=== PATIENT | female | born 1945 | race Caucasian/White ===

== ENCOUNTER 2018-01-06 07:06 | Day surgery (SDC) | payer MEDICARE, OTHER ==
[~2018-01-06] VITALS: Ht 157.5 cm; Wt 90.3 kg
[2018-01-06] VITALS (8 sets, daily range): BP systolic 113–140; BP diastolic 68–94
[2018-01-06] MEDS ORDERED: NS IV 1000 ML 1,000 ML IV SCH (07:15)
[2018-01-06 07:45] LABS: HEMOGLOBIN 13.5 G/DL (11.5-16.0); MEAN PLATELET VOLUME 9.6 FL (7.4-10.4); RED BLOOD COUNT 4.68 10^6/uL (4.35-5.85); RED CELL DISTRIBUTION WIDTH 13.1 % (10.0-14.5); WHITE BLOOD COUNT 6.5 10^3/uL (4.3-11.0)
[2018-01-06 08:02] LABS: INR 1.1 (0.8-1.4); PROTHROMBIN TIME PATIENT 14.6 SEC (12.2-14.7)
[2018-01-06 08:07] LABS: ALANINE AMINOTRANSFERASE 9 U/L (0-55); ALBUMIN 3.8 GM/DL (3.2-4.5); ALKALINE PHOSPHATASE 39 U/L (40-136); BILIRUBIN,TOTAL 0.9 MG/DL (0.1-1.0); BUN/CREATININE RATIO 14; CALCIUM 9.1 MG/DL (8.5-10.1); CARBON DIOXIDE 22 MMOL/L (21-32); CHLORIDE 110 MMOL/L (98-107); CREATININE SERUM 0.84 MG/DL (0.60-1.30); GFR ESTIMATED > 60; GLUCOSE 115 MG/DL (70-105); POTASSIUM 4.1 MMOL/L (3.6-5.0); SODIUM 138 MMOL/L (135-145); TOTAL PROTEIN 6.1 GM/DL (6.4-8.2)
[2018-01-06] MEDS ORDERED: LEVE500T6 PO (08:52)
[2018-01-06] MEDS ORDERED: PANT40TA2 PO (08:52)
[2018-01-06] MEDS ORDERED: SIMV40TA4 PO (08:52)
[2018-01-06] MEDS ORDERED: APIX5TAB PO (08:52)
[2018-01-06] MEDS ORDERED: OMEG-82 PO (08:52)
[2018-01-06] MEDS ORDERED: METO-370 PO (08:52)
[2018-01-06] MEDS ORDERED: CYAN1TAB64 SL (08:52)
[2018-01-06] MEDS ORDERED: LISI-556 PO (08:52)
[2018-01-06] MEDS ORDERED: proPOfol 200 MG/20 ML (DIPRIVAN) VIAL IV ONE (09:27)
[2018-01-06] MEDS ORDERED: MIDAZOLAM 2 MG/2 ML (VERSED) VIAL ONE (09:28)
--- NOTE | 2018-01-06 09:57 | Anesthesia-Procedure Note ---
Procedures/Interventions Procedure Start/Stop/Diagnosis Date of Procedure: Jan 06, 2018 Start Time: 09:44 Referring Physician: Brett Preprocedural Diagnosis: Atrial Fibrillation Brief History Called to photo lab specialist for scheduled cardioversion of atrial fibrillation. Pt awake with all monitors applied. O2 per NC flowing at 3lpm. ASA 3. IV infusing Rt. arm. Propofol boluses given for a total of 70 mg. Pt tolerated procedure well. Remained SV. Sats 100%. Converted to SB. Report to RN. VSS Stop Time: 09:50 Postprocedural Diagnosis: Atrial Fibrillation SAWYER MCCRAY CRNA Jan 06, 2018 09:57
--- NOTE | 2018-01-06 10:17 | Cardioversion ---
Cardioversion PROCEDURE PHYSICIAN: Sharif West MD DATE OF PROCEDURE: 01/06/18 DIRECT EXTERNAL ELECTRICAL CARDIOVERSION: Indications: Atrial Fibrillation Preoperative diagnoses: Atrial Fibrillation Postoperative diagnosis: Sinus rhythm, Successful Electrical Cardioversion History: Anesthesia: By Anesthesia services Complications: None Specimen: None Contrast: 0 Flouroscopy: none Procedure Details: The patient was brought the labor employment associate after informed consent was taken, all the risks and complications were explained including the risk of stroke. Uninterrupted eliquis therapy for atleast one month. Electrical cardioversion was carried out with anesthesia support with propofol. 120 joules of synchronized shock was delivered through external patches which promptly restored sinus rhythm with PACs. The patient tolerated the procedure well. Conclusions: 1.Successful Cardioversion. 2.Continue oral anticoagulation and rate controlling agent. 3.Follow up in office in 10 days. Sharif West MD, RS, CCDS Cardiac Electrophysiology Shirley WEST MD Jan 06, 2018 10:16 am
== END 2018-01-06 10:57 | disposition home or self-care (01) ==
LOC: CATH 07:06
PROVIDERS: ATTEND Internal Medicine Interventional Cardiology
DX: I48.1 Persistent atrial fibrillation (principal); I49.3 Ventricular premature depolarization; I10 Essential (primary) hypertension; E78.5 Hyperlipidemia, unspecified; E66.9 Obesity, unspecified; Z68.36 Body mass index [BMI] 36.0-36.9, adult; Z87.891 Personal history of nicotine dependence; Z79.01 Long term (current) use of anticoagulants; Z79.899 Other long term (current) drug therapy
CPT/HCPCS: 36415; 80053; 85027; 85610; 85730; 87081; 92960; 93005

== ENCOUNTER 2018-04-27 19:18 | Emergency (ER) | payer MEDICARE, OTHER ==
[~2018-04-27] VITALS: Ht 157.5 cm; Wt 90.7 kg
[~2018-04-27 19:18] MED LIST: APIX5TAB PO; CYAN1TAB64 SL; LEVE500T6 PO; LISI-556 PO; METO-370 PO; OMEG-82 PO; PANT40TA2 PO; SIMV40TA4 PO
[2018-04-27 19:52] LABS: BASOPHILS % (AUTO) 0 % (0-10); EOSINOPHILS # (AUTO) 0.2 10^3/uL (0.0-0.3); EOSINOPHILS % (AUTO) 2 % (0-10); HEMATOCRIT 40 % (35-52); LYMPHOCYTES # (AUTO) 2.8 X 10^3 (1.0-4.0); LYMPHOCYTES % (AUTO) 36 % (12-44); MEAN CORPUSCULAR HEMOGLOBIN 29 PG (25-34); MEAN CORPUSCULAR HGB CONC 35 G/DL (32-36); MEAN CORPUSCULAR VOLUME 84 FL (80-99); MEAN PLATELET VOLUME 10.1 FL (7.4-10.4); MONOCYTES # (AUTO) 0.8 X 10^3 (0.0-1.0); MONOCYTES % (AUTO) 10 % (0-12); NEUTROPHILS # (AUTO) 4.1 X 10^3 (1.8-7.8); NEUTROPHILS % (AUTO) 52 % (42-75); PLATELET COUNT 277 10^3/uL (130-400); RED BLOOD COUNT 4.77 10^6/uL (4.35-5.85); WHITE BLOOD COUNT 7.9 10^3/uL (4.3-11.0)
[2018-04-27 19:56] LABS: BILIRUBIN,URINE NEGATIVE (NEGATIVE); CLARITY,URINE SLIGHTLY CLOUDY; COLOR,URINE YELLOW; GLUCOSE, URINE (UA) NEGATIVE (NEGATIVE); KETONES,URINE NEGATIVE (NEGATIVE); LEUKOCYTE ESTERASE ,URINE 3+ (NEGATIVE); NITRITE,URINE NEGATIVE (NEGATIVE); PH,URINE 5 (5-9); PROTEIN,URINE NEGATIVE (NEGATIVE); UROBILINOGEN,URINE NORMAL (NORMAL)
[2018-04-27 20:03] LABS: BACTERIA,URINE TRACE /HPF; RBC,URINE 0-2 /HPF; WBC,URINE >100 /HPF
[2018-04-27 20:10] LABS: FIBRIN DEGRADATION PRODUCTS 0.33 UG/ML (0.00-0.49); INR 1.3 (0.8-1.4); PROTHROMBIN TIME PATIENT 16.4 SEC (12.2-14.7)
[2018-04-27 20:12] LABS: ALANINE AMINOTRANSFERASE 12 U/L (0-55); ALBUMIN 4.2 GM/DL (3.2-4.5); ALKALINE PHOSPHATASE 60 U/L (40-136); BILIRUBIN,TOTAL 0.7 MG/DL (0.1-1.0); BUN/CREATININE RATIO 15; CALCIUM 9.2 MG/DL (8.5-10.1); CARBON DIOXIDE 18 MMOL/L (21-32); CHLORIDE 109 MMOL/L (98-107); CREATININE SERUM 0.89 MG/DL (0.60-1.30); GFR ESTIMATED > 60; GLUCOSE 117 MG/DL (70-105); SODIUM 139 MMOL/L (135-145); TOTAL PROTEIN 7.2 GM/DL (6.4-8.2)
[2018-04-27 20:35] VITALS: BP 126/65
--- NOTE | 2018-04-27 20:36 | Diagnostic Imaging Report ---
PROCEDURE: CT head without contrast, r/o stroke. TECHNIQUE: Multiple contiguous axial images were obtained through the brain without the use of intravenous contrast. INDICATION: Elevated blood pressure, prior brain tumor removed, blurred vision. COMPARISON: None available. FINDINGS: Mild atrophy. No intracranial hemorrhage, intracranial mass, mass effect, midline shift, herniation, hydrocephalus or extra-axial fluid collection. No definite CT evidence of an acute ischemic infarction. Postsurgical changes are identified associated with the right frontal bone with underlying dural calcifications. Postsurgical changes associated with the left maxillary sinus. The paranasal sinuses are clear. The calvarium and extracalvarial soft tissues are otherwise unremarkable. The orbits are unremarkable IMPRESSION: 1. No acute intracranial abnormality. 2. Postsurgical changes within the right frontal region. 3. Mild atrophy. 4. If there remains clinical concern about recent infarction, further evaluation with MRI of the brain could be obtained. Dictated by: Dictated on workstation # [id number]
--- NOTE | 2018-04-27 20:38 | Diagnostic Imaging Report ---
INDICATION: Stroke. COMPARISON: None available. TECHNIQUE: Single frontal radiograph of the chest dated April 27, 2018. FINDINGS: Cardiac silhouette is mildly enlarged. No significant pulmonary vascular congestion. Rounded retrocardiac density and lucency is present, most consistent with a large hiatal hernia. The lungs otherwise appear clear. No pleural effusion. No pneumothorax. No acute osseous abnormality. IMPRESSION: 1. No acute cardiopulmonary abnormality. 2. Retrocardiac density and lucency, favored to relate to a large hiatal hernia. Comparison to prior imaging versus lateral imaging of the chest are recommended to confirm this hiatal hernia. Dictated by: Dictated on workstation # [id number]
[2018-04-27] MEDS ORDERED: cefTRIAXone FOR IV USE 1,000 MG in NS (IVPB) 50 ML IV ONE (20:45)
[2018-04-27] MEDS ORDERED: NS 100 ML (IVPB) BAG IV ONE (21:00)
[2018-04-27] MEDS ORDERED: IOHEXOL 350 MG/ML 100 ML (OMNIPAQUE 350) VIAL IV ONE (21:00)
[2018-04-27] MEDS ORDERED: RECEIVED CONTRAST (Hold Metformin) IV SCH (21:00)
--- NOTE | 2018-04-27 21:47 | ED General ---
General Chief Complaint: General Problems/Pain Stated Complaint: BLOOD PRESSURE PROBLEMS,LOSS OF VISION, HAS A FIB Nursing Triage Note: PT AMB TO ROOM #5 W/O DIFFICULTY. A&OX4. C/O FLUCTUATING BP, VISUAL CHANGES, AND HEAD DISCOMFORT. PT REPORTS SHE WAS WATCHING TV THIS EVENING @ APPROX 1900 WHEN SHE LOST BILAT VISION. PT STATES, "MY HEAD FEELS WEIRD, IT JUST DOES'NT FEEL RIGHT." UPON ARRIVAL NO VISUAL DISTURBANCES NOTED. 4MM PERRLA. DENIES NUMBNESS/TINGLING IN EXTREMITIES. DENIES HEADAHCE. INITIAL BP 147/81. REPORTS HX A-FIB. @ SIDE. Nursing Sepsis Screen: No Definite Risk Source of Information: Patient Exam Limitations: No Limitations History of Present Illness Date Seen by Provider: Apr 27, 2018 Allergies and Home Medications Allergies Coded Allergies: acetaminophen (Verified Allergy, Unknown, 01/06/18) amoxicillin (Verified Allergy, Unknown, 01/06/18) clavulanic acid (Verified Allergy, Unknown, 01/06/18) codeine (Verified Allergy, Unknown, 01/06/18) hydrocodone (Verified Allergy, Unknown, 01/06/18) oxycodone (Verified Allergy, Unknown, 01/06/18) Home Medications Apixaban 5 Mg Tablet, 5 MG PO BID, (Reported) Cyanocobalamin/Cobamamide 1 Each Tab.subl, 5,000 MCG SL DAILY, (Reported) Levetiracetam 500 Mg Tablet, 250 MG PO BID, (Reported) TAKES 1/2 (500MG) TABLET Lisinopril 5 Mg Tablet, 5 MG PO DAILY, (Reported) Metoprolol Succinate 50 Mg Tab.er.24h, 50 MG PO DAILY, (Reported) Nitrofurantoin Monohyd/M-Cryst 100 Mg Capsule, 100 MG PO BID Prescribed by: MARYURI LACY on 04/27/18 2240 [place]-3S/Dha/Epa/Fish Oil/D3 1 Each Capsule, 1 CAP PO DAILY, (Reported) Pantoprazole Sodium 40 Mg Tablet.dr, 40 MG PO DAILY, (Reported) Simvastatin 40 Mg Tablet, 40 MG PO DAILY, (Reported) Past Xwsfniz-Iyeppy-Tkzcpl Hx Patient Social History Alcohol Use: Denies Use Recreational Drug Use: No Smoking Status: Never a Smoker 2nd Hand Smoke Exposure: No Recent Foreign Travel: No Contact w/Someone Who Travel: No Recent Infectious Disease Expo: No Physical Abuse: No Sexual Abuse: No Immunizations Up To Date Date of Pneumonia Vaccine: Jan 07, 2016 Past Medical History Surgeries: Yes (BRAIN TUMOR, REMOVAL OF LUMP IN BREAST, MASS REMOVED FROM FACE) Respiratory: No Cardiac: Yes Atrial Fibrillation Neurological: Yes Brain Tumor Genitourinary: No Gastrointestinal: Yes (DIVERTICULITIS) Hiatal Hernia Musculoskeletal: No Endocrine: No HEENT: No Brain Integumentary: No Physical Exam Vital Signs Vital Signs - First Documented 04/27/18 19:28 Temp 97.9 Pulse 89 Resp 22 B/P (MAP) 147/81 (103) Pulse Ox 98 O2 Delivery Room Air Capillary Refill : Less Than 3 Seconds Height, Weight, BMI Height: 5'2.00" Weight: 200lbs. 0.0oz. [id number]; 36.4 BMI Method:Stated Focused Exam Lactate Level 04/27/18 21:50: Lactic Acid Level 0.81 Lactic Acid Level Laboratory Tests Test 04/27/18 21:50 Lactic Acid Level 0.81 MMOL/L (0.50-2.00) Progress/Results/Core Measures Suspected Sepsis Recent Fever Within 48 Hours: No Infection Criteria Present: None New/Unexplained Altered Menta: No Sepsis Screen: No Definite Risk SIRS Temperature:97.9 Pulse: 53 Respiratory Rate: 20 Laboratory Tests 04/27/18 19:32: White Blood Count 7.9 Blood Pressure 126 /65 Mean: 103 04/27/18 21:50: Lactic Acid Level 0.81 Laboratory Tests 04/27/18 19:32: Creatinine 0.89, INR Comment 1.3, Platelet Count 277, Total Bilirubin 0.7 Results/Orders Lab Results Laboratory Tests Test 04/27/18 19:32 04/27/18 19:47 04/27/18 21:50 Range/Units White Blood Count 7.9 4.3-11.0 10^3/uL Red Blood Count 4.77 4.35-5.85 10^6/uL Hemoglobin 14.0 11.5-16.0 G/DL Hematocrit 40 35-52 % Mean Corpuscular Volume 84 80-99 FL Mean Corpuscular Hemoglobin 29 25-34 PG Mean Corpuscular Hemoglobin Concent 35 32-36 G/DL Red Cell Distribution Width 13.0 10.0-14.5 % Platelet Count 277 130-400 10^3/uL Mean Platelet Volume 10.1 7.4-10.4 FL Neutrophils (%) (Auto) 52 42-75 % Lymphocytes (%) (Auto) 36 12-44 % Monocytes (%) (Auto) 10 0-12 % Eosinophils (%) (Auto) 2 0-10 % Basophils (%) (Auto) 0 0-10 % Neutrophils # (Auto) 4.1 1.8-7.8 X 10^3 Lymphocytes # (Auto) 2.8 1.0-4.0 X 10^3 Monocytes # (Auto) 0.8 0.0-1.0 X 10^3 Eosinophils # (Auto) 0.2 0.0-0.3 10^3/uL Basophils # (Auto) 0.0 0.0-0.1 10^3/uL Prothrombin Time 16.4 H 12.2-14.7 SEC INR Comment 1.3 0.8-1.4 Activated Partial Thromboplast Time 45 H 24-35 SEC D-Dimer 0.33 0.00-0.49 UG/ML Sodium Level 139 135-145 MMOL/L Potassium Level 4.0 3.6-5.0 MMOL/L Chloride Level 109 H 98-107 MMOL/L Carbon Dioxide Level 18 L 21-32 MMOL/L Anion Gap 12 5-14 MMOL/L Blood Urea Nitrogen 13 7-18 MG/DL Creatinine 0.89 0.60-1.30 MG/DL Estimat Glomerular Filtration Rate > 60 BUN/Creatinine Ratio 15 Glucose Level 117 H 70-105 MG/DL Calcium Level 9.2 8.5-10.1 MG/DL Corrected Calcium 9.0 8.5-10.1 MG/DL Total Bilirubin 0.7 0.1-1.0 MG/DL Aspartate Amino Transf (AST/SGOT) 18 5-34 U/L Alanine Aminotransferase (ALT/SGPT) 12 0-55 U/L Alkaline Phosphatase 60 40-136 U/L Troponin I < 0.30 <0.30 NG/ML Total Protein 7.2 6.4-8.2 GM/DL Albumin 4.2 3.2-4.5 GM/DL Urine Color YELLOW Urine Clarity SLIGHTLY CLOUDY Urine pH 5 5-9 Urine Specific [place] 1.025 H 1.016-1.022 Urine Protein NEGATIVE NEGATIVE Urine Glucose (UA) NEGATIVE NEGATIVE Urine Ketones NEGATIVE NEGATIVE Urine Nitrite NEGATIVE NEGATIVE Urine Bilirubin NEGATIVE NEGATIVE Urine Urobilinogen NORMAL NORMAL MG/DL Urine Leukocyte Esterase 3+ H NEGATIVE Urine RBC (Auto) 1+ H NEGATIVE Urine RBC 0-2 /HPF Urine WBC >100 H /HPF Urine Squamous Epithelial Cells 2-5 /HPF Urine Crystals NONE /LPF Urine Bacteria TRACE /HPF Urine Casts NONE /LPF Urine Mucus NEGATIVE /LPF Urine Culture Indicated YES Lactic Acid Level 0.81 0.50-2.00 MMOL/L My Orders Orders - MARYURI LACY DO Cbc With Automated Diff (04/27/18 19:40) Protime With Inr (04/27/18 19:40) Partial Thromboplastin Time (04/27/18 19:40) Comprehensive Metabolic Panel (04/27/18 19:40) Fibrin Degradation Products (04/27/18 19:40) Troponin I (04/27/18 19:40) Ua Culture If Indicated (04/27/18 19:40) Chest 1 View, Ap/Pa Only (04/27/18 19:40) Ekg Tracing (04/27/18 19:40) Nothing By Mouth (04/28/18 Breakfast) Saline Lock/Iv-Start (04/27/18 19:40) Vital Signs Stroke Patient Q15M (04/27/18 19:40) Ct Head Wo-R/O Stroke (04/27/18 19:40) O2 (04/27/18 19:40) Intake & Output 06,14,22 (04/27/18 19:40) Monitor-Rhythm Ecg Trace Only (04/27/18 19:40) Dysphagia Screening Tool (04/27/18 19:40) Post Thrombolytic Adminstratio (04/27/18 19:40) Lipid Panel (04/28/18 06:00) Urine Culture (04/27/18 19:47) Ct Angio Head/Neck (04/27/18 20:40) Lactic Acid Analyzer (04/27/18 20:42) Blood Culture (04/27/18 20:42) Ceftriaxone For Iv Use (Rocephin For I (04/27/18 20:45) Iohexol Injection (Omnipaque 350 Mg/Ml 1 (04/27/18 21:00) Contrast Received (Contrast Received) (04/27/18 21:00) Ns (Ivpb) (Sodium Chloride 0.9% Ivpb Bag (04/27/18 21:00) Saline Lock/Iv-Start (04/27/18 22:08) Lactated Ringers (Lr 1000 Ml Iv Solution (04/27/18 22:08) Lactated Ringers (Lr 1000 Ml Iv Solution (04/27/18 22:08) Medications Given in ED Current Medications Medications Dose Ordered Sig/Rita Route Start Time Stop Time Status Last Admin Dose Admin Ceftriaxone Sodium 1000 mg/ Sodium Chloride 60 ml @ 100 mls/hr ONCE ONCE IV 04/27/18 20:45 04/27/18 21:20 DC 04/27/18 22:09 100 MLS/HR Iohexol 75 ml ONCE ONCE IV 04/27/18 21:00 04/27/18 21:11 DC 04/27/18 20:57 75 ML Lactated Ringer's 1,000 ml @ 0 mls/hr Q0M ONCE IV 04/27/18 22:08 04/27/18 22:10 DC 04/27/18 22:12 1,000 MLS/HR Sodium Chloride 100 ml ONCE ONCE IV 04/27/18 21:00 04/27/18 21:11 DC 04/27/18 20:57 80 ML Vital Signs/I&O 04/27/18 04/27/18 19:28 20:35 Temp 97.9 Pulse 89 53 Resp 22 20 B/P (MAP) 147/81 (103) 126/65 Pulse Ox 98 95 O2 Delivery Room Air Capillary Refill : Less Than 3 Seconds Blood Pressure Mean: 103 Departure Impression Primary Impression: UTI (urinary tract infection) Additional Impression: TRANSIENT BLURRY VISION Disposition: 01 HOME, SELF-CARE Condition: Improved Departure-Patient Inst. Referrals: NO,LOCAL PHYSICIAN (PCP) Primary Care Physician BALDOMERO PARISH MD Patient Instructions: Urinary Tract Infection, Adult (DC) Add. Discharge Instructions: HOME, REST LOTS OF CLEAR LIQUIDS SLOW POSITION CHANGES TAKE YOUR REGULAR MEDICATIONS PRESCRIBED FOLLOW UP WITH YOUR DR THIS WEEK FOR FURTHER CARE All discharge instructions reviewed with patient and/or family. Voiced understanding. Scripts Nitrofurantoin Monohyd/M-Cryst (Macrobid 100 mg Capsule) 100 Mg Capsule 100 MG PO BID, #20 CAP Prov: MARYURI LACY DO 04/27/18 MARYURI LACY DO Apr 27, 2018 21:47
--- NOTE | 2018-04-27 21:50 | Diagnostic Imaging Report ---
PROCEDURE: CT angiography of the head and CT angiography of the neck with and without contrast. TECHNIQUE: Contiguous noncontrast images were obtained from the skull base through the vertex. After intravenous contrast administration, helical CT angiography of the neck was performed. Source data was reformatted into multiple MIP projections. Delayed post contrast acquisition was also obtained. INDICATION: Elevated blood pressure COMPARISON: CT head from the same day. FINDINGS: Mild atrophy. No enhancing intracranial mass. Surgical changes are again identified associated with the right frontal region with underlying dural calcifications. No definite intracranial hemorrhage, though evaluation is limited secondary to presence of intravenous contrast. No midline shift, herniation, hydrocephalus, or extra-axial fluid collection. Mucosal thickening versus mucous retention cyst within the left maxillary sinus. Postsurgical changes within the left maxillary sinus. Otherwise, the paranasal sinuses are clear. Besides postsurgical changes, the calvarium and extracalvarial soft tissues are unremarkable. Parapharyngeal fat is symmetric and well maintained. Muscles of mastication are unremarkable. The orbits are unremarkable. The left salivary gland is diminutive. Otherwise, the salivary glands are unremarkable. No significant adenopathy within the neck. The epiglottis and aryepiglottic folds are unremarkable. The airway is patent. No focal fluid collection. The thyroid gland appears heterogeneous without discrete nodule. The visualized upper lungs are clear. No apical pneumothorax. The aortic arch itself is not included within the [id number], therefore, the origins of the large vessels off of the aortic arch is not able be evaluated on this examination. The large arterial structures within the head and neck are unremarkable without evidence of occlusion, dissection, hemodynamic stenosis, aneurysm, or pseudoaneurysm. Large intracranial venous sinuses are patent. IMPRESSION: Large arterial structures of the head and neck are unremarkable. Mild atrophy with stable postsurgical changes within the right frontal region. Additional findings as above. Dictated by: Dictated on workstation # [id number]
[2018-04-27] MEDS ORDERED: LACTATED RINGERS 1,000 ML IV ONE ×2 (22:08)
[2018-04-27] MEDS ORDERED: NITR-65 PO (22:40)
[2018-04-27 23:31] VITALS: BP 130/67
== END 2018-04-27 23:32 | disposition home or self-care (01) ==
LOC: EDUNIT# 19:18 → ER 19:20
DX: N39.0 Urinary tract infection, site not specified (principal); H53.8 Other visual disturbances; I48.91 Unspecified atrial fibrillation; Z88.5 Allergy status to narcotic agent; Z88.1 Allergy status to other antibiotic agents; Z88.8 Allergy status to other drugs, medicaments and biological substances; Z86.012 Personal history of benign carcinoid tumor; Z87.19 Personal history of other diseases of the digestive system
CPT/HCPCS: 36415; 70450; 70496; 70498; 71045; 80053; 81000; 83605; 84484; 85025; 85379; 85610; 85730; 87040; 87088; 93005; 93041; 96361; 96365

== ENCOUNTER 2018-05-19 12:43 | Emergency (ER) | payer MEDICARE, OTHER ==
[~2018-05-19] VITALS: Ht 157.5 cm; Wt 88.5 kg
[~2018-05-19 12:43] MED LIST changes: +NITR-65 PO
[2018-05-19] MEDS ORDERED: NS IV 1000 ML 1,000 ML IV SCH ×2 (13:00→15:15)
[2018-05-19] MEDS ORDERED: ONDANSETRON 4 MG/2 ML (SDV) Z0FRAN IVP ONE (13:00)
[2018-05-19 13:10] LABS: BASOPHILS % (AUTO) 0 % (0-10); EOSINOPHILS % (AUTO) 0 % (0-10); HEMATOCRIT 45 % (35-52); HEMOGLOBIN 15.2 G/DL (11.5-16.0); LYMPHOCYTES # (AUTO) 2.4 X 10^3 (1.0-4.0); LYMPHOCYTES % (AUTO) 16 % (12-44); MEAN CORPUSCULAR HEMOGLOBIN 28 PG (25-34); MEAN CORPUSCULAR HGB CONC 34 G/DL (32-36); MEAN CORPUSCULAR VOLUME 84 FL (80-99); MEAN PLATELET VOLUME 10.3 FL (7.4-10.4); MONOCYTES # (AUTO) 0.5 X 10^3 (0.0-1.0); MONOCYTES % (AUTO) 4 % (0-12); NEUTROPHILS # (AUTO) 11.7 X 10^3 (1.8-7.8); NEUTROPHILS % (AUTO) 79 % (42-75); PLATELET COUNT 333 10^3/uL (130-400); RED BLOOD COUNT 5.38 10^6/uL (4.35-5.85); RED CELL DISTRIBUTION WIDTH 13.2 % (10.0-14.5); WHITE BLOOD COUNT 14.7 10^3/uL (4.3-11.0)
[2018-05-19 13:32] LABS: BAND NEUTROPHILS 0 %; BASOPHILS % (MANUAL) 0 %; EOSINOPHILS % (MANUAL) 0 %; LYMPHOCYTES % (MANUAL) 22 %; MONOCYTES % (MANUAL) 4 %; NEUTROPHILS % (MANUAL) 74 %; RBC MORPH NORMAL
[2018-05-19 13:36] LABS: ALANINE AMINOTRANSFERASE 10 U/L (0-55); ALBUMIN 4.2 GM/DL (3.2-4.5); ALKALINE PHOSPHATASE 54 U/L (40-136); AMYLASE 34 U/L (25-125); BILIRUBIN,TOTAL 1.3 MG/DL (0.1-1.0); BUN/CREATININE RATIO 15; CALCIUM 9.7 MG/DL (8.5-10.1); CARBON DIOXIDE 19 MMOL/L (21-32); CHLORIDE 106 MMOL/L (98-107); CREATININE SERUM 0.89 MG/DL (0.60-1.30); GFR ESTIMATED > 60; GLUCOSE 159 MG/DL (70-105); LIPASE 34 U/L (8-78); POTASSIUM 4.3 MMOL/L (3.6-5.0); SODIUM 138 MMOL/L (135-145); TOTAL PROTEIN 7.2 GM/DL (6.4-8.2)
[2018-05-19] MEDS ORDERED: MECLIZINE 25 MG (ANTIVERT) TAB PO ONE (13:45)
--- NOTE | 2018-05-19 14:52 | Diagnostic Imaging Report ---
PROCEDURE: CT head wo r/o stroke. TECHNIQUE: Multiple contiguous axial images were obtained through the brain without the use of intravenous contrast. INDICATION: Dizziness and weakness. COMPARISON: Comparison is made with prior head CT from 04/27/2018. FINDINGS: Postsurgical changes of right frontal craniotomy are noted. Ventricles and sulci are within normal limits. No sulcal effacement, midline shift, or hemorrhage is detected. Cisterns are patent. Visualized paranasal sinuses are clear apart from small mucus retention cyst or polyp in the left maxillary sinus. IMPRESSION: No acute intracranial process is detected. Results were called to [facility] of the emergency department prior to this dictation. Dictated by: Dictated on workstation # [id number]
[2018-05-19] MEDS ORDERED: PROMETHAZINE INJ 25 MG/ML (PHENERGAN) AMP IVP ONE (15:00)
[2018-05-19 15:13] LABS: BILIRUBIN,URINE NEGATIVE (NEGATIVE); CLARITY,URINE CLEAR; COLOR,URINE YELLOW; GLUCOSE, URINE (UA) NEGATIVE (NEGATIVE); KETONES,URINE 4+ (NEGATIVE); LEUKOCYTE ESTERASE ,URINE 1+ (NEGATIVE); NITRITE,URINE NEGATIVE (NEGATIVE); PH,URINE 5 (5-9); PROTEIN,URINE 2+ (NEGATIVE); UROBILINOGEN,URINE NORMAL (NORMAL)
[2018-05-19 15:26] LABS: BACTERIA,URINE NEGATIVE /HPF; RBC,URINE RARE /HPF; SQUAMOUS EPITHELIAL CELL,UR RARE /HPF; WBC,URINE RARE /HPF
--- NOTE | 2018-05-19 15:50 | Consultation-Cardiology ---
HPI-Cardiology Cardiology Consultation: Date of Consultation 05/19/18 Date of Admission Attending Physician Admitting Physician Cleo,Local Physician Consulting Physician Shirley WEST MD HPI: Time Seen by a Provider: 15:44 Chief Complaint: Nausea, vomiting, dizziness. This is a 72-year-old lady who presents with the complaint of nausea, vomiting and dizziness. She denies any chest pain or shortness of breath. Previously she was referred by Dr. Whiting for persistent atrial fibrillation. Patient has recently moved to the [facility]. She has history of hypertension, hyperlipidemia. She denies diabetes, congestive heart failure, CAD. She has history of possible heart murmur, hiatal hernia, colitis. She also has a history of a brain tumor which required surgery. She has a raised to a left upper arm numbness. She also had precancerous lesion in the breast and also sinus surgery. According to the patient she had echocardiogram and stress test done in May 2017. She does not smoke. She has family history of diabetes and congestive heart failure. According to the patient her atrial fibrillation was diagnosed in April 2017. She complains of fatigue and shortness of breath. She denies any chest pain. Successful electrical cardioversion to sinus rhythm on 01/06/2018. Improved symptoms during sinus rhythm. Review of Systems-Cardiology Review of Systems Constitutional: As described under HPI; No As described under HPI, No no symptoms reported; chills; No fever; lightheadedness, tiredness Eyes: No As described under HPI, No no symptoms reported, No blindness, No blurred vision, No contact lenses, No drainage, No decreased acuity, No foreign body sensation, No pain, No vision change Ears/Nose/Throat: No As described under HPI, No no symptoms reported, No chronic hearing loss, No ear discharge, No ear pain, No nasal drainage, No ulcerations Respiratory: No no symptoms reported; As described under HPI; No As described under HPI, No cough, No orthopnea, No shortness of breath, No SOB with excertion Cardiovascular: No no symptoms reported; As described under HPI; No As described under HPI, No chest pain, No edema, No irregular heart rate, No lightheadedness, No palpitations Gastrointestinal: No no symptoms reported, No As described under HPI, No abdomen distended, No abdominal pain, No blood streaked bowels, No constipation , No diarrhea, No nausea, No vomiting; nausea/vomiting/diarrhea; No stool coloration changes Genitourinary: No As described under HPI, No burning, No dysuria, No discharge , No frequency, No flank pain, No hematuria, No urgency : Yes : No Skin: No rash, No skin related problems, No ulcerations Psychiatric/Neurological: No anxiety, No depression, No seizure, No focal weakness, No syncope Hematologic: No bleeding abnormalities DYV-Mgwldn-Rckpsq Hx Patient Social History Alcohol Use: Denies Use Recreational Drug Use: No Smoking Status: Never a Smoker 2nd Hand Smoke Exposure: No Recent Foreign Travel: No Recent Infectious Disease Expo: No Immunizations Up To Date Date of Pneumonia Vaccine: Jan 07, 2016 Past Medical History PMH As described under Assessment. Allergies and Home Medications Allergies Coded Allergies: acetaminophen (Verified Allergy, Unknown, 01/06/18) amoxicillin (Verified Allergy, Unknown, 01/06/18) clavulanic acid (Verified Allergy, Unknown, 01/06/18) codeine (Verified Allergy, Unknown, 01/06/18) hydrocodone (Verified Allergy, Unknown, 01/06/18) oxycodone (Verified Allergy, Unknown, 01/06/18) Home Medications Apixaban 5 Mg Tablet, 5 MG PO BID, (Reported) Cyanocobalamin/Cobamamide 1 Each Tab.subl, 5,000 MCG SL DAILY, (Reported) Levetiracetam 500 Mg Tablet, 250 MG PO BID, (Reported) TAKES 1/2 (500MG) TABLET Lisinopril 5 Mg Tablet, 5 MG PO DAILY, (Reported) Metoprolol Succinate 50 Mg Tab.er.24h, 50 MG PO DAILY, (Reported) Nitrofurantoin Monohyd/M-Cryst 100 Mg Capsule, 100 MG PO BID Prescribed by: MARYURI LACY on 04/27/18 2240 Chase-3S/Dha/Epa/Fish Oil/D3 1 Each Capsule, 1 CAP PO DAILY, (Reported) Pantoprazole Sodium 40 Mg Tablet.dr, 40 MG PO DAILY, (Reported) Simvastatin 40 Mg Tablet, 40 MG PO DAILY, (Reported) Patient Home Medication List Home Medication List Reviewed: Yes Physical Exam-Cardiology Physical Exam Vital Signs/I&O 05/19/18 13:19 Temp 98.7 Pulse 103 Resp 20 B/P (MAP) 118/85 (96) Capillary Refill : Less Than 3 Seconds Constitutional: AAO x 3 HEENT: No PERRL, No normal ENT inspection, No TMs normal, No pharynx normal, No scleral icterus (R), No scleral icterus (L), No pale conjunctivae (R), No pale conjunctivae (L), No photophobia, No TM abnormal (R), No TM abnormal (L), No pharyngeal erythema, No tonsillar exudate, No other, No discharge, No EOMI, No hearing is well preserved, No hard of hearing, No oral hygience is good, No ulceration, No xanthelasmas are seen Neck: No non-tender, No full range of motion, No supple, No normal inspection, No carotid bruit, No limited range of motion, No lymphadenopathy (R), No lymphadenopathy (L), No tender lateral, No tender midline, No thyromegaly, No other, No carotid pulses are 2 + bilaterally, No with good upstrokes Respiratory: No accessory muscle use, No respiratory distress, No chest tender , No chest expansion is symmetric; chest is bilaterally symmetric; No lungs clear to percussion; lungs clear to auscultation; No crackles, No rhonchi, No rales, No stridor, No wheezing, No pleural rub, No other Cardiovascular: No regular rate-rhythm; irregularly irregular; No extra beats, No parasternal heave is noted, No JVD, No edema, No bradycardia; tachycardia; No point of maximal impulse, No cardiac thrills are palpable; S1 and S2; No gallop/S3, No gallop/S4, No diastolic murmur, No systolic murmur, No friction rub, No click, No other Gastrointestinal: No tender, No soft, No round, No distended, No pulsatile mass , No organomegaly, No guarding, No rebound, No tenderness, No hernia, No mass, No audible bowel sounds, No abnormal bowel sounds, No abdominal bruits, No spleenomegaly, No other Rectal: deferred Extremities: No normal range of motion, No non-tender, No normal inspection, No pedal edema, No calf tenderness, No normal capillary refill, No pelvis stable , No calf tenderness, No inflammation, No pedal edema, No slow capillary refill , No swelling, No other, No abrasion, No clubbing, No cyanosis, No ecchymosis, No laceration, No no lower extremity edema bilateral, No significant edema, No tenderness, No wound Neurologic/Psychiatric: no motor/sensory deficits, alert, normal mood/affect, oriented x 3 Data Review Labs Laboratory Tests 05/19/18 13:02: White Blood Count 14.7H, Red Blood Count 5.38, Hemoglobin 15.2, Hematocrit 45, Mean Corpuscular Volume 84, Mean Corpuscular Hemoglobin 28, Mean Corpuscular Hemoglobin Concent 34, Red Cell Distribution Width 13.2, Platelet Count 333, Mean Platelet Volume 10.3, Neutrophils (%) (Auto) 79H, Lymphocytes (%) (Auto) 16 , Monocytes (%) (Auto) 4, Eosinophils (%) (Auto) 0, Basophils (%) (Auto) 0, Neutrophils # (Auto) 11.7H, Lymphocytes # (Auto) 2.4, Monocytes # (Auto) 0.5, Eosinophils # (Auto) 0.0, Basophils # (Auto) 0.0, Neutrophils % (Manual) 74, Lymphocytes % (Manual) 22, Monocytes % (Manual) 4, Eosinophils % (Manual) 0, Basophils % (Manual) 0, Band Neutrophils 0, Blood Morphology Comment NORMAL, Sodium Level 138, Potassium Level 4.3, Chloride Level 106, Carbon Dioxide Level 19L, Anion Gap 13, Blood Urea Nitrogen 13, Creatinine 0.89, Estimat Glomerular Filtration Rate > 60, BUN/Creatinine Ratio 15, Glucose Level 159H, Calcium Level 9.7, Corrected Calcium 9.5, Total Bilirubin 1.3H, Aspartate Amino Transf ( AST/SGOT) 17, Alanine Aminotransferase (ALT/SGPT) 10, Alkaline Phosphatase 54, Troponin I < 0.028, B-Type Natriuretic Peptide 50.0, Total Protein 7.2, Albumin 4.2, Amylase Level 34, Lipase 34 05/19/18 15:06: Urine Color YELLOW, Urine Clarity CLEAR, Urine pH 5, Urine Specific [place] 1.030H, Urine Protein 2+H, Urine Glucose (UA) NEGATIVE, Urine Ketones 4+H, Urine Nitrite NEGATIVE, Urine Bilirubin NEGATIVE, Urine Urobilinogen NORMAL, Urine Leukocyte Esterase 1+H, Urine RBC (Auto) 1+H, Urine RBC RARE, Urine WBC RARE, Urine Squamous Epithelial Cells RARE, Urine Crystals NONE, Urine Bacteria NEGATIVE, Urine Casts NONE, Urine Mucus NEGATIVE, Urine Culture Indicated NO ECG Impression ECG Initial ECG Impression: Atrial Fibrillation w/RVR A/P-Cardiology Assessment/Admission Diagnosis Nausea, vomiting, dizziness, Persistent atrial fibrillation Plan This is a 72-year-old lady who presents to the ER with complains of nausea, vomiting, dizziness. She is found to be in atrial fibrillation with heart rate of 102 bpm. She was complaining of dizziness while I was taking history but her heart rate was atrial fibrillation in the 90s with a systolic blood pressure of 110 mmHg. The dizziness is therefore unlikely due to cardiac in origin. She was previously referred by Dr. Whiting for persistent atrial fibrillation. She has history of hypertension, hyperlipidemia. She denies diabetes, congestive heart failure, CAD. She has history of possible heart murmur, hiatal hernia, colitis. She also has a history of a brain tumor which required surgery. She has a raised to a left upper arm numbness. She also had precancerous lesion in the breast and also sinus surgery. According to the patient she had echocardiogram and stress test done in May 2017. She does not smoke. She has family history of diabetes and congestive heart failure. According to the patient her atrial fibrillation was diagnosed in April 2017. She complains of fatigue and shortness of breath. She denies any chest pain. no palpitations. 1. Persistent atrial fibrillation: Her CHADSVASC score is 4 for gender, age, hypertension. Therefore oral anticoagulation is superior to aspirin alone. She will continue Eliquis therapy. Continue metoprolol and Eliquis. Successful cardioversion on 01/06/2018. Once she gets better with her current illness, we will consider cardioversion with antiarrhythmics in the future. 2. Hypertension: Better controlled. Toprol-XL 25 mg daily. Dose of Toprol was reduced due to sinus bradycardia. 3. PVCs: Continue low-dose beta sven. Thank you for your consultation. Please call me if you have any questions. Sharif West MD, FACP, FACC, FSCAI, FHRS, CCDS Interventional Cardiology Cardiac Electrophysiology Vascular Medicine and Endovascular Interventions Shirley WEST MD May 19, 2018 15:50
--- NOTE | 2018-05-19 15:51 | ED Syncope ---
General Chief Complaint: Abdominal/GI Problems Stated Complaint: N/V Nursing Triage Note: pt presents to ed with complaints of dizziness, nausea, and vomiting starting this am. Source of Information: Patient Exam Limitations: No Limitations History of Present Illness Date Seen by Provider: May 19, 2018 Time Seen by Provider: 12:50 Initial Comments 72-year-old female who is brought to the emergency room by [facility] for complaints of dizziness for the past 4 days and nausea and vomiting that started this morning around 11:00. She reports that today every time she moves she becomes very dizzy and has episodes of nausea and vomiting shortly after. She is alert and oriented on arrival to the emergency room. Denies any shortness of breath or chest pain. She is a patient of Dr. Llanes. Timing/Prior Episodes: No Prior History Symptoms Prior to Episode: Lightheadedness, Nausea Loss of Consciousness: No Loss of Consciousness Current Symptoms: Dizziness, Nausea Allergies and Home Medications Allergies Coded Allergies: acetaminophen (Verified Allergy, Unknown, 01/06/18) amoxicillin (Verified Allergy, Unknown, 01/06/18) clavulanic acid (Verified Allergy, Unknown, 01/06/18) codeine (Verified Allergy, Unknown, 01/06/18) hydrocodone (Verified Allergy, Unknown, 01/06/18) oxycodone (Verified Allergy, Unknown, 01/06/18) Home Medications Apixaban 5 Mg Tablet, 5 MG PO BID, (Reported) Cyanocobalamin/Cobamamide 1 Each Tab.subl, 5,000 MCG SL DAILY, (Reported) Levetiracetam 500 Mg Tablet, 250 MG PO BID, (Reported) TAKES 1/2 (500MG) TABLET Lisinopril 5 Mg Tablet, 5 MG PO DAILY, (Reported) Meclizine HCl 25 Mg Tab.chew, 25 MG PO BID Prescribed by: ROC WASSERMAN on 05/19/18 1735 Metoprolol Succinate 50 Mg Tab.er.24h, 50 MG PO DAILY, (Reported) Nitrofurantoin Monohyd/M-Cryst 100 Mg Capsule, 100 MG PO BID Prescribed by: MARYURI LACY on 04/27/18 2240 [place]-3S/Dha/Epa/Fish Oil/D3 1 Each Capsule, 1 CAP PO DAILY, (Reported) Ondansetron HCl 4 Mg Tab, 4 MG PO Q4H Prescribed by: ROC WASSERMAN on 05/19/18 4085 Pantoprazole Sodium 40 Mg Tablet.dr, 40 MG PO DAILY, (Reported) Simvastatin 40 Mg Tablet, 40 MG PO DAILY, (Reported) Patient Home Medication List Home Medication List Reviewed: Yes Review of Systems Constitutional: no symptoms reported, see HPI, dizziness Gastrointestinal: see HPI, nausea, vomiting All Other Systems Reviewed Negative Unless Noted: Yes Past Uxosrej-Nfrhll-Tbllnr Hx Past Med/Social Hx: Reviewed Nursing Past Med/Soc Hx Patient Social History Alcohol Use: Denies Use Recreational Drug Use: No Smoking Status: Never a Smoker 2nd Hand Smoke Exposure: No Recent Foreign Travel: No Contact w/Someone Who Travel: No Recent Infectious Disease Expo: No Physical Abuse: No Sexual Abuse: No Mistreated: No Fear: No Immunizations Up To Date Date of Pneumonia Vaccine: Jan 07, 2016 Past Medical History Surgeries: Yes Breast, Gallbladder, Hysterectomy, Neurological, Orthopedic Respiratory: No Cardiac: Yes Atrial Fibrillation, Hypertension Neurological: Yes (BENIGN BRAIN TUMOR) Brain Tumor DIRECTOR TITLE History: Hysterectomy, Menopausal Genitourinary: No Gastrointestinal: Yes (DIVERTICULITIS) Gastroesophageal Reflux, Diverticulosis, Hiatal Hernia Musculoskeletal: Yes Arthritis Endocrine: No HEENT: No Cancer: No Brain Psychosocial: No Integumentary: No Blood Disorders: No Family Medical History Reviewed Nursing Family Hx Physical Exam Vital Signs Vital Signs - First Documented 05/19/18 05/19/18 13:19 17:43 Temp 98.7 Pulse 103 Resp 20 B/P (MAP) 118/85 (96) Pulse Ox 98 Capillary Refill : Less Than 3 Seconds Height, Weight, BMI Height: 5'2.00" Weight: 195lbs. 0.0oz. 88.432129vt; 36.4 BMI Method:Stated General Appearance: No Apparent Distress, WD/WN HEENT: PERRL/EOMI, TMs Normal, Normal ENT Inspection, Pharynx Normal Neck: Full Range of Motion, Normal Inspection, Non Tender, Supple Cardiovascular: No Edema, No Gallop, No JVD, No Murmur, Normal Peripheral Pulses, Other (atrial fibrillation) Respiratory: Chest Non Tender, Lungs Clear, Normal Breath Sounds, No Accessory Muscle Use, No Respiratory Distress Gastrointestinal: Normal Bowel Sounds, No Organomegaly, No Pulsatile Mass, Non Tender, Soft Extremities: Normal Capillary Refill, No Pedal Edema Neurologic/Psychiatric: Alert, Oriented x3, No Motor/Sensory Deficits Cranial Nerves: Normal Hearing, Normal Speech Coordination/Gait: Normal Finger to Nose, Normal Gait, Negative Romberg's Sign Motor/Sensory: No Motor Deficit, No Sensory Deficit Skin: Normal Color, Warm/Dry Progress/Results/Core Measures Results/Orders Lab Results Laboratory Tests Test 05/19/18 13:02 05/19/18 15:06 Range/Units White Blood Count 14.7 H 4.3-11.0 10^3/uL Red Blood Count 5.38 4.35-5.85 10^6/uL Hemoglobin 15.2 11.5-16.0 G/DL Hematocrit 45 35-52 % Mean Corpuscular Volume 84 80-99 FL Mean Corpuscular Hemoglobin 28 25-34 PG Mean Corpuscular Hemoglobin Concent 34 32-36 G/DL Red Cell Distribution Width 13.2 10.0-14.5 % Platelet Count 333 130-400 10^3/uL Mean Platelet Volume 10.3 7.4-10.4 FL Neutrophils (%) (Auto) 79 H 42-75 % Lymphocytes (%) (Auto) 16 12-44 % Monocytes (%) (Auto) 4 0-12 % Eosinophils (%) (Auto) 0 0-10 % Basophils (%) (Auto) 0 0-10 % Neutrophils # (Auto) 11.7 H 1.8-7.8 X 10^3 Lymphocytes # (Auto) 2.4 1.0-4.0 X 10^3 Monocytes # (Auto) 0.5 0.0-1.0 X 10^3 Eosinophils # (Auto) 0.0 0.0-0.3 10^3/uL Basophils # (Auto) 0.0 0.0-0.1 10^3/uL Neutrophils % (Manual) 74 % Lymphocytes % (Manual) 22 % Monocytes % (Manual) 4 % Eosinophils % (Manual) 0 % Basophils % (Manual) 0 % Band Neutrophils 0 % Blood Morphology Comment NORMAL Sodium Level 138 135-145 MMOL/L Potassium Level 4.3 3.6-5.0 MMOL/L Chloride Level 106 98-107 MMOL/L Carbon Dioxide Level 19 L 21-32 MMOL/L Anion Gap 13 5-14 MMOL/L Blood Urea Nitrogen 13 7-18 MG/DL Creatinine 0.89 0.60-1.30 MG/DL Estimat Glomerular Filtration Rate > 60 BUN/Creatinine Ratio 15 Glucose Level 159 H 70-105 MG/DL Calcium Level 9.7 8.5-10.1 MG/DL Corrected Calcium 9.5 8.5-10.1 MG/DL Total Bilirubin 1.3 H 0.1-1.0 MG/DL Aspartate Amino Transf (AST/SGOT) 17 5-34 U/L Alanine Aminotransferase (ALT/SGPT) 10 0-55 U/L Alkaline Phosphatase 54 40-136 U/L Troponin I < 0.028 <0.028 NG/ML B-Type Natriuretic Peptide 50.0 <100.0 PG/ML Total Protein 7.2 6.4-8.2 GM/DL Albumin 4.2 3.2-4.5 GM/DL Amylase Level 34 25-125 U/L Lipase 34 8-78 U/L Urine Color YELLOW Urine Clarity CLEAR Urine pH 5 5-9 Urine Specific [place] 1.030 H 1.016-1.022 Urine Protein 2+ H NEGATIVE Urine Glucose (UA) NEGATIVE NEGATIVE Urine Ketones 4+ H NEGATIVE Urine Nitrite NEGATIVE NEGATIVE Urine Bilirubin NEGATIVE NEGATIVE Urine Urobilinogen NORMAL NORMAL MG/DL Urine Leukocyte Esterase 1+ H NEGATIVE Urine RBC (Auto) 1+ H NEGATIVE Urine RBC RARE /HPF Urine WBC RARE /HPF Urine Squamous Epithelial Cells RARE /HPF Urine Crystals NONE /LPF Urine Bacteria NEGATIVE /HPF Urine Casts NONE /LPF Urine Mucus NEGATIVE /LPF Urine Culture Indicated NO My Orders Orders - ROC WASSERMAN Comprehensive Metabolic Panel (05/19/18 12:53) Lipase (05/19/18 12:53) Amylase (05/19/18 12:53) Ua Culture If Indicated (05/19/18 12:53) Saline Lock/Iv-Start (05/19/18 12:53) Cbc With Automated Diff (05/19/18 12:53) Ekg Tracing (05/19/18 12:53) BNP (05/19/18 12:53) Ns Iv 1000 Ml (Sodium Chloride 0.9%) (05/19/18 13:00) Ondansetron Injection (Zofran Injectio (05/19/18 13:00) Manual Differential (05/19/18 13:02) Troponin I (05/19/18 13:02) Meclizine Tablet (Antivert Tablet) (05/19/18 13:45) Ct Head Wo-R/O Stroke (05/19/18 14:27) Promethazine Injection (Phenergan Injec (05/19/18 15:00) Ns Iv 1000 Ml (Sodium Chloride 0.9%) (05/19/18 15:15) Acute Abd Series (05/19/18 15:45) Scopolamine Patch (Transderm-Scop Patch) (05/19/18 16:00) Medications Given in ED Vital Signs/I&O 05/19/18 05/19/18 13:19 17:43 Temp 98.7 Pulse 103 94 Resp 20 16 B/P (MAP) 118/85 (96) 114/73 (87) Pulse Ox 98 Blood Pressure Mean: 96 Progress Progress Note : Time: 17:30 Progress Note I have seen and evaluated the patient. She is feeling a little bit better at this time. We have discussed options of admitting her and she agrees to be admitted to the hospital. When I called Dr. Seals for admission she informed me that the hospital on diversion. I discussed options of transferring to local hospital for care of the patient reports that she would just like to go home. She agrees with plan of care, plans for discharge, return precautions were discussed with the patient. She was ambulated to the restroom without becoming sick to her stomach or severe dizziness. Initial ECG Impression Date: May 19, 2018 Initial ECG Impression Time: 13:07 Initial ECG Rate: 102 Initial ECG Rhythm: A Fib/Flutter Initial ECG Intervals: Normal Initial ECG Impression: Normal Initial ECG Comparisson: Unchanged Comment Reviewed by Dr. West and he will follow the patient in outpatient setting. Diagnostic Imaging Diagonstic Imaging: Xray, CT Plain Films/CT/US/NM/MRI: abdomen, head Comments NAME: DAVID PATTERSON [facility] REC#: [id number] PT STATUS: REG ER : 1945 PHYSICIAN: ROC WASSERMAN ADMIT DATE: 05/19/18/ER Signed Date of Exam: 05/19/18 ACUTE ABD SERIES EXAMINATION: Acute abdomen series of 04:26 p.m. INDICATION: Nausea and vomiting. FINDINGS: The accompanying erect PA chest shows the heart to be mildly enlarged but stable when compared to 04/27/2018. The previous exam did suggest that there is a large hiatal hernia and that finding is again evident and no different. The lungs remain clear. There is no sign of failure, pneumonia, or pleural effusion. There is no pneumoperitoneum identified. Supine and erect views of the abdomen were obtained. There is a small amount of gas in both the large and small bowel. This appearance is nonspecific. There is no evidence for bowel obstruction. There is no mass, organomegaly, or pathological calcification evident. Surgical clips are seen overlying the right upper quadrant. The osseous structures are intact. IMPRESSION: 1. The bowel gas pattern is nonspecific. There is no acute abnormality identified. 2. If clinical concern regarding an underlying abnormality persists, then CT of the abdomen and pelvis will be recommended. 3. There is a large hiatal hernia. Dictated by: Dictated on workstation # [id number] Dict: 05/19/18 1652 Trans: 05/20/18 1042 Interpreted by: CHELLE BUSTAMANTE MD Electronically signed by: CHELLE BUSTAMANTE MD 05/20/18 1042 NAME: DAVID PATTERSON [facility] REC#: [id number] PT STATUS: REG ER : 1945 PHYSICIAN: ROC WASSERMAN ADMIT DATE: 05/19/18/ER Signed Date of Exam: 05/19/18 CT HEAD WO-R/O STROKE PROCEDURE: CT head wo r/o stroke. TECHNIQUE: Multiple contiguous axial images were obtained through the brain without the use of intravenous contrast. INDICATION: Dizziness and weakness. COMPARISON: Comparison is made with prior head CT from 04/27/2018. FINDINGS: Postsurgical changes of right frontal craniotomy are noted. Ventricles and sulci are within normal limits. No sulcal effacement, midline shift, or hemorrhage is detected. Cisterns are patent. Visualized paranasal sinuses are clear apart from small mucus retention cyst or polyp in the left maxillary sinus. IMPRESSION: No acute intracranial process is detected. Results were called to Roc of the emergency department prior to this dictation. Dictated by: Dictated on workstation # [id number] Dict: 05/19/18 1445 Trans: 05/19/18 1556 Interpreted by: ERIKA MENARD MD Electronically signed by: ERIKA MENARD MD 05/19/18 1556 Reviewed: Reviewed by Me Departure Impression Primary Impression: Nausea and vomiting Disposition: HOME, SELF-CARE Condition: Stable/Unchanged Departure-Patient Inst. Decision time for Depature: 17:31 Referrals: Shirley WEST MD NO,LOCAL PHYSICIAN (PCP) Primary Care Physician BALDOMERO WHITING MD Patient Instructions: Nausea and Vomiting, Adult, VERTIGO Add. Discharge Instructions: Take medications as directed. Follow-up with Dr. Whiting's office within 1 week for recheck. Follow-up with Dr. West further evaluation of atrial fibrillation. Return back to the emergency room for worsening symptoms or concerns as needed. Remove scopolamine patch in 72 hours or 3 days. All discharge instructions reviewed with patient and/or family. Voiced understanding. Scripts Ondansetron HCl (Zofran) 4 Mg Tab 4 MG PO Q4H, #14 TAB Prov: ROC WASSERMAN 05/19/18 Meclizine HCl (Meclizine HCl) 25 Mg Tab.chew 25 MG PO BID, #14 TAB Prov: ROC WASSERMAN 05/19/18 ROC WASSERMAN May 19, 2018 15:50
[2018-05-19] MEDS ORDERED: SCOPOLAMINE 1.5 MG (TRANSDERM-SCOP) PATCH TD ONE (16:00)
--- NOTE | 2018-05-19 17:24 | Diagnostic Imaging Report ---
EXAMINATION: Acute abdomen series of 04:26 p.m. INDICATION: Nausea and vomiting. FINDINGS: The accompanying erect PA chest shows the heart to be mildly enlarged but stable when compared to 04/27/2018. The previous exam did suggest that there is a large hiatal hernia and that finding is again evident and no different. The lungs remain clear. There is no sign of failure, pneumonia, or pleural effusion. There is no pneumoperitoneum identified. Supine and erect views of the abdomen were obtained. There is a small amount of gas in both the large and small bowel. This appearance is nonspecific. There is no evidence for bowel obstruction. There is no mass, organomegaly, or pathological calcification evident. Surgical clips are seen overlying the right upper quadrant. The osseous structures are intact. IMPRESSION: 1. The bowel gas pattern is nonspecific. There is no acute abnormality identified. 2. If clinical concern regarding an underlying abnormality persists, then CT of the abdomen and pelvis will be recommended. 3. There is a large hiatal hernia. Dictated by: Dictated on workstation # [id number]
[2018-05-19] MEDS ORDERED: ONDN4T PO (17:35)
[2018-05-19] MEDS ORDERED: MECL-124 PO (17:35)
[2018-05-19 17:43] VITALS: BP 114/73
== END 2018-05-19 17:43 | disposition home or self-care (01) ==
LOC: EDUNIT# 12:43 → ER 12:44
DX: R11.2 Nausea with vomiting, unspecified (principal); R42 Dizziness and giddiness; I48.91 Unspecified atrial fibrillation; I10 Essential (primary) hypertension; K21.9 Gastro-esophageal reflux disease without esophagitis; Z88.0 Allergy status to penicillin; Z88.5 Allergy status to narcotic agent; Z86.011 Personal history of benign neoplasm of the brain; Z87.19 Personal history of other diseases of the digestive system; Z88.8 Allergy status to other drugs, medicaments and biological substances; Z79.01 Long term (current) use of anticoagulants; Z90.710 Acquired absence of both cervix and uterus; Z98.890 Other specified postprocedural states
CPT/HCPCS: 36415; 70450; 74022; 80053; 81000; 82150; 83690; 83880; 84484; 85007; 85027; 93005

== ENCOUNTER 2018-06-21 14:45 | Outpatient (RCR) | payer MEDICARE, OTHER ==
[~2018-06-21 14:45] MED LIST changes: +MECL-124 PO; +ONDN4T PO
== END 2018-09-19 | disposition home or self-care (01) ==
LOC: CARD 14:45
PROVIDERS: ATTEND Internal Medicine Interventional Cardiology
DX: I48.1 Persistent atrial fibrillation (principal)

== ENCOUNTER → 2018-06-23 | Day surgery (SDC) | payer MEDICARE, OTHER ==
[2018-06-23] VITALS (9 sets, daily range): BP systolic 90–119; BP diastolic 63–92
[~2018-06-23] VITALS: Ht 157.5 cm; Wt 88.5 kg
[~2018-06-23] MED LIST changes: +NS IV 1000 ML 1,000 ML IV ONE; +NS IV 1000 ML 1,000 ML ONE; +proPOfol 200 MG/20 ML (DIPRIVAN) VIAL IV ONE
--- NOTE | 2018-06-23 14:42 | Anesthesia-General Post-Op ---
MAC Patient Condition Mental Status/LOC: Same as Preop Cardiovascular: Satisfactory Nausea/Vomiting: Absent Respiratory: Satisfactory Pain: Controlled Complications: Absent Post Op Complications Complications None Follow Up Care/Instructions Patient Instructions None needed. Anesthesiology Discharge Order Discharge Order Patient is doing well, no complaints, stable vital signs, no apparent adverse anesthesia problems. No complications reported per nursing. AMAURY GUALLPA CRNA Jun 23, 2018 14:42
--- NOTE | 2018-06-23 14:44 | Anesthesia-Procedure Note ---
Procedures/Interventions Procedure Start/Stop/Diagnosis Date of Procedure: Jun 23, 2018 Start Time: 14:20 Stop Time: 14:40 SARAH/Cardioversion Anesthesia Type: mac ASA Class: 2 Medications propofol 60 mg iv, Propofol 40 mg iv Monitors and Equipment: BP Cuff - Right, Continuous EKG, End Tidal CO2, IV, Pulse Oximeter AMAURY GUALLPA CRNA Jun 23, 2018 14:44
--- NOTE | 2018-06-23 14:45 | NUR ---
see anesthesia for medication totals.
--- NOTE | 2018-06-23 21:57 | Cardioversion ---
Cardioversion PROCEDURE PHYSICIAN: Sharif West MD DATE OF PROCEDURE: 06/23/18 DIRECT EXTERNAL ELECTRICAL CARDIOVERSION: Indications: Atrial Fibrillation Preoperative diagnoses: Atrial Fibrillation Postoperative diagnosis: Sinus rhythm, Successful Electrical Cardioversion History: Persistent symptomatic atrial fibrillation. Anesthesia: By Anesthesia services Complications: None Specimen: None Contrast: 0 Flouroscopy: none Procedure Details: The patient was brought the optical lab technician after informed consent was taken, all the risks and complications were explained including the risk of stroke. Electrical cardioversion was carried out with anesthesia support with propofol. 200 joules of synchronized shock was delivered through external patches which promptly restored sinus rhythm, however patient went back into atrial flutter. Another 200J of synchronized shock, converted her to sinus rhythm. The patient tolerated the procedure well. Conclusions: 1.Successful Cardioversion. 2.Continue oral anticoagulation and rate controlling agent. 3.Follow up in office in 2-3 weeks. Sharif West MD, RS, CCDS Cardiac Electrophysiology Shirley WEST MD Jun 23, 2018 21:57
== END | disposition home or self-care (01) ==
LOC: CATH 13:54
PROVIDERS: ATTEND Internal Medicine Interventional Cardiology
DX: I48.1 Persistent atrial fibrillation (principal); I10 Essential (primary) hypertension; E78.5 Hyperlipidemia, unspecified; I49.3 Ventricular premature depolarization; E66.9 Obesity, unspecified; Z68.35 Body mass index [BMI] 35.0-35.9, adult; Z87.891 Personal history of nicotine dependence; Z79.01 Long term (current) use of anticoagulants; Z79.899 Other long term (current) drug therapy
CPT/HCPCS: 92960; 93005

== ENCOUNTER 2018-07-28 08:14 | Day surgery (SDC) | payer MEDICARE, OTHER ==
[~2018-07-28] VITALS: Ht 157.5 cm; Wt 87.5 kg
[~2018-07-28 08:14] MED LIST changes: -NS IV 1000 ML 1,000 ML IV ONE; -NS IV 1000 ML 1,000 ML ONE; -proPOfol 200 MG/20 ML (DIPRIVAN) VIAL IV ONE
[2018-07-28] MEDS ORDERED: LIDOCAINE 1% INJ 20 ML 20 ML VIAL ONE (08:21)
[2018-07-28 08:28] VITALS: BP 122/98
[2018-07-28] MEDS ORDERED: LIDOCAINE 1% INJ 20 ML 20 ML VIAL INJ ONE (08:30)
--- NOTE | 2018-07-28 14:07 | Implantation of Loop Monitor ---
Implant of Loop Monitior IMPLANTATION OF LOOP MONITOR REPORT DATE OF PROCEDURE: 07/28/18 PERFORMING PHYSICIAN: Dr. Rubio West. INDICATION: Long-term surveillance of atrial fibrillation PREOP DIAGNOSIS: Long-term surveillance of atrial fibrillation POSTOP DIAGNOSIS: Atrial fibrillation, s/p implantation of loop recorder. PROCEDURE DETAILS: The patient is a 72 female with history of atrial fibrillation requiring long- term surveillance. Therefore implantable loop recorder was discussed and agreed with the patient. Informed consent was taken. All risks and complications were discussed at length. The patient was draped and prepped in the usual sterile fashion. Local anesthesia was lidocaine, which was given in the substernal area close to the 4th intercostal space. Loop monitor was implanted according to the protocol. Steri-Strips were placed at the end of the procedure. There were no complications and the patient tolerated the procedure well. The device was interrogated with a voltage of 0.50 mV. ANESTHESIA: Local anesthesia with lidocaine. COMPLICATIONS: None CONTRAST/FLUOROSCOPY: None CONCLUSION: 1. Successful implantation of loop monitor for atrial fibrillation surveillance. 2. No complication and the patient tolerated the procedure well. Sharif West MD, [facility], CCDS Cardiac Electrophysiology Shirley WEST MD Jul 28, 2018 2:07 pm
== END 2018-07-28 10:05 | disposition home or self-care (01) ==
LOC: CATH 08:14
PROVIDERS: ATTEND Internal Medicine Interventional Cardiology
DX: I48.1 Persistent atrial fibrillation (principal); I10 Essential (primary) hypertension; E78.5 Hyperlipidemia, unspecified; I49.3 Ventricular premature depolarization; Z79.01 Long term (current) use of anticoagulants; Z79.899 Other long term (current) drug therapy
CPT/HCPCS: 33285

== ENCOUNTER → 2018-08-08 | Outpatient (CLI) | payer MEDICARE, OTHER | LOC: CARD 12:42 | PROVIDERS: ATTEND Internal Medicine Interventional Cardiology | DX: R42 Dizziness and giddiness (principal); I48.1 Persistent atrial fibrillation; I49.3 Ventricular premature depolarization; R53.83 Other fatigue; E78.5 Hyperlipidemia, unspecified; I10 Essential (primary) hypertension | CPT/HCPCS: 93306 ==

== ENCOUNTER → 2018-08-11 | Outpatient (CLI) | payer MEDICARE, OTHER ==
[~2018-08-11] VITALS: Ht 157.5 cm; Wt 87.5 kg
[~2018-08-11] MED LIST changes: +CATHETER FLUSH 10 ML SYR IV PRN; +REGADENOSON 0.4 MG/5 ML SYR (LEXISCAN) IV ONE
[2018-08-11 08:58] VITALS: BP 117/91
[2018-08-11 09:02] VITALS: BP 118/79
--- NOTE | 2018-08-12 10:41 | Cardiology Stress Test Report ---
Stress Test Report Type of NM Stress Test: Test Type: LEXISCAN 0.4MG/5ML Date of Procedure/Referring: Date of Procedure: Aug 11, 2018 PCP Shirley West MD Admitting Physician Harley Whiting MD Indications: Persistent AF Baseline Heart Rate: 79 Baseline Blood Pressure: Blood Pressure Systolic: 118 Blood Pressure Diastolic: 79 Baseline EKG: Baseline EKG: AF Summary & Conclusion: Summary: The patient was brought to the stress lab after informed consent was taken. Stress test was performed according to the Lexiscan protocol. 0.4 mg of IV Lexiscan was given. Low-grade exercise was performed. Baseline EKG showed AF at 79 BPM. Initial blood pressure was 117/91 mmHg. Maximum heart rate was 132 bpm and blood pressure 127/105 mmHg. Patient did not have any chest pain or ST segment changes during the stress test. PVCs were noted. 10.83 mCi of Myoview were given for rest imaging and 31.0 mCi of Myoview given for stress imaging. Transient ischemic dilatation score 0.9, EF 68 percent. Normal wall motion. Normal myocardial perfusion imaging during rest and stress. Conclusion: Pharmacological stress test was negative for ischemia. Normal LV function with no wall motion abnormalities. Normal myocardial perfusion imaging during rest and stress. Shirley WEST MD Aug 12, 2018 10:41 am
== END ==
LOC: CARD 07:13
PROVIDERS: ATTEND Internal Medicine Interventional Cardiology
DX: I48.1 Persistent atrial fibrillation (principal); R42 Dizziness and giddiness; I49.3 Ventricular premature depolarization; R53.83 Other fatigue; E78.5 Hyperlipidemia, unspecified; I10 Essential (primary) hypertension
CPT/HCPCS: 78452; 93017

== ENCOUNTER 2018-09-01 13:45 | Day surgery (SDC) | payer MEDICARE, OTHER ==
[~2018-09-01] VITALS: Ht 157.5 cm; Wt 87.5 kg
[2018-09-01] VITALS (8 sets, daily range): BP systolic 97–138; BP diastolic 62–87
[~2018-09-01 13:45] MED LIST changes: -CATHETER FLUSH 10 ML SYR IV PRN; -REGADENOSON 0.4 MG/5 ML SYR (LEXISCAN) IV ONE
[2018-09-01] MEDS ORDERED: NS IV 1000 ML 1,000 ML ONE (13:47)
[2018-09-01] MEDS ORDERED: NS IV 1000 ML 1,000 ML IV ONE (13:47)
[2018-09-01] MEDS ORDERED: proPOfol 200 MG/20 ML (DIPRIVAN) VIAL IV ONE (14:26)
--- NOTE | 2018-09-01 14:57 | Anesthesia-Procedure Note ---
Procedures/Interventions Procedure Start/Stop/Diagnosis Date of Procedure: September 01, 2018 Start Time: 14:45 Stop Time: 15:00 SARAH/Cardioversion Anesthesia Type: mac ASA Class: 3 Medications propofol 50 mg Monitors and Equipment: BP Cuff - Right, Continuous EKG, End Tidal CO2, IV, Pulse Oximeter AMAURY GUALLPA CRNA September 01, 2018 14:57
--- NOTE | 2018-09-01 15:07 | Cardioversion ---
Cardioversion PROCEDURE PHYSICIAN: Sharif West MD DATE OF PROCEDURE: 09/01/18 DIRECT EXTERNAL ELECTRICAL CARDIOVERSION: Indications: Atrial Fibrillation with rapid ventricular rate Preoperative diagnoses: Atrial Fibrillation with rapid ventricular rate Postoperative diagnosis: Sinus rhythm, Successful Electrical Cardioversion History: 72 year old lady with symptomatic AF. Anesthesia: By Anesthesia services Complications: None Specimen: None Contrast: 0 Flouroscopy: none Procedure Details: The patient was brought the optical laboratory mechanic after informed consent was taken, all the risks and complications were explained including the risk of stroke. Electrical cardioversion was carried out with anesthesia support with propofol. 200 joules of synchronized shock was delivered through external patches which promptly restored sinus rhythm. The patient tolerated the procedure well. Conclusions: 1.Successful Cardioversion. 2.Continue oral anticoagulation and rate controlling agent. 3.Follow up in office on previously scheduled date and time. Sharif West MD, RS, CCDS Cardiac Electrophysiology Shirley WEST MD September 01, 2018 15:07
== END 2018-09-01 15:45 | disposition home or self-care (01) ==
LOC: CATH 13:45
PROVIDERS: ATTEND Internal Medicine Interventional Cardiology
DX: I48.0 Paroxysmal atrial fibrillation (principal); I49.3 Ventricular premature depolarization; I10 Essential (primary) hypertension; E78.5 Hyperlipidemia, unspecified; K21.0 Gastro-esophageal reflux disease with esophagitis; R73.03 Prediabetes; E66.9 Obesity, unspecified; Z68.35 Body mass index [BMI] 35.0-35.9, adult; Z79.01 Long term (current) use of anticoagulants; Z79.899 Other long term (current) drug therapy
CPT/HCPCS: 92960; 93005

== ENCOUNTER 2018-09-15 07:02 | Day surgery (SDC) | payer MEDICARE, OTHER ==
[~2018-09-15] VITALS: Ht 157.5 cm; Wt 87.5 kg
[2018-09-15] VITALS (9 sets, daily range): BP systolic 103–141; BP diastolic 72–96
[2018-09-15] MEDS ORDERED: NS IV 1000 ML 1,000 ML ONE (07:08)
[2018-09-15] MEDS ORDERED: LIDOCAINE 2% VISCOUS 15 ML UDC ONE (07:08)
[2018-09-15] MEDS ORDERED: NS IV 1000 ML 1,000 ML IV SCH (07:30)
[2018-09-15] MEDS ORDERED: MIDAZOLAM 5 MG/5 ML (VERSED) VIAL ONE (07:56)
[2018-09-15] MEDS ORDERED: fentaNYL INJECTION 100 MCG/2 ML AMP ONE (07:56)
--- NOTE | 2018-09-15 09:49 | NUR ---
patient gag reflex intact. pt tolerated water. iv dc'd, catheter intact, drsg applied. pt dc per wheel chair with her .
== END 2018-09-15 09:59 | disposition home or self-care (01) ==
LOC: CATH 07:02
PROVIDERS: ATTEND Internal Medicine Interventional Cardiology
DX: I48.1 Persistent atrial fibrillation (principal); I34.0 Nonrheumatic mitral (valve) insufficiency; I10 Essential (primary) hypertension; E78.5 Hyperlipidemia, unspecified; I49.3 Ventricular premature depolarization; K21.9 Gastro-esophageal reflux disease without esophagitis; R73.03 Prediabetes; E66.9 Obesity, unspecified; Z68.35 Body mass index [BMI] 35.0-35.9, adult; Z79.01 Long term (current) use of anticoagulants; Z79.899 Other long term (current) drug therapy
CPT/HCPCS: 93312; 93320; 93325

== ENCOUNTER → 2018-10-19 | Outpatient (CLI) | payer MEDICARE, OTHER ==
[~2018-10-19] MED LIST changes: +RT-ALBUTEROL SULF 2.5 MG/3 ML PRE-MIX VIAL INH ONE; +RT-ALBUTEROL SULF 2.5 MG/3 ML PRE-MIX VIAL ONE
== END ==
LOC: RT 14:35
PROVIDERS: ATTEND Thoracic Surgery (Cardiothoracic Vascular Surgery)
DX: I48.1 Persistent atrial fibrillation (principal); I34.0 Nonrheumatic mitral (valve) insufficiency
CPT/HCPCS: 94060; 94726; 94729

== ENCOUNTER → 2018-11-04 | Outpatient (CLI) | payer MEDICARE, OTHER ==
[~2018-11-04] MED LIST changes: -RT-ALBUTEROL SULF 2.5 MG/3 ML PRE-MIX VIAL INH ONE; -RT-ALBUTEROL SULF 2.5 MG/3 ML PRE-MIX VIAL ONE
[2018-11-04 13:21] LABS: INR 1.6 (0.8-1.4); PROTHROMBIN TIME PATIENT 20.2 SEC (12.2-14.7)
== END ==
LOC: HH 11:15
PROVIDERS: ATTEND Family Medicine
DX: I08.1 Rheumatic disorders of both mitral and tricuspid valves (principal); I10 Essential (primary) hypertension; I48.91 Unspecified atrial fibrillation; J44.9 Chronic obstructive pulmonary disease, unspecified
CPT/HCPCS: 85610

== ENCOUNTER 2018-11-11 21:52 | Observation (INO) | payer MEDICARE, OTHER ==
[~2018-11-11] VITALS: Ht 158.8 cm; Wt 89.0 kg
[2018-11-11] MEDS: NITROGLYCERIN 0.4 MG SL TABS BTL 25'S SL PRN ×2 (22:08→22:15)
--- NOTE | 2018-11-11 22:11 | ED Chest Pain ---
General Chief Complaint: Upper Extremity Stated Complaint: L SHOULDER PAIN Source: patient, spouse Exam Limitations: no limitations History of Present Illness Date Seen by Provider: Nov 11, 2018 Time Seen by Provider: 21:53 Initial Comments The patient presents to ER by private conveyance with her significant other and chief complaint for the past 2 or 3 days she's been feeling lousy like she is dehydrated. About 3 hours ago around 7:00 she started having some left shoulder pain so she took some Tylenol and put some BenGay on it. She does not have any history of fall trauma or specific inciting incident. It is not worse with movement. Was not improved with massage. It's her left anterior shoulder. On 26 October, 2 weeks ago she had CABG done by Dr. Hennessy at [facility]. She is known to Dr. West and Dr. Whiting. She's not expressing any nausea or sweats. The pain does not radiate into her jaw. She is not having palpitations or increased swelling in her hands and feet. She did take her medication today including the warfarin tonight. She used to be on Xarelto but was switched. She was never a smoker but she does have high blood pressure and cholesterol. She denies diabetes. She's not noticing any redness swelling or hitch/crepitus in her left shoulder. She said the Tylenol helped for a few seconds but nothing else has worked. She did not take nitroglycerin. Allergies and Home Medications Allergies Coded Allergies: acetaminophen (Verified Allergy, Unknown, 01/06/18) amoxicillin (Verified Allergy, Unknown, 01/06/18) clavulanic acid (Verified Allergy, Unknown, 01/06/18) codeine (Verified Allergy, Unknown, 01/06/18) hydrocodone (Verified Allergy, Unknown, 01/06/18) oxycodone (Verified Allergy, Unknown, 01/06/18) Home Medications Apixaban 5 Mg Tablet, 2 MG PO HS, (Reported) Cyanocobalamin/Cobamamide 1 Each Tab.subl, 5,000 MCG SL DAILY, (Reported) Levetiracetam 500 Mg Tablet, 250 MG PO BID, (Reported) TAKES 1/2 (500MG) TABLET Metoprolol Succinate 50 Mg Tab.er.24h, 50 MG PO DAILY, (Reported) [place]-3S/Dha/Epa/Fish Oil/D3 1 Each Capsule, 1 CAP PO DAILY, (Reported) Ondansetron HCl 4 Mg Tab, 4 MG PO Q4H Prescribed by: ROC WASSERMAN on 05/19/18 1735 Pantoprazole Sodium 40 Mg Tablet.dr, 40 MG PO DAILY, (Reported) Simvastatin 40 Mg Tablet, 40 MG PO DAILY, (Reported) Patient Home Medication List Home Medication List Reviewed: Yes Review of Systems Review of Systems Constitutional: No chills, No fever EENTM: No Blurred Vision, No Double Vision Respiratory: Denies Cough, Denies Shortness of Air Cardiovascular: See HPI; Denies Chest Pain; Edema, Irregular Heart Rate; Denies Lightheadedness Gastrointestinal: Denies Abdomen Distended, Denies Abdominal Pain Genitourinary: Denies Burning, Denies Discharge Musculoskeletal: see HPI; No back pain; joint pain Past Vwhhmye-Xlrncx-Fyicex Hx Patient Social History Alcohol Use: Denies Use Smoking Status: Former Smoker Type Used: Cigarettes 2nd Hand Smoke Exposure: No Recent Foreign Travel: No Contact w/Someone Who Travel: No Immunizations Up To Date Date of Pneumonia Vaccine: Jan 07, 2016 Date of Influenza Vaccine: Jan 31, 2018 Past Medical History Surgeries: Yes Breast, Gallbladder, Hysterectomy, Neurological, Orthopedic Respiratory: No Cardiac: Yes Atrial Fibrillation, Hypertension Neurological: Yes (BENIGN BRAIN TUMOR) Brain Tumor FINANCE MGR History: Hysterectomy, Menopausal Genitourinary: No Gastrointestinal: Yes (DIVERTICULITIS) Gastroesophageal Reflux, Diverticulosis, Hiatal Hernia Musculoskeletal: Yes Arthritis Endocrine: No HEENT: No Cancer: No Brain Psychosocial: No Integumentary: No Blood Disorders: No Physical Exam Vital Signs Vital Signs - First Documented 11/11/18 21:53 Temp 100.1 Pulse 81 Resp 18 B/P (MAP) 134/84 (101) Pulse Ox 98 O2 Delivery Room Air Capillary Refill : Height, Weight, BMI Height: 5'2.00" Weight: 193lbs. 0.0oz. [id number]; 35.3 BMI Method:Stated General Appearance: Anxious, Mild Distress, Other (disheveled) HEENT: PERRL/EOMI, Normal ENT Inspection, Pharynx Normal, Moist Mucous Membranes Neck: Full Range of Motion, Normal Inspection Respiratory: Chest Non Tender, Lungs Clear, Normal Breath Sounds, No Accessory Muscle Use, No Respiratory Distress Cardiovascular: Regular Rate, Rhythm, No Edema, Normal Peripheral Pulses Gastrointestinal: Normal Bowel Sounds, Non Tender, Soft Extremity: Normal Capillary Refill, Normal Inspection, Normal Range of Motion, Other (mild tenderness to the anterior glenohumeral joint capsule but clavicle, acromioclavicular joint and bursa are normal inspection and nontender palpation.) Neurologic/Psychiatric: Alert, Oriented x3, No Motor/Sensory Deficits Skin: Normal Color, Warm/Dry, Other (wintergreen odor) Focused Exam Lactate Level 11/11/18 22:45: Lactic Acid Level 1.19 Lactic Acid Level Laboratory Tests Test 11/11/18 22:45 Lactic Acid Level 1.19 MMOL/L (0.50-2.00) Progress/Results/Core Measures Results/Orders Lab Results Laboratory Tests Test 11/11/18 22:03 11/11/18 22:38 11/11/18 22:45 Range/Units White Blood Count 12.1 H 4.3-11.0 10^3/uL Red Blood Count 4.68 4.35-5.85 10^6/uL Hemoglobin 13.3 11.5-16.0 G/DL Hematocrit 38 35-52 % Mean Corpuscular Volume 82 80-99 FL Mean Corpuscular Hemoglobin 28 25-34 PG Mean Corpuscular Hemoglobin Concent 35 32-36 G/DL Red Cell Distribution Width 12.4 10.0-14.5 % Platelet Count 471 H 130-400 10^3/uL Mean Platelet Volume 9.3 7.4-10.4 FL Neutrophils (%) (Auto) 69 42-75 % Lymphocytes (%) (Auto) 18 12-44 % Monocytes (%) (Auto) 10 0-12 % Eosinophils (%) (Auto) 2 0-10 % Basophils (%) (Auto) 0 0-10 % Neutrophils # (Auto) 8.3 H 1.8-7.8 X 10^3 Lymphocytes # (Auto) 2.2 1.0-4.0 X 10^3 Monocytes # (Auto) 1.3 H 0.0-1.0 X 10^3 Eosinophils # (Auto) 0.3 0.0-0.3 10^3/uL Basophils # (Auto) 0.1 0.0-0.1 10^3/uL Prothrombin Time 13.7 12.2-14.7 SEC INR Comment 1.0 0.8-1.4 Activated Partial Thromboplast Time 39 H 24-35 SEC D-Dimer 2.45 H 0.00-0.49 UG/ML Sodium Level 134 L 135-145 MMOL/L Potassium Level 4.0 3.6-5.0 MMOL/L Chloride Level 98 98-107 MMOL/L Carbon Dioxide Level 23 21-32 MMOL/L Anion Gap 13 5-14 MMOL/L Blood Urea Nitrogen 15 7-18 MG/DL Creatinine 0.93 0.60-1.30 MG/DL Estimat Glomerular Filtration Rate 59 BUN/Creatinine Ratio 16 Glucose Level 115 H 70-105 MG/DL Calcium Level 9.6 8.5-10.1 MG/DL Corrected Calcium 9.7 8.5-10.1 MG/DL Magnesium Level 1.7 L 1.8-2.4 MG/DL Total Bilirubin 0.8 0.1-1.0 MG/DL Aspartate Amino Transf (AST/SGOT) 32 5-34 U/L Alanine Aminotransferase (ALT/SGPT) 40 0-55 U/L Alkaline Phosphatase 98 40-136 U/L Myoglobin 26.6 10.0-92.0 NG/ML Troponin I 0.155 H <0.028 NG/ML C-Reactive Protein High Sensitivity 8.97 H 0.00-0.50 MG/DL B-Type Natriuretic Peptide 105.9 H <100.0 PG/ML Total Protein 7.3 6.4-8.2 GM/DL Albumin 3.9 3.2-4.5 GM/DL Urine Color YELLOW Urine Clarity SLIGHTLY CLOUDY Urine pH 5 5-9 Urine Specific [place] 1.020 1.016-1.022 Urine Protein NEGATIVE NEGATIVE Urine Glucose (UA) NEGATIVE NEGATIVE Urine Ketones NEGATIVE NEGATIVE Urine Nitrite NEGATIVE NEGATIVE Urine Bilirubin NEGATIVE NEGATIVE Urine Urobilinogen NORMAL NORMAL MG/DL Urine Leukocyte Esterase 3+ H NEGATIVE Urine RBC (Auto) 1+ H NEGATIVE Urine RBC 2-5 H /HPF Urine WBC 25-50 H /HPF Urine Squamous Epithelial Cells 10-25 H /HPF Urine Crystals NONE /LPF Urine Bacteria FEW H /HPF Urine Casts NONE /LPF Urine Mucus NEGATIVE /LPF Urine Culture Indicated YES Lactic Acid Level 1.19 0.50-2.00 MMOL/L My Orders Orders - ARLETTE HILL Ekg Tracing (11/11/18 21:54) Continuous Ekg Monitoring (11/11/18 21:54) Cbc With Automated Diff (11/11/18 22:01) Magnesium (11/11/18 22:) Chest 1 View, Ap/Pa Only (11/11/18 22:01) Cardiac Profile 1 (11/11/18 22:) Comprehensive Metabolic Panel (11/11/18 22:) Myoglobin Serum (11/11/18 22:) Protime With Inr (11/11/18:) Partial Thromboplastin Time (11/11/18 22:) O2 (11/11/18 22:) Lipid Panel (11/12/18 06:00) Ed Iv/Invasive Line Start (11/11/18:) BNP (11/11/18 22:) Nitroglycerin 0.4 Mg Btl 25's (Nitrostat (11/11/18 22:15) Aspirin Chewable Tablet (Baby Aspirin Ch (11/11/18 22:15) Fibrin Degradation Products (11/11/18 22:) Hs C Reactive Protein (11/11/18 22:30) Lactic Acid Analyzer (11/11/18 22:30) Blood Culture (11/11/18 22:30) Ed Iv/Invasive Line Start (11/11/18 22:30) Ns Iv 1000 Ml (Sodium Chloride 0.9%) (11/11/18 22:30) Ua Culture If Indicated (11/11/18 22:34) Ct Angio Chest W (11/11/18 23:00) Urine Culture (11/11/18 22:38) Iohexol Injection (Omnipaque 350 Mg/Ml 1 (11/11/18 23:45) Received Contrast (Hold Metformin- Contr (11/11/18 23:45) Ns (Ivpb) (Sodium Chloride 0.9% Ivpb Bag (11/11/18 23:45) Morphine Injection (Morphine Injection (11/12/18 00:26) Morphine Injection (Morphine Injection (11/12/18 00:21) Ondansetron Injection (Zofran Injectio (11/12/18 00:30) Ceftriaxone For Iv Use (Rocephin For I (11/12/18 00:45) Medications Given in ED Current Medications Medications Dose Ordered Sig/Rita Route Start Time Stop Time Status Last Admin Dose Admin Aspirin 324 mg ONCE ONCE PO 11/11/18 22:15 11/11/18 22:16 DC 11/11/18 22:07 324 MG Iohexol 125 ml ONCE ONCE IV 11/11/18 23:45 11/11/18 23:46 UNV 11/11/18 23:33 125 ML Nitroglycerin 0.4 mg UD PRN SL 11/11/18 22:15 11/11/18 22:15 0.4 MG Sodium Chloride 80 ml ONCE ONCE IV 11/11/18 23:45 11/11/18 23:46 UNV 11/11/18 23:33 80 ML Vital Signs/I&O 11/11/18 21:53 Temp 100.1 Pulse 81 Resp 18 B/P (MAP) 134/84 (101) Pulse Ox 98 O2 Delivery Room Air Progress Progress Note : Time: 22:09 Progress Note The joint does not seem to have any limitation of range of motion. There is no swelling or erythema or specific point of tenderness. DJD versus atypical cardiac/coronary versus referred pain? It's not going to her back or neck. We'll start with 324 aspirin and some nitroglycerin see if that relieves her shoulder pain. If Nitroglycerin does not help then we may trial morphine. Her PTT/INR is sufficient then thrombosis is much less likely. Despite Tylenol her temperature is elevated at 100.1F. Plan to give her a liter of saline and obtain blood cultures and lactate. Initial dose of nitroglycerin did drop her pain from 7-5 with a second dose she said her pain went back up to 6 and her systolic dropped to around 100. Initial ECG Impression Date: Nov 11, 2018 Initial ECG Impression Time: 21:59 Initial ECG Rate: 75 Initial ECG Rhythm: A Fib/Flutter Initial ECG Intervals: Normal Initial ECG Impression: Atrial Fibrillation Initial ECG Comparisson: Unchanged Comment No acute ST elevation or depression. Diagnostic Imaging Diagonstic Imaging: Xray Plain Films/CT/US/NM/MRI: chest (1v) Comments No acute cardiopulmonary processes. No acute osseous abnormality's. Reviewed: Reviewed by Me Diagonstic Imaging: CT (angiogram) Plain Films/CT/US/NM/MRI: chest Comments No acute findings. Reviewed: Reviewed by Me Departure Communication (Admissions) Time/Spoke to Admitting Phy: 00:30 Discussed the case with Dr. Zapata and she agrees with heparin drip, treating the probable contaminated UTI and observation. Time/Spoke to Consulting Phy: 00:[address] West Impression Primary Impression: Atypical angina Additional Impression: UTI (urinary tract infection) Disposition: ADMITTED INPATIENT Condition: Stable Admissions Decision to Admit Reason: Admit from ER (General) Decision to Admit/Date: Nov 12, 2018 Time/Decision to Admit Time: 00:19 Departure-Patient Inst. Referrals: BALDOMERO WHITING MD (PCP/Family) Primary Care Physician ARLETTE HILL Nov 11, 2018 22:11
[2018-11-11 22:15] LABS: BASOPHILS # (AUTO) 0.1 10^3/uL (0.0-0.1); BASOPHILS % (AUTO) 0 % (0-10); EOSINOPHILS # (AUTO) 0.3 10^3/uL (0.0-0.3); EOSINOPHILS % (AUTO) 2 % (0-10); HEMATOCRIT 38 % (35-52); HEMOGLOBIN 13.3 G/DL (11.5-16.0); LYMPHOCYTES # (AUTO) 2.2 X 10^3 (1.0-4.0); LYMPHOCYTES % (AUTO) 18 % (12-44); MEAN CORPUSCULAR HEMOGLOBIN 28 PG (25-34); MEAN CORPUSCULAR HGB CONC 35 G/DL (32-36); MEAN CORPUSCULAR VOLUME 82 FL (80-99); MEAN PLATELET VOLUME 9.3 FL (7.4-10.4); MONOCYTES # (AUTO) 1.3 X 10^3 (0.0-1.0); MONOCYTES % (AUTO) 10 % (0-12); NEUTROPHILS # (AUTO) 8.3 X 10^3 (1.8-7.8); NEUTROPHILS % (AUTO) 69 % (42-75); PLATELET COUNT 471 10^3/uL (130-400); RED CELL DISTRIBUTION WIDTH 12.4 % (10.0-14.5); WHITE BLOOD COUNT 12.1 10^3/uL (4.3-11.0)
[2018-11-11] MEDS ORDERED: ASPIRIN 81 MG CHEW (CHILDREN'S ASA) PO ONE (22:15)
--- NOTE | 2018-11-11 22:20 | NUR ---
2208 Nitro #1 adm. BP 123/101 Pain 12/10 2213 BP 128/74 Pain 09/095 Nitro #2 adm. 2220: BP 92/78 Pain 11/09 Provider notified.
[2018-11-11 22:28] LABS: FIBRIN DEGRADATION PRODUCTS 2.45 UG/ML (0.00-0.49); PROTHROMBIN TIME PATIENT 13.7 SEC (12.2-14.7)
[2018-11-11] MEDS ORDERED: NS IV 1000 ML 1,000 ML IV SCH (22:30)
[2018-11-11 22:32] LABS: ALBUMIN 3.9 GM/DL (3.2-4.5); BILIRUBIN,TOTAL 0.8 MG/DL (0.1-1.0); CALCIUM 9.6 MG/DL (8.5-10.1); CREATININE SERUM 0.93 MG/DL (0.60-1.30); MAGNESIUM 1.7 MG/DL (1.8-2.4); TOTAL PROTEIN 7.3 GM/DL (6.4-8.2)
--- OUTSIDE RECORDS SUMMARY | 2018-11-11 22:34 | XMS REPORT | Continuity of Care Document ---
Author Organization Unknown Address Unknown Allergies Active Description Code Type Severity Reaction Onset Reported/Identified Relationship to Patient Clinical Status Yes acetaminophen [id number] Drug Allergy Unknown N/A 01/06/2018 Yes amoxicillin [id number] Drug Allergy Unknown N/A 01/06/2018 Yes clavulanic acid [id number] Drug Allergy Unknown N/A 01/06/2018 Yes codeine [id number] Drug Allergy Unknown N/A 01/06/2018 Yes hydrocodone [id number] Drug Allergy Unknown N/A 01/06/2018 Yes oxycodone [id number] Drug Allergy Unknown N/A 01/06/2018 Medications There is no data. Problems Date Dx Coded Attending Type Code Diagnosis Diagnosed By 01/06/2018 Shirley HUBBARD MD, Ot E66.9 OBESITY, UNSPECIFIED 01/06/2018 Shirley HUBBARD MD Ot E78.5 HYPERLIPIDEMIA, UNSPECIFIED 01/06/2018 Shirley HUBBARD MD Ot I10 ESSENTIAL (PRIMARY) HYPERTENSION 01/06/2018 Shirley HUBBARD MD Ot I48.1 PERSISTENT ATRIAL FIBRILLATION 01/06/2018 Shirley HUBBARD MD Ot I49.3 VENTRICULAR PREMATURE DEPOLARIZATION 01/06/2018 Shirley HUBBARD MD Ot Z68.36 BODY MASS INDEX (BMI) 36.0-36.9, ADULT 01/06/2018 Shirley HUBBARD MD Ot Z79.01 CUSTOMER ACCOUNT COORDINATOR (CURRENT) USE OF ANTICOAGULANT 01/06/2018 Shirley HUBBARD MD Ot Z79.899 OTHER CUSTOMER ACCOUNT COORDINATOR (CURRENT) DRUG THERAPY 01/06/2018 Shirley HUBBARD MD, Ot Z87.891 PERSONAL HISTORY OF NICOTINE DEPENDENCE 01/07/2018 Shirley HUBBARD MD Ot E66.9 OBESITY, UNSPECIFIED 01/07/2018 Shirley HUBBARD MD Ot E78.5 HYPERLIPIDEMIA, UNSPECIFIED 01/07/2018 Shirley HUBBARD MD Ot I10 ESSENTIAL (PRIMARY) HYPERTENSION 01/07/2018 Shirley HUBBARD MD Ot I48.1 PERSISTENT ATRIAL FIBRILLATION 01/07/2018 Shirley HUBBARD MD Ot I49.3 VENTRICULAR PREMATURE DEPOLARIZATION 01/07/2018 Shirley HUBBARD MD Ot Z68.36 BODY MASS INDEX (BMI) 36.0-36.9, ADULT 01/07/2018 Shirley HUBBARD MD Ot Z79.01 CUSTOMER ACCOUNT COORDINATOR (CURRENT) USE OF ANTICOAGULANT 01/07/2018 Shirley HUBBARD MD Ot Z79.899 OTHER CUSTOMER ACCOUNT COORDINATOR (CURRENT) DRUG THERAPY 01/07/2018 Shirley HUBBARD MD Ot Z87.891 PERSONAL HISTORY OF NICOTINE DEPENDENCE 01/11/2018 Shirley HUBBARD MD Ot E66.9 OBESITY, UNSPECIFIED 01/11/2018 Shirley HUBBARD MD Ot E78.5 HYPERLIPIDEMIA, UNSPECIFIED 01/11/2018 Shirley HUBBARD MD Ot I10 ESSENTIAL (PRIMARY) HYPERTENSION 01/11/2018 Shirley HUBBARD MD Ot I48.1 PERSISTENT ATRIAL FIBRILLATION 01/11/2018 Shirley HUBBARD MD Ot I49.3 VENTRICULAR PREMATURE DEPOLARIZATION 01/11/2018 Shirley HUBBARD MD Ot Z68.36 BODY MASS INDEX (BMI) 36.0-36.9, ADULT 01/11/2018 Shirley HUBBARD MD Ot Z79.01 LONG-TERM (CURRENT) USE OF ANTICOAGULANT 01/11/2018 Shirley HUBBARD MD Ot Z79.899 OTHER LONG-TERM (CURRENT) DRUG THERAPY 01/11/2018 Shirley HUBBARD MD Ot Z87.891 PERSONAL HISTORY OF NICOTINE DEPENDENCE 04/27/2018 MARYURI LACY DO Ot H53.8 OTHER VISUAL DISTURBANCES 04/27/2018 MARLIN LACY DOA Esau Ot I48.91 UNSPECIFIED ATRIAL FIBRILLATION 04/27/2018 MARYRUI LACY DO Ot N39.0 URINARY TRACT INFECTION, SITE NOT SPECIF 04/27/2018 BAMBI , MARYURI K Ot R03.0 ELEVATED BLOOD-PRESSURE READING, W/O DONAVON 04/27/2018 MARLIN LACY DOA K Ot 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 04/27/2018 BAMBI DO MARYURI K Ot Z87.19 PERSONAL HISTORY OF OTHER DISEASES OF 04/27/2018 MARYURI LACY DO K Ot Z88.1 ALLERGY STATUS TO OTHER ANTIBIOTIC AGENT 04/27/2018 BAMBI DO MARYURI K Ot Z88.5 ALLERGY STATUS TO NARCOTIC AGENT STATUS 04/27/2018 BAMBI , MARYURI K Ot Z88.8 ALLERGY STATUS TO OTH DRUG/MEDS/BIOL SUB 04/29/2018 BAMBI , MARYURI K Ot H53.8 OTHER VISUAL DISTURBANCES 04/29/2018 BAMBI , MARYURI K Ot I48.91 UNSPECIFIED ATRIAL FIBRILLATION 04/29/2018 BAMBI , MARYURI K Ot N39.0 URINARY TRACT INFECTION, SITE NOT SPECIF 04/29/2018 BAMBI , MARYURI K Ot R03.0 ELEVATED BLOOD-PRESSURE READING, W/O DONAVON 04/29/2018 BAMBI MARLIN MCFADDENA K Ot 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 04/29/2018 BAMBI , MARYURI K Ot Z87.19 PERSONAL HISTORY OF OTHER DISEASES OF 04/29/2018 BAMBI MARLIN MCFADDENA K Ot Z88.1 ALLERGY STATUS TO OTHER ANTIBIOTIC AGENT 04/29/2018 BAMBI DO MARYURI K Ot Z88.5 ALLERGY STATUS TO NARCOTIC AGENT STATUS 04/29/2018 BAMBI , MARYURI K Ot Z88.8 ALLERGY STATUS TO OTH DRUG/MEDS/BIOL SUB 05/03/2018 BAMBI , MARYURI K Ot H53.8 OTHER VISUAL DISTURBANCES 05/03/2018 BAMBI DO, MARYURI K Ot I48.91 UNSPECIFIED ATRIAL FIBRILLATION 05/03/2018 BAMBI DO, MARYURI K Ot N39.0 URINARY TRACT INFECTION, SITE NOT SPECIF 05/03/2018 BAMBI DO MARYURI K Ot R03.0 ELEVATED BLOOD-PRESSURE READING, W/O DONAVON 05/03/2018 BAMBI DO MARYURI K Ot 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 05/03/2018 BAMBI MARYURI K Ot Z87.19 PERSONAL HISTORY OF OTHER DISEASES OF TH 05/03/2018 MARYURI LACY DO Esau Ot Z88.1 ALLERGY STATUS TO OTHER ANTIBIOTIC AGENT 05/03/2018 BAMBI MCFADDEN MARYURI Cifuentes Ot Z88.5 ALLERGY STATUS TO NARCOTIC AGENT STATUS 05/03/2018 BAMBI MCFADDEN MARYURI Esau Ot Z88.8 ALLERGY STATUS TO OTH DRUG/MEDS/BIOL SUB 05/19/2018 BERNNALLELY ROC Ot I10 ESSENTIAL (PRIMARY) HYPERTENSION 05/19/2018 BERNNALLELY ROC Ot I48.91 UNSPECIFIED ATRIAL FIBRILLATION 05/19/2018 BERNOT ROC Ot K21.9 GASTRO- ESOPHAGEAL REFLUX DISEASE WITHOUT 05/19/2018 BERNOT, ROC Ot R11.2 NAUSEA WITH VOMITING, UNSPECIFIED 05/19/2018 BERNOT ROC Ot R42 DIZZINESS AND GIDDINESS 05/19/2018 BERNOT ROC Ot Z79.01 CUSTOMER ACCOUNT COORDINATOR (CURRENT) USE OF ANTICOAGULANT 05/19/2018 LISY ROC Ot Z86.011 PERSONAL HISTORY OF BENIGN NEOPLASM OF T 05/19/2018 VIRI WASSERMANIS Ot Z87.19 PERSONAL HISTORY OF OTHER DISEASES OF 05/19/2018 VIRI WASSERMANIS Ot Z88.0 ALLERGY STATUS TO PENICILLIN 05/19/2018 VIRI WASSERMANIS Ot Z88.5 ALLERGY STATUS TO NARCOTIC AGENT STATUS 05/19/2018 VIRI WASSERMANIS Ot Z88.8 ALLERGY STATUS TO OTH DRUG/MEDS/BIOL SUB 05/19/2018 LISY ROC Ot Z90.710 ACQUIRED ABSENCE OF BOTH CERVIX AND UTER 05/19/2018 LISY ROC Ot Z98.890 OTHER SPECIFIED POSTPROCEDURAL STATES 05/23/2018 BERNOT ROC Ot I10 ESSENTIAL (PRIMARY) HYPERTENSION 05/23/2018 BERNOT ROC Ot I48.91 UNSPECIFIED ATRIAL FIBRILLATION 05/23/2018 BERNOT ROC Ot K21.9 GASTRO- ESOPHAGEAL REFLUX DISEASE WITHOUT 05/23/2018 BERNOT ROC Ot R11.2 NAUSEA WITH VOMITING, UNSPECIFIED 05/23/2018 BERNOT ROC Ot R42 DIZZINESS AND GIDDINESS 05/23/2018 BERNOT ROC Ot Z79.01 CUSTOMER ACCOUNT COORDINATOR (CURRENT) USE OF ANTICOAGULANT 05/23/2018 BERNNALLELY ROC Ot Z86.011 PERSONAL HISTORY OF BENIGN NEOPLASM OF T 05/23/2018 JUDVIRI BROWNINGIS Ot Z87.19 PERSONAL HISTORY OF OTHER DISEASES OF TH 05/23/2018 ROC WASSERMAN Ot Z88.0 ALLERGY STATUS TO PENICILLIN 05/23/2018 VIRI WASSERMANIS Ot Z88.5 ALLERGY STATUS TO NARCOTIC AGENT STATUS 05/23/2018 VIRI WASSERMANIS Ot Z88.8 ALLERGY STATUS TO OTH DRUG/MEDS/BIOL SUB 05/23/2018 LISY ROC Ot Z90.710 ACQUIRED ABSENCE OF BOTH CERVIX AND UTER 05/23/2018 JUDVIRI BROWNINGIS Ot Z98.890 OTHER SPECIFIED POSTPROCEDURAL STATES 06/15/2018 Shirley HUBBARD MD Ot I48.1 PERSISTENT ATRIAL FIBRILLATION 06/16/2018 Shirley HUBBARD MD Ot I48.1 PERSISTENT ATRIAL FIBRILLATION 06/16/2018 Shirley HUBBARD MD Ot I48.1 PERSISTENT ATRIAL FIBRILLATION 06/20/2018 Shirley HUBBARD MD Ot I48.1 PERSISTENT ATRIAL FIBRILLATION 06/21/2018 Shirley HUBBARD MD Ot I48.1 PERSISTENT ATRIAL FIBRILLATION 06/22/2018 Shirley HUBBARD MD Ot I48.1 PERSISTENT ATRIAL FIBRILLATION 06/27/2018 Shirley HUBBARD MD Ot E66.9 OBESITY, UNSPECIFIED 06/27/2018 Shirley HUBBARD MD Ot E78.5 HYPERLIPIDEMIA, UNSPECIFIED 06/27/2018 Shirley HUBBARD MD Ot I10 ESSENTIAL (PRIMARY) HYPERTENSION 06/27/2018 Shirley HUBBARD MD Ot I48.1 PERSISTENT ATRIAL FIBRILLATION 06/27/2018 Shirley HUBBARD MD Ot I49.3 VENTRICULAR PREMATURE DEPOLARIZATION 06/27/2018 Shirley HUBBARD MD Ot Z68.35 BODY MASS INDEX (BMI) 35.0-35.9, ADULT 06/27/2018 Shirley HUBBARD MD Ot Z79.01 LONG-TERM (CURRENT) USE OF ANTICOAGULANT 06/27/2018 Shirley HUBBARD MD Ot Z79.899 OTHER CUSTOMER ACCOUNT COORDINATOR (CURRENT) DRUG THERAPY 06/27/2018 Shirley HUBBARD MD Ot Z87.891 PERSONAL HISTORY OF NICOTINE DEPENDENCE 06/28/2018 Shirley HUBBARD MD Ot E66.9 OBESITY, UNSPECIFIED 06/28/2018 Shirley HUBBARD MD Ot E78.5 HYPERLIPIDEMIA, UNSPECIFIED 06/28/2018 Shirley HUBBARD MD Ot I10 ESSENTIAL (PRIMARY) HYPERTENSION 06/28/2018 Shirley HUBBARD MD Ot I48.1 PERSISTENT ATRIAL FIBRILLATION 06/28/2018 Shirley HUBBARD MD Ot I49.3 VENTRICULAR PREMATURE DEPOLARIZATION 06/28/2018 Shirley HUBBARD MD Ot Z68.35 BODY MASS INDEX (BMI) 35.0-35.9, ADULT 06/28/2018 Shirley HUBBARD MD Ot Z79.01 CUSTOMER ACCOUNT COORDINATOR (CURRENT) USE OF ANTICOAGULANT 06/28/2018 Shirley HUBBARD MD Ot Z79.899 OTHER LONG-TERM (CURRENT) DRUG THERAPY 06/28/2018 Shirley HUBBARD MD Ot Z87.891 PERSONAL HISTORY OF NICOTINE DEPENDENCE 07/28/2018 Shirley HUBBARD MD Ot I48.1 PERSISTENT ATRIAL FIBRILLATION 07/28/2018 Shirley HUBBARD MD Ot E66.9 OBESITY, UNSPECIFIED 07/28/2018 Shirley HUBBARD MD Ot E78.5 HYPERLIPIDEMIA, UNSPECIFIED 07/28/2018 Shirley HUBBARD MD Ot I10 ESSENTIAL (PRIMARY) HYPERTENSION 07/28/2018 Shirley HUBBARD MD Ot I48.1 PERSISTENT ATRIAL FIBRILLATION 07/28/2018 Shirley HUBBARD MD Ot I49.3 VENTRICULAR PREMATURE DEPOLARIZATION 07/28/2018 Shirley HUBBARD MD Ot Z68.35 BODY MASS INDEX (BMI) 35.0-35.9, ADULT 07/28/2018 Shirley HUBBARD MD Ot Z79.01 LONG-TERM (CURRENT) USE OF ANTICOAGULANT 07/28/2018 Shirley HUBBARD MD Ot Z79.899 OTHER CUSTOMER ACCOUNT COORDINATOR (CURRENT) DRUG THERAPY 07/28/2018 Shirley HUBBARD MD Ot Z87.891 PERSONAL HISTORY OF NICOTINE DEPENDENCE 07/28/2018 Shirley HUBBARD MD Ot E78.5 HYPERLIPIDEMIA, UNSPECIFIED 07/28/2018 Shirley HUBBARD MD Ot I10 ESSENTIAL (PRIMARY) HYPERTENSION 07/28/2018 Shirley HUBBARD MD Ot I48.1 PERSISTENT ATRIAL FIBRILLATION 07/28/2018 Shirley HUBBARD MD Ot I49.3 VENTRICULAR PREMATURE DEPOLARIZATION 07/28/2018 Shirley HUBBARD MD Ot Z79.01 LONG-TERM (CURRENT) USE OF ANTICOAGULANT 07/28/2018 Shirley HUBBARD MD Ot Z79.899 OTHER CUSTOMER ACCOUNT COORDINATOR (CURRENT) DRUG THERAPY 08/10/2018 Shirley HUBBARD MD, Ot E78.5 HYPERLIPIDEMIA, UNSPECIFIED 08/10/2018 Shirley HUBBARD MD Ot I10 ESSENTIAL (PRIMARY) HYPERTENSION 08/10/2018 Shirley HUBBARD MD Ot I48.1 PERSISTENT ATRIAL FIBRILLATION 08/10/2018 Shirley HUBBARD MD Ot I49.3 VENTRICULAR PREMATURE DEPOLARIZATION 08/10/2018 Shirley HUBBARD MD Ot R42 DIZZINESS AND GIDDINESS 08/10/2018 Shirley HUBBARD MD Ot R53.83 OTHER FATIGUE 08/12/2018 Shirley HUBBARD MD Ot E78.5 HYPERLIPIDEMIA, UNSPECIFIED 08/12/2018 Shirley HUBBARD MD Ot I10 ESSENTIAL (PRIMARY) HYPERTENSION 08/12/2018 Shirley HUBBARD MD Ot I48.1 PERSISTENT ATRIAL FIBRILLATION 08/12/2018 Shirley HUBBARD MD Ot I49.3 VENTRICULAR PREMATURE DEPOLARIZATION 08/12/2018 Shirley HUBBARD MD Ot R42 DIZZINESS AND GIDDINESS 08/12/2018 Shirley HUBBARD MD Ot R53.83 OTHER FATIGUE 09/01/2018 Shirley HUBBARD MD Ot I48.1 PERSISTENT ATRIAL FIBRILLATION 09/01/2018 Shirley HUBBARD MD Ot E66.9 OBESITY, UNSPECIFIED 09/01/2018 Shirley HUBBARD MD Ot E78.5 HYPERLIPIDEMIA, UNSPECIFIED 09/01/2018 Shirley HUBBARD MD Ot I10 ESSENTIAL (PRIMARY) HYPERTENSION 09/01/2018 Shirley HUBBARD MD Ot I48.1 PERSISTENT ATRIAL FIBRILLATION 09/01/2018 Shirley HUBBARD MD Ot I49.3 VENTRICULAR PREMATURE DEPOLARIZATION 09/01/2018 Shirley HUBBARD MD Ot Z68.35 BODY MASS INDEX (BMI) 35.0-35.9, ADULT 09/01/2018 Shirley HUBBARD MD Ot Z79.01 LONG-TERM (CURRENT) USE OF ANTICOAGULANT 09/01/2018 Shirley HUBBARD MD Ot Z79.899 OTHER CUSTOMER ACCOUNT COORDINATOR (CURRENT) DRUG THERAPY 09/01/2018 Shirley HUBBARD MD, Ot Z87.891 PERSONAL HISTORY OF NICOTINE DEPENDENCE 09/01/2018 Shirley HUBBARD MD Ot E78.5 HYPERLIPIDEMIA, UNSPECIFIED 09/01/2018 Shirley HUBBARD MD Ot I10 ESSENTIAL (PRIMARY) HYPERTENSION 09/01/2018 Shirley HUBBARD MD Ot I48.1 PERSISTENT ATRIAL FIBRILLATION 09/01/2018 Shirley HUBBARD MD Ot I49.3 VENTRICULAR PREMATURE DEPOLARIZATION 09/01/2018 Shirley HUBBARD MD Ot R42 DIZZINESS AND GIDDINESS 09/01/2018 Shirley HUBBARD MD Ot R53.83 OTHER FATIGUE 09/01/2018 Shirley HUBBARD MD Ot E78.5 HYPERLIPIDEMIA, UNSPECIFIED 09/01/2018 Shirley HUBBARD MD Ot I10 ESSENTIAL (PRIMARY) HYPERTENSION 09/01/2018 Shirley HUBBARD MD Ot I48.1 PERSISTENT ATRIAL FIBRILLATION 09/01/2018 Shirley HUBBARD MD Ot I49.3 VENTRICULAR PREMATURE DEPOLARIZATION 09/01/2018 Shirley HUBBARD MD Ot R42 DIZZINESS AND GIDDINESS 09/01/2018 Shirley HUBBARD MD Ot R53.83 OTHER FATIGUE 09/01/2018 Shirley HUBBARD MD Ot E66.9 OBESITY, UNSPECIFIED 09/01/2018 KHALID MD, M MANDIE Ot E78.5 HYPERLIPIDEMIA, UNSPECIFIED 09/01/2018 Shirley HUBBARD MD Ot I10 ESSENTIAL (PRIMARY) HYPERTENSION 09/01/2018 Shirley HUBBARD MD Ot I48.0 PAROXYSMAL ATRIAL FIBRILLATION 09/01/2018 Shirley HUBBARD MD, Ot I49.3 VENTRICULAR PREMATURE DEPOLARIZATION 09/01/2018 Shirley HUBBARD MD, Ot K21.0 GASTRO-ESOPHAGEAL REFLUX DISEASE WITH ES 09/01/2018 Shirley HUBBARD MD, Ot R73.03 PREDIABETES 09/01/2018 Shirley HUBBARD MD, Ot Z68.35 BODY MASS INDEX (BMI) 35.0-35.9, ADULT 09/01/2018 Shirley HUBBARD MD, Ot Z79.01 CUSTOMER ACCOUNT COORDINATOR (CURRENT) USE OF ANTICOAGULANT 09/01/2018 Shirley HUBBARD MD Ot Z79.899 OTHER LONG-TERM (CURRENT) DRUG THERAPY 09/19/2018 Shirley HUBBARD MD Ot I48.1 PERSISTENT ATRIAL FIBRILLATION 09/20/2018 Shirley HUBBARD MD Ot E66.9 OBESITY, UNSPECIFIED 09/20/2018 Shirley HUBBARD MD, Ot E78.5 HYPERLIPIDEMIA, UNSPECIFIED 09/20/2018 Shirley HUBBARD MD Ot I10 ESSENTIAL (PRIMARY) HYPERTENSION 09/20/2018 Shirley HUBBARD MD Ot I34.0 NONRHEUMATIC MITRAL (VALVE) INSUFFICIENC 09/20/2018 Shirley HUBBARD MD Ot I48.1 PERSISTENT ATRIAL FIBRILLATION 09/20/2018 Shirley HUBBARD MD, Ot I49.3 VENTRICULAR PREMATURE DEPOLARIZATION 09/20/2018 Shirley HUBBARD MD Ot K21.9 GASTRO-ESOPHAGEAL REFLUX DISEASE WITHOUT 09/20/2018 Shirley HUBBARD MD, Ot R73.03 PREDIABETES 09/20/2018 Shirley HUBBARD MD, Ot Z68.35 BODY MASS INDEX (BMI) 35.0-35.9, ADULT 09/20/2018 Shirley HUBBARD MD, Ot Z79.01 CUSTOMER ACCOUNT COORDINATOR (CURRENT) USE OF ANTICOAGULANT 09/20/2018 Shirley HUBBARD MD, Ot Z79.899 OTHER CUSTOMER ACCOUNT COORDINATOR (CURRENT) DRUG THERAPY 09/20/2018 Shirley HUBBARD MD, Ot I48.1 PERSISTENT ATRIAL FIBRILLATION 09/28/2018 Shirley HUBBARD MD, Ot E78.5 HYPERLIPIDEMIA, UNSPECIFIED 09/28/2018 Shirley HUBBARD MD Ot I10 ESSENTIAL (PRIMARY) HYPERTENSION 09/28/2018 hSirley HUBBARD MD Ot I48.1 PERSISTENT ATRIAL FIBRILLATION 09/28/2018 Shirley HUBBARD MD, Ot I49.3 VENTRICULAR PREMATURE DEPOLARIZATION 09/28/2018 Shirley HUBBARD MD Ot R42 DIZZINESS AND GIDDINESS 09/28/2018 Shirley HUBBARD MD Ot R53.83 OTHER FATIGUE 10/23/2018 GEOVANI AGUILAR MD Ot I34.0 NONRHEUMATIC MITRAL (VALVE) INSUFFICIENC 10/23/2018 GEOVANI AGUILAR MD Ot I48.1 PERSISTENT ATRIAL FIBRILLATION 10/24/2018 Shirley HUBBARD MD Ot E66.9 OBESITY, UNSPECIFIED 10/24/2018 Shirley HUBBARD MD, Ot E78.5 HYPERLIPIDEMIA, UNSPECIFIED 10/24/2018 Shirley HUBBARD MD Ot I10 ESSENTIAL (PRIMARY) HYPERTENSION 10/24/2018 Shirley HUBBARD MD Ot I48.0 PAROXYSMAL ATRIAL FIBRILLATION 10/24/2018 Shirley HUBBARD MD, Ot I49.3 VENTRICULAR PREMATURE DEPOLARIZATION 10/24/2018 Shirley HUBBARD MD Ot K21.0 GASTRO-ESOPHAGEAL REFLUX DISEASE WITH ES 10/24/2018 Shirley HUBBARD MD Ot R73.03 PREDIABETES 10/24/2018 Shirley HUBBARD MD Ot Z68.35 BODY MASS INDEX (BMI) 35.0-35.9, ADULT 10/24/2018 Shirley HUBBARD MD, Ot Z79.01 LONG-TERM (CURRENT) USE OF ANTICOAGULANT 10/24/2018 Shirley HUBBARD MD, Ot Z79.899 OTHER CUSTOMER ACCOUNT COORDINATOR (CURRENT) DRUG THERAPY 10/24/2018 Shirley HUBBARD MD Ot E78.5 HYPERLIPIDEMIA, UNSPECIFIED 10/24/2018 Shirley HUBBARD MD, Ot I10 ESSENTIAL (PRIMARY) HYPERTENSION 10/24/2018 Shirley HUBBARD MD Ot I48.1 PERSISTENT ATRIAL FIBRILLATION 10/24/2018 Shirley HUBBARD MD Ot I49.3 VENTRICULAR PREMATURE DEPOLARIZATION 10/24/2018 Shirley HUBBARD MD Ot R42 DIZZINESS AND GIDDINESS 10/24/2018 Shirley HUBBARD MD Ot R53.83 OTHER FATIGUE 11/09/2018 [place] MD R Ot I08.1 RHEUMATIC DISORDERS OF BOTH MITRAL AND T 11/09/2018 [place] MD R Ot I10 ESSENTIAL (PRIMARY) HYPERTENSION 11/09/2018 [place] MD R Ot I48.91 UNSPECIFIED ATRIAL FIBRILLATION 11/09/2018 [place] MD R Ot J44.9 CHRONIC OBSTRUCTIVE PULMONARY DISEASE, U 11/11/2018 [place] MD R Ot I08.1 RHEUMATIC DISORDERS OF BOTH MITRAL AND T 11/11/2018 [place] MD R Ot I10 ESSENTIAL (PRIMARY) HYPERTENSION 11/11/2018 [place] MD R Ot I48.91 UNSPECIFIED ATRIAL FIBRILLATION 11/11/2018 [place] MD R Ot J44.9 CHRONIC OBSTRUCTIVE PULMONARY DISEASE, U Procedures There is no data. Results Test Result Range Automated blood complete blood count (hemogram) panel - 01/06/18 07:38 Blood leukocytes automated count (number/volume) 6.5 10*3/uL 4.3-11.0 Blood erythrocytes automated count (number/volume) 4.68 10*6/uL 4.35-5.85 Venous blood hemoglobin measurement (mass/volume) 13.5 g/dL 11.5-16.0 Blood hematocrit (volume fraction) 40 % 35-52 Automated erythrocyte mean corpuscular volume 84 [foz_us] 80-99 Automated erythrocyte mean corpuscular hemoglobin (mass per erythrocyte) 29 pg 25-34 Automated erythrocyte mean corpuscular hemoglobin concentration measurement (mass/volume) 34 g/dL 32-36 Automated erythrocyte distribution width ratio 13.1 % 10.0- 14.5 Automated blood platelet count (count/volume) 282 10*3/uL 130-400 Automated blood platelet mean volume measurement 9.6 [foz_us] 7.4-10.4 PT panel in platelet poor plasma by coagulation assay - 01/06/18 07:38 Prothrombin time (PT) in platelet poor plasma by coagulation assay 14.6 s 12.2-14.7 INR in platelet poor plasma or blood by coagulation assay 1.1 0.8-1.4 Activated partial thromboplastin time (aPTT) in platelet poor plasma bycoagulation assay - 01/06/18 07:38 Activated partial thromboplastin time (aPTT) in platelet poor plasma bycoagulation assay 44 s 24-35 Comprehensive metabolic panel - 01/06/18 07:38 Serum or plasma sodium measurement (moles/volume) 138 mmol/L 135-145 Serum or plasma potassium measurement (moles/volume) 4.1 mmol/L 3.6-5.0 Serum or plasma chloride measurement (moles/volume) 110 mmol/L 98-107 Carbon dioxide 22 mmol/L 21-32 Serum or plasma anion gap determination (moles/volume) 6 mmol/L 5-14 Serum or plasma urea nitrogen measurement (mass/volume) 12 mg/dL 7-18 Serum or plasma creatinine measurement (mass/volume) 0.84 mg/dL 0.60-1.30 Serum or plasma urea nitrogen/creatinine mass ratio 14 NRG Serum or plasma creatinine measurement with calculation of estimated glomerular filtration rate > NRG Serum or plasma glucose measurement (mass/volume) 115 mg/dL 70-105 Serum or plasma calcium measurement (mass/volume) 9.1 mg/dL 8.5-10.1 Serum or plasma total bilirubin measurement (mass/volume) 0.9 mg/dL 0.1-1.0 Serum or plasma alkaline phosphatase measurement (enzymatic activity/volume) 39 U/L 40-136 Serum or plasma aspartate aminotransferase measurement (enzymatic activity/volume) 12 U/L 5-34 Serum or plasma alanine aminotransferase measurement (enzymatic activity/volume) 9 U/L 0-55 Serum or plasma protein measurement (mass/volume) 6.1 g/dL 6.4-8.2 Serum or plasma albumin measurement (mass/volume) 3.8 g/dL 3.2-4.5 CALCIUM CORRECTED 9.3 mg/dL 8.5-10.1 Methicillin resistant Staphylococcus aureus (MRSA) screening culture - 01/06/18 07:38 Methicillin resistant Staphylococcus aureus (MRSA) screening culture NEG [facility] Complete blood count (CBC) with automated white blood cell (WBC) differential - 04/27/18 19:32 Blood leukocytes automated count (number/volume) 7.9 10*3/uL 4.3-11.0 Blood erythrocytes automated count (number/volume) 4.77 10*6/uL 4.35-5.85 Venous blood hemoglobin measurement (mass/volume) 14.0 g/dL 11.5-16.0 Blood hematocrit (volume fraction) 40 % 35-52 Automated erythrocyte mean corpuscular volume 84 [foz_us] 80-99 Automated erythrocyte mean corpuscular hemoglobin (mass per erythrocyte) 29 pg 25-34 Automated erythrocyte mean corpuscular hemoglobin concentration measurement (mass/volume) 35 g/dL 32-36 Automated erythrocyte distribution width ratio 13.0 % 10.0- 14.5 Automated blood platelet count (count/volume) 277 10*3/uL 130-400 Automated blood platelet mean volume measurement 10.1 [foz_us] 7.4-10.4 Automated blood neutrophils/100 leukocytes 52 % 42-75 Automated blood lymphocytes/100 leukocytes 36 % 12-44 Blood monocytes/100 leukocytes 10 % 0-12 Automated blood eosinophils/100 leukocytes 2 % 0-10 Automated blood basophils/100 leukocytes 0 % 0-10 Blood neutrophils automated count (number/volume) 4.1 10*3 1.8-7.8 Blood lymphocytes automated count (number/volume) 2.8 10*3 1.0-4.0 Blood monocytes automated count (number/volume) 0.8 10*3 0.0- 1.0 Automated eosinophil count 0.2 10*3/uL 0.0-0.3 Automated blood basophil count (count/volume) 0.0 10*3/uL 0.0-0.1 Comprehensive metabolic panel - 04/27/18 19:32 Serum or plasma sodium measurement (moles/volume) 139 mmol/L 135-145 Serum or plasma potassium measurement (moles/volume) 4.0 mmol/L 3.6-5.0 Serum or plasma chloride measurement (moles/volume) 109 mmol/L 98-107 Carbon dioxide 18 mmol/L 21-32 Serum or plasma anion gap determination (moles/volume) 12 mmol/L 5-14 Serum or plasma urea nitrogen measurement (mass/volume) 13 mg/dL 7-18 Serum or plasma creatinine measurement (mass/volume) 0.89 mg/dL 0.60-1.30 Serum or plasma urea nitrogen/creatinine mass ratio 15 NRG Serum or plasma creatinine measurement with calculation of estimated glomerular filtration rate > NRG Serum or plasma glucose measurement (mass/volume) 117 mg/dL 70-105 Serum or plasma calcium measurement (mass/volume) 9.2 mg/dL 8.5-10.1 Serum or plasma total bilirubin measurement (mass/volume) 0.7 mg/dL 0.1-1.0 Serum or plasma alkaline phosphatase measurement (enzymatic activity/volume) 60 U/L 40-136 Serum or plasma aspartate aminotransferase measurement (enzymatic activity/volume) 18 U/L 5-34 Serum or plasma alanine aminotransferase measurement (enzymatic activity/volume) 12 U/L 0-55 Serum or plasma protein measurement (mass/volume) 7.2 g/dL 6.4-8.2 Serum or plasma albumin measurement (mass/volume) 4.2 g/dL 3.2-4.5 CALCIUM CORRECTED 9.0 mg/dL 8.5-10.1 PT panel in platelet poor plasma by coagulation assay - 04/27/18 19:32 Prothrombin time (PT) in platelet poor plasma by coagulation assay 16.4 s 12.2-14.7 INR in platelet poor plasma or blood by coagulation assay 1.3 0.8-1.4 Activated partial thromboplastin time (aPTT) in platelet poor plasma bycoagulation assay - 04/27/18 19:32 Activated partial thromboplastin time (aPTT) in platelet poor plasma bycoagulation assay 45 s 24-35 Fibrin D-dimer FEU measurement in platelet poor plasma (mass/volume) - 04/27/18 19:32 Fibrin D-dimer FEU measurement in platelet poor plasma (mass/volume) 0.33 ug/mL 0.00-0.49 Serum or plasma troponin i.cardiac measurement (mass/volume) - 04/27/18 19:32 Serum or plasma troponin i.cardiac measurement (mass/volume) < ng/mL <0.30 Complete urinalysis with reflex to culture - 04/27/18 19:47 Urine color determination YELLOW NRG Urine clarity determination SLIGHTLY CLOUDY NRG Urine pH measurement by test strip 5 5-9 Specific gravity of urine by test strip 1.025 1.016-1.022 Urine protein assay by test strip, semi-quantitative NEGATIVE NEGATIVE Urine glucose detection by automated test strip NEGATIVE NEGATIVE Erythrocytes detection in urine sediment by light microscopy 1+ NEGATIVE Urine ketones detection by automated test strip NEGATIVE NEGATIVE Urine nitrite detection by test strip NEGATIVE NEGATIVE Urine total bilirubin detection by test strip NEGATIVE NEGATIVE Urine urobilinogen measurement by automated test strip (mass/volume) NORMAL NORMAL Urine leukocyte esterase detection by dipstick 3+ NEGATIVE Automated urine sediment erythrocyte count by microscopy (number/high power field) [HPF] NRG Automated urine sediment leukocyte count by microscopy (number/high power field) > [HPF] NRG Bacteria detection in urine sediment by light microscopy TRACE NRG Squamous epithelial cells detection in urine sediment by light microscopy 2-5 NRG Crystals detection in urine sediment by light microscopy NONE NRG Casts detection in urine sediment by light microscopy NONE NRG Mucus detection in urine sediment by light microscopy NEGATIVE NRG Complete urinalysis with reflex to culture YES NRG Bacterial urine culture - 04/27/18 19:47 Bacterial urine culture SEE REPORT NR COLONY COUNT . NRG Blood lactic acid measurement (moles/volume) - 04/27/18 21:50 Blood lactic acid measurement (moles/volume) 0.81 mmol/L 0.50- 2.00 Bacterial blood culture - 04/27/18 21:50 QUANTITY OF GROWTH . NRG Bacterial blood culture SEE REPORT NRG Bacterial blood culture - 04/27/18 21:58 Bacterial blood culture NG NR Complete blood count (CBC) with automated white blood cell (WBC) differential - 05/19/18 13:02 Blood leukocytes automated count (number/volume) 14.7 10*3/uL 4.3-11.0 Blood erythrocytes automated count (number/volume) 5.38 10*6/uL 4.35-5.85 Venous blood hemoglobin measurement (mass/volume) 15.2 g/dL 11.5-16.0 Blood hematocrit (volume fraction) 45 % 35-52 Automated erythrocyte mean corpuscular volume 84 [foz_us] 80-99 Automated erythrocyte mean corpuscular hemoglobin (mass per erythrocyte) 28 pg 25-34 Automated erythrocyte mean corpuscular hemoglobin concentration measurement (mass/volume) 34 g/dL 32-36 Automated erythrocyte distribution width ratio 13.2 % 10.0- 14.5 Automated blood platelet count (count/volume) 333 10*3/uL 130-400 Automated blood platelet mean volume measurement 10.3 [foz_us] 7.4-10.4 Automated blood neutrophils/100 leukocytes 79 % 42-75 Automated blood lymphocytes/100 leukocytes 16 % 12-44 Blood monocytes/100 leukocytes 4 % 0-12 Automated blood eosinophils/100 leukocytes 0 % 0-10 Automated blood basophils/100 leukocytes 0 % 0-10 Blood neutrophils automated count (number/volume) 11.7 10*3 1.8-7.8 Blood lymphocytes automated count (number/volume) 2.4 10*3 1.0-4.0 Blood monocytes automated count (number/volume) 0.5 10*3 0.0- 1.0 Automated eosinophil count 0.0 10*3/uL 0.0-0.3 Automated blood basophil count (count/volume) 0.0 10*3/uL 0.0-0.1 Blood manual differential performed detection - 05/19/18 13:02 Blood monocytes/100 leukocytes 4 % NRG Manual blood segmented neutrophils/100 leukocytes 74 % NRG Blood band neutrophils/100 leukocytes 0 % NRG Manual blood lymphocytes/100 leukocytes 22 % NRG Manual eosinophils/100 leukocytes in nose 0 % NRG Manual blood basophils/100 leukocytes 0 % NRG Blood erythrocyte morphology finding identification NORMAL [facility] Comprehensive metabolic panel - 05/19/18 13:02 Serum or plasma sodium measurement (moles/volume) 138 mmol/L 135-145 Serum or plasma potassium measurement (moles/volume) 4.3 mmol/L 3.6-5.0 Serum or plasma chloride measurement (moles/volume) 106 mmol/L 98-107 Carbon dioxide 19 mmol/L 21-32 Serum or plasma anion gap determination (moles/volume) 13 mmol/L 5-14 Serum or plasma urea nitrogen measurement (mass/volume) 13 mg/dL 7-18 Serum or plasma creatinine measurement (mass/volume) 0.89 mg/dL 0.60-1.30 Serum or plasma urea nitrogen/creatinine mass ratio 15 NRG Serum or plasma creatinine measurement with calculation of estimated glomerular filtration rate > NRG Serum or plasma glucose measurement (mass/volume) 159 mg/dL 70-105 Serum or plasma calcium measurement (mass/volume) 9.7 mg/dL 8.5-10.1 Serum or plasma total bilirubin measurement (mass/volume) 1.3 mg/dL 0.1-1.0 Serum or plasma alkaline phosphatase measurement (enzymatic activity/volume) 54 U/L 40-136 Serum or plasma aspartate aminotransferase measurement (enzymatic activity/volume) 17 U/L 5-34 Serum or plasma alanine aminotransferase measurement (enzymatic activity/volume) 10 U/L 0-55 Serum or plasma protein measurement (mass/volume) 7.2 g/dL 6.4-8.2 Serum or plasma albumin measurement (mass/volume) 4.2 g/dL 3.2-4.5 CALCIUM CORRECTED 9.5 mg/dL 8.5-10.1 Serum or plasma troponin i.cardiac measurement (mass/volume) - 05/19/18 13:02 Serum or plasma troponin i.cardiac measurement (mass/volume) < ng/mL <0.028 Serum or plasma amylase measurement (enzymatic activity/volume) - 05/19/18 13:02 Serum or plasma amylase measurement (enzymatic activity/volume) 34 U/L 25-125 Lipase - 05/19/18 13:02 Lipase 34 U/L 8-78 Serum or plasma lithium measurement (moles/volume) - 05/19/18 13:02 BNP level 50.0 pg/mL <100.0 Complete urinalysis with reflex to culture - 05/19/18 15:06 Urine color determination YELLOW NRG Urine clarity determination CLEAR NRG Urine pH measurement by test strip 5 5-9 Specific gravity of urine by test strip 1.030 1.016-1.022 Urine protein assay by test strip, semi-quantitative 2+ NEGATIVE Urine glucose detection by automated test strip NEGATIVE NEGATIVE Erythrocytes detection in urine sediment by light microscopy 1+ NEGATIVE Urine ketones detection by automated test strip 4+ NEGATIVE Urine nitrite detection by test strip NEGATIVE NEGATIVE Urine total bilirubin detection by test strip NEGATIVE NEGATIVE Urine urobilinogen measurement by automated test strip (mass/volume) NORMAL NORMAL Urine leukocyte esterase detection by dipstick 1+ NEGATIVE Automated urine sediment erythrocyte count by microscopy (number/high power field) RARE NRG Automated urine sediment leukocyte count by microscopy (number/high power field) RARE NRG Bacteria detection in urine sediment by light microscopy NEGATIVE NRG Squamous epithelial cells detection in urine sediment by light microscopy RARE NRG Crystals detection in urine sediment by light microscopy NONE NRG Casts detection in urine sediment by light microscopy NONE NRG Mucus detection in urine sediment by light microscopy NEGATIVE NRG Complete urinalysis with reflex to culture NO NRG PT panel in platelet poor plasma by coagulation assay - 11/04/18 12:45 Prothrombin time (PT) in platelet poor plasma by coagulation assay 20.2 s 12.2-14.7 INR in platelet poor plasma or blood by coagulation assay 1.6 0.8-1.4 Encounters ACCT No. Visit Date/Time Discharge Status Pt. Type Provider Facility Loc./Unit Complaint [id number] 11/04/2018 11:15:00 11/04/2018 23:59:59 CLS Outpatient BALDOMERO PARISH MD Via [facility] [id number] 10/19/2018 14:35:00 10/19/2018 23:59:59 CLS Outpatient GEOVANI AGUILAR MD Via [facility] RT PAF [id number] 09/20/2018 00:12:00 09/20/2018 23:59:59 CLS Preadmit Shirley HUBBARD MD Via [facility] CARD PERSISTENT AFIB [id number] 06/21/2018 14:45:00 09/19/2018 00:01:00 DIS Outpatient Shirley HUBBARD MD Via [facility] CARD PERSISTENT AFIB [id number] 09/15/2018 07:02:00 09/15/2018 09:59:00 DIS Outpatient Shirley HUBBARD MD Via [facility] MODERATE/SEVERE MITRAL REGURGITATION [id number] 09/01/2018 13:45:00 09/01/2018 15:45:00 DIS Outpatient Shirley HUBBARD MD Via [facility] CATH PERSISTENT AFIB [id number] 08/11/2018 07:13:00 08/11/2018 23:59:59 CLS Outpatient Shirley HUBBARD MD Via [facility] CARD DIZZINESS,HTN [id number] 08/08/2018 12:42:00 08/08/2018 23:59:59 CLS Outpatient Shirley HUBBARD MD Via [facility] CARD DIZZINESS,FATIGUE [id number] 07/28/2018 08:14:00 07/28/2018 10:05:00 DIS Outpatient Shirley HUBBARD MD Via [facility] CATH AF [id number] 07/27/2018 09:52:00 07/27/2018 23:59:59 CLS Preadmit Shirley HUBBARD MD Via [facility] RAD DIZZINESS [id number] 06/23/2018 13:54:00 06/23/2018 23:59:59 CLS Outpatient Shirley HUBBARD MD Via [facility] CATH ATRIAL FIB [id number] 06/16/2018 15:22:00 06/16/2018 23:59:59 CLS Preadmit Shirley HUBBARD MD Via [facility] SLEEP PAF I48.1 [id number] 06/14/2018 15:49:00 06/14/2018 23:59:59 CLS Preadmit Shirley HUBBARD MD Via [facility] CARD PERSISTENT AFIB [id number] 05/19/2018 12:44:00 05/19/2018 17:43:00 DIS Emergency LISY, ROC Via [facility] ER N/V [id number] 04/27/2018 19:20:00 04/27/2018 23:32:00 DIS Emergency BAMBI MCFADDEN MARYURI K Via [facility] ER BLOOD PRESSURE PROBLEMS,LOSS OF VISION, HAS A FIB [id number] 01/06/2018 07:06:00 01/06/2018 10:57:00 DIS Outpatient Shirley HUBBARD MD Via [facility] CATH PERSISTANT AF
[2018-11-11 22:51] LABS: BILIRUBIN,URINE NEGATIVE (NEGATIVE); CLARITY,URINE SLIGHTLY CLOUDY; COLOR,URINE YELLOW; GLUCOSE, URINE (UA) NEGATIVE (NEGATIVE); KETONES,URINE NEGATIVE (NEGATIVE); LEUKOCYTE ESTERASE ,URINE 3+ (NEGATIVE); NITRITE,URINE NEGATIVE (NEGATIVE); PH,URINE 5 (5-9); PROTEIN,URINE NEGATIVE (NEGATIVE); UROBILINOGEN,URINE NORMAL (NORMAL)
--- NOTE | 2018-11-11 23:02 | NUR ---
Report given to POPEYE Bronson to assume care of pt @ this time.
--- NOTE | 2018-11-11 23:03 | NUR ---
ASSUMED CARE OF THIS PATIENT AT THIS TIME. PATIENT IS A&OX4. WARM BLANKET PROVIDED, RESTING QUIETLY WITH AT BEDSIDE. WILL CONTINUE TO MONITOR.
[2018-11-11 23:17] LABS: BACTERIA,URINE FEW /HPF; WBC,URINE 25-50 /HPF
[2018-11-11] MEDS ORDERED: HOLD METFORMIN - RECEIVED CONTRAST 20 ML VIAL IV SCH (23:45)
[2018-11-11] MEDS ORDERED: NS 100 ML (IVPB) BAG IV ONE (23:45)
[2018-11-11] MEDS ORDERED: IOHEXOL 350 MG/ML 150 ML (OMNIPAQUE 350) VIAL IV ONE (23:45)
[2018-11-12] MEDS ORDERED: morphine INJ 10 MG/ML 1ML (SYR OR VIAL) ONE (00:21)
[2018-11-12] MEDS ORDERED: morphine INJ 10 MG/ML 1ML (SYR OR VIAL) IVP STA (00:26)
[2018-11-12] MEDS ORDERED: ONDANSETRON 4 MG/2 ML (SDV) Z0FRAN IVP ONE (00:30)
[2018-11-12] MEDS ORDERED: HEParin DRIP 25000 UNIT/500ML 500 ML IV ONE (00:40)
[2018-11-12] MEDS ORDERED: HEParin 1000 UNIT/ML (10ML VIAL) FOR BOLUS IV ONE (00:40)
--- NOTE | 2018-11-12 00:42 | NUR ---
IN ROOM TO CHECK PATIENT, RESTING QUIETLY CALL LIGHT IN REACH, AT BEDSIDE. DENIES NEEDS AT THIS TIME.
[2018-11-12] MEDS ORDERED: cefTRIAXone FOR IV USE 1,000 MG in WATER (STERILE) FOR INJECTION 10 ML IV ONE (00:45)
--- OUTSIDE RECORDS SUMMARY | 2018-11-12 00:57 | XMS REPORT | Continuity of Care Document ---
Author Organization Unknown Address Unknown Allergies Active Description Code Type Severity Reaction Onset Reported/Identified Relationship to Patient Clinical Status Yes acetaminophen [id number] Drug Allergy Unknown N/A 01/06/2018 Yes amoxicillin [id number] Drug Allergy Unknown N/A 01/06/2018 Yes clavulanic acid [id number] Drug Allergy Unknown N/A 01/06/2018 Yes codeine [id number] Drug Allergy Unknown N/A 01/06/2018 Yes hydrocodone [id number] Drug Allergy Unknown N/A 01/06/2018 Yes oxycodone [id number] Drug Allergy Unknown N/A 01/06/2018 Medications There [...] ADULT 01/06/2018 Shirley HUBBARD MD Ot Z79.01 MAGNETIC RESONANCE TECHNOLOGIST (CURRENT) USE OF ANTICOAGULANT 01/06/2018 Shirley HUBBARD MD Ot Z79.899 OTHER MAGNETIC RESONANCE TECHNOLOGIST (CURRENT) DRUG THERAPY 01/06/2018 Shirley HUBBARD MD, [...] ADULT 01/07/2018 Shirley HUBBARD MD Ot Z79.01 MAGNETIC RESONANCE TECHNOLOGIST (CURRENT) USE OF ANTICOAGULANT 01/07/2018 Shirley HUBBARD MD Ot Z79.899 OTHER MAGNETIC RESONANCE TECHNOLOGIST (CURRENT) DRUG THERAPY 01/07/2018 Shirley HUBBARD MD [...] ADULT 01/11/2018 Shirley HUBBARD MD Ot Z79.01 SNF (CURRENT) USE OF ANTICOAGULANT 01/11/2018 Shirley HUBBARD MD Ot Z79.899 OTHER SNF (CURRENT) DRUG THERAPY 01/11/2018 Shirley HUBBARD MD Ot Z87.891 PERSONAL HISTORY OF NICOTINE DEPENDENCE 04/27/2018 MARYURI LACY DO Ot H53.8 OTHER VISUAL DISTURBANCES 04/27/2018 MARLIN LACY DOA Esau Ot I48.91 UNSPECIFIED ATRIAL FIBRILLATION 04/27/2018 MARYURI LACY DO Ot N39.0 URINARY TRACT INFECTION, [...] OF OTHER DISEASES OF 04/29/2018 BAMBI MARLIN MCFADDNEA K Ot Z88.1 ALLERGY STATUS TO OTHER ANTIBIOTIC AGENT 04/29/2018 BAMBI DO MARYURI K Ot Z88.5 ALLERGY STATUS TO NARCOTIC AGENT STATUS 04/29/2018 BAMBI , MARYURI K Ot Z88.8 ALLERGY STATUS TO OTH DRUG/MEDS/BIOL SUB 05/03/2018 BAMBI , MARYURI K Ot H53.8 OTHER VISUAL DISTURBANCES 05/03/2018 BAMIB DO, MARYURI K Ot I48.91 UNSPECIFIED ATRIAL [...] AND GIDDINESS 05/19/2018 BERNOT ROC Ot Z79.01 MAGNETIC RESONANCE TECHNOLOGIST (CURRENT) USE OF ANTICOAGULANT 05/19/2018 LISY ROC [...] AND GIDDINESS 05/23/2018 BERNOT ROC Ot Z79.01 MAGNETIC RESONANCE TECHNOLOGIST (CURRENT) USE OF ANTICOAGULANT 05/23/2018 BERNNALLELY ROC [...] ADULT 06/27/2018 Shirley HUBBARD MD Ot Z79.01 SNF (CURRENT) USE OF ANTICOAGULANT 06/27/2018 Shirley HUBBARD MD Ot Z79.899 OTHER MAGNETIC RESONANCE TECHNOLOGIST (CURRENT) DRUG THERAPY 06/27/2018 Shirley HUBBARD MD [...] ADULT 06/28/2018 Shirley HUBBARD MD Ot Z79.01 MAGNETIC RESONANCE TECHNOLOGIST (CURRENT) USE OF ANTICOAGULANT 06/28/2018 Shirley HUBBARD MD Ot Z79.899 OTHER SNF (CURRENT) DRUG THERAPY 06/28/2018 Shirley HUBBARD MD [...] ADULT 07/28/2018 Shirley HUBBARD MD Ot Z79.01 SNF (CURRENT) USE OF ANTICOAGULANT 07/28/2018 Shirley HUBBARD MD Ot Z79.899 OTHER MAGNETIC RESONANCE TECHNOLOGIST (CURRENT) DRUG THERAPY 07/28/2018 Shirley HUBBARD MD Ot Z87.891 PERSONAL HISTORY OF NICOTINE DEPENDENCE 07/28/2018 Shirley HUBBARD MD Ot E78.5 HYPERLIPIDEMIA, UNSPECIFIED 07/28/2018 Shirley HUBBARD MD Ot I10 ESSENTIAL (PRIMARY) HYPERTENSION 07/28/2018 Shirley HUBBARD MD Ot I48.1 PERSISTENT ATRIAL FIBRILLATION 07/28/2018 Shirley HUBBARD MD Ot I49.3 VENTRICULAR PREMATURE DEPOLARIZATION 07/28/2018 Shirley HUBBARD MD Ot Z79.01 SNF (CURRENT) USE OF ANTICOAGULANT 07/28/2018 Shirley HUBBARD MD Ot Z79.899 OTHER MAGNETIC RESONANCE TECHNOLOGIST (CURRENT) DRUG THERAPY 08/10/2018 Shirley HUBBARD MD, [...] ADULT 09/01/2018 Shirley HUBBARD MD Ot Z79.01 SNF (CURRENT) USE OF ANTICOAGULANT 09/01/2018 Shirley HUBBARD MD Ot Z79.899 OTHER MAGNETIC RESONANCE TECHNOLOGIST (CURRENT) DRUG THERAPY 09/01/2018 Shirley HUBBARD MD, [...] ADULT 09/01/2018 Shirley HUBBARD MD, Ot Z79.01 MAGNETIC RESONANCE TECHNOLOGIST (CURRENT) USE OF ANTICOAGULANT 09/01/2018 Shirley HUBBARD MD Ot Z79.899 OTHER SNF (CURRENT) DRUG THERAPY 09/19/2018 Shirley HUBBARD MD [...] ADULT 09/20/2018 Shirley HUBBARD MD, Ot Z79.01 MAGNETIC RESONANCE TECHNOLOGIST (CURRENT) USE OF ANTICOAGULANT 09/20/2018 Shirley HUBBARD MD, Ot Z79.899 OTHER MAGNETIC RESONANCE TECHNOLOGIST (CURRENT) DRUG THERAPY 09/20/2018 Shirley HUBBARD MD, Ot I48.1 PERSISTENT ATRIAL FIBRILLATION 09/28/2018 Shirley HUBBARD MD, Ot E78.5 HYPERLIPIDEMIA, UNSPECIFIED 09/28/2018 Shirley HUBBARD MD Ot I10 ESSENTIAL (PRIMARY) HYPERTENSION 09/28/2018 Shirley HUBBARD MD Ot I48.1 PERSISTENT ATRIAL FIBRILLATION 09/28/2018 Shirley HUBBARD MD, Ot I49.3 VENTRICULAR PREMATURE DEPOLARIZATION 09/28/2018 Shirley HUBBARD MD Ot R42 DIZZINESS AND GIDDINESS 09/28/2018 Shirley HUBBARD MD Ot R53.83 OTHER FATIGUE 10/23/2018 GEOVANI AGUILAR MD Ot I34.0 NONRHEUMATIC MITRAL (VALVE) INSUFFICIENC 10/23/2018 GEOVANI AGUILAR MD Ot I48.1 PERSISTENT ATRIAL FIBRILLATION 10/24/2018 Shirley HUBBARD MD Ot E66.9 OBESITY, UNSPECIFIED 10/24/2018 Shirley HUBBADR MD, Ot E78.5 HYPERLIPIDEMIA, UNSPECIFIED 10/24/2018 Shirley [...] ADULT 10/24/2018 Shirley HUBBARD MD, Ot Z79.01 SNF (CURRENT) USE OF ANTICOAGULANT 10/24/2018 Shirley HUBBARD MD, Ot Z79.899 OTHER MAGNETIC RESONANCE TECHNOLOGIST (CURRENT) DRUG THERAPY 10/24/2018 Shirley HUBBARD MD [...] resistant Staphylococcus aureus (MRSA) screening culture NEG [facility] Complete blood count (CBC) with automated white [...] NRG Blood erythrocyte morphology finding identification NORMAL [facility] Comprehensive metabolic panel - 05/19/18 13:02 Serum [...] or blood by coagulation assay 1.6 0.8-1.4 Complete blood count (CBC) with automated white blood cell (WBC) differential - 11/11/18 22:03 Blood leukocytes automated count (number/volume) 12.1 10*3/uL 4.3-11.0 Blood erythrocytes automated count (number/volume) 4.68 10*6/uL 4.35-5.85 Venous blood hemoglobin measurement (mass/volume) 13.3 g/dL 11.5-16.0 Blood hematocrit (volume fraction) 38 % 35-52 Automated erythrocyte mean corpuscular volume 82 [foz_us] 80-99 Automated erythrocyte mean corpuscular hemoglobin (mass per erythrocyte) 28 pg 25-34 Automated erythrocyte mean corpuscular hemoglobin concentration measurement (mass/volume) 35 g/dL 32-36 Automated erythrocyte distribution width ratio 12.4 % 10.0- 14.5 Automated blood platelet count (count/volume) 471 10*3/uL 130-400 Automated blood platelet mean volume measurement 9.3 [foz_us] 7.4-10.4 Automated blood neutrophils/100 leukocytes 69 % 42-75 Automated blood lymphocytes/100 leukocytes 18 % 12-44 Blood monocytes/100 leukocytes 10 % 0-12 Automated blood eosinophils/100 leukocytes 2 % 0-10 Automated blood basophils/100 leukocytes 0 % 0-10 Blood neutrophils automated count (number/volume) 8.3 10*3 1.8-7.8 Blood lymphocytes automated count (number/volume) 2.2 10*3 1.0-4.0 Blood monocytes automated count (number/volume) 1.3 10*3 0.0- 1.0 Automated eosinophil count 0.3 10*3/uL 0.0-0.3 Automated blood basophil count (count/volume) 0.1 10*3/uL 0.0-0.1 PT panel in platelet poor plasma by coagulation assay - 11/11/18 22:03 Prothrombin time (PT) in platelet poor plasma by coagulation assay 13.7 s 12.2-14.7 INR in platelet poor plasma or blood by coagulation assay 1.0 0.8-1.4 Activated partial thromboplastin time (aPTT) in platelet poor plasma bycoagulation assay - 11/11/18 22:03 Activated partial thromboplastin time (aPTT) in platelet poor plasma bycoagulation assay 39 s 24-35 Fibrin D-dimer FEU measurement in platelet poor plasma (mass/volume) - 11/11/18 22:03 Fibrin D-dimer FEU measurement in platelet poor plasma (mass/volume) 2.45 ug/mL 0.00-0.49 Comprehensive metabolic panel - 11/11/18 22:03 Serum or plasma sodium measurement (moles/volume) 134 mmol/L 135-145 Serum or plasma potassium measurement (moles/volume) 4.0 mmol/L 3.6-5.0 Serum or plasma chloride measurement (moles/volume) 98 mmol/L 98-107 Carbon dioxide 23 mmol/L 21-32 Serum or plasma anion gap determination (moles/volume) 13 mmol/L 5-14 Serum or plasma urea nitrogen measurement (mass/volume) 15 mg/dL 7-18 Serum or plasma creatinine measurement (mass/volume) 0.93 mg/dL 0.60-1.30 Serum or plasma urea nitrogen/creatinine mass ratio 16 NRG Serum or plasma creatinine measurement with calculation of estimated glomerular filtration rate 59 NRG Serum or plasma glucose measurement (mass/volume) 115 mg/dL 70-105 Serum or plasma calcium measurement (mass/volume) 9.6 mg/dL 8.5-10.1 Serum or plasma total bilirubin measurement (mass/volume) 0.8 mg/dL 0.1-1.0 Serum or plasma alkaline phosphatase measurement (enzymatic activity/volume) 98 U/L 40-136 Serum or plasma aspartate aminotransferase measurement (enzymatic activity/volume) 32 U/L 5-34 Serum or plasma alanine aminotransferase measurement (enzymatic activity/volume) 40 U/L 0-55 Serum or plasma protein measurement (mass/volume) 7.3 g/dL 6.4-8.2 Serum or plasma albumin measurement (mass/volume) 3.9 g/dL 3.2-4.5 CALCIUM CORRECTED 9.7 mg/dL 8.5-10.1 Magnesium - 11/11/18 22:03 Magnesium 1.7 mg/dL 1.8-2.4 Serum or plasma troponin i.cardiac measurement (mass/volume) - 11/11/18 22:03 Serum or plasma troponin i.cardiac measurement (mass/volume) 0.155 ng/mL <0.028 Myoglobin, serum - 11/11/18 22:03 Myoglobin, serum 26.6 ng/mL 10.0-92.0 Serum or plasma lithium measurement (moles/volume) - 11/11/18 22:03 BNP PT 105.9 pg/mL <100.0 Serum or plasma C reactive protein measurement (mass/volume) - 11/11/18 22:03 Serum or plasma C reactive protein measurement (mass/volume) 8.97 mg/dL 0.00-0.50 Complete urinalysis with reflex to culture - 11/11/18 22:38 Urine color determination YELLOW NRG Urine clarity determination SLIGHTLY CLOUDY NRG Urine pH measurement by test strip 5 5-9 Specific gravity of urine by test strip 1.020 1.016-1.022 Urine protein assay by test strip, [...] leukocyte count by microscopy (number/high power field) [HPF] NRG Bacteria detection in urine sediment by light microscopy FEW NRG Squamous epithelial cells detection in urine sediment by light microscopy 10-25 NRG Crystals detection in urine sediment by light microscopy NONE NRG Casts detection in urine sediment by light microscopy NONE NRG Mucus detection in urine sediment by light microscopy NEGATIVE NRG Complete urinalysis with reflex to culture YES NRG Blood lactic acid measurement (moles/volume) - 11/11/18 22:45 Blood lactic acid measurement (moles/volume) 1.19 mmol/L 0.50- 2.00 Encounters ACCT No. Visit Date/Time Discharge Status Pt. Type Provider Facility Loc./Unit Complaint [id number] 11/04/2018 11:15:00 11/04/2018 23:59:59 CLS Outpatient BALDOMERO PARISH MD Via [facility] HH [id number] 10/19/2018 14:35:00 10/19/2018 23:59:59 CLS Outpatient GEOVANI AGUILAR MD Via [facility] RT PAF [id number] 09/20/2018 00:12:00 09/20/2018 23:59:59 CLS Preadmit Shirley HUBBARD MD Via [facility] CARD PERSISTENT AFIB [id number] 06/21/2018 14:45:00 09/19/2018 00:01:00 DIS Outpatient Shirley HUBBARD MD Via [facility] CARD PERSISTENT AFIB [id number] 09/15/2018 07:02:00 09/15/2018 09:59:00 DIS Outpatient Shilrey HUBBARD MD Via [facility] CATH MODERATE/SEVERE MITRAL REGURGITATION [id number] 09/01/2018 13:45:00 09/01/2018 15:45:00 DIS Outpatient Shirley HUBBARD MD Via [facility] CATH PERSISTENT AFIB [id number] 08/11/2018 07:13:00 08/11/2018 23:59:59 CLS Outpatient Shirley HUBBARD MD Via [facility] CARD DIZZINESS,HTN [id number] 08/08/2018 12:42:00 08/08/2018 23:59:59 CLS Outpatient Shirley HUBBARD MD Via [facility] CARD DIZZINESS,FATIGUE [id number] 07/28/2018 08:14:00 07/28/2018 10:05:00 DIS Outpatient Shirley HUBBARD MD Via [facility] CATH AF [id number] 07/27/2018 09:52:00 07/27/2018 23:59:59 CLS Preadmit Shirley HUBBARD MD Via [facility] RAD DIZZINESS [id number] 06/23/2018 13:54:00 06/23/2018 23:59:59 CLS Outpatient Shirley HUBBARD MD Via [facility] CATH ATRIAL FIB [id number] 06/16/2018 15:22:00 06/16/2018 23:59:59 CLS Preadmit Shirley HUBBARD MD Via [facility] SLEEP PAF I48.1 [id number] 06/14/2018 15:49:00 06/14/2018 23:59:59 CLS Preadmit Shirley HUBBARD MD Via [facility] CARD PERSISTENT AFIB [id number] 05/19/2018 12:44:00 05/19/2018 17:43:00 DIS Emergency ROC WASSERMAN Via [facility] ER N/V [id number] 04/27/2018 19:20:00 04/27/2018 23:32:00 DIS Emergency MARYURI LACY DO Via [facility] ER BLOOD PRESSURE PROBLEMS,LOSS OF VISION, HAS A FIB [id number] 01/06/2018 07:06:00 01/06/2018 10:57:00 DIS Outpatient Shirley HUBBARD MD Via [facility] CATH PERSISTANT AF [id number] 11/11/2018 22:16:00 Document Registration
--- NOTE | 2018-11-12 01:10 | NUR ---
ATTEMPTED TO CALL REPORT TO ICU. MESSAGE GIVEN TO LENNOX NYE FOR CALL BACK.
--- NOTE | 2018-11-12 01:24 | NUR ---
REPORT GIVEN TO RHEA NYE AT THIS TIME.
--- NOTE | 2018-11-12 01:40 | NUR ---
PATIENT TAKEN TO ICU ROOM 9 BY THIS RN. SPOUSE ACCOMPANIES PATIENT. PATIENT IS NAUSEATED AT THIS TIME. A&OX4.
[2018-11-12] MEDS ORDERED: HEParin 1000 UNIT/ML (10ML VIAL) FOR BOLUS IV PRN (01:45)
[2018-11-12] MEDS ORDERED: HEParin DRIP 25000 UNIT/500ML 500 ML IV SCH (01:45)
[2018-11-12] MEDS ORDERED: morphine INJ 10 MG/ML 1ML (SYR OR VIAL) IVP PRN (01:45)
[2018-11-12] MEDS ORDERED: ONDANSETRON 4 MG/2 ML (SDV) Z0FRAN IVP PRN (01:45)
[2018-11-12 01:49] VITALS: BP 139/85
[2018-11-12] MEDS ORDERED: NS IV 1000 ML 1,000 ML ONE (01:50)
[2018-11-12] MEDS: NS IV 1000 ML 1,000 ML IV SCH ×3 (02:06→22:22)
[2018-11-12 03:32] LABS: BASOPHILS % (AUTO) 0 % (0-10); EOSINOPHILS # (AUTO) 0.1 10^3/uL (0.0-0.3); EOSINOPHILS % (AUTO) 1 % (0-10); HEMATOCRIT 36 % (35-52); HEMOGLOBIN 12.1 G/DL (11.5-16.0); LYMPHOCYTES # (AUTO) 1.1 X 10^3 (1.0-4.0); LYMPHOCYTES % (AUTO) 7 % (12-44); MEAN CORPUSCULAR HEMOGLOBIN 28 PG (25-34); MEAN CORPUSCULAR HGB CONC 34 G/DL (32-36); MEAN CORPUSCULAR VOLUME 83 FL (80-99); MEAN PLATELET VOLUME 9.2 FL (7.4-10.4); MONOCYTES # (AUTO) 1.1 X 10^3 (0.0-1.0); MONOCYTES % (AUTO) 7 % (0-12); NEUTROPHILS # (AUTO) 13.3 X 10^3 (1.8-7.8); NEUTROPHILS % (AUTO) 85 % (42-75); PLATELET COUNT 382 10^3/uL (130-400); RED CELL DISTRIBUTION WIDTH 12.4 % (10.0-14.5); WHITE BLOOD COUNT 15.7 10^3/uL (4.3-11.0)
[2018-11-12 04:00] VITALS: BP 106/63
--- NOTE | 2018-11-12 07:58 | Diagnostic Imaging Report ---
PROCEDURE: CT angiography of the chest with contrast. TECHNIQUE: Multiple contiguous axial images were obtained through the chest after uneventful bolus administration of intravenous contrast. 2D reconstructed CTA MIP acquisitions were also performed. Auto Exposure Controls were utilized during the CT exam to meet ALARA standards for radiation dose reduction. INDICATION: Chest pain FINDINGS: There are no intraluminal pulmonary arterial filling defects. There is no evidence for PE. The thoracic aorta is patent and nonacute. There is a small amount of pericardial fluid versus thickening of the pericardium. There are postsurgical changes of sternotomy with the sternal fragments well apposed. There is mild pre-and retrosternal edema but no fluid collection or abscess. No focal hematoma. There is no dehiscence. No acute pathological chest wall abnormality. There are tiny amounts of bilateral pleural fluid and dependent basilar atelectasis. There is a large hiatal hernia. IMPRESSION: Recent postoperative changes. Mild atelectasis. Tiny amounts of pleural fluid, likely tiny pericardial fluid versus pericardial thickening. Negative for PE or acute aortic disease. No fluid collection. Dictated by: Dictated on workstation # [id number]
[2018-11-12 08:00] VITALS: BP 117/66
--- NOTE | 2018-11-12 08:40 | Diagnostic Imaging Report ---
INDICATION: Shoulder pain FINDINGS: Small bilateral pleural effusions. There is increased mild cardiomegaly as well as some vascular congestion and perihilar edema. There is likely partial atelectasis of the medial left lower lobe; correlate clinically, however, for continued potential features of pneumonia. The sternal wires placed midline. A loop recorder overlies the lower left chest and cardiac clip projects at the level of the left mainstem. IMPRESSION: Likely mild failure pattern or hypervolemia with small effusions, vascular congestion, mild edema and probable left basilar atelectasis. In the appropriate clinical scenario, superimposition of pneumonia could not be excluded. Dictated by: Dictated on workstation # [id number]
[2018-11-12] MEDS: ASPIRIN 81 MG CHEW (CHILDREN'S ASA) PO SCH (10:05)
--- NOTE | 2018-11-12 10:53 | History & Physical-Hospitalist ---
History of Present Illness HPI/Chief Complaint this is a 73-year-old white female who is status post open heart surgery with mitral replacement and maze procedure at [facility] October 23. The patient had initially been doing fairly well and then has becoming weaker over the last 2-3 days. It was felt that she might have some dehydration and her water pill was discontinued but then her legs started to swell. The patient then began having severe left shoulder pain yesterday that was not pleuritic in nature nor did it change with movement of her left arm. She felt like there was some radiation down the left arm. She does not know what made it go away but she is feeling better this morning. In addition because of her chronic atrial fibrillation she had been taken off Eliquis and placed on warfarin and this was subtherapeutic. Overnight she has been on a heparin drip. EKG shows T-wave inversion in the lateral precordium uncertain whether this is new or old. She is in atrial fibrillation still and has a paired ventricular complex on the EKG.CTA showed small amount of pericardial fluid and small effusions. chest x-ray was consistent with possible fluid overload. The patient at the time of my exam this morning appears to be pale and somewhat weak but stable. 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 Patients Allergies have been reviewed. Allergies Allergies Coded Allergies acetaminophen (Verified Allergy, Unknown, 01/06/18) amoxicillin (Verified Allergy, Unknown, 01/06/18) clavulanic acid (Verified Allergy, Unknown, 01/06/18) codeine (Verified Allergy, Unknown, 01/06/18) hydrocodone (Verified Allergy, Unknown, 01/06/18) oxycodone (Verified Allergy, Unknown, 01/06/18) Past Fezgefr-Njsqud-Ddvdxd Hx Past Med/Social Hx: Reviewed Nursing Past Med/Soc Hx Patient Social History Marrital Status: Employed/Student: retired Alcohol Use: Denies Use Recreational Drug Use: No Smoking Status: Former Smoker Type Used: Cigarettes 2nd Hand Smoke Exposure: No Recent Foreign Travel: No Contact w/other who traveled: No Recent Infectious Disease Expo: No Immunizations Up To Date Date of Pneumonia Vaccine: Jan 07, 2016 Date of Influenza Vaccine: Jan 31, 2018 Past Medical History Surgeries: Breast, CABG, Gallbladder, Hysterectomy, Neurological, Orthopedic Cardiac: Atrial Fibrillation, Hypertension Neurological: Brain Tumor Hysterectomy, Menopausal Gastrointestinal: Gastroesophageal Reflux, Diverticulosis, Hiatal Hernia Musculoskeletal: Arthritis Cancer: Brain History of Blood Disorders: No Family History No Pertinent Family Hx Review of Systems Constitutional: see HPI EENTM: no symptoms reported Respiratory: dyspnea on exertion Cardiovascular: chest pain Gastrointestinal: constipation, loss of appetite, nausea Genitourinary: no symptoms reported Musculoskeletal: joint pain (left shoulder), muscle weakness Skin: no symptoms reported Psychiatric/Neurological: No Symptoms Reported, Weakness Physical Exam Physical Exam Vital Signs Vital Signs - First Documented 11/11/18 21:53 Temp 100.1 Pulse 81 Resp 18 B/P (MAP) 134/84 (101) Pulse Ox 98 O2 Delivery Room Air Capillary Refill : Less Than 3 Seconds Height, Weight, BMI Height: 5'2.50" Weight: 188lbs. 3.0oz. [id number]; 33.7 BMI Method:Stated General Appearance: No Apparent Distress, WD/WN, Chronically ill HEENT: Normal ENT Inspection, Other (upper dentures) Neck: Normal Inspection, Non Tender, Supple Respiratory: Chest Non Tender, Lungs Clear, Normal Breath Sounds, No Accessory Muscle Use, No Respiratory Distress, Other (healing sternal incision without evidence of erythema or infection) Cardiovascular: No Edema, Normal Peripheral Pulses, Systolic Murmur, Irregularly Irregular Gastrointestinal: Normal Bowel Sounds, Non Tender, Soft Back: Normal Inspection Extremity: Normal Inspection, Normal Range of Motion, Non Tender, No Calf Tenderness, No Pedal Edema, Other (left shoulder without pain or irritation with movement) Neurologic/Psychiatric: Alert, Oriented x3, No Motor/Sensory Deficits, Normal Mood/Affect Skin: Warm/Dry, Pallor Results Results/Procedures Labs Laboratory Tests 11/11/18 22:03 11/12/18 03:06 Patient resulted labs reviewed. Imaging: Reviewed Imaging Report Assessment/Plan Admission Diagnosis left shoulder pain possible cardiac equivalent. Troponin is low positive. Plan to admit for observation and rule out myocardial infarction and further evaluation based on cardiology consult Urinary tract infection on Rocephin Chronic atrial fibrillation on heparin Status post open heart surgery, maze procedure and mitral valve replacement Weakness Constipation Admission Status: Observation Diagnosis/Problems Diagnosis/Problems (1) Afib Status: Chronic Qualifiers: Atrial fibrillation type: persistent Qualified Codes: I48.1 - Persistent atrial fibrillation (2) UTI (urinary tract infection) Status: Acute (3) History of open heart surgery MARISOL ZAPATA MD Nov 12, 2018 10:53
--- NOTE | 2018-11-12 11:41 | Consultation-Cardiology ---
HPI-Cardiology Cardiology Consultation: Date of Consultation 11/12/18 Date of Admission Attending Physician Marisol Zapata MD Admitting Physician Harley Whiting MD Consulting Physician Shirley WEST MD HPI: Time Seen by a Provider: 13:00 Chief Complaint: left shoulder dysfunction, not feeling well this is a 73-year-old lady who I follow-up in my office. She has history of atrial fibrillation and severe mitral regurgitation requiring surgery recently. CABG was not done. Mitral valve replacement, maze procedure was done. She presented with not feeling well and left shoulder pain. She has history of hypertension, hyperlipidemia. She denies diabetes, congestive heart failure, CAD. She has history of possible heart murmur, hiatal hernia, colitis. She also has a history of a brain tumor which required surgery. She has a raised to a left upper arm numbness. She also had precancerous lesion in the breast and also sinus surgery. According to the gregory ent she had echocardiogram and stress test done in May 2017. She does not smoke. She has family history of diabetes and congestive heart failure. According to the patient her atrial fibrillation was diagnosed in April 2017. She complains of fatigue and shortness of breath. She denies any chest pain. Successful electrical cardioversion to sinus rhythm on 01/06/2018. Currently in atrial fibrillation. Review of Systems-Cardiology Review of Systems Constitutional: As described under HPI; No As described under HPI, No no symptoms reported, No chills, No fever, No lightheadedness Eyes: No As described under HPI, No no symptoms reported, No blindness, No blurred vision, No contact lenses, No drainage, No decreased acuity, No foreign body sensation, No pain, No vision change Ears/Nose/Throat: No As described under HPI, No no symptoms reported, No chronic hearing loss, No ear discharge, No ear pain, No nasal drainage, No ulcerations Respiratory: No no symptoms reported; As described under HPI; No As described under HPI, No cough, No orthopnea, No shortness of breath, No SOB with excertion Cardiovascular: No no symptoms reported; As described under HPI; No As described under HPI, No chest pain, No edema, No irregular heart rate, No lightheadedness, No palpitations Gastrointestinal: No no symptoms reported, No As described under HPI, No abdomen distended, No abdominal pain, No blood streaked bowels, No constipation, No diarrhea, No nausea, No vomiting; nausea/vomiting/diarrhea; No stool coloration changes Genitourinary: No As described under HPI, No burning, No dysuria, No discharge, No frequency, No flank pain, No hematuria, No urgency : Yes : No Skin: No rash, No skin related problems, No ulcerations Psychiatric/Neurological: No anxiety, No depression, No seizure, No focal weakness, No syncope Hematologic: No bleeding abnormalities [id number]-[id number] Hx Patient Social History Marrital Status: Employed/Student: retired Alcohol Use: Denies Use Recreational Drug Use: No Smoking Status: Former Smoker Type Used: Cigarettes 2nd Hand Smoke Exposure: No Recent Foreign Travel: No Recent Infectious Disease Expo: No Hospitalization with Isolation: Denies Immunizations Up To Date Date of Pneumonia Vaccine: Jan 07, 2016 Date of Influenza Vaccine: Jan 31, 2018 Past Medical History PMH As described under Assessment. Allergies and Home Medications Allergies Coded Allergies: acetaminophen (Verified Allergy, Unknown, 01/06/18) amoxicillin (Verified Allergy, Unknown, 01/06/18) clavulanic acid (Verified Allergy, Unknown, 01/06/18) codeine (Verified Allergy, Unknown, 01/06/18) hydrocodone (Verified Allergy, Unknown, 01/06/18) oxycodone (Verified Allergy, Unknown, 01/06/18) Home Medications Apixaban 5 Mg Tablet, 2 MG PO HS, (Reported) Cyanocobalamin/Cobamamide 1 Each Tab.subl, 5,000 MCG SL DAILY, (Reported) Levetiracetam 500 Mg Tablet, 250 MG PO BID, (Reported) TAKES 1/2 (500MG) TABLET Metoprolol Succinate 50 Mg Tab.er.24h, 50 MG PO DAILY, (Reported) Elizabeth-3S/Dha/Epa/Fish Oil/D3 1 Each Capsule, 1 CAP PO DAILY, (Reported) Ondansetron HCl 4 Mg Tab, 4 MG PO Q4H Prescribed by: ROC WASSERMAN on 05/19/18 3718 Pantoprazole Sodium 40 Mg Tablet.dr, 40 MG PO DAILY, (Reported) Simvastatin 40 Mg Tablet, 40 MG PO DAILY, (Reported) Patient Home Medication List Home Medication List Reviewed: Yes Physical Exam-Cardiology Physical Exam Vital Signs/I&O 11/12/18 11/12/18 11/12/18 7/13/19 02:15 04:00 04:00 07:00 Temp 97.0 Pulse 78 89 77 Resp 15 B/P (MAP) 106/63 (77) Pulse Ox 100 O2 Delivery Nasal Cannula Nasal Cannula O2 Flow Rate 2.00 2.00 11/12/18 11/12/18 11/12/18 11/12/18 08:00 08:00 08:32 09:00 Pulse 76 Resp 17 B/P (MAP) 117/66 (83) Pulse Ox 98 100 99 O2 Delivery Nasal Cannula Nasal Cannula Nasal Cannula Nasal Cannula O2 Flow Rate 1.00 2.00 2.00 1.00 11/12/18 11/12/18 11/12/18 11/12/18 10:15 12:00 12:00 12:36 Temp 98.4 Pulse 73 74 Resp 29 B/P (MAP) 113/74 (87) Pulse Ox 99 98 O2 Delivery Nasal Cannula Nasal Cannula O2 Flow Rate 2.00 1.00 Capillary Refill : Less Than 3 Seconds Constitutional: appears stated age, AAO x 3; No apparent distress; well- developed, well-nourished HEENT: PERRL; No normal ENT inspection, No TMs normal, No pharynx normal, No scleral icterus (R), No scleral icterus (L), No pale conjunctivae (R), No pale conjunctivae (L), No photophobia, No TM abnormal (R), No TM abnormal (L), No pharyngeal erythema, No tonsillar exudate, No other, No discharge, No EOMI; hearing is well preserved; No hard of hearing; oral hygience is good; No ulceration, No xanthelasmas are seen Neck: No carotid bruit; carotid pulses are 2 + bilaterally Respiratory: No accessory muscle use, No respiratory distress, No chest tender, No chest expansion is symmetric; chest is bilaterally symmetric; No lungs clear to percussion; lungs clear to auscultation; No crackles, No rhonchi, No rales, No stridor, No wheezing, No pleural rub, No other Cardiovascular: No regular rate-rhythm; irregularly irregular; No extra beats, No parasternal heave is noted, No JVD, No edema, No bradycardia, No tachycardia, No point of maximal impulse, No cardiac thrills are palpable; S1 and S2; No gallop/S3, No gallop/S4, No diastolic murmur, No systolic murmur, No friction rub, No click, No other Gastrointestinal: No tender, No soft, No round, No distended, No pulsatile mass, No organomegaly, No guarding, No rebound, No tenderness, No hernia, No mass, No audible bowel sounds, No abnormal bowel sounds, No abdominal bruits, No spleenomegaly, No other Rectal: deferred Extremities: No normal range of motion, No non-tender, No normal inspection, No pedal edema, No calf tenderness, No normal capillary refill, No pelvis stable, No calf tenderness, No inflammation, No pedal edema, No slow capillary refill, No swelling, No other, No abrasion, No clubbing, No cyanosis, No ecchymosis, No laceration, No no lower extremity edema bilateral, No significant edema, No tenderness, No wound Neurologic/Psychiatric: no motor/sensory deficits, alert, normal mood/affect, oriented x 3, power is 5/5 both on sides Skin: No normal color, No warm/dry, No cyanosis, No cool, No diaphoresis, No damp, No ecchymosis, No jaundice, No mottled, No pallor, No rash, No tattoos/piercings, No ulcerations, No rash on exposed areas, No ulcerations on exposed areas, No other Data Review Labs Laboratory Tests 11/11/18 22:03: White Blood Count 12.1H, Red Blood Count 4.68, Hemoglobin 13.3, Hematocrit 38, Mean Corpuscular Volume 82, Mean Corpuscular Hemoglobin 28, Mean Corpuscular Hemoglobin Concent 35, Red Cell Distribution Width 12.4, Platelet Count 471H, Mean Platelet Volume 9.3, Neutrophils (%) (Auto) 69, Lymphocytes (%) (Auto) 18, Monocytes (%) (Auto) 10, Eosinophils (%) (Auto) 2, Basophils (%) (Auto) 0, Neutrophils # (Auto) 8.3H, Lymphocytes # (Auto) 2.2, Monocytes # (Auto) 1.3H, Eosinophils # (Auto) 0.3, Basophils # (Auto) 0.1, Prothrombin Time 13.7, INR Comment 1.0, Activated Partial Thromboplast Time 39H, D-Dimer 2.45H, Sodium Level 134L, Potassium Level 4.0, Chloride Level 98, Carbon Dioxide Level 23, Anion Gap 13, Blood Urea Nitrogen 15, Creatinine 0.93, Estimat Glomerular Filtration Rate 59, BUN/Creatinine Ratio 16, Glucose Level 115H, Calcium Level 9.6, Corrected Calcium 9.7, Magnesium Level 1.7L, Total Bilirubin 0.8, Aspartate Amino Transf (AST/SGOT) 32, Alanine Aminotransferase (ALT/SGPT) 40, Alkaline Phosphatase 98, Myoglobin 26.6, Troponin I 0.155H, C-Reactive Protein High Sensitivity 8.97H, B-Type Natriuretic Peptide 105.9H, Total Protein 7.3, Albumin 3.9 11/11/18 22:38: Urine Color YELLOW, Urine Clarity SLIGHTLY CLOUDY, Urine pH 5, Urine Specific Ashley 1.020, Urine Protein NEGATIVE, Urine Glucose (UA) NEGATIVE, Urine Ketones NEGATIVE, Urine Nitrite NEGATIVE, Urine Bilirubin NEGATIVE, Urine Urobilinogen NORMAL, Urine Leukocyte Esterase 3+H, Urine RBC (Auto) 1+H, Urine RBC 2-5H, Urine WBC 25-50H, Urine Squamous Epithelial Cells 10-25H, Urine Crystals NONE, Urine Bacteria FEWH, Urine Casts NONE, Urine Mucus NEGATIVE, Urine Culture Indicated YES 11/11/18 22:45: Lactic Acid Level 1.19 11/12/18 03:06: White Blood Count 15.7H, Red Blood Count 4.33L, Hemoglobin 12.1, Hematocrit 36, Mean Corpuscular Volume 83, Mean Corpuscular Hemoglobin 28, Mean Corpuscular Hemoglobin Concent 34, Red Cell Distribution Width 12.4, Platelet Count 382, Mean Platelet Volume 9.2, Neutrophils (%) (Auto) 85H, Lymphocytes (%) (Auto) 7L, Monocytes (%) (Auto) 7, Eosinophils (%) (Auto) 1, Basophils (%) (Auto) 0, Neutrophils # (Auto) 13.3H, Lymphocytes # (Auto) 1.1, Monocytes # (Auto) 1.1H, Eosinophils # (Auto) 0.1, Basophils # (Auto) 0.0, Troponin I 0.145H, Triglycerides Level 58, Cholesterol Level 105, LDL Cholesterol Direct 66, VLDL Cholesterol 12, HDL Cholesterol 29L 11/12/18 05:05: Activated Partial Thromboplast Time 62H 11/12/18 11:00: Activated Partial Thromboplast Time 56H, Troponin I 0.132H Microbiology 11/11/18 Blood Culture - Preliminary, Resulted No growth ECG Impression ECG Initial ECG Rhythm: A Fib/Flutter Comment T-wave inversions noted. A/P-Cardiology Assessment/Admission Diagnosis recent cardiac surgery for mitral valve replacement, maze procedure and left atrial appendage clipping., positive troponins. Persistent atrial fibrillation, Hypertension, PVCs, possible UTI Plan recent cardiac surgery for mitral valve replacement, maze procedure and left atrial appendage clipping. still recovering. positive troponins, trending down. T-wave inversions noted on EKG. I am not to keen on performing coronary angiography. She had a negative stress test in August 2018, no history of CABG. We may consider either nuclear stress test or coronary angiography. Persistent atrial fibrillation,continue oral anticoagulation. Controlled ventricular rate. Hypertension, PVCs, possible UTI, defer to the primary team. IV fluids and IV antibiotics. Thank you for your consultation. Please call me if you have any questions. Sharif West MD, FACP, FACC, FSCAI, FHRS, CCDS Interventional Cardiology Cardiac Electrophysiology Vascular Medicine and Endovascular Interventions Shirley WEST MD Nov 12, 2018 11:41
[2018-11-12 12:00] VITALS: BP 113/74
[2018-11-12 16:00] VITALS: BP 111/63
--- NOTE | 2018-11-12 16:14 | NUR ---
OFFERED TO ASSIST PT TO COMMODE, NO OUTPUT THIS SHIFT. PT STATED "I COULD GO, BUT I DON'T WANT TO RIGHT NOW."
[2018-11-12 20:00] VITALS: BP 108/69
[2018-11-12] MEDS ORDERED: ATORVASTATIN 40 MG (LIPITOR) TABLET PO SCH (21:00)
[2018-11-12] MEDS: LEVETIRACETAM 500 MG (KEPPRA) TAB PO SCH (21:28)
[2018-11-13] VITALS: BP 112/56
--- NOTE | 2018-11-13 02:16 | NUR ---
CALLED DR. MANZO, ORDERS RECEIVED TO TRANSFER PT TO 4TH FLOOR-MEDICAL STATUS.
[2018-11-13 04:00] VITALS: BP 123/74
[2018-11-13 08:00] VITALS: BP 114/74
[2018-11-13] MEDS: PANTOPRAZOLE 40 MG (PROTONIX) TAB PO SCH (08:03)
[2018-11-13] MEDS: LEVETIRACETAM 500 MG (KEPPRA) TAB PO SCH ×2 (08:03→20:13)
[2018-11-13] MEDS: SIMvastatin 40 MG (ZOCOR) TAB PO SCH (08:03)
[2018-11-13] MEDS: OMEGA 3 (FISH OIL) 1000 MG CAP PO SCH (08:03)
[2018-11-13] MEDS: meTOproloL SUCCINATE 50 MG (TOPROL XL) TAB PO SCH (08:04)
[2018-11-13] MEDS: ASPIRIN 81 MG CHEW (CHILDREN'S ASA) PO SCH (08:04)
[2018-11-13] MEDS: cefTRIAXone FOR IV USE 1,000 MG in WATER (STERILE) FOR INJECTION 10 ML IV SCH (08:14)
[2018-11-13] MEDS: NS IV 1000 ML 1,000 ML IV SCH (08:15)
[2018-11-13] MEDS ORDERED: cefTRIAXone FOR IV USE 1,000 MG in WATER (STERILE) FOR INJECTION 10 ML IV SCH (09:00)
[2018-11-13 12:00] VITALS: BP 104/68
--- NOTE | 2018-11-13 12:45 | Progress Note - Hospitalist ---
Subjective HPI/CC On Admission Date Seen by Provider: Nov 13, 2018 Time Seen by Provider: 12:15 this is a 73-year-old white female who is status post open heart surgery with mitral replacement and maze procedure at [facility] October 23. The patient had initially been doing fairly well and then has becoming weaker over the last 2-3 days. It was felt that she might have some dehydration and her water pill was discontinued but then her legs started to swell. The patient then began having severe left shoulder pain yesterday that was not pleuritic in nature nor did it change with movement of her left arm. She felt like there was some radiation down the left arm. She does not know what made it go away but she is feeling better this morning. In addition because of her chronic atrial fibrillation she had been taken off Eliquis and placed on warfarin and this was subtherapeutic. Overnight she has been on a heparin drip. EKG shows T-wave inversion in the lateral precordium uncertain whether this is new or old. She is in atrial fibrillation still and has a paired ventricular complex on the EKG.CTA showed small amount of pericardial fluid and small effusions. chest x-ray was consistent with possible fluid overload. The patient at the time of my exam this morning appears to be pale and somewhat weak but stable. Subjective/Events-last exam patient looks and is feeling much better This morning. She denies having any chest pain or shortness of breath. It's discussed with Dr. West who agrees to stop her heparin and change her to Eliquis. She is ambulating independently. Review of Systems Neurological: Weakness Focused Exam Lactate Level 11/11/18 22:45: Lactic Acid Level 1.19 Objective Exam Vital Signs Vital Signs Date Time Temp Pulse Resp B/P (MAP) Pulse Ox O2 Delivery O2 Flow Rate FiO2 11/13/18 09:37 Room Air 11/13/18 08:00 99.1 87 18 114/74 (87) 95 11/13/18 08:00 1.00 Capillary Refill : Less Than 3 Seconds General Appearance: No Apparent Distress, WD/WN, Chronically ill HEENT: Normal ENT Inspection, Other (upper dentures) Neck: Normal Inspection, Non Tender, Supple Respiratory: Chest Non Tender, Lungs Clear, Normal Breath Sounds, No Accessory Muscle Use, No Respiratory Distress, Other (healing sternal incision without evidence of erythema or infection) Cardiovascular: No Edema, Normal Peripheral Pulses, Systolic Murmur, Irregularly Irregular Gastrointestinal: Normal Bowel Sounds, Non Tender, Soft Back: Normal Inspection Extremity: Normal Inspection, Normal Range of Motion, Non Tender, No Calf Tenderness, No Pedal Edema, Other (left shoulder without pain or irritation with movement) Neurologic/Psychiatric: Alert, Oriented x3, No Motor/Sensory Deficits, Normal Mood/Affect Skin: Warm/Dry, Pallor Results/Procedures Lab Laboratory Tests 11/13/18 02:30 Patient resulted labs reviewed. Imaging: Reviewed Imaging Report Assessment/Plan Assessment and Plan Assess & Plan/Chief Complaint left shoulder not cardiac equivalent. Troponin is low positive and decreasing. recent stress test in April was negative Urinary tract infection on Rocephin-culture pending Chronic atrial fibrillation on heparin-change to Eliquis Status post open heart surgery, maze procedure and mitral valve replacement Weakness-evaluate for inpatient rehabilitation Constipation Diagnosis/Problems Diagnosis/Problems (1) Afib Status: Chronic Qualifiers: Atrial fibrillation type: persistent Qualified Codes: I48.1 - Persistent atrial fibrillation (2) UTI (urinary tract infection) Status: Acute (3) History of open heart surgery CLARY MANZO MD Nov 13, 2018 12:45
--- NOTE | 2018-11-13 14:21 | Cardiology Progress Note ---
Cardiology SOAP Progress Note Subjective: Feeling much better. Objective: I&O/Vital Signs 11/13/18 11/13/18 11/13/18 11/13/18 04:00 04:00 07:00 08:00 Temp 97.2 Pulse 81 85 Resp 18 B/P (MAP) 123/74 (90) Pulse Ox 95 95 O2 Delivery Room Air Room Air Room Air O2 Flow Rate 1.00 11/13/18 11/13/18 11/13/18 11/13/18 08:00 09:37 12:00 13:00 Temp 99.1 99.2 Pulse 87 81 84 Resp 18 20 B/P (MAP) 114/74 (87) 104/68 (80) Pulse Ox 95 96 O2 Delivery Room Air Room Air 11/13/18 00:00 Intake Total 1830 ml Output Total 400 ml Balance 1430 ml Weight (Pounds): 196 Weight (Ounces): 3.0 Weight (Calculated Kilograms): 88.800840 Constitutional: appears stated age, AAO x 3; No apparent distress; well- developed, well-nourished Respiratory: No accessory muscle use, No respiratory distress, No chest tender, No chest expansion is symmetric; chest is bilaterally symmetric; No lungs clear to percussion; lungs clear to auscultation; No crackles, No rhonchi, No rales, No stridor, No wheezing, No pleural rub, No other Cardiovascular: No regular rate-rhythm; irregularly irregular; No extra beats, No parasternal heave is noted, No JVD, No edema, No bradycardia, No tachycardia, No point of maximal impulse, No cardiac thrills are palpable; S1 and S2; No gallop/S3, No gallop/S4, No diastolic murmur, No systolic murmur, No friction rub, No click, No other Gastrointestional: No tender, No soft, No round, No distended, No pulsatile mass, No organomegaly, No guarding, No rebound, No tenderness, No hernia, No mass, No audible bowel sounds, No abnormal bowel sounds, No abdominal bruits, No spleenomegaly, No other Extremities: No normal range of motion, No non-tender, No normal inspection, No pedal edema, No calf tenderness, No normal capillary refill, No pelvis stable, No calf tenderness, No inflammation, No pedal edema, No slow capillary refill, No swelling, No other, No abrasion, No clubbing, No cyanosis, No ecchymosis, No laceration, No no lower extremity edema bilateral, No significant edema, No tenderness, No wound Neurologic/Psychiatric: no motor/sensory deficits, alert, normal mood/affect, oriented x 3, power is 5/5 both on sides Skin: No normal color, No warm/dry, No cyanosis, No cool, No diaphoresis, No damp, No ecchymosis, No jaundice, No mottled, No pallor, No rash, No tattoos/piercings, No ulcerations, No rash on exposed areas, No ulcerations on exposed areas, No other Results/Procedures: Labs Laboratory Tests 11/12/18 19:40: Activated Partial Thromboplast Time 74H 11/13/18 02:30: Activated Partial Thromboplast Time 76H, Platelet Count 305 Microbiology 11/11/18 Blood Culture - Preliminary, Resulted No growth A/P: Assessment/Dx: recent cardiac surgery for mitral valve replacement, maze procedure and left atrial appendage clipping., positive troponins. Persistent atrial fibrillation, Hypertension, PVCs, possible UTI Plan: recent cardiac surgery for mitral valve replacement, maze procedure and left atrial appendage clipping. still recovering. positive troponins, trending down. T-wave inversions noted on EKG. I am not to keen on performing coronary angiography. She had a negative stress test in August 2018, no history of CABG. nuclear stress test in the morning. Persistent atrial fibrillation,continue oral anticoagulation. Controlled ventricular rate. Agree with DC heparin and starting eliquis. Consider inpatient rehabilitation. Hypertension, PVCs, possible UTI, defer to the primary team. IV fluids and IV antibiotics. Thank you for your consultation. Please call me if you have any questions. Sharif West MD, FACP, FACC, FSCAI, FHRS, CCDS Interventional Cardiology Cardiac Electrophysiology Vascular Medicine and Endovascular Interventions Focused Exam Lactate Level 11/11/18 22:45: Lactic Acid Level 1.19 Shirley WEST MD Nov 13, 2018 2:21 pm
[2018-11-13] MEDS ORDERED: REGADENOSON 0.4 MG/5 ML SYR (LEXISCAN) IV ONE (15:30)
[2018-11-13 16:00] VITALS: BP 107/72
[2018-11-13 19:55] VITALS: BP 105/67
[2018-11-13] MEDS: APIXABAN 5 MG (ELIQUIS) TABLET PO SCH (20:13)
[2018-11-14] VITALS (7 sets, daily range): BP systolic 101–122; BP diastolic 55–64
[2018-11-14] MEDS: CATHETER FLUSH 10 ML SYR IV PRN ×2 (07:30→09:10)
[2018-11-14] MEDS ORDERED: WARF-47 PO (07:30)
--- NOTE | 2018-11-14 07:40 | NUR ---
Patient off floor at this time with nuclear med for stress test.
[2018-11-14] MEDS ORDERED: REGADENOSON 0.4 MG/5 ML SYR (LEXISCAN) IV ONE (08:41)
--- NOTE | 2018-11-14 10:21 | NUR ---
Patient back in room from stress test at this time, will continue to monitor.
[2018-11-14] MEDS: APIXABAN 5 MG (ELIQUIS) TABLET PO SCH (10:27)
[2018-11-14] MEDS: PANTOPRAZOLE 40 MG (PROTONIX) TAB PO SCH (10:27)
[2018-11-14] MEDS: OMEGA 3 (FISH OIL) 1000 MG CAP PO SCH (10:27)
[2018-11-14] MEDS: SIMvastatin 40 MG (ZOCOR) TAB PO SCH (10:28)
[2018-11-14] MEDS: LEVETIRACETAM 500 MG (KEPPRA) TAB PO SCH (10:28)
[2018-11-14] MEDS: meTOproloL SUCCINATE 50 MG (TOPROL XL) TAB PO SCH (10:28)
[2018-11-14] MEDS: ASPIRIN 81 MG CHEW (CHILDREN'S ASA) PO SCH (10:28)
[2018-11-14] MEDS: cefTRIAXone FOR IV USE 1,000 MG in WATER (STERILE) FOR INJECTION 10 ML IV SCH (10:29)
--- NOTE | 2018-11-14 10:42 | NUR ---
ARU order for eval received. Awaiting PT/OT evaluations to determine if patient is appropriate for ARU placement. Patient will require prior authorization from [employer], if therapy evaluations indicate the need for ARU admission. Will continue to follow. Thank you for this referral. Addendum: 11/14/18 at 1643 by MARKUS MARIE SS Per discussion with PT and OT, patient was Mod I with PT evaluation and OT did not complete eval due to this. Discharge orders are placed for patient to return home.
[2018-11-14] MEDS ORDERED: FISH12002 PO (12:15)
[2018-11-14] MEDS ORDERED: ACET325T38 PO (12:15)
[2018-11-14] MEDS ORDERED: CHOL400C9 PO (12:15)
[2018-11-14] MEDS ORDERED: ASPI-983 PO (12:16)
--- NOTE | 2018-11-14 12:21 | NUR ---
PATIENT WAS RECENTLY DISCHARGED FROM AND HAS DISCHARGE PAPERWORK. THEY REPORT THEY HAVE BEEN TAKING THE MEDICATIONS JUST PRESCRIBED WITH THE EXCEPTION THE TRIAMTERENE THAT WAS STARTED AT DISCHARGE WAS DISCONTINUED ON WEDNESDAY SO SHE IS NO LONGER TAKING THAT. AT THAT DISCHARGE THEY STOPPED ELIQUIS AND STARTED WARFARIN. THEY ALSO DISCONTINUED METOPROLOL AND LISINOPRIL. SHE WAS ALSO STARTED ON TYLENOL PRN, ASPIRIN 81MG DAILY, AND THE TRIAMTERENE THAT HAS NOW BEEN STOPPED. PRIOR TO THE METOPROLOL BEING STOPPED AT DISCHARGE IT IS UNCLEAR WHICH DOSE THE PATIENT WAS TAKING. SHE FILLED TWO DIFFERENT SCRIPTS FROM TWO DIFFERENT PRESCRIBERS BUT THEY DO NOT RECALL WHICH ONE SHE WAS TAKING UP UNTIL THE TIME WHEN IS WAS DISCONTINUED. SHE FILLED: 09-20-18 METOPROLOL TARTRATE 25MG #180 / [address] PARISH 08-22-18 METOPROLOL XL 50MG #90/ [address] HUBBARD SHE TAKES THE FOLLOWING OTC: TYLENOL PRN VITAMIN D3 ASPIRIN 81MG B 12 FISH OIL
[2018-11-14] MEDS ORDERED: APIX5TAB PO (13:01)
[2018-11-14] MEDS ORDERED: METO-370 PO (13:01)
[2018-11-14] MEDS ORDERED: OMG1KC PO (13:01)
--- NOTE | 2018-11-14 13:37 | Discharge Summary ---
Diagnosis/Chief Complaint Date of Admission Nov 12, 2018 at 12:40 am Date of Discharge Discharge Date: Nov 14, 2018 Admission Diagnosis left shoulder pain possible cardiac equivalent. Troponin is low positive. Plan to admit for observation and rule out myocardial infarction and further evaluation based on cardiology consult Urinary tract infection on Rocephin Chronic atrial fibrillation on heparin Status post open heart surgery, maze procedure and mitral valve replacement Weakness Constipation Discharge Diagnosis (1) Afib Status: Chronic (2) UTI (urinary tract infection) Status: Acute (3) History of open heart surgery Discharge Summary Procedures/Consulations Dr West- Cardiology Discharge Physical Exam Allergies: Coded Allergies: acetaminophen (Verified Allergy, Unknown, 01/06/18) amoxicillin (Verified Allergy, Unknown, 01/06/18) clavulanic acid (Verified Allergy, Unknown, 01/06/18) codeine (Verified Allergy, Unknown, 01/06/18) hydrocodone (Verified Allergy, Unknown, 01/06/18) oxycodone (Verified Allergy, Unknown, 01/06/18) Vitals & I&Os Vital Signs Date Time Temp Pulse Resp B/P (MAP) Pulse Ox O2 Delivery O2 Flow Rate FiO2 11/14/18 18:09 74 18 102/64 97 Room Air 1.00 11/14/18 16:58 97.5 General Appearance: No Apparent Distress, WD/WN Respiratory: Lungs Clear, No Respiratory Distress Neurologic/Psychiatric: Alert, Oriented x3 Hospital Course Pt was admitted for left shoulder pain concerning for atypicial presentation of cardiac pain. She had recent surgery at [facility] with a mitral valve replacement and was discharged home and return with significant weakness. She underwent stress testing and that was negative. She worked with PT/OT and I personally witnessed her ambulate independently and she walked up a flight of stairs with them. She was requesting DC home on day of DC. Home health was resumed. Labs (last 24 hrs) Microbiology 11/11/18 Blood Culture - Preliminary, Resulted No growth 11/11/18 Urine Culture - Final, Complete 3 or more isolates Patient resulted labs reviewed. Imaging: Reviewed Imaging Report Discussion & Recommendations Discharge Planning: >30 minutes discharge planning Discharge Home Medications: Active Scripts Active Metoprolol Succinate 50 Mg Tab.er.24h 50 Mg PO DAILY Fish Oil 1,000 mg Capsule ([place] 3 Polyunsat Fatty Acids) 1,000 Mg Cap 1,000 Mg PO DAILY Eliquis (Apixaban) 5 Mg Tablet 5 Mg PO BID Reported Aspirin EC (Aspirin) 81 Mg Tablet.dr 81 Mg PO DAILY Vitamin D3 (Cholecalciferol (Vitamin D3)) 400 Unit Capsule 400 Unit PO HS Tylenol (Acetaminophen) 325 Mg Tablet 650 Mg PO Q4H PRN [place] 3-6-9 1,200 mg Softgel (Fish Oil/Borage/Flax/Om3,6,9#1) 1,200 Mg Capsule 1,200 Mg PO HS Vitamin B-12 5,000 Mcg Tab Sl (Cyanocobalamin/Cobamamide) 1 Each Tab.subl 5,000 Mcg SL HS Levetiracetam 500 Mg Tablet 250 Mg PO BID TAKES 1/2 (500MG) TABLET Protonix (Pantoprazole Sodium) 40 Mg Tablet.dr 40 Mg PO DAILY Simvastatin 40 Mg Tablet 40 Mg PO DAILY Instructions to patient/family Please see electronic discharge instructions given to patient. Problem Qualifiers (1) Afib: Atrial fibrillation type: persistent Qualified Codes: I48.1 - Persistent atrial fibrillation GILBERT TEAGUE MD Nov 14, 2018 13:37
--- NOTE | 2018-11-14 14:20 | Physical Therapy Evaluation ---
PT Evaluation-General Medical Diagnosis Admission Date Nov 12, 2018 at 00:40 Medical Diagnosis: left shoulder pain/atypical ACS Onset Date: Nov 12, 2018 Therapy Diagnosis Therapy Diagnosis: debility Height/Weight Height (Feet): 5 Height (Inches): 2.50 Weight (Pounds): 196 Weight (Ounces): 2.0 Precautions Precautions/Isolations: Standard Precautions Weight Bear Status Right Lower Extremity: Right Weight Bearing/Tolerated Left Lower Extremity: Left Weight Bearing/Tolerated Referral Physician: Bozena Reason for Referral: Evaluation/Treatment Medical History Pertinent Medical History: Atrial Fib, CABG (October 26, 2018), HTN Additional Medical History brain tumor Current History ER secondary 2-3 days of "feeling lousy" Social History Home: Multilevel Current Living Status: Spouse Entry Into Home: Stairs With Railing PT Steps Into Home: 4 PT Steps Inside Home: 12 Prior/Core FIM Prior Level of Function Therapy Code Descriptions/Definitions Functional [place] Measure: 0=Not Assessed/NA 4=Minimal Assistance 1=Total Assistance 5=Supervision or Setup 2=Maximal Assistance 6=Modified [place] 3=Moderate Assistance 7=Complete [place] Therapy Quality Codes: 6 Independent with activity with or without an assistive device 5 Patient requires set up or clean up by helper. Patient completes activity by themselves 4 Supervision or touching assist (CGA). [place] provide cues , steadying assist 3 The helper provides less than half the effort to complete the activity 2 The helper provides more than half the effort to complete the activity 1 Dependent. The helper does all the effort to complete an activity 7 Patient refused to complete or attempt activity 9 The patient did not perform the activity before the current illness or injury 88 Not attempted due to Medical conditions or safety concerns Functional Abilities and Goals: Independent: Patient completed the activities by him/herself, with or without an assistive device, with no assistance from a helper. Needed Some Help: Patient needed partial assistance from another person to complete activities. Dependent: A helper completed the activities for the patient. Unknown: Not Applicable: Bed Mobility: 7 Transfers (B,C,W/C) (FIM): 7 Gait: 7 Stairs: 7 Indoor Mobility (Ambulation): Independent Stairs: Independent Prior Devices Use: None PT Evaluation-Current Subjective Patient agrees to PT. She reports she hope to go home today. Objective Patient Orientation: Normal For Age Problem Solving: Good ROM/Strength ROM Lower Extremities bilateral LE WFL Strength Lower Extremities 4/5 grossly bilaterally Integumentary/Posture Integumentary refer to nursing notes Bowel Incontinence: No Bladder Incontinence: No Posture WFL Neuromuscular (Tone, Coordination, Reflexes) grossly intact Sensory Vision: Wears Glasses Hearing: Functional Sensation Right Lower Extremit: Intact Sensation Left Lower Extremity: Intact Transfers Therapy Code Descriptions/Definitions Functional [place] Measure: 0=Not Assessed/NA 4=Minimal Assistance 1=Total Assistance 5=Supervision or Setup 2=Maximal Assistance 6=Modified [place] 3=Moderate Assistance 7=Complete [place] Transfers (B, C, W/C) (FIM): 7 Scootin Supine to/from Sit: 7 Sit to/from Stand: 7 Gait Mode of Locomotion: Walk Anticipated Mode of Locomotion: Walk Gait (FIM): 7 Distance (FIM): 3=150 ft Distance: 500' Gait Level of Assist: 7 Gait Assistive Device: None Stairs Stairs (FIM): 7 #of Steps: 14 Level of Assist: 7 Balance Sitting Static: Normal Sitting Dynamic: Normal Standing Static: Normal Standing Dynamic: Normal Assessment/Needs 73 y.o. female, is currently at [facility] with all gross motor skills and does not require skilled therapy intervention. Thank you for this referral. Rehab Potential: Fair PT Plan Treatment/Plan Treatment Plan: Discontinue PT, goals met Treatment Plan: Other Treatment Duration: Nov 14, 2018 Frequency: 1 time per week Estimated Hrs Per Day: .25 hour per day Patient and/or Family Agrees t: Yes Discharge Recommendations Therapy D/C Recommendations: Home w/ Family Support Time/GCodes Time In: 1400 Time Out: 1409 Total Billed Treatment Time: 9 Total Billed Treatment 1 visit EVLow 9 min AKASH MADERA PT Nov 14, 2018 14:20
--- NOTE | 2018-11-14 14:48 | Occ Therapy Progress Note ---
Therapy Progress Note per PT pt is independent with in room. OT spoke with pt and pt , pt stated she dressed self standing in bathroom with no concerns. pt stated she feels safe to return home as symptoms had resolved. SCREEN only performed. OT services not indicate secondary to pt being at baseline. pt agreed she does not need OT services. d/c OT at this time. TYRON DONAHUE OT Nov 14, 2018 14:48
--- NOTE | 2018-11-14 15:07 | NUR ---
CM/SS spoke with the patient in regards to discharge planning. Patient has been receiving [facility] RNing and PT. She would like these services resumed. She did not feel she had any other discharge needs.
--- NOTE | 2018-11-14 15:13 | D/C HH Face to Face Order ---
D/C Face to Face Orders Instructions for Patient Via [facility], Patient Instructions/FollowUp: Please continue to take your medications as written. Please follow up with Dr West and Dr Whiting. Physician to follow Patient: Dr Whiting Discharge Diet for Home: Cardiac Diet Patient Data-Allergies,Ht & Wt Patient Allergies: Coded Allergies: acetaminophen (Verified Allergy, Unknown, 01/06/18) amoxicillin (Verified Allergy, Unknown, 01/06/18) clavulanic acid (Verified Allergy, Unknown, 01/06/18) codeine (Verified Allergy, Unknown, 01/06/18) hydrocodone (Verified Allergy, Unknown, 01/06/18) oxycodone (Verified Allergy, Unknown, 01/06/18) Height (Feet): 5 Height (Inches): 2.50 Weight (Pounds): 196 Weight (Ounces): 2.0 Home Health Need/Face to Face Date of Face to Face: Nov 14, 2018 Clinical Findings: Generalized weakness and fatigue I have seen Pt [id number]: Yes Discharged To: Home Diagnosis/Conditions: Recent open heart surgery with mitral valve repair Patient is Homebound due to: Muscle weakness Homebound Status Due to the above stated illness, injury or surgical procedure (medical condition or diagnosis) and associated clinical findings, the patient is homebound because of his/her inability to leave home except with aid of a supportive device and/or person AND leaving the home requires a considerable and taxing effort or is medically contraindicated. Pt req the following assistanc: Aid of another person Home Health Nursing Orders Home Health Services Order: Nursing Services, Rn Building-Evaluate & Treat, Physical Therapy-Evaluate & Treat Home Health Infusion Therapy Line Start Date: Nov 11, 2018 Therapy Orders Therapy Orders: OT (must have SN or PT order), Physical Therapy Therapy Specific Orders: Eval assistive deivces, Teach enviro modifications/safety, Gait training, Increase strength/endurance Certify Stmt I certify that this patient is under my care and that I, a nurse practitioner or a physician; a electrical assistant working with me, had a face to face encounter that - meets the physician face to face encounter requirements with this patient as dated. GILBERT TEAGUE MD Nov 14, 2018 3:13 pm
--- NOTE | 2018-11-14 18:01 | Cardiology Progress Note ---
Cardiology SOAP Progress Note Subjective: Much improved. Objective: I&O/Vital Signs 11/14/18 11/14/18 11/14/18 11/14/18 07:00 08:00 08:00 09:08 Temp 97.2 Pulse 81 74 81 Resp 20 16 B/P (MAP) 103/55 (71) 113/62 (79) Pulse Ox 95 95 O2 Delivery Room Air Room Air Room Air 11/14/18 11/14/18 11/14/18 12:00 13:00 16:58 Temp 98.0 97.5 Pulse 85 89 74 Resp 20 18 B/P (MAP) 101/57 (72) 102/64 (77) Pulse Ox 97 97 O2 Delivery Room Air Room Air 11/14/18 00:00 Intake Total 1920 ml Output Total 1450 ml Balance 470 ml Weight (Pounds): 196 Weight (Ounces): 2.0 Weight (Calculated Kilograms): 88.066950 Constitutional: appears stated age, AAO x 3; No apparent distress; well-developed, well-nourished Respiratory: No accessory muscle use, No respiratory distress, No chest tender, No chest expansion is symmetric; chest is bilaterally symmetric; No lungs clear to percussion; lungs clear to auscultation; No crackles, No rhonchi, No rales, No stridor, No wheezing, No pleural rub, No other Cardiovascular: No regular rate-rhythm; irregularly irregular; No extra beats, No parasternal heave is noted, No JVD, No edema, No bradycardia, No tachycardia, No point of maximal impulse, No cardiac thrills are palpable; S1 and S2; No gallop/S3, No gallop/S4, No diastolic murmur, No systolic murmur, No friction rub, No click, No other Gastrointestional: No tender, No soft, No round, No distended, No pulsatile mass, No organomegaly, No guarding, No rebound, No tenderness, No hernia, No mass, No audible bowel sounds, No abnormal bowel sounds, No abdominal bruits, No spleenomegaly, No other Extremities: No normal range of motion, No non-tender, No normal inspection, No pedal edema, No calf tenderness, No normal capillary refill, No pelvis stable, No calf tenderness, No inflammation, No pedal edema, No slow capillary refill, No swelling, No other, No abrasion, No clubbing, No cyanosis, No ecchymosis, No laceration, No no lower extremity edema bilateral, No significant edema, No tenderness, No wound Neurologic/Psychiatric: no motor/sensory deficits, alert, normal mood/affect, oriented x 3, power is 5/5 both on sides Skin: No normal color, No warm/dry, No cyanosis, No cool, No diaphoresis, No damp, No ecchymosis, No jaundice, No mottled, No pallor, No rash, No tattoos/piercings, No ulcerations, No rash on exposed areas, No ulcerations on exposed areas, No other Results/Procedures: Labs Laboratory Tests 11/14/18 05:23: Activated Partial Thromboplast Time 39H Microbiology 11/11/18 Blood Culture - Preliminary, Resulted No growth 11/11/18 Urine Culture - Final, Complete 3 or more isolates A/P: Assessment/Dx: recent cardiac surgery for mitral valve replacement, maze procedure and left atrial appendage clipping., positive troponins. Persistent atrial fibrillation, Hypertension, PVCs, possible UTI Plan: recent cardiac surgery for mitral valve replacement, maze procedure and left atrial appendage clipping. still recovering. positive troponins, trending down. T-wave inversions noted on EKG. I am not to keen on performing coronary angiography. She had a negative stress test in August 2018, no history of CABG. nuclear stress test done 11/14/2018 shows normal myocardial perfusion imaging. Persistent atrial fibrillation,continue oral anticoagulation. Controlled ventricular rate. Agree with DC heparin and starting eliquis. Hypertension, PVCs, possible UTI, defer to the primary team. IV fluids and IV antibiotics. Thank you for your consultation. Please call me if you have any questions. Sharif West MD, FACP, FACC, FSCAI, FHRS, CCDS Interventional Cardiology Cardiac Electrophysiology Vascular Medicine and Endovascular Interventions Focused Exam Lactate Level 11/11/18 22:45: Lactic Acid Level 1.19 Shirley WEST MD Nov 14, 2018 6:01 pm
== END 2018-11-14 18:10 | disposition home or self-care (01) ==
LOC: EDUNIT# 21:52 → ER 21:53 → ICU 11-12 00:40 → 4TH 11-13 03:27
PROVIDERS: ADMIT Internal Medicine; ATTEND Internal Medicine
DX: I48.1 Persistent atrial fibrillation (principal); I10 Essential (primary) hypertension; I49.3 Ventricular premature depolarization; E78.5 Hyperlipidemia, unspecified; N39.0 Urinary tract infection, site not specified; R53.1 Weakness; M25.512 Pain in left shoulder; K59.00 Constipation, unspecified; K21.9 Gastro-esophageal reflux disease without esophagitis; K57.90 Diverticulosis of intestine, part unspecified, without perforation or abscess without bleeding; K44.9 Diaphragmatic hernia without obstruction or gangrene; Z95.2 Presence of prosthetic heart valve; Z98.890 Other specified postprocedural states; Z88.5 Allergy status to narcotic agent; Z88.1 Allergy status to other antibiotic agents; Z79.899 Other long term (current) drug therapy; Z79.82 Long term (current) use of aspirin; Z87.891 Personal history of nicotine dependence; Z79.01 Long term (current) use of anticoagulants
CPT/HCPCS: 36415; 71045; 71275; 78452; 80053; 80061; 81000; 83605; 83735; 83874; 83880; 84484; 85025; 85049; 85379; 85610; 85730; 86141; 87040; 87088; 93005; 93017; 93306; 96361; 96374; 96375

== ENCOUNTER 2019-02-23 07:48 | Day surgery (SDC) | payer MEDICARE, OTHER ==
[2019-02-23] VITALS (8 sets, daily range): BP systolic 96–134; BP diastolic 63–80
[~2019-02-23] VITALS: Ht 157 cm; Wt 88.6 kg
[~2019-02-23 07:48] MED LIST changes: +ACET325T38 PO; +ASPI-983 PO; +CHOL400C9 PO; +FISH12002 PO; +OMG1KC PO; +WARF-47 PO
[2019-02-23] MEDS ORDERED: NS IV 1000 ML 1,000 ML IV ONE (07:51)
[2019-02-23] MEDS ORDERED: NS IV 1000 ML 1,000 ML ONE (08:08)
[2019-02-23] MEDS ORDERED: proPOfol 200 MG/20 ML (DIPRIVAN) VIAL IV ONE (08:18)
[2019-02-23] MEDS ORDERED: MIDAZOLAM 5 MG/5 ML (VERSED) VIAL ONE (08:19)
--- NOTE | 2019-02-23 10:09 | NUR ---
neuros checked and normal.
--- NOTE | 2019-02-23 10:16 | NUR ---
propofol given per anesthesia. see anesthesia record for details.
--- NOTE | 2019-02-23 10:34 | Anesthesia-Procedure Note ---
Procedures/Interventions Procedure Start/Stop/Diagnosis Date of Procedure: Feb 23, 2019 Start Time: 09:29 Preprocedural Diagnosis: a-fib Stop Time: 09:39 SARAH/Cardioversion Anesthesia Type: mac ASA Class: 3 Medications propofol 60 mg IV Monitors and Equipment: BP Cuff - Left, Continuous EKG, End Tidal CO2, IV, Pulse Oximeter, V Lead EKG AMAURY GUALLPA CRNA Feb 23, 2019 10:34
--- NOTE | 2019-02-23 11:19 | Cardioversion ---
Cardioversion PROCEDURE PHYSICIAN: Sharif West MD DATE OF PROCEDURE: 02/23/19 DIRECT EXTERNAL ELECTRICAL CARDIOVERSION: Indications: Atrial Fibrillation with controlled ventricular rate. Preoperative diagnoses: Atrial Fibrillation with controlled ventricular rate Postoperative diagnosis: Sinus rhythm, Successful Electrical Cardioversion History: This is a 73-year-old lady with severe mitral regurgitation, status post mitral valve surgery. During surgery left atrial appendage was closed, surgical atrial fibrillation ablation was done. Patient presented with persistent atrial fi brillation. Anesthesia: By Anesthesia services Complications: None Specimen: None Contrast: 0 Flouroscopy: none Procedure Details: The patient was brought the phlebotomist lab assistant after informed consent was taken, all the risks and complications were explained including the risk of stroke. Electrical cardioversion was carried out with anesthesia support with propofol. 200 joules of synchronized shock was delivered through external patches x2 which promptly restored sinus rhythm. The patient tolerated the procedure well. Conclusions: 1.Successful Cardioversion. 2.Continue oral anticoagulation and rate controlling agent. 3.Follow up in office in 3-4 weeks. Sharif West MD, RS, CCDS Cardiac Electrophysiology Shirley WEST MD Feb 23, 2019 11:19 am
== END 2019-02-23 13:47 ==
LOC: SDC 07:48
PROVIDERS: ATTEND Internal Medicine Interventional Cardiology
DX: I48.19 Other persistent atrial fibrillation (principal); I10 Essential (primary) hypertension; I49.3 Ventricular premature depolarization; I34.0 Nonrheumatic mitral (valve) insufficiency; E78.5 Hyperlipidemia, unspecified; K21.0 Gastro-esophageal reflux disease with esophagitis; R73.03 Prediabetes; Z87.891 Personal history of nicotine dependence; Z88.1 Allergy status to other antibiotic agents; Z88.5 Allergy status to narcotic agent; Z88.8 Allergy status to other drugs, medicaments and biological substances; Z79.01 Long term (current) use of anticoagulants; Z79.899 Other long term (current) drug therapy; Z80.9 Family history of malignant neoplasm, unspecified; Z83.3 Family history of diabetes mellitus; Z82.49 Family history of ischemic heart disease and other diseases of the circulatory system
CPT/HCPCS: 92960; 93005

== ENCOUNTER → 2019-04-28 | Outpatient (CLI) | payer MEDICARE, OTHER ==
--- NOTE | 2019-05-01 13:13 | Diagnostic Imaging Report ---
INDICATION: Routine screening. COMPARISON: 09/17/2017 and 08/07/2016. TECHNIQUE: 2D and 3D bilateral screening mammography was performed with CAD. FINDINGS: Scattered fibroglandular densities are identified bilaterally. A circumscribed nodule in the medial far posterior left breast is again noted and stable. There are benign calcifications bilaterally. A cardiac monitoring device overlies the medial left breast. A stereotactic marker clip in the right breast remains in place. No spiculated mass or malignant appearing microcalcifications are seen. The axillae are unremarkable. IMPRESSION: No mammographic features suspicious for malignancy are identified. ACR BI-RADS Category 2: Benign findings. Result letter will be mailed to the patient. Note: At least 10% of breast cancer is not imaged by mammography. Dictated by: Dictated on workstation # [id number]
== END ==
LOC: RAD 14:50
PROVIDERS: ATTEND Family Medicine
DX: Z12.31 Encounter for screening mammogram for malignant neoplasm of breast (principal)
CPT/HCPCS: 77067

== ENCOUNTER 2019-12-18 13:30 | Outpatient (CLI) | payer MEDICARE, OTHER ==
[~2019-12-18] VITALS: Ht 160 cm; Wt 90.9 kg
[~2019-12-18 13:30] MED LIST changes: -METO-370 PO; +METO50TA7 PO; +SIMV40TA25 PO; -SIMV40TA4 PO
[2019-12-18] MEDS ORDERED: CHOL200059 PO (13:47)
[2019-12-18] MEDS ORDERED: APIX5TAB PO (13:47)
[2019-12-18] MEDS ORDERED: DOCU-163 PO (13:47)
[2019-12-18] MEDS ORDERED: LISI2.5T PO (13:47)
[2019-12-18] MEDS ORDERED: ATOR20TA66 PO (13:47)
[2019-12-18] MEDS ORDERED: DRON400T2 PO (13:47)
[2019-12-18] MEDS ORDERED: MTP25TSR PO (13:47)
[2019-12-18] MEDS ORDERED: CRAN500T2 PO (13:47)
== END 2019-12-18 13:51 | disposition home or self-care (01) ==
LOC: PREOP 13:30
PROVIDERS: ATTEND Specialist
DX: Z01.818 Encounter for other preprocedural examination (principal)

== ENCOUNTER 2019-12-22 08:37 | Day surgery (SDC) | payer MEDICARE, OTHER ==
[~2019-12-22] VITALS: Ht 160 cm
[~2019-12-22 08:37] MED LIST changes: +ATOR20TA66 PO; +CHOL200059 PO; +CRAN500T2 PO; +DOCU-163 PO; +DRON400T2 PO; +LISI2.5T PO; +MTP25TSR PO
[2019-12-22] MEDS ORDERED: TIMOLOL MALEATE 0.5% 5 ML (TIMOPTIC) BTL OU PRN (09:00)
[2019-12-22] MEDS ORDERED: POVIDONE (BETADINE) OPHTH SOLN 5% 30 ML OP ONE (09:00)
[2019-12-22] MEDS ORDERED: LIDOCAINE PF 1% 2 ML VIAL IR PRN (09:00)
[2019-12-22] MEDS ORDERED: MOXIFLOXACIN OPHTH SOLN 5 MG/ML 0.3 ML SYRINGE OP ONE (09:00)
[2019-12-22 09:10] VITALS: BP 135/63
[2019-12-22] MEDS: TETRACAINE 0.5% OPHTH SOLN 4 ML BTL (SINGLE DOSE ONLY) OU PRN ×4 (09:18→09:51)
[2019-12-22] MEDS: PHENYLEPHRINE 10% OPHTH (NEO-SYN) 5 ML BTL OU SCH ×3 (09:34→09:51)
[2019-12-22] MEDS: CYCLOPENTOLATE 1% (CYCLOGYL) 2 ML DROPS OP SCH ×3 (09:34→09:51)
[2019-12-22] MEDS ORDERED: MIDAZOLAM 2 MG/2 ML (VERSED) VIAL ONE (09:57)
--- NOTE | 2019-12-22 10:07 | Ophthalmologist Pre-Op Note ---
Pre-Operative Progress Note H&P Reviewed The H&P was reviewed, patient examined and no changes noted. Date H&P Reviewed: Dec 22, 2019 Time H&P Reviewed: 10:07 Pre-Op Dx Cataract, Left Eye ZULEYMA RAMOS MD Dec 22, 2019 10:07
--- NOTE | 2019-12-22 10:29 | Ophthalmology Operative Report ---
Cataract removal/placement IOL PREOPERATIVE DIAGNOSIS: Cataract Left Eye POSTOPERATIVE DIAGNOSIS: Cataract Left Eye PROCEDURE: Cataract removal and placement of posterior chamber implant, left eye SURGEON: Chris Ramos ANESTHESIA: Topical with sedation COMPLICATIONS: None ESTIMATED BLOOD LOSS: Minimal DESCRIPTION OF PROCEDURE: After proper informed consent was obtained, the patient, a 74 female, was taken to the Operating Room and the left eye was anesthetized with tetracaine. The left eye was then prepped and draped in the usual manner. A wire lid speculum was placed. A paracentesis was made at the left hand position. Preservative free lidocaine was injected into the anterior chamber followed by viscoelastic. A clear corneal incision was made in the temporal position. A capsulorrhexis was preformed and the central nuclear and cortical material were removed. The posterior capsule was polished and an Parker 24.5 AU00T0 was placed into the capsular bag. The residual viscoelastic was aspirated and balanced saline solution was injected into the anterior chamber. Moxifloxacin was injected into the anterior chamber. The wound was checked and found to be water tight. The patient tolerated the procedure well without complications. CHRIS RAMOS MD Dec 22, 2019 10:29
[2019-12-22] MEDS ORDERED: acetaZOLAMIDE ER 500 MG CAP (DIAMOX SEQUELS) PO ONE (10:30)
[2019-12-22 10:45] VITALS: BP 113/59
--- NOTE | 2019-12-22 10:59 | Anesthesia-General Post-Op ---
MAC Patient Condition Mental Status/LOC: Same as Preop Cardiovascular: Satisfactory Nausea/Vomiting: Absent Respiratory: Satisfactory Pain: Controlled Complications: Absent Post Op Complications Complications None Follow Up Care/Instructions Patient Instructions None needed. Anesthesiology Discharge Order Discharge Order Patient is doing well, no complaints, stable vital signs, no apparent adverse anesthesia problems. No complications reported per nursing. SAWYER MCCRAY HYDROELECTRIC PRODUCTION TECHNICIAN Dec 22, 2019 10:59
== END 2019-12-22 10:45 | disposition home or self-care (01) ==
LOC: SDC 08:37
PROVIDERS: ATTEND Specialist
DX: H25.12 Age-related nuclear cataract, left eye (principal); I10 Essential (primary) hypertension; I25.10 Atherosclerotic heart disease of native coronary artery without angina pectoris; E78.5 Hyperlipidemia, unspecified; M06.9 Rheumatoid arthritis, unspecified; Z79.01 Long term (current) use of anticoagulants; Z79.899 Other long term (current) drug therapy; E78.00 Pure hypercholesterolemia, unspecified; K44.9 Diaphragmatic hernia without obstruction or gangrene
CPT/HCPCS: 66984; V2632

== ENCOUNTER 2019-12-29 08:55 | Day surgery (SDC) | payer MEDICARE, OTHER ==
[~2019-12-29] VITALS: Ht 160 cm; Wt 90.0 kg
[2019-12-29] MEDS ORDERED: MOXIFLOXACIN OPHTH SOLN 5 MG/ML 0.3 ML SYRINGE OP ONE (09:15)
[2019-12-29] MEDS ORDERED: POVIDONE (BETADINE) OPHTH SOLN 5% 30 ML OP ONE (09:15)
[2019-12-29] MEDS ORDERED: TIMOLOL MALEATE 0.5% 5 ML (TIMOPTIC) BTL OU PRN (09:15)
[2019-12-29] MEDS ORDERED: LIDOCAINE PF 1% 2 ML VIAL IR PRN (09:15)
[2019-12-29] MEDS: TETRACAINE 0.5% OPHTH SOLN 4 ML BTL (SINGLE DOSE ONLY) OU PRN ×4 (09:22→09:38)
[2019-12-29] MEDS: CYCLOPENTOLATE 1% (CYCLOGYL) 2 ML DROPS OP SCH ×3 (09:28→09:38)
[2019-12-29] MEDS: PHENYLEPHRINE 10% OPHTH (NEO-SYN) 5 ML BTL OU SCH ×3 (09:28→09:38)
[2019-12-29 09:36] VITALS: BP 127/92
--- NOTE | 2019-12-29 09:38 | Ophthalmologist Pre-Op Note ---
Pre-Operative Progress Note H&P Reviewed The H&P was reviewed, patient examined and no changes noted. Date H&P Reviewed: Dec 29, 2019 Time H&P Reviewed: 09:38 Pre-Op Dx Cataract, Right Eye ZULEYMA RAMOS MD Dec 29, 2019 09:38
[2019-12-29] MEDS ORDERED: MIDAZOLAM 2 MG/2 ML (VERSED) VIAL ONE (09:45)
--- NOTE | 2019-12-29 10:13 | Ophthalmology Operative Report ---
Cataract removal/placement IOL PREOPERATIVE DIAGNOSIS: Cataract Right Eye POSTOPERATIVE DIAGNOSIS: Cataract Right Eye PROCEDURE: Cataract removal and placement of posterior chamber implant, right eye SURGEON: Chris Ramos ANESTHESIA: Topical with sedation COMPLICATIONS: None ESTIMATED BLOOD LOSS: Minimal DESCRIPTION OF PROCEDURE: After proper informed consent was obtained, the patient, a 74 female, was taken to the Operating Room and the right eye was anesthetized with tetracaine. The right eye was then prepped and draped in the usual manner. A wire lid speculum was placed. A paracentesis was made at the left hand position. Preservative free lidocaine was injected into the anterior chamber followed by viscoelastic. A clear corneal incision was made in the temporal position. A capsulorrhexis was preformed and the central nuclear and cortical material were removed. The posterior capsule was polished and Parker 23.5 AU00T0 IOL was placed into the capsular bag. The residual viscoelastic was aspirated and balanced saline solution was injected into the anterior chamber. Moxifloxacin was injected into the anterior chamber. The wound was checked and found to be water tight. The patient tolerated the procedure well without complications. CHRIS RAMOS MD Dec 29, 2019 10:13
[2019-12-29 10:24] VITALS: BP 116/48
[2019-12-29] MEDS ORDERED: acetaZOLAMIDE ER 500 MG CAP (DIAMOX SEQUELS) PO ONE (10:30)
--- NOTE | 2019-12-29 14:27 | Anesthesia-General Post-Op ---
MAC Patient Condition Mental Status/LOC: Same as Preop Cardiovascular: Satisfactory Nausea/Vomiting: Absent Respiratory: Satisfactory Pain: Controlled Complications: Absent Post Op Complications Complications None Follow Up Care/Instructions Patient Instructions None needed. Anesthesiology Discharge Order Discharge Order Patient was seen this morning after the procedure and she was doing well, no complaints, stable vital signs, no apparent adverse anesthesia problems. ISRRAEL MORILLO DO Dec 29, 2019 14:27
== END 2019-12-29 10:23 ==
LOC: SDC 08:55
PROVIDERS: ATTEND Specialist
DX: H25.11 Age-related nuclear cataract, right eye (principal); I10 Essential (primary) hypertension; I25.10 Atherosclerotic heart disease of native coronary artery without angina pectoris; I48.91 Unspecified atrial fibrillation; K44.9 Diaphragmatic hernia without obstruction or gangrene; Z79.899 Other long term (current) drug therapy; Z88.5 Allergy status to narcotic agent; Z88.8 Allergy status to other drugs, medicaments and biological substances; Z90.710 Acquired absence of both cervix and uterus
CPT/HCPCS: 66984; V2632

== ENCOUNTER → 2020-07-23 | Outpatient (CLI) | payer MEDICARE, OTHER ==
[~2020-07-23] MED LIST changes: +ASPI-1238 PO; -ASPI-983 PO; -LISI-556 PO; +LISI-729 PO
== END ==
LOC: CARD 13:00
PROVIDERS: ATTEND Nurse Practitioner Family
DX: I51.7 Cardiomegaly (principal); I34.2 Nonrheumatic mitral (valve) stenosis; Z98.890 Other specified postprocedural states
CPT/HCPCS: 93306

== ENCOUNTER → 2020-08-01 | Outpatient (CLI) | payer MEDICARE, OTHER ==
--- NOTE | 2020-08-01 14:56 | Diagnostic Imaging Report ---
INDICATION: Routine screening. COMPARISON: 04/28/2019 and 09/17/2017. TECHNIQUE: 2D and 3D bilateral screening mammography was performed with CAD. FINDINGS: Scattered fibroglandular densities are identified bilaterally. A biopsy marker clip in the right breast is again noted. Benign nodules in both breasts appear stable. There are benign calcifications. No spiculated mass or malignant appearing microcalcifications are seen. A cardiac monitoring device on the left is again noted. The axillae are unremarkable. IMPRESSION: No mammographic features suspicious for malignancy are identified. ACR BI-RADS Category 2: Benign findings. Result letter will be mailed to the patient. Note: At least 10% of breast cancer is not imaged by mammography. Dictated by: Dictated on workstation # [id number]
== END ==
LOC: RAD 11:30
PROVIDERS: ATTEND Internal Medicine
DX: Z12.31 Encounter for screening mammogram for malignant neoplasm of breast (principal); Z98.890 Other specified postprocedural states
CPT/HCPCS: 77063; 77067

== ENCOUNTER → 2020-10-11 | Outpatient (CLI) | payer MEDICARE, OTHER ==
[~2020-10-11] VITALS: Ht 157 cm; Wt 95.0 kg
[~2020-10-11] MED LIST changes: +CATHETER FLUSH 10 ML SYR IV PRN; -CRAN500T2 PO; +CRAN500T3 PO; -DRON400T2 PO; +DRON400T6 PO; +REGADENOSON 0.4 MG/5 ML SYR (LEXISCAN) IV ONE
[2020-10-11 09:11] VITALS: BP 141/90
--- NOTE | 2020-10-11 21:59 | STRESS TEST ---
DATE OF SERVICE: 10/11/2020 RESTING AND POST REGADENOSON TECHNETIUM-99M TETROFOSMIN SPECT CT IMAGING. ORDERING PHYSICIAN: Beny Felipe MD. PRIMARY PHYSICIAN: Dr. Anival Ellington. CLINICAL DIAGNOSIS: Persistent atrial fibrillation. Baseline images were carried out after injection of 10.86 mCi of technetium-99m Tetrofosmin. This was followed by 0.4 mg Regadenoson and 30 mCi of technetium-99m Tetrofosmin for stress imaging. The electrocardiogram showed sinus rhythm versus ectopic atrial rhythm and isolated premature atrial and ventricular contractions and one 3-beat run of supraventricular tachycardia at approximately 110 beats per minute. The electrocardiogram did not change significantly with the Regadenoson infusion. The patient noted some shortness of breath following Regadenoson infusion, which resolved in a few minutes. Review of images at rest and following stress does not indicate any distinct perfusion defects consistent with significant myocardial ischemia or infarction. Gated images show normal global left ventricular systolic function with normal regional wall motion. Left ventricular ejection fraction is calculated to be 74%. Left ventricular end diastolic volume is 55 mL. TID is absent (1.05). CONCLUSIONS: 1. No evidence of significant myocardial ischemia or infarction on this study. 2. Normal regional wall motion. 3. Normal global left ventricular systolic function with a calculated ejection fraction of 74%. Job ID: [id number] DocumentID: [id number] Dictated Date: 10/11/2020 17:28:23 Potato Loader Date: 10/11/2020 21:59:36 Dictated By: NETTIE GLEASON MD, MA, FACP, FACC, MTDD
== END ==
LOC: CARD 07:49
PROVIDERS: ATTEND Internal Medicine Cardiovascular Disease
DX: I48.19 Other persistent atrial fibrillation (principal)
CPT/HCPCS: 78452; 93017; A9502

== ENCOUNTER 2020-11-06 05:32 | Outpatient (RCR) | payer MEDICARE, OTHER ==
[~2020-11-06] VITALS: Ht 157.5 cm; Wt 94.4 kg
[~2020-11-06 05:32] MED LIST changes: -CATHETER FLUSH 10 ML SYR IV PRN; -REGADENOSON 0.4 MG/5 ML SYR (LEXISCAN) IV ONE
== END 2020-11-06 09:33 | disposition home or self-care (01) ==
LOC: PREOP 05:32
PROVIDERS: ATTEND Internal Medicine
DX: Z01.812 Encounter for preprocedural laboratory examination (principal); K21.9 Gastro-esophageal reflux disease without esophagitis; Z20.822 Contact with and (suspected) exposure to COVID-19
CPT/HCPCS: 87635

== ENCOUNTER → 2020-11-08 | Day surgery (SDC) | payer MEDICARE, OTHER ==
--- NOTE | 2020-10-31 17:14 | HISTORY AND PHYSICAL ---
DATE OF SERVICE: DATE OF ADMISSION: ____. HISTORY OF PRESENT ILLNESS: The patient is a 75-year-old white female referred by Dr. Ellington for consideration for EGD evaluation. She reports over the past several months, she has been having increased reflux symptoms, especially if she eats any type of red sauce. This is despite taking pantoprazole, recently increased to twice a day. She denies dysphagia or odynophagia. She has noted no bright red blood per rectum or melena. She is not aware of any change in weight. She has not previously reported EGD evaluation. She has been told that she did have a hiatal hernia in the past. She does not recall how this was diagnosed. PAST MEDICAL HISTORY: Significant for recurrent atrial fibrillation. She has been on amiodarone without recurrence that has been documented for a little over a year per her report. She has recently switched from Coumadin to Xarelto and has not reported any bleeding problems. She has a history of mitral insufficiency that required mitral valve repair via open heart surgery a number of years ago. She has a history of hyperlipidemia. No known history for coronary artery disease. PAST SURGICAL HISTORY: Mitral valve repair. 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 She is on seizure prophylaxis levetiracetam 250 mg twice daily. FAMILY HISTORY: She is not aware of any family history for GI tract malignancy. SOCIAL HISTORY: She reports no past smoking or drinking history, is retired. REVIEW OF SYSTEMS: CONSTITUTIONAL: Denies night sweats, chills, fever or change in weights. GASTROINTESTINAL: As noted in the HPI. CARDIOVASCULAR: Denies any recent problems with palpitations, dyspnea on exertion, chest pain or shortness of breath. PULMONARY: Denies cough, wheezing or shortness of breath. PHYSICAL EXAMINATION: GENERAL: Reveals a pleasant overweight white female in no acute distress. VITAL SIGNS: Weight 208 pounds and blood pressure 120/82. CHEST: Clear. CARDIOVASCULAR: Reveals a regular rate and rhythm without murmur, S3 or S4. ABDOMEN: Soft, supple without mass, organomegaly or tenderness. EXTREMITIES: Reveal no cyanosis, clubbing or edema. ASSESSMENT AND PLAN: For reflux sounding symptoms refractory to proton pump inhibitor therapy, the patient is being set up for EGD evaluation for further investigation. She is to hold Xarelto for 48 hours prior to the procedure. Prep instructions were discussed and questions were answered. I thank you for the referral of this pleasant lady. Job ID: [id number] DocumentID: [id number] Dictated Date: 10/30/2020 18:20:32 Latin Teacher Date: 10/30/2020 18:38:37 Dictated By: JAMAR HUTCHINSON MD
[~2020-11-08] VITALS: Ht 157.5 cm; Wt 94.4 kg
[~2020-11-08] MED LIST changes: +HURRICAINE EXT TUBE (BENZOCAINE) XX PRN; +LACTATED RINGERS 1,000 ML IV ONE; +LACTATED RINGERS 1,000 ML IV STA; +MIDAZOLAM 2 MG/2 ML (VERSED) VIAL ONE; +proPOfol 200 MG/20 ML (DIPRIVAN) VIAL IV ONE
[2020-11-08 08:30] VITALS: BP 142/76
--- NOTE | 2020-11-08 09:01 | Pre-Op Note & Conscious Sedat ---
Pre-Operative Progress Note H&P Reviewed The H&P was reviewed, patient examined and no changes noted. Date H&P Reviewed: Nov 08, 2020 Time H&P Reviewed: 09:00 Conscious Sedation Pre-Proced ASA Score 2 For ASA 3 and 4: Consider anesthesia and medical clearance. Also, for patients with a history of failed moderate sedation consider anesthesia. Airway Lungs Heart ASA score ASA 1: a normal healthy patient ASA 2: a patient with a mild systemic disease (mid diabetes, controlled hypertension, obesity ASA 3: a patient with a severe systemic disease that limits activity (angina, COPD, prior Myocardial infarction) ASA 4: a patient with an incapacitating disease that is a constant threat to life (CHF, renal failure) ASA 5: a moribund patient not expected to survive 24 hrs. (ruptured aneurysm) ASA 6: a declared brain- patient whose organs are being harvested. For emergent operations, add the letter E after the classification Mallampati Classification Grade 2 Sedation Plan Analgesia, Amnesia, Plan communicated to team members, Discussed options with patient/fam, Discussed risks with patient/fam The patient is an appropriate candidate to undergo the planned procedure, sedation, and anesthesia. The patient immediately re-assessed prior to indication. JAMAR HUTCHINSON MD Nov 08, 2020 09:01
[2020-11-08 09:55] VITALS: BP 106/58
[2020-11-08 10:00] VITALS: BP 110/62
[2020-11-08 10:15] VITALS: BP 120/66
[2020-11-08 10:28] VITALS: BP 120/66
--- NOTE | 2020-11-08 11:05 | Anesthesia-General Post-Op ---
MAC Patient Condition Mental Status/LOC: Same as Preop Cardiovascular: Satisfactory Nausea/Vomiting: Absent Respiratory: Satisfactory Pain: Controlled Complications: Absent Post Op Complications Complications None Follow Up Care/Instructions Patient Instructions None needed. Anesthesiology Discharge Order Discharge Order Patient is doing well, no complaints, stable vital signs, no apparent adverse anesthesia problems. No complications reported per nursing. TERESA DALE CRNA Nov 08, 2020 11:05
--- NOTE | 2020-11-08 15:08 | OPERATIVE REPORT ---
DATE OF SERVICE: EGD SUMMARY EGD was performed for evaluation of reflux refractory to proton pump inhibitor therapy. DESCRIPTION OF PROCEDURE: The patient was placed in the left lateral decubitus position. The endoscope was inserted in the oral cavity and under direct visualization, esophagus was intubated. Endoscope was passed down the esophagus through stomach and second portion of the duodenum. A careful inspection was made as the endoscope was withdrawn. FINDINGS: The posterior pharynx, arytenoid aperture, epiglottis and true and false vocal folds were unremarkable to visual inspection. Proximal and mid esophagus were unremarkable as well. There was a small hiatal hernia present. There was some erythema noted at the Z-line without evidence for ulceration. There were 2 fingers of columnar mucosa extending approximately 1.5 cm from the Z line suspicious for short segment Correa's. No other distal esophageal abnormalities were noted. Biopsies were obtained and submitted for histopathology. Present most predominantly in the fundus of the stomach were multiple small to medium sized polyps compatible with fundal polyps. No evidence for blood was noted in the upper GI tract. There is some mild antral erythema. A senior account representative polyp was removed and submitted for histopathology and a biopsy was obtained from the antrum for Helicobacter and histopathology evaluation. The pylorus, the pyloric channel, the duodenal bulb and second portion of duodenum were unremarkable. ASSESSMENT: Small hiatal hernia is present with questionable short segment Correa's without evidence for erosive esophagitis. We will await histopathology report and if Correa's is not present would not advocate future surveillance EGD. If the patient avoids tomato-based products, reflux symptoms are minimal, did not recommend any change. Multiple small to medium size benign fundal appearing polyps were noted. Parking Line Painter one was removed and submitted for histopathology. I thank you for the referral of this pleasant lady. Job ID: [id number] DocumentID: [id number] Dictated Date: 11/08/2020 10:40:32 Night Shift Date: 11/08/2020 15:07:16 Dictated By: JAMAR HUTCHINSON MD
== END ==
LOC: ENDO 08:18
PROVIDERS: ATTEND Internal Medicine
DX: K31.7 Polyp of stomach and duodenum (principal); K31.89 Other diseases of stomach and duodenum; K44.9 Diaphragmatic hernia without obstruction or gangrene; I10 Essential (primary) hypertension; I25.10 Atherosclerotic heart disease of native coronary artery without angina pectoris; I48.91 Unspecified atrial fibrillation; K21.9 Gastro-esophageal reflux disease without esophagitis; E66.9 Obesity, unspecified; R56.9 Unspecified convulsions; Z79.899 Other long term (current) drug therapy; Z79.01 Long term (current) use of anticoagulants; Z68.38 Body mass index [BMI] 38.0-38.9, adult

== ENCOUNTER 2020-11-22 10:45 | Emergency (ER) | payer MEDICARE, OTHER ==
[~2020-11-22] VITALS: Ht 157 cm; Wt 94.0 kg
[~2020-11-22 10:45] MED LIST changes: -HURRICAINE EXT TUBE (BENZOCAINE) XX PRN; -LACTATED RINGERS 1,000 ML IV ONE; -LACTATED RINGERS 1,000 ML IV STA; -MIDAZOLAM 2 MG/2 ML (VERSED) VIAL ONE; -proPOfol 200 MG/20 ML (DIPRIVAN) VIAL IV ONE
--- NOTE | 2020-11-22 11:14 | ED Abdominal Pain ---
General Chief Complaint: Rect Problems Stated Complaint: BLOOD IN STOOL Source of Information: Patient Exam Limitations: No Limitations History of Present Illness Date Seen by Provider: Nov 22, 2020 Time Seen by Provider: 10:50 Initial Comments Patient to the ER by private conveyance with her significant other and chief complaint for the past 2 days she has had some intermittent abdominal cramping pain in her left lower quadrant abdomen as well as some bright red blood per rectum. She has a history of hemorrhoids and is on Eliquis as well as a history of diverticulitis. She is not having any fever nausea vomiting chills or upper abdominal pain. She takes Eliquis for atrial fibrillation. She also has a history of some heart valvular issues followed by Dr. Pack locally and goes to [facility] for the rest of her care. She had a colonoscopy a couple years ago noting a couple of benign polyps and diverticulosis. She had an EGD by Dr. Rolon in the last month and he biopsied a couple of polyps noting them to be benign. Allergies and Home Medications Allergies Coded Allergies: acetaminophen (Verified Allergy, Unknown, 01/06/18) clavulanic acid (Verified Allergy, Unknown, 01/06/18) codeine (Verified Allergy, Unknown, 01/06/18) hydrocodone (Verified Allergy, Unknown, 01/06/18) oxycodone (Verified Allergy, Unknown, 01/06/18) Home Medications Apixaban 5 Mg Tablet, 5 MG PO BID, (Reported) Atorvastatin Calcium 20 Mg Tablet, 20 MG PO HS, (Reported) Cholecalciferol (Vitamin D3) 50 Mcg Tablet, 50 MCG PO HS, (Reported) Cranberry Extract 500 Mg Tablet, 500 MG PO DAILY, (Reported) Cyanocobalamin/Cobamamide 1 Each Tab.subl, 5,000 MCG SL HS, (Reported) Docusate Sodium 100 Mg Capsule, 100 MG PO DAILY, (Reported) Dronedarone HCl 400 Mg Tablet, 400 MG PO BID WITH MEALS, (Reported) Fish Oil/Borage/Flax/Om3,6,9#1 1,200 Mg Capsule, 1,200 MG PO HS, (Reported) Levetiracetam 500 Mg Tablet, 250 MG PO BID, (Reported) TAKES 1/2 (500MG) TABLET Lisinopril 2.5 Mg Tablet, 2.5 MG PO DAILY, (Reported) Metoprolol Succinate 25 Mg Tab.er.24h, 25 MG PO DAILY, (Reported) Pantoprazole Sodium 40 Mg Tablet.dr, 40 MG PO DAILY, (Reported) Patient Home Medication List Home Medication List Reviewed: Yes Review of Systems Review of Systems Constitutional: No chills, No diaphoresis EENTM: No Blurred Vision, No Double Vision, No Mouth Swelling Respiratory: Denies Cough, Denies Shortness of Air Cardiovascular: Denies Chest Pain, Denies Lightheadedness Gastrointestinal: See HPI; Denies Abdomen Distended; Abdominal Pain; Denies Constipated; Diarrhea, Other (Bright red blood per rectum) Genitourinary: Denies Burning, Denies Discharge Musculoskeletal: No back pain, No joint pain Skin: No pruritus, No rash Psychiatric/Neurological: Denies Headache, Denies Numbness, Denies Paresthesia All Other Systems Reviewed Negative Unless Noted: Yes Past Vbfgsiq-Mcdapm-Njtlrt Hx Patient Social History Tobacco Use?: No Use of E-Cig and/or Vaping dev: No Substance use?: No Past Medical History Surgeries: Yes (BRAIN TUMOR, REMOVAL OF LUMP IN BREAST, MASS REMOVED FROM FACE) Breast, CABG, Gallbladder, Hysterectomy, Neurological, Orthopedic Respiratory: No Cardiac: Yes Atrial Fibrillation, Hypertension Neurological: Yes (BENIGN BRAIN TUMOR) Brain 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 2.0oz. [id number]; 38.05 BMI Method:Stated General Appearance: WD/WN, no apparent distress HEENT: PERRL/EOMI, pharynx normal Neck: full range of motion, normal inspection Respiratory: lungs clear, normal breath sounds, no respiratory distress, no accessory muscle use Cardiovascular: normal peripheral pulses, regular rate, rhythm Gastrointestinal: normal bowel sounds, non tender, soft Rectal: heme negative stool Genital/Rectal: other (No fissures or florina blood on rectal exam. The rectal vault was free of mass or stool. Fecal occult bedside test was negative) Extremities: normal range of motion, non-tender, normal capillary refill Neurologic/Psychiatric: alert, normal mood/affect, oriented x 3 Skin: normal color, warm/dry Progress/Results/Core Measures Results/Orders Lab Results Laboratory Tests Test 11/22/20 11:10 11/22/20 11:19 Range/Units White Blood Count 9.2 4.3-11.0 10^3/uL Red Blood Count 4.87 3.80-5.11 10^6/uL Hemoglobin 14.0 11.5-16.0 g/dL Hematocrit 42 35-52 % Mean Corpuscular Volume 86 80-99 fL Mean Corpuscular Hemoglobin 29 25-34 pg Mean Corpuscular Hemoglobin Concent 34 32-36 g/dL Red Cell Distribution Width 12.5 10.0-14.5 % Platelet Count 301 130-400 10^3/uL Mean Platelet Volume 9.4 9.0-12.2 fL Immature Granulocyte % (Auto) 0 % Neutrophils (%) (Auto) 66 42-75 % Lymphocytes (%) (Auto) 25 12-44 % Monocytes (%) (Auto) 7 0-12 % Eosinophils (%) (Auto) 1 0-10 % Basophils (%) (Auto) 0 0-10 % Neutrophils # (Auto) 6.0 1.8-7.8 10^3/uL Lymphocytes # (Auto) 2.3 1.0-4.0 10^3/uL Monocytes # (Auto) 0.7 0.0-1.0 10^3/uL Eosinophils # (Auto) 0.1 0.0-0.3 10^3/uL Basophils # (Auto) 0.0 0.0-0.1 10^3/uL Immature Granulocyte # (Auto) 0.0 0.0-0.1 10^3/uL Sodium Level 141 135-145 MMOL/L Potassium Level 3.8 3.6-5.0 MMOL/L Chloride Level 107 98-107 MMOL/L Carbon Dioxide Level 23 21-32 MMOL/L Anion Gap 11 5-14 MMOL/L Blood Urea Nitrogen 10 7-18 MG/DL Creatinine 0.84 0.60-1.30 MG/DL Estimat Glomerular Filtration Rate 66 BUN/Creatinine Ratio 12 Glucose Level 127 H 70-105 MG/DL Calcium Level 9.2 8.5-10.1 MG/DL Corrected Calcium 9.1 8.5-10.1 MG/DL Total Bilirubin 1.3 H 0.1-1.0 MG/DL Aspartate Amino Transf (AST/SGOT) 16 5-34 U/L Alanine Aminotransferase (ALT/SGPT) 18 0-55 U/L Alkaline Phosphatase 60 40-136 U/L Total Protein 7.0 6.4-8.2 GM/DL Albumin 4.1 3.2-4.5 GM/DL Urine Color YELLOW Urine Clarity CLEAR Urine pH 6.0 5-9 Urine Specific [place] >=1.030 1.016-1.022 Urine Protein TRACE H NEGATIVE Urine Glucose (UA) NEGATIVE NEGATIVE Urine Ketones TRACE H NEGATIVE Urine Nitrite NEGATIVE NEGATIVE Urine Bilirubin NEGATIVE NEGATIVE Urine Urobilinogen 1.0 < = 1.0 MG/DL Urine Leukocyte Esterase 1+ H NEGATIVE Urine RBC (Auto) NEGATIVE NEGATIVE Urine RBC RARE /HPF Urine WBC 2-5 /HPF Urine Squamous Epithelial Cells 2-5 /HPF Urine Crystals PRESENT H /LPF Urine Amorphous Sediment FEW [place] URATES H /LPF Urine Bacteria FEW H /HPF Urine Casts NONE /LPF Urine Mucus SMALL H /LPF Urine Culture Indicated YES My Orders Orders - ARLETTE HILL Orthostatic Vital Signs (Adult (11/22/20 10:53) Cbc With Automated Diff (11/22/20 10:53) Comprehensive Metabolic Panel (11/22/20 10:53) Ua Culture If Indicated (11/22/20 10:53) Occult Blood Stool (11/22/20 10:53) Ed Iv/Invasive Line Start (11/22/20 11:09) Ns Iv 1000 Ml (Sodium Chloride 0.9%) (11/22/20 11:15) Ct Abdomen/Pelvis W (11/22/20 11:09) Type And Screen (11/22/20 11:09) Urine Culture (11/22/20 11:19) Albuterol/Ipra Inhalation Soln (Duoneb I (11/22/20 12:03) Albuterol Pre-Mix Nebs (Rt) (Proventil (11/22/20 12:03) Iohexol Injection (Omnipaque 350 Mg/Ml 1 (11/22/20 12:15) Received Contrast (Hold Metformin- Contr (11/22/20 12:15) Sodium Chloride Flush (Catheter Flush Sy (11/22/20 12:15) Ns (Ivpb) (Sodium Chloride 0.9% Ivpb Bag (11/22/20 12:15) Iohexol Injection (Omnipaque 350 Mg/Ml 1 (11/22/20 12:15) Received Contrast (Hold Metformin- Contr (11/22/20 12:15) Sodium Chloride Flush (Catheter Flush Sy (11/22/20 12:15) Ns (Ivpb) (Sodium Chloride 0.9% Ivpb Bag (11/22/20 12:15) Medications Given in ED Current Medications Medications Dose Ordered Sig/Rita Route Start Time Stop Time Status Last Admin Dose Admin Iohexol 100 ml ONCE ONCE IV 11/22/20 12:15 11/22/20 12:16 DC 11/22/20 12:22 100 ML Sodium Chloride 100 ml ONCE ONCE IV 11/22/20 12:15 11/22/20 12:16 DC 11/22/20 12:22 80 ML Vital Signs/I&O 11/22/20 11/22/20 10:57 11:23 Temp 36.7 Pulse 52 89 100 103 Resp 16 B/P (MAP) 158/59 (92) 153/106 (122) 136/75 (95) 135/74 (94) O2 Delivery Room Air Progress Progress Note #1: Time: 11:09 Progress Note Plan to check some lab get a CT looking for diverticulitis and if tolerable we will do a fecal occult blood test. Aseptic vital signs. A liter of fluids. Progress Note #2: Time: 11:34 Progress Note Fecal occult was negative but the patient says she has not had any bleeding for the past 2 hours. With her history of Eliquis and recent EGD I would suspect a lower GI bleed. Orthostats were nearly positive with 18 mmHg drop from lying to standing and heart rate increased by about 10. She is getting a liter of fluids to start and we will reexamine her after that. Diagnostic Imaging Diagonstic Imaging: CT Plain Films/CT/US/NM/MRI: abdomen, pelvis Comments [facility] [place], [place] NAME: DAVID PATTERSON [facility] REC#: [id number] PT STATUS: REG ER : 1945 PHYSICIAN: ARLETTE HILL MD ADMIT DATE: 11/22/20/ER Signed Date of Exam:11/22/20 CT ABDOMEN/PELVIS W EXAMINATION: CT abdomen and pelvis with intravenous contrast. TECHNIQUE: Multiple contiguous axial images were obtained through the abdomen and pelvis after the uneventful administration of intravenous contrast. All CT scans use one or more of the following dose optimizing techniques: automated exposure control, MA and/or KvP adjustment based on patient size and exam type or iterative reconstruction. HISTORY: LLQ abd pain COMPARISON: None available. FINDINGS: Lung bases: Bibasilar dependent atelectasis. Solid organs: The liver is normal without focal lesion. The gallbladder is surgically absent. There is no biliary ductal dilation. Pancreas is normal. Spleen is normal. Adrenal glands are normal. The kidneys are normal without hydronephrosis. Bowel: There is a large hiatal hernia. There is no bowel obstruction. There is scattered colonic diverticulosis. There is mild inflammatory stranding within the left paracolic gutter near the couple of mildly inflamed diverticula (series 3 image 52). The appendix is normal. Peritoneum: No intra-abdominal free air or loculated fluid collection. No suspicious lymphadenopathy. Vasculature: Calcification of the aorta without aneurysm. Musculoskeletal: Degenerative changes of the spine without suspicious osseous lesion or compression fracture. Pelvis: The uterus is surgically absent. No adnexal mass. The urinary bladder is normal. IMPRESSION: 1. Findings suggestive of mild acute sigmoid diverticulitis without evidence of abscess or free air. 2. Large hiatal hernia. Dictated by: Dictated on workstation # [id number] Dict: 11/22/20 1241 Trans: 11/22/20 1421 [facility] [id number] Interpreted by: LAURA ZAMAN DO Electronically signed by: LAURA ZAMAN DO 11/22/20 142 Reviewed: Reviewed by Me Departure Impression Primary Impression: Diverticulitis large intestine Qualified Codes: K57.33 - Diverticulitis of large intestine without perforation or abscess with bleeding Disposition: 01 HOME, SELF-CARE Condition: Stable Departure-Patient Inst. Decision time for Depature: 15:41 Referrals: ALEXIS GORE MD (PCP/Family) Primary Care Physician Patient Instructions: Diverticulitis (DC) Add. Discharge Instructions: You have an infection of the last part of your colon. Ciprofloxacin 1 capsule 2 times a day. Flagyl 1 tablet 3 times a day Zofran 1 tablet every 6 hours as necessary for nausea and/or vomiting. Follow-up for recheck with your doctor next week. Tylenol 1000 mg every 8 hours as necessary for severe pain. Return to the ER if you are having chest pain, shortness of air or intractable pain. All discharge instructions reviewed with patient and/or family. Voiced understanding. Scripts Ondansetron (Ondansetron Odt) 4 Mg Tab.rapdis 4 MG PO Q6H PRN for NAUSEA/VOMITING, #8 TAB 0 Refills Prov: ARLETTE HILL 11/22/20 Metronidazole (Flagyl) 500 Mg Tablet 500 MG PO TID, #21 TAB 0 Refills Prov: ARLETTE HILL 11/22/20 Ciprofloxacin HCl (Ciprofloxacin HCl) 500 Mg Tablet 500 MG PO BID, #14 TAB 0 Refills Prov: ARLETTE HILL 11/22/20 Copy Copies To 1: ALEXIS GORE MD, TITUS J Nov 22, 2020 11:13
[2020-11-22] MEDS ORDERED: NS IV 1000 ML 1,000 ML IV SCH (11:15)
[2020-11-22 11:22] LABS: BILIRUBIN,URINE NEGATIVE (NEGATIVE); CLARITY,URINE CLEAR; COLOR,URINE YELLOW; GLUCOSE, URINE (UA) NEGATIVE (NEGATIVE); KETONES,URINE TRACE (NEGATIVE); LEUKOCYTE ESTERASE ,URINE 1+ (NEGATIVE); NITRITE,URINE NEGATIVE (NEGATIVE); PROTEIN,URINE TRACE (NEGATIVE)
[2020-11-22 11:23] VITALS: BP_SYST 135; BP_SYST 136; BP_SYST 153; BP_DIAS 106; BP_DIAS 74; BP_DIAS 75
[2020-11-22 11:25] LABS: BASOPHILS % (AUTO) 0 % (0-10); EOSINOPHILS # (AUTO) 0.1 10^3/uL (0.0-0.3); EOSINOPHILS % (AUTO) 1 % (0-10); HEMATOCRIT 42 % (35-52); LYMPHOCYTES # (AUTO) 2.3 10^3/uL (1.0-4.0); LYMPHOCYTES % (AUTO) 25 % (12-44); MEAN CORPUSCULAR HEMOGLOBIN 29 pg (25-34); MEAN CORPUSCULAR HGB CONC 34 g/dL (32-36); MEAN CORPUSCULAR VOLUME 86 fL (80-99); MEAN PLATELET VOLUME 9.4 fL (9.0-12.2); MONOCYTES # (AUTO) 0.7 10^3/uL (0.0-1.0); MONOCYTES % (AUTO) 7 % (0-12); NEUTROPHILS % (AUTO) 66 % (42-75); PLATELET COUNT 301 10^3/uL (130-400); WHITE BLOOD COUNT 9.2 10^3/uL (4.3-11.0)
[2020-11-22 11:31] LABS: ALBUMIN 4.1 GM/DL (3.2-4.5); POTASSIUM 3.8 MMOL/L (3.6-5.0)
[2020-11-22 11:32] LABS: CALCIUM 9.2 MG/DL (8.5-10.1)
[2020-11-22 11:35] LABS: BILIRUBIN,TOTAL 1.3 MG/DL (0.1-1.0)
[2020-11-22 11:36] LABS: AMORPHOUS SEDIMENT,UR FEW AMOR URATES /LPF; BACTERIA,URINE FEW /HPF; RBC,URINE RARE /HPF
[2020-11-22 11:37] LABS: CREATININE SERUM 0.84 MG/DL (0.60-1.30)
[2020-11-22] MEDS ORDERED: RT-ALBUTEROL SULF 2.5 MG/3 ML PRE-MIX VIAL ONE (12:03)
[2020-11-22] MEDS ORDERED: RT-ALBUTEROL/IPRATROPIUM 3 ML (DUONEB) VIAL ONE (12:03)
[2020-11-22] MEDS ORDERED: CATHETER FLUSH 10 ML SYR IV PRN ×2 (12:15)
[2020-11-22] MEDS ORDERED: HOLD METFORMIN - RECEIVED CONTRAST 20 ML VIAL IV SCH ×2 (12:15)
[2020-11-22] MEDS ORDERED: IOHEXOL 350 MG/ML 100 ML (OMNIPAQUE 350) VIAL IV ONE ×2 (12:15)
[2020-11-22] MEDS ORDERED: NS 100 ML (IVPB) BAG IV ONE ×2 (12:15)
--- NOTE | 2020-11-22 12:49 | Diagnostic Imaging Report ---
EXAMINATION: CT abdomen and pelvis with intravenous contrast. TECHNIQUE: Multiple contiguous axial images were obtained through the abdomen and pelvis after the uneventful administration of intravenous contrast. All CT scans use one or more of the following dose optimizing techniques: automated exposure control, MA and/or KvP adjustment based on patient size and exam type or iterative reconstruction. HISTORY: LLQ abd pain COMPARISON: None available. FINDINGS: Lung bases: Bibasilar dependent atelectasis. Solid organs: The liver is normal without focal lesion. The gallbladder is surgically absent. There is no biliary ductal dilation. Pancreas is normal. Spleen is normal. Adrenal glands are normal. The kidneys are normal without hydronephrosis. Bowel: There is a large hiatal hernia. There is no bowel obstruction. There is scattered colonic diverticulosis. There is mild inflammatory stranding within the left paracolic gutter near the couple of mildly inflamed diverticula (series 3 image 52). The appendix is normal. Peritoneum: No intra-abdominal free air or loculated fluid collection. No suspicious lymphadenopathy. Vasculature: Calcification of the aorta without aneurysm. Musculoskeletal: Degenerative changes of the spine without suspicious osseous lesion or compression fracture. Pelvis: The uterus is surgically absent. No adnexal mass. The urinary bladder is normal. IMPRESSION: 1. Findings suggestive of mild acute sigmoid diverticulitis without evidence of abscess or free air. 2. Large hiatal hernia. Dictated by: Dictated on workstation # [id number]
[2020-11-22] MEDS ORDERED: METR500T PO (15:49)
[2020-11-22] MEDS ORDERED: ONDA4TAB11 PO (15:49)
[2020-11-22] MEDS ORDERED: CIPR500T5 PO (15:49)
[2020-11-22 15:52] VITALS: BP 153/110
== END 2020-11-22 15:52 | disposition home or self-care (01) ==
LOC: EDUNIT# 10:45 → ER 10:47
DX: K57.32 Diverticulitis of large intestine without perforation or abscess without bleeding (principal); I10 Essential (primary) hypertension; I48.91 Unspecified atrial fibrillation; K21.9 Gastro-esophageal reflux disease without esophagitis; Z79.01 Long term (current) use of anticoagulants; Z79.899 Other long term (current) drug therapy
CPT/HCPCS: 36415; 74177; 80053; 81000; 85025; 86850; 86900; 86901; 87088

== ENCOUNTER 2020-12-11 07:12 | Emergency (ER) | payer MEDICARE, OTHER ==
[~2020-12-11] VITALS: Ht 157.4 cm; Wt 94.5 kg
[~2020-12-11 07:12] MED LIST changes: +CIPR500T5 PO; +METR500T PO; +ONDA4TAB11 PO
[2020-12-11] MEDS ORDERED: LACTATED RINGERS 1,000 ML IV ONE (08:00)
[2020-12-11] MEDS ORDERED: HYOSCYAMINE 0.125 MG (LEVSIN) TAB SL ONE (08:00)
[2020-12-11 08:13] LABS: CLARITY,URINE CLEAR; COLOR,URINE YELLOW; GLUCOSE, URINE (UA) NEGATIVE (NEGATIVE); KETONES,URINE 1+ (NEGATIVE); LEUKOCYTE ESTERASE ,URINE NEGATIVE (NEGATIVE); NITRITE,URINE NEGATIVE (NEGATIVE); PH,URINE 5.5 (5-9); PROTEIN,URINE 2+ (NEGATIVE)
[2020-12-11 08:18] LABS: BASOPHILS # (AUTO) 0.1 10^3/uL (0.0-0.1); BASOPHILS % (AUTO) 0 % (0-10); EOSINOPHILS # (AUTO) 0.1 10^3/uL (0.0-0.3); EOSINOPHILS % (AUTO) 0 % (0-10); HEMATOCRIT 46 % (35-52); HEMOGLOBIN 15.1 g/dL (11.5-16.0); LYMPHOCYTES # (AUTO) 1.8 10^3/uL (1.0-4.0); LYMPHOCYTES % (AUTO) 16 % (12-44); MEAN CORPUSCULAR HEMOGLOBIN 29 pg (25-34); MEAN CORPUSCULAR HGB CONC 33 g/dL (32-36); MEAN CORPUSCULAR VOLUME 87 fL (80-99); MEAN PLATELET VOLUME 9.3 fL (9.0-12.2); MONOCYTES % (AUTO) 9 % (0-12); NEUTROPHILS # (AUTO) 8.6 10^3/uL (1.8-7.8); NEUTROPHILS % (AUTO) 75 % (42-75); PLATELET COUNT 319 10^3/uL (130-400); WHITE BLOOD COUNT 11.5 10^3/uL (4.3-11.0)
[2020-12-11 08:27] LABS: ALBUMIN 3.9 GM/DL (3.2-4.5); POTASSIUM 3.9 MMOL/L (3.6-5.0)
[2020-12-11 08:28] LABS: CALCIUM 9.1 MG/DL (8.5-10.1)
[2020-12-11 08:30] LABS: TOTAL PROTEIN 6.9 GM/DL (6.4-8.2)
[2020-12-11 08:31] LABS: BILIRUBIN,TOTAL 1.5 MG/DL (0.1-1.0)
[2020-12-11 08:34] LABS: CREATININE SERUM 0.95 MG/DL (0.60-1.30)
--- NOTE | 2020-12-11 08:41 | ED Abdominal Pain ---
General Chief Complaint: Abdominal/GI Problems Stated Complaint: DIARRHEA Nursing Triage Note: AMB TO ROOM WITH C/O DIARRHEA FOR 2 WEEKS HAS BEEN ON CIPRO FOR DIVERTCULITIS Source of Information: Patient Exam Limitations: No Limitations (JAKI COLLINS,MED STUDENT) History of Present Illness Date Seen by Provider: Dec 11, 2020 Time Seen by Provider: 07:50 Initial Comments Casandra Reno is a 75yo F with PMH of afib and diverticulitis who presents with CC of diarrhea. She had an episode of diverticulitis 3 weeks ago, and was prescribed ciprofloxacin and flagyl. The diarrhea began shortly after, so she was prescribed a probiotic which seemed to improve her symptoms. She has since stopped taking the probiotic and has finished her antibiotics. The diarrhea was initially 3x/day, but has increased to up to 6x/day currently. She has had associated nausea and anorexia. There is also associated lower abdominal cramping immediately prior to each BM. She denies fever, SOA, and vomiting. Timing/Duration: Other (3 weeks) Severity/Quality: Mild, Cramping Location: RLQ, LLQ Radiation: No Radiation Activities at Onset: None Modifying Factors: Improves With Eating Associated Symptoms: Nausea/Vomiting (JAKI COLLINS,MED STUDENT) Allergies and Home Medications Allergies Coded Allergies: acetaminophen (Verified Allergy, Unknown, 01/06/18) clavulanic acid (Verified Allergy, Unknown, 01/06/18) codeine (Verified Allergy, Unknown, 01/06/18) hydrocodone (Verified Allergy, Unknown, 01/06/18) oxycodone (Verified Allergy, Unknown, 01/06/18) Home Medications Apixaban 5 Mg Tablet, 5 MG PO BID, (Reported) Atorvastatin Calcium 20 Mg Tablet, 20 MG PO HS, (Reported) Cholecalciferol (Vitamin D3) 50 Mcg Tablet, 50 MCG PO HS, (Reported) Ciprofloxacin HCl 500 Mg Tablet, 500 MG PO BID Prescribed by: ARLETTE HILL on 11/22/20 1549 Cranberry Extract 500 Mg Tablet, 500 MG PO DAILY, (Reported) Cyanocobalamin/Cobamamide 1 Each Tab.subl, 5,000 MCG SL HS, (Reported) Docusate Sodium 100 Mg Capsule, 100 MG PO DAILY, (Reported) Dronedarone HCl 400 Mg Tablet, 400 MG PO BID WITH MEALS, (Reported) Fish Oil/Borage/Flax/Om3,6,9#1 1,200 Mg Capsule, 1,200 MG PO HS, (Reported) Hyoscyamine Sulfate 0.125 Mg Tab.subl, 1-2 TAB SL Q4H PRN for CRAMPS Prescribed by: LIZ OLSON on 12/11/20 0947 Levetiracetam 500 Mg Tablet, 250 MG PO BID, (Reported) TAKES 1/2 (500MG) TABLET Lisinopril 2.5 Mg Tablet, 2.5 MG PO DAILY, (Reported) Metoprolol Succinate 25 Mg Tab.er.24h, 25 MG PO DAILY, (Reported) Metronidazole 500 Mg Tablet, 500 MG PO TID Prescribed by: ARLETTE HILL on 11/22/201548 Nitrofurantoin Monohyd/M-Cryst 100 Mg Capsule, 1 TAB PO BID Prescribed by: LIZ OLSON on 12/11/20 09 Ondansetron 4 Mg Tab.rapdis, 4 MG PO Q6H PRN for NAUSEA/VOMITING Prescribed by: ARLETTE HILL on 11/22/20 154 Ondansetron 4 Mg Tab.rapdis, 4 MG SL Q4H PRN for NAUSEA/VOMITING Prescribed by: LIZ OLSON on 12/11/20 09 Pantoprazole Sodium 40 Mg Tablet.dr, 40 MG PO DAILY, (Reported) Patient Home Medication List Home Medication List Reviewed: Yes (LIZ SUTTON MD) Review of Systems Review of Systems Constitutional: no symptoms reported EENTM: No Symptoms Reported Respiratory: No Symptoms Reported Cardiovascular: No Symptoms Reported Gastrointestinal: See HPI Genitourinary: No Symptoms Reported Musculoskeletal: no symptoms reported Skin: no symptoms reported Psychiatric/Neurological: No Symptoms Reported Endocrine: No Symptoms Reported Hematologic/Lymphatic: No Symptoms Reported (JAKI COLLINS,MED STUDENT) Past Hljtuec-Uvygsh-Qqaciq Hx Patient Social History Tobacco Use?: No Substance use?: No Pt feels they are or have been: No (JAKI COLLINS,MED STUDENT) Immunizations Up To Date Influenza Vaccine Up-to-Date: Yes; Up-to-Date First/Initial COVID19 Vaccinat: JULY Second COVID19 Vaccination Werner: JULY COVID19 Vaccine Commercial Administrator: CARMENZA (JAKI COLLINS,MED STUDENT) Past Medical History Surgeries: Yes (BRAIN TUMOR, REMOVAL OF LUMP IN BREAST, MASS REMOVED FROM FACE) Breast, CABG, Gallbladder, Hysterectomy, Neurological, Orthopedic Respiratory: No Cardiac: Yes Atrial Fibrillation, Hypertension Neurological: Yes (BENIGN BRAIN TUMOR) Brain 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, Menopausal Genitourinary: No Gastrointestinal: Yes (DIVERTICULITIS) Gastroesophageal Reflux, Diverticulosis, Hiatal Hernia Musculoskeletal: Yes Arthritis Endocrine: No HEENT: No Cancer: No Brain Psychosocial: No Integumentary: No Blood Disorders: No (JAKI COLLINS,MED STUDENT) Family Medical History No Pertinent Family Hx (JAKI COLLINS,PETE STUDENT) Physical Exam Vital Signs Vital Signs - First Documented 12/11/20 12/11/20 07:16 10:14 Temp 36.0 Pulse 81 Resp 18 B/P (MAP) 142/77 (98) Pulse Ox 97 O2 Delivery Room Air (LIZ SUTTON MD) Vital Signs Capillary Refill : (JAKI COLLINS,MED STUDENT) Height/Weight/BMI Height: 5'2.50" Weight: 196lbs. 2.0oz. 88.866726fd; 38.00 BMI Method:Stated General Appearance: WD/WN, no apparent distress HEENT: PERRL/EOMI Neck: full range of motion Respiratory: chest non-tender, lungs clear, no respiratory distress Cardiovascular: normal peripheral pulses, no JVD, no murmur Gastrointestinal: normal bowel sounds, soft, tenderness Rectal: deferred Extremities: normal range of motion, no calf tenderness Neurologic/Psychiatric: alert, normal mood/affect, oriented x 3 Skin: normal color, warm/dry (JAKI COLLINS,MED STUDENT) Progress/Results/Core Measures Results/Orders Lab Results Laboratory Tests Test 12/11/20 08:01 12/11/20 08:07 12/11/20 09:50 Range/Units Urine Color YELLOW Urine Clarity CLEAR Urine pH 5.5 5-9 Urine Specific Bond >=1.030 1.016-1.022 Urine Protein 2+ H NEGATIVE Urine Glucose (UA) NEGATIVE NEGATIVE Urine Ketones 1+ H NEGATIVE Urine Nitrite NEGATIVE NEGATIVE Urine Bilirubin 2+ H NEGATIVE Urine Urobilinogen 1.0 < = 1.0 MG/DL Urine Leukocyte Esterase NEGATIVE NEGATIVE Urine RBC (Auto) NEGATIVE NEGATIVE Urine RBC NONE /HPF Urine WBC 5-10 H /HPF Urine Squamous Epithelial Cells 2-5 /HPF Urine Crystals PRESENT H /LPF Urine Calcium Oxalate Crystals RARE H /LPF Urine Bacteria MODERATE H /HPF Urine Casts PRESENT /LPF Urine Hyaline Casts 2-5 H /LPF Urine Mucus LARGE H /LPF Urine Culture Indicated YES White Blood Count 11.5 H 4.3-11.0 10^3/uL Red Blood Count 5.25 H 3.80-5.11 10^6/uL Hemoglobin 15.1 11.5-16.0 g/dL Hematocrit 46 35-52 % Mean Corpuscular Volume 87 80-99 fL Mean Corpuscular Hemoglobin 29 25-34 pg Mean Corpuscular Hemoglobin Concent 33 32-36 g/dL Red Cell Distribution Width 12.7 10.0-14.5 % Platelet Count 319 130-400 10^3/uL Mean Platelet Volume 9.3 9.0-12.2 fL Immature Granulocyte % (Auto) 1 % Neutrophils (%) (Auto) 75 42-75 % Lymphocytes (%) (Auto) 16 12-44 % Monocytes (%) (Auto) 9 0-12 % Eosinophils (%) (Auto) 0 0-10 % Basophils (%) (Auto) 0 0-10 % Neutrophils # (Auto) 8.6 H 1.8-7.8 10^3/uL Lymphocytes # (Auto) 1.8 1.0-4.0 10^3/uL Monocytes # (Auto) 1.0 0.0-1.0 10^3/uL Eosinophils # (Auto) 0.1 0.0-0.3 10^3/uL Basophils # (Auto) 0.1 0.0-0.1 10^3/uL Immature Granulocyte # (Auto) 0.1 0.0-0.1 10^3/uL Sodium Level 141 135-145 MMOL/L Potassium Level 3.9 3.6-5.0 MMOL/L Chloride Level 107 98-107 MMOL/L Carbon Dioxide Level 21 21-32 MMOL/L Anion Gap 13 5-14 MMOL/L Blood Urea Nitrogen 9 7-18 MG/DL Creatinine 0.95 0.60-1.30 MG/DL Estimat Glomerular Filtration Rate 58 BUN/Creatinine Ratio 9 Glucose Level 126 H 70-105 MG/DL Calcium Level 9.1 8.5-10.1 MG/DL Corrected Calcium 9.2 8.5-10.1 MG/DL Total Bilirubin 1.5 H 0.1-1.0 MG/DL Aspartate Amino Transf (AST/SGOT) 16 5-34 U/L Alanine Aminotransferase (ALT/SGPT) 14 0-55 U/L Alkaline Phosphatase 54 40-136 U/L C-Reactive Protein High Sensitivity 3.07 H 0.00-0.50 MG/DL Total Protein 6.9 6.4-8.2 GM/DL Albumin 3.9 3.2-4.5 GM/DL Lipase 9 8-78 U/L Stool Occult Blood Immunoassay POSITIVE H NEGATIVE (LIZ SUTTON MD) Micro Results Microbiology 12/11/20 Fecal Leukocyte Stain - Final, Resulted 12/11/20 C. difficile GDH Antigen & Toxins - Final, Resulted 12/11/20 Stool Culture, Resulted Pending (LIZ SUTTON MD) My Orders Orders - LIZ SUTTON MD Ed Iv/Invasive Line Start (12/11/20 07:59) Lactated Ringers (Lr 1000 Ml Iv Solution (12/11/20 08:00) Cbc With Automated Diff (12/11/20 07:59) Comprehensive Metabolic Panel (12/11/20 07:59) Hs C Reactive Protein (12/11/20 07:59) Lipase (12/11/20 07:59) Ua Culture If Indicated (12/11/20 07:59) Stool Culture (12/11/20 08:00) Fecal Wbc (12/11/20 08:00) C Difficile Ag + Toxin A/B. (12/11/20 08:00) Occult Blood Stool (12/11/20 08:00) Hyoscyamine Sl Tablet (Levsin Sl Tablet) (12/11/20 08:00) Urine Culture (12/11/20 08:01) (LIZ SUTTON MD) Medications Given in ED (LIZ SUTTON MD) Vital Signs/I&O 12/11/20 12/11/20 07:16 10:14 Temp 36.0 Pulse 81 70 Resp 18 18 B/P (MAP) 142/77 (98) 120/60 Pulse Ox 97 O2 Delivery Room Air Room Air (LIZ SUTTON MD) Blood Pressure Mean: 98 Progress Progress Note : Progress Note Patient's mucous membranes appeared dry and she felt a little lightheaded. She was treated with a liter of IV fluid and Levsin. Levsin did improve the diarrhea and cramping. She had one episode of diarrhea just prior to discharge which was sent for stool studies. C. difficile toxin was negative. Stool was positive for GDH antigen and fecal occult blood. Culture results are pending. Patient was advised clear liquid diet as well as other dietary restrictions. She was advised to restart probiotics. Stool cultures should be reviewed when they are available. Probable UTI was discovered on urinalysis. Macrobid was prescribed for antibiotic therapy as Macrobid is not likely to worsen her diarrhea. (LIZ SUTTON MD) Departure Impression Primary Impression: Diarrhea Qualified Codes: R19.7 - Diarrhea, unspecified Additional Impression: UTI (urinary tract infection) Qualified Codes: N39.0 - Urinary tract infection, site not specified Disposition: 01 HOME, SELF-CARE Condition: Improved Departure-Patient Inst. Decision time for Depature: 09:41 (LIZ SUTTON MD) Referrals: ALEXIS GORE MD (PCP/Family) Primary Care Physician Patient Instructions: Diarrhea and Travelers' Diarrhea, Adult (DC), Urinary Tract Infection, Adult (DC) Add. Discharge Instructions: Drink plenty of clear liquids. Complete your antibiotic as prescribed for urinary tract infection. Please be aware this antibiotic may cause your urine to appear orange or red. This is expected. Resume using probiotics such as Culturelle. Take one or two doses three times a day until your diarrhea resolves. Avoid fatty, greasy, or oily foods. Also avoid dairy products until diarrhea resolves. You may use the Zofran (ondansetron) as prescribed for nausea and vomiting. Use Levsin (hyoscyamine) as prescribed for bowel cramping or diarrhea. Obtain a stool specimen (separate from the urine) and bring it back to the hospital with the order form. Follow-up with Dr. Gore next week. Call with questions or concerns. Return to the ER if you have worsening symptoms. All discharge instructions reviewed with patient and/or family. Voiced understanding. Scripts Nitrofurantoin Monohyd/M-Cryst (Macrobid 100 mg Capsule) 100 Mg Capsule 1 TAB PO BID, #14 CAP Prov: LIZ SUTTON MD 12/11/20 Ondansetron (Ondansetron Odt) 4 Mg Tab.rapdis 4 MG SL Q4H PRN for NAUSEA/VOMITING, #10 TAB Prov: LIZ SUTTON MD 12/11/20 Hyoscyamine Sulfate (Levsin-Sl) 0.125 Mg Tab.subl 1-2 TAB SL Q4H PRN for CRAMPS, #10 TAB 0 Refills Prov: LIZ SUTTON MD 12/11/20 JAKI COLLINS,MED STUDENT Dec 11, 2020 08:41 LIZ SUTTON MD Dec 11, 2020 09:46
[2020-12-11 08:50] LABS: BILIRUBIN,URINE 2+ (NEGATIVE)
[2020-12-11 08:51] LABS: BACTERIA,URINE MODERATE /HPF; CALCIUM OXALATE CRYSTALS,UR RARE /LPF
[2020-12-11] MEDS ORDERED: HYOS0.1283 SL (09:47)
[2020-12-11] MEDS ORDERED: ONDA4TAB11 SL (09:47)
[2020-12-11] MEDS ORDERED: NITR-65 PO (09:47)
[2020-12-11 10:14] VITALS: BP 120/60
== END 2020-12-11 10:23 | disposition home or self-care (01) ==
LOC: EDUNIT# 07:12 → ER 07:13
DX: R19.7 Diarrhea, unspecified (principal); N39.0 Urinary tract infection, site not specified; I10 Essential (primary) hypertension; I48.91 Unspecified atrial fibrillation; K21.9 Gastro-esophageal reflux disease without esophagitis; Z79.01 Long term (current) use of anticoagulants; Z79.899 Other long term (current) drug therapy
CPT/HCPCS: 36415; 80053; 81000; 82274; 83690; 85025; 86141; 87015; 87045; 87046; 87088; 87324; 87449; 87493; 87899; 89055

== ENCOUNTER 2020-12-29 12:45 | Emergency (ER) | payer MEDICARE, OTHER ==
[~2020-12-29] VITALS: Ht 157.5 cm; Wt 92.1 kg
[~2020-12-29 12:45] MED LIST changes: +HYOS0.1283 SL; +ONDA4TAB11 SL
--- OUTSIDE RECORDS SUMMARY | 2020-12-29 12:50 | XMS REPORT | Clinical Summary ---
Author Author [facility] Organization [facility] Address Unknown Phone Unavailable Care Team Providers Care Real Estate Sales Associate Name Role Phone Harley Whiting MD PCP Unavailable Ting West MD 21 Source Comments Some departments are not documenting in the electronic medical record. If you d o not see the information that you expected, contact Release of Information in [facility] Health Information Management department at [phone] for further assistan ce in locating additional records.[facility] Allergies Comments Active Allergy Reactions Severity Noted Date Amoxicillin UNKNOWN Low 09/27/2018 Amoxicillin-Pot UNKNOWN Low 09/27/2018 Clavulanate Codeine UNKNOWN Low 09/27/2018 Hydrocodone UNKNOWN Low 09/27/2018 Hydrocodone-Acetaminophen UNKNOWN Low 09/01 Oxycodone-Acetaminophen UNKNOWN Low 2018 Medications End Date Status Medication Sig Dispensed Refills Start Date Active cholecalciferol (VITAMIN Take 400 0 D-3) 400 unit tab tablet Units by mouth at bedtime daily. Active cyanocobalamin (vitamin Dissolve 1 0 B-12) 5,000 mcg TbDi tablet by mouth at bedtime daily. Active levETIRAcetam (KEPPRA) Take 250 mg 0 500 mg tablet by mouth twice daily. Active pantoprazole DR Take 40 mg by 0 (PROTONIX) 40 mg tablet mouth daily. Active fish,bora,flax Take 1 0 oils-om3,6,9no1 (OMEGA capsule by 3-6-9) 1,200 mg cap mouth at bedtime daily. Active acetaminophen (TYLENOL) Take two 0 07// 201 325 mg tablet tablets by 9 mouth every 4 hours as needed for Pain. Active apixaban (ELIQUIS) 5 mg Take 5 mg by 0 tablet mouth twice daily. Active MULTAQ 400 mg tablet Take 1 tablet 0 03/01/202 by mouth 1 daily. Active atorvastatin (LIPITOR) 20 Take 20 mg by 0 mg tablet mouth daily. Active lisinopriL (ZESTRIL) 5 mg Take 2.5 mg 0 tablet by mouth daily. Active metoprolol XL (TOPROL XL) Take 25 mg by 0 25 mg extended release mouth daily. tablet Active Problems Problem Noted Date S/P tricuspid valve repair 10/31/2018 Acute blood loss anemia 10/31/2018 Hyponatremia 10/31/2018 Chronic anticoagulation 10/31/2018 Complete heart block 10/31/2018 Postoperative nausea 10/31/2018 S/P Maze operation for atrial fibrillation 9 S/P mitral valve repair 10/27/2018 Hiatal hernia 10/26/2018 Mitral regurgitation Overview: Formatting of this note might be differ ent from the original. 09.15.18 [facility] EF 45-50 %, A-fib 11.12.18 EF 55-65% 21: Hx of MV repair, EF 70-75% Atrial fibrillation Dizziness Fatigue Esophagitis HTN (hypertension) Hyperlipemia Hx of brain tumor (benign) Breast tumor Obesity PVC (premature ventricular contraction) Encounters Care Team Description Date Type Specialty Sakina Jett RN Test/procedure 10/04/2020 Telephone Cardiology from Last 3 Months Surgical History Surgery Date Site/Laterality Comments BRAIN TUMOR EXCISION 05/03/2009 - Benign 05/02/2010 BREAST LUMPECTOMY 1983, 2009 HYSTERECTOMY 05/03/1998 - Partial 05/02/1999 CHOLECYSTECTOMY ~1987 ANKLE SURGERY ~[address] INSERTION CARDIAC RHYTHM 07/28/2018 Lat49 Glenna q MONITOR TONSILLECTOMY 05/03/1952 - 05/02/1953 HAND SURGERY 05/03/2003 - Right 05/02/2004 FINGER TRIGGER RELEASE NASAL SURGERY 05/03/2010 - Sinus tumor excisio n 05/02/2011 MITRAL VALVULOPLASTY 10/27/2018 N/A VALVULOPL ASTY MITRAL VALVE WITH CARDIOPULMONARY BYPASS AND PROSTHETIC RING performed by Godwin Joyner MD at [facility] devices from this surgery are i n the Implants section. HX MAZE 10/27/2018 N/A TISSUE ABLATION AND RECONSTRUCTION OF ATRIA WITH CARDIOPULMONARY BYPASS - EXTENSIVE perf ormed by Godwin Joyner MD at [facility] devices from this surgery are i n the Implants section. Medical History Medical History Date Comments Mitral regurgitation Atrial fibrillation (HCC) HTN (hypertension) Hyperlipemia Dizziness Fatigue Esophagitis Obesity PVC (premature ventricular contraction) Brain tumor (benign) (HCC) Breast tumor Benign, excised Nasal sinus tumor Excised, benign Hiatal hernia 10/26/2018 Arthritis Ankles and legs, neck and b ack Diverticulosis Family History Medical History Relation Name Comments Hypertension Brother Diabetes Father Heart Disease Father Cancer Mother Diabetes Mother Heart Disease Mother Relation Name Status Comments Brother Father Mother Social History Date Tobacco Use Types Packs/Day Years Used Former Smoker Smokeless Tobacco: Never Used Comments: Rare social smoking over 45 ye ars ago. Comments Alcohol Use Standard Drinks/Week Not Currently 0 (1 standard drink = 0.6 o z pure alcohol) Sex Assigned at Date Recorded Female 09/18/2020 1:03 PM CDT Last Filed Vital Signs Reading Time Taken Comments Vital Sign 102/78 09/23/2020 2:57 PM CDT Blood Pressure 60 09/23/2020 2:57 PM CDT Pulse 36.4 C (97.5 F) 11/02/2018 7:48 AM CDT Temperature - - Respiratory Rate 97% 09/23/2020 2:57 PM CDT Oxygen Saturation - - Inhaled Oxygen Concentration 93.1 kg (205 lb 3.2 oz) 09/23/2020 2:57 PM CDT Weight 158.8 cm (5' 2.5") 09/23/2020 2:57 PM CDT pt reported Height 36.93 09/23/2020 2:57 PM CDT Body Mass Index Plan of Treatment Health Maintenance Due Date Last Done Comments MEDICARE ANNUAL WELLNESS 1945 VISIT DTAP/TDAP VACCINES (1 - 1964 Tdap) HEPATITIS C SCREENING 1964 PHYSICAL (COMPREHENSIVE) 1964 EXAM BREAST CANCER SCREENING 1986 COLORECTAL CANCER 1996 SCREENING SHINGLES RECOMBINANT 1996 VACCINE (1 of 2) OSTEOPOROSIS 09/11/2011 SCREENING/MONITORING PNEUMONIA (PPSV23) 09/11/2011 VACCINE (1 of 1 - PPSV23) INFLUENZA VACCINE 01/31/2021 03/26/2009 Goals Goal Patient Associated Recent Progress Patient-Stat Aut hor Goal Type Problems ed? Increase physical activity Lifestyle No Jennie Whitfield RN Implants Device Identifier Shelf Expiration Date Model / Serial / L ot Implanted Type Area Manufactur er 07/01/2021 [id number] / NA / [id number] Device Tissue Closure Low Profile N/A: Heart ATR ICURE 45mm Atriclip - Sna Implanted: Qty: 1 on 10/27/2018 by Godwin Joyner MD at [facility] 05/28/2023 [id number] / [id number] / NA Band Annuloplasty 31mm Simulus N/A: Heart [employer] MICHELL Fully Flexible - [id number] Implanted: Qty: 1 on 10/27/2018 by Godwin Joyner MD at [facility] Results Not on filefrom Last 3 Months Insurance Type Payer Benefit Subscriber ID Effective Phone Address Plan / Dates Group Medicare AETNA MEDICARE AETNA [id number] 2019-P MEDICARE resent PPO HMO [id number] 2018-P FOR LIFE resent Advance Directives Patient Transplant Immunologist Explanation Type Date Recorded Advance 10/27/2018 5:42 AM Directive/DPOA Date Inactivated Comments Code Status Date Activated 11/02/2018 1:52 PM Full Code 10/27/2018 6:02 AM Provider has discussed Code Status Yes w/Patient or Family?
[2020-12-29 13:03] VITALS: BP 122/79
[2020-12-29] MEDS ORDERED: TRM50T PO (13:55)
[2020-12-29] MEDS ORDERED: MUPI22OI2 TP (13:55)
--- NOTE | 2020-12-29 13:56 | ED GU-Female ---
General Chief Complaint: Skin/Wound Problems Stated Complaint: BOIL ON GROIN Nursing Triage Note: PT AMBULATE TO TRIAGE WITH C/O A "BOIL" IN ON HER GROIN AREA. PT REPORTS BEING SEEN AT THE [facility] AT [place] ON WEDNESDAY AND GIVEN ABX. PT REPORTS THAT AREA IS LARGER AND HAS BECAME RED WITH A BLACK SPOT ON IT. History of Present Illness Date Seen by Provider: Dec 29, 2020 Time Seen by Provider: 13:05 Initial Comments 75-year-old female presents for a abscess on her labia majora. She was seen by her primary care provider on 12/27/2020 and referred to the women's clinic in [place]. She was evaluated but it could not be drained at that time. She has had increased pain, no drainage from the wound site, no fevers and is continuing to take her antibiotic. Allergies and Home Medications Allergies Coded Allergies: acetaminophen (Verified Allergy, Unknown, 01/06/18) clavulanic acid (Verified Allergy, Unknown, 01/06/18) codeine (Verified Allergy, Unknown, 01/06/18) hydrocodone (Verified Allergy, Unknown, 01/06/18) oxycodone (Verified Allergy, Unknown, 01/06/18) Home Medications Apixaban 5 Mg Tablet, 5 MG PO BID, (Reported) Atorvastatin Calcium 20 Mg Tablet, 20 MG PO HS, (Reported) Cholecalciferol (Vitamin D3) 50 Mcg Tablet, 50 MCG PO HS, (Reported) Ciprofloxacin HCl 500 Mg Tablet, 500 MG PO BID Prescribed by: ARLETTE HILL on 11/22/20 1549 Cranberry Extract 500 Mg Tablet, 500 MG PO DAILY, (Reported) Cyanocobalamin/Cobamamide 1 Each Tab.subl, 5,000 MCG SL HS, (Reported) Docusate Sodium 100 Mg Capsule, 100 MG PO DAILY, (Reported) Dronedarone HCl 400 Mg Tablet, 400 MG PO BID WITH MEALS, (Reported) Fish Oil/Borage/Flax/Om3,6,9#1 1,200 Mg Capsule, 1,200 MG PO HS, (Reported) Hyoscyamine Sulfate 0.125 Mg Tab.subl, 1-2 TAB SL Q4H PRN for CRAMPS Prescribed by: LIZ OLSON on 12/11/20 0996 Levetiracetam 500 Mg Tablet, 250 MG PO BID, (Reported) TAKES 1/2 (500MG) TABLET Lisinopril 2.5 Mg Tablet, 2.5 MG PO DAILY, (Reported) Metoprolol Succinate 25 Mg Tab.er.24h, 25 MG PO DAILY, (Reported) Metronidazole 500 Mg Tablet, 500 MG PO TID Prescribed by: ARLETTE HILL on 11/22/20 154 Mupirocin 22 Gm Oint...g., 1 EACH TP TID Prescribed by: JEWELS RODRIGUEZ on 12/29/20 1355 Nitrofurantoin Monohyd/M-Cryst 100 Mg Capsule, 1 TAB PO BID Prescribed by: LIZ OLSON on 12/11/20 0947 Ondansetron 4 Mg Tab.rapdis, 4 MG PO Q6H PRN for NAUSEA/VOMITING Prescribed by: ARLETTE HILL on 11/22/20 154 Ondansetron 4 Mg Tab.rapdis, 4 MG SL Q4H PRN for NAUSEA/VOMITING Prescribed by: LIZ OLSON on 12/11/20 0947 Pantoprazole Sodium 40 Mg Tablet.dr, 40 MG PO DAILY, (Reported) Tramadol HCl 50 Mg Tablet, 50 MG PO Q6H PRN for PAIN Prescribed by: JEWELS RODRIGUEZ on 12/29/20 1355 Patient Home Medication List Home Medication List Reviewed: Yes Review of Systems Review of Systems Constitutional: no symptoms reported, see HPI Skin: see HPI, other (abscess right labia majora) All Other Systemes Reviewed Negative Unless Noted: Yes Past Vmtufgy-Wudcxw-Vrgbvw Hx Patient Social History Tobacco Use?: No Smoking Status: Former Smoker Substance use?: No Alcohol Use?: No Pt feels they are or have been: No Immunizations Up To Date First/Initial COVID19 Vaccinat: JULY 2020 Second COVID19 Vaccination Werner: JULY 2020 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 Past Medical History Surgeries: Yes (BRAIN TUMOR, REMOVAL OF LUMP IN BREAST, MASS REMOVED FROM FACE) Breast, CABG, Gallbladder, Hysterectomy, Neurological, Orthopedic Respiratory: No Cardiac: Yes Atrial Fibrillation, Hypertension Neurological: Yes (BENIGN BRAIN TUMOR) Brain Tumor [employer]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 2.0oz. 88.621600om; 37.00 BMI Method:Stated General Appearance: WD/WN, no apparent distress Cardiovascular: normal peripheral pulses, regular rate, rhythm Respiratory: chest non-tender, lungs clear, normal breath sounds Gastrointestinal: normal bowel sounds, non tender, soft Extremities: normal range of motion, non-tender, normal inspection, no pedal edema Neurologic/Psychiatric: no motor/sensory deficits, alert, normal mood/affect, oriented x 3 Skin: normal color, warm/dry Lymphatic: inguinal node tender (R) Indurated abscess to the labia majora on the right, mild erythema, no warmth or fluctuance. Tender to palpation. Progress/Results/Core Measures Suspected Sepsis SIRS Temperature: Pulse: 61 Respiratory Rate: 17 Blood Pressure 122 /79 Mean: 93 Results/Orders My Orders Orders - JEWELS RODRIGUEZ Tramadol Tablet (Ultram Tablet) (12/29/20 13:52) Vital Signs/I&O 12/29/20 13:03 Temp 37.1 Pulse 61 Resp 17 B/P (MAP) 122/79 (93) O2 Delivery Room Air Capillary Refill : Less Than 3 Seconds Blood Pressure Mean: 93 Progress Note : Time: 13:05 Progress Note Patient seen and evaluated, explained to the patient and her that the abscess cannot be drained at this time. Encouraged that she continue to use warm moist compresses and take her antibiotics. We can use a topical antibiotic as well. She can try tramadol for the increased pain. She does have a codeine allergy but reports taking tramadol in the past with no side effects. Discharge instructions and return precautions reviewed with her. Departure Impression Primary Impression: Abscess of labia majora Disposition: 01 HOME, SELF-CARE Condition: Improved Departure-Patient Inst. Decision time for Depature: 13:50 Referrals: ALEXIS GORE MD (PCP/Family) Primary Care Physician Patient Instructions: Wound Care (DC) Add. Discharge Instructions: Continue antibiotics as prescribed. Follow-up with your primary care provider or the women's clinic in 1 to 2 days if symptoms are not improving or worsen. Continue to use warm moist compresses every 2 hours. Use the tramadol for more significant pain. Apply the prescription ointment to the area 3 times daily. Return to the emergency department for new, urgent healthcare needs. All discharge instructions reviewed with patient and/or family. Voiced understanding. Scripts Tramadol HCl (Tramadol HCl) 50 Mg Tablet 50 MG PO Q6H PRN for PAIN, #20 TAB 0 Refills Prov: JEWELS RODRIGUEZ 12/29/20 Mupirocin (Mupirocin) 22 Gm Oint...g. 1 EACH TP TID for 7 Days, #1 TUBE 0 Refills Prov: JEWELS RODRIGUEZ 12/29/20 Copy Copies To 1: ALEXIS GORE MD, AMY ARNP Dec 29, 2020 13:56
[2020-12-30] MEDS ORDERED: PANT40TA52 PO (14:18)
[2020-12-30] MEDS ORDERED: LACT1CAP39 PO (14:18)
[2020-12-30] MEDS ORDERED: HYDR30CR94 TOP (14:18)
[2020-12-30] MEDS ORDERED: DRON400T6 PO (14:18)
[2020-12-30] MEDS ORDERED: TRAM50TA3 PO (14:18)
[2020-12-30] MEDS ORDERED: DOCU-164 PO (14:18)
[2020-12-30] MEDS ORDERED: CYAN500T8 PO (14:18)
[2020-12-30] MEDS ORDERED: FISH12002 PO (14:18)
[2020-12-30] MEDS ORDERED: CALC-250 PO (14:18)
[2020-12-30] MEDS ORDERED: SULF-11 PO (14:18)
[2020-12-30] MEDS ORDERED: METO-333 PO (14:18)
[2020-12-30] MEDS ORDERED: ACET-2267 PO (14:25)
== END 2020-12-29 14:05 | disposition home or self-care (01) ==
LOC: EDUNIT# 12:45 → ER 12:47
DX: N76.4 Abscess of vulva (principal); I10 Essential (primary) hypertension; K21.9 Gastro-esophageal reflux disease without esophagitis; I48.91 Unspecified atrial fibrillation; Z87.891 Personal history of nicotine dependence; Z79.01 Long term (current) use of anticoagulants; Z79.899 Other long term (current) drug therapy
CPT/HCPCS: 99283

== ENCOUNTER 2020-12-29 19:07 | Inpatient (IN) | payer MEDICARE, OTHER ==
[~2020-12-29] VITALS: Ht 157 cm; Wt 90.6 kg
[~2020-12-29 19:07] MED LIST changes: +MUPI22OI2 TP; +TRM50T PO
[2020-12-29] MEDS ORDERED: ASPIRIN 81 MG CHEW (CHILDREN'S ASA) PO ONE (19:30)
[2020-12-29] MEDS ORDERED: ONDANSETRON 4 MG/2 ML (SDV) Z0FRAN IVP ONE ×2 (19:30→21:00)
[2020-12-29] MEDS ORDERED: FAMOTIDINE 20MG/2ML IV (PEPCID) IVP ONE (19:30)
[2020-12-29] MEDS ORDERED: NITROGLYCERIN 0.4 MG SL TABS BTL 25'S SL PRN (19:30)
[2020-12-29 19:35] LABS: BASOPHILS # (AUTO) 0.1 10^3/uL (0.0-0.1); BASOPHILS % (AUTO) 1 % (0-10); EOSINOPHILS # (AUTO) 0.1 10^3/uL (0.0-0.3); EOSINOPHILS % (AUTO) 1 % (0-10); HEMATOCRIT 43 % (35-52); LYMPHOCYTES % (AUTO) 17 % (12-44); MEAN CORPUSCULAR HEMOGLOBIN 29 pg (25-34); MEAN CORPUSCULAR HGB CONC 33 g/dL (32-36); MEAN CORPUSCULAR VOLUME 87 fL (80-99); MEAN PLATELET VOLUME 9.7 fL (9.0-12.2); MONOCYTES # (AUTO) 0.9 10^3/uL (0.0-1.0); MONOCYTES % (AUTO) 8 % (0-12); NEUTROPHILS # (AUTO) 8.5 10^3/uL (1.8-7.8); NEUTROPHILS % (AUTO) 73 % (42-75); PLATELET COUNT 324 10^3/uL (130-400); WHITE BLOOD COUNT 11.6 10^3/uL (4.3-11.0)
[2020-12-29] MEDS ORDERED: NS IV 1000 ML 1,000 ML IV SCH (19:45)
[2020-12-29 19:49] LABS: INR 1.3 (0.8-1.4); PROTHROMBIN TIME PATIENT 16.4 SEC (12.2-14.7)
[2020-12-29 19:52] LABS: POTASSIUM 4.1 MMOL/L (3.6-5.0)
[2020-12-29 19:53] LABS: CALCIUM 9.6 MG/DL (8.5-10.1)
[2020-12-29 19:54] LABS: TOTAL PROTEIN 6.9 GM/DL (6.4-8.2)
[2020-12-29 19:58] LABS: CREATININE SERUM 1.07 MG/DL (0.60-1.30)
[2020-12-29 20:00] LABS: MAGNESIUM 1.8 MG/DL (1.6-2.4)
--- NOTE | 2020-12-29 20:13 | Diagnostic Imaging Report ---
EXAMINATION: Chest radiograph, portable AP view. DATE: 12/29/2020 8:06 PM INDICATION: 75-year-old female, chest pain. COMPARISON: November 11, 2018. FINDINGS: There are median sternotomy wires. Heart size and mediastinal contours are unchanged. There is no identified pneumothorax. There is opacification in the left lung base similar to the comparison exam without identified interval focal airspace consolidation. This opacification most likely relates to a large hiatal hernia correlating with recent CT abdomen pelvis exam. IMPRESSION: 1. No identified acute cardiopulmonary abnormality. 2. Large hiatal hernia. Dictated by: Dictated on workstation # [id number]
[2020-12-29] MEDS ORDERED: morphine INJ 10 MG/ML 1ML (SYR OR VIAL) IVP STA (20:55)
[2020-12-29] MEDS ORDERED: NS 100 ML (IVPB) BAG IV ONE ×2 (21:00→21:15)
[2020-12-29] MEDS ORDERED: HOLD METFORMIN - RECEIVED CONTRAST 20 ML VIAL IV SCH ×2 (21:00→21:15)
[2020-12-29] MEDS ORDERED: IOHEXOL 350 MG/ML 100 ML (OMNIPAQUE 350) VIAL IV ONE ×2 (21:00→21:15)
[2020-12-29] MEDS ORDERED: CATHETER FLUSH 10 ML SYR IV PRN (21:15)
[2020-12-29] MEDS ORDERED: PROMETHAZINE INJ 25 MG/ML (PHENERGAN) AMP ONE (22:41)
[2020-12-29] MEDS ORDERED: PROMETHAZINE INJ 25 MG/ML (PHENERGAN) AMP IVP ONE (22:45)
[2020-12-29] MEDS: CATHETER FLUSH 10 ML SYR IV PRN (22:55)
--- NOTE | 2020-12-29 23:29 | Diagnostic Imaging Report ---
PROCEDURE: CT abdomen and pelvis with contrast. TECHNIQUE: Multiple contiguous axial images were obtained through the abdomen and pelvis after administration of intravenous contrast. Auto Exposure Controls were utilized during the CT exam to meet ALARA standards for radiation dose reduction. All CT scans use one or more of the following dose optimizing techniques: automated exposure control, MA and/or KvP adjustment based on patient size and exam type or iterative reconstruction. INDICATION: Abdominal pain, nausea and vomiting The previous CT abdomen/pelvis exam of 11/22/2020 suggested mild acute sigmoid diverticulitis without evidence for abscess or free air. On this exam, there are again numerous diverticula involving the sigmoid and distal descending colon. There is minimal distortion of the pericolonic fat about the midportion of the sigmoid colon. Whether this is a sequela of a previous episode of diverticulitis or whether this is secondary to very mild acute diverticulitis is not certain. Clinical follow up is recommended. There is no acute abnormality of the abdomen or pelvis noted otherwise. The large hiatal hernia seen previously is again visualized and no different. Also, as on the prior exam there is some fluid in the distal esophagus. The lung bases are clear. The bone windows show no evidence for a fracture or for destructive lesion. IMPRESSION: 1. There is diverticulosis of the sigmoid and descending colon. The slight distortion of the pericolonic fat adjacent to the sigmoid colon may be a sequela patient's prior episode of diverticulitis. The possibility that there is an element of very mild acute diverticulitis should still be considered. Clinical follow-up is recommended. 2. There is no acute abnormality of the abdomen or pelvis noted otherwise. 3. The large hiatal hernia seen previously is again evident. Dictated by: Dictated on workstation # [id number]
[2020-12-30] MEDS ORDERED: NS IV STA (00:19)
[2020-12-30] MEDS ORDERED: LEVETIRACETAM IV STA (00:19)
--- NOTE | 2020-12-30 00:29 | ED General ---
General Chief Complaint: General Problems/Pain Stated Complaint: NAUSEA,CHEST PAIN,CLAMMY Nursing Triage Note: Pt here with multiple complaints which she believes is related to medication she received in the ER (tramadol) earlier today. She reports cp, n/v, and cold sweats which she states is how she feels when she has allergic reactions to something. Source of Information: Patient, Old Records Exam Limitations: No Limitations History of Present Illness Date Seen by Provider: Dec 29, 2020 Time Seen by Provider: 19:15 Initial Comments This is 75-year-old woman presents to the emergency room with complaints of chest pain, nausea, and vomiting. She was seen earlier in the day due to pain related to a labial infection. She had been seen at a gynecology office on Wednesday for the same thing and was started on antibiotics. She presented to the ER for reevaluation as she was still having significant pain and swelling of the left labia majora. At that time she was prescribed tramadol. She took a tramadol when she returned home and then shortly thereafter developed the symptoms of nausea, chest pain, and vomiting. She has history of atrial fibrillation status post cardioversion. She takes Eliquis. Review of chart notes a negative stress test in October with other negative stress test prior to that. She has also recently been treated for diverticulitis. Allergies and Home Medications Allergies Coded Allergies: aspirin (Verified Allergy, Intermediate, Hives, 12/29/20) Some kinds of chewable aspirin acetaminophen (Verified Allergy, Unknown, 01/06/18) clavulanic acid (Verified Allergy, Unknown, 01/06/18) codeine (Verified Allergy, Unknown, 01/06/18) hydrocodone (Verified Allergy, Unknown, 01/06/18) oxycodone (Verified Allergy, Unknown, 01/06/18) Home Medications Apixaban 5 Mg Tablet, 5 MG PO BID, (Reported) Last Action: Reviewed Atorvastatin Calcium 20 Mg Tablet, 20 MG PO HS, (Reported) Last Action: Reviewed Cholecalciferol (Vitamin D3) 50 Mcg Tablet, 50 MCG PO HS, (Reported) Last Action: Edited Ciprofloxacin HCl 500 Mg Tablet, 500 MG PO BID Prescribed by: ARLETTE HILL on 11/22/20 1549 Cranberry Extract 500 Mg Tablet, 500 MG PO DAILY, (Reported) Cyanocobalamin/Cobamamide 1 Each Tab.subl, 5,000 MCG SL HS, (Reported) Docusate Sodium 100 Mg Capsule, 100 MG PO DAILY, (Reported) Dronedarone HCl 400 Mg Tablet, 400 MG PO BID WITH MEALS, (Reported) Last Action: Reviewed Fish Oil/Borage/Flax/Om3,6,9#1 1,200 Mg Capsule, 1,200 MG PO HS, (Reported) Hyoscyamine Sulfate 0.125 Mg Tab.subl, 1-2 TAB SL Q4H PRN for CRAMPS Prescribed by: LIZ OLSON on 12/11/20946 Levetiracetam 500 Mg Tablet, 250 MG PO BID, (Reported) TAKES 1/2 (500MG) TABLET Last Action: Reviewed Lisinopril 2.5 Mg Tablet, 2.5 MG PO DAILY, (Reported) Last Action: Reviewed Metoprolol Succinate 25 Mg Tab.er.24h, 25 MG PO DAILY, (Reported) Last Action: Reviewed Metronidazole 500 Mg Tablet, 500 MG PO TID Prescribed by: ARLETTE HILL on 11/22/20 154 Mupirocin 22 Gm Oint...g., 1 EACH TP TID Prescribed by: JEWELS RODRIGUEZ on 12/29/20 135 Nitrofurantoin Monohyd/M-Cryst 100 Mg Capsule, 1 TAB PO BID Prescribed by: LIZ OLSON on 12/11/20946 Ondansetron 4 Mg Tab.rapdis, 4 MG PO Q6H PRN for NAUSEA/VOMITING Prescribed by: ARLETTE HILL on 11/22/20 154 Ondansetron 4 Mg Tab.rapdis, 4 MG SL Q4H PRN for NAUSEA/VOMITING Prescribed by: LIZ OLSON on 12/11/20946 Pantoprazole Sodium 40 Mg Tablet.dr, 40 MG PO DAILY, (Reported) Last Action: Reviewed Tramadol HCl 50 Mg Tablet, 50 MG PO Q6H PRN for PAIN Prescribed by: JEWELS RODRIGUEZ on 12/29/20 1355 Patient Home Medication List Home Medication List Reviewed: Yes Review of Systems Review of Systems Constitutional: no symptoms reported EENTM: no symptoms reported Respiratory: no symptoms reported Cardiovascular: see HPI Gastrointestinal: see HPI Genitourinary: see HPI : No Musculoskeletal: no symptoms reported Skin: see HPI Psychiatric/Neurological: No Symptoms Reported Hematologic/Lymphatic: No Symptoms Reported Immunological/Allergic: no symptoms reported Past Ywyeygb-Eykazw-Xjaaal Hx Patient Social History Tobacco Use?: No Smoking Status: Never a Smoker Smokeless Tobacco Frequency: Former User Substance use?: No Pt feels they are or have been: No Immunizations Up To Date First/Initial COVID19 Vaccinat: JULY 2020 Second COVID19 Vaccination Werner: JULY 2020 Past Medical History Surgeries: Yes (BRAIN TUMOR, REMOVAL OF LUMP IN BREAST, MASS REMOVED FROM FACE) Breast, Cardiac (ablasion), Gallbladder, Hysterectomy, Neurological, Orthopedic, Valve Replacement (Mitral valve repair and Maze procedure) Respiratory: No Cardiac: Yes Atrial Fibrillation, Hypertension Neurological: Yes (BENIGN BRAIN TUMOR) Brain Tumor : No Reproductive Disorders: No 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 2.0oz. 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 operator II- XII Norm as Tested, Other (Anxious mood) Skin: Normal Color, Warm/Dry Progress/Results/Core Measures Suspected Sepsis SIRS Temperature: Pulse: 54 Respiratory Rate: 16 Laboratory Tests 12/29/20 19:25: White Blood Count 11.6H Blood Pressure 142 /70 Mean: 94 Laboratory Tests 12/29/20 19:25: Creatinine 1.07, INR Comment 1.3, Platelet Count 324, Total Bilirubin 1.0 Results/Orders Lab Results Laboratory Tests Test 12/29/20 19:25 12/29/20 19:33 Range/Units White Blood Count 11.6 H 4.3-11.0 10^3/uL Red Blood Count 4.86 3.80-5.11 10^6/uL Hemoglobin 14.0 11.5-16.0 g/dL Hematocrit 43 35-52 % Mean Corpuscular Volume 87 80-99 fL Mean Corpuscular Hemoglobin 29 25-34 pg Mean Corpuscular Hemoglobin Concent 33 32-36 g/dL Red Cell Distribution Width 12.4 10.0-14.5 % Platelet Count 324 130-400 10^3/uL Mean Platelet Volume 9.7 9.0-12.2 fL Immature Granulocyte % (Auto) 0 % Neutrophils (%) (Auto) 73 42-75 % Lymphocytes (%) (Auto) 17 12-44 % Monocytes (%) (Auto) 8 0-12 % Eosinophils (%) (Auto) 1 0-10 % Basophils (%) (Auto) 1 0-10 % Neutrophils # (Auto) 8.5 H 1.8-7.8 10^3/uL Lymphocytes # (Auto) 2.0 1.0-4.0 10^3/uL Monocytes # (Auto) 0.9 0.0-1.0 10^3/uL Eosinophils # (Auto) 0.1 0.0-0.3 10^3/uL Basophils # (Auto) 0.1 0.0-0.1 10^3/uL Immature Granulocyte # (Auto) 0.0 0.0-0.1 10^3/uL Prothrombin Time 16.4 H 12.2-14.7 SEC INR Comment 1.3 0.8-1.4 Activated Partial Thromboplast Time 43 H 24-35 SEC Sodium Level 136 135-145 MMOL/L Potassium Level 4.1 3.6-5.0 MMOL/L Chloride Level 104 98-107 MMOL/L Carbon Dioxide Level 21 21-32 MMOL/L Anion Gap 11 5-14 MMOL/L Blood Urea Nitrogen 10 7-18 MG/DL Creatinine 1.07 0.60-1.30 MG/DL Estimat Glomerular Filtration Rate 50 BUN/Creatinine Ratio 9 Glucose Level 137 H 70-105 MG/DL Calcium Level 9.6 8.5-10.1 MG/DL Corrected Calcium 9.6 8.5-10.1 MG/DL Magnesium Level 1.8 1.6-2.4 MG/DL Total Bilirubin 1.0 0.1-1.0 MG/DL Aspartate Amino Transf (AST/SGOT) 55 H 5-34 U/L Alanine Aminotransferase (ALT/SGPT) 36 0-55 U/L Alkaline Phosphatase 73 40-136 U/L Myoglobin 28.6 10.0-92.0 NG/ML Troponin I < 0.028 <0.028 NG/ML Total Protein 6.9 6.4-8.2 GM/DL Albumin 4.0 3.2-4.5 GM/DL Lipase 366 H 8-78 U/L Influenza Type A (RT-PCR) Not Detected Not Detecte Influenza Type B (RT-PCR) Not Detected Not Detecte SARS-CoV-2 RNA (RT-PCR) Not Detected Not Detecte My Orders Orders - LIZ SUTTON MD Cbc With Automated Diff (12/29/20 19:17) Magnesium (12/29/20 19:17) Chest 1 View, Ap/Pa Only (12/29/20 19:17) Ekg Tracing (12/29/20 19:17) Comprehensive Metabolic Panel (12/29/20 19:17) Myoglobin Serum (12/29/20 19:17) Protime With Inr (12/29/20 19:17) Partial Thromboplastin Time (12/29/20 19:17) O2 (12/29/20 19:17) Monitor-Rhythm Ecg Trace Only (12/29/20 19:17) Lipid Panel (12/30/20 06:00) Ed Iv/Invasive Line Start (12/29/20 19:17) Troponin I (12/29/20 19:17) Ondansetron Injection (Zofran Injectio (12/29/20 19:30) Famotidine Injection (Pepcid Injection) (12/29/20 19:30) Nitroglycerin 0.4 Mg Btl 25's (Nitrostat (12/29/20 19:30) Covid 19 Inhouse Test (12/29/20 19:34) Influenza A And B By Pcr (12/29/20 19:34) Lipase (12/29/20 19:35) Ns Iv 1000 Ml (Sodium Chloride 0.9%) (12/29/20 19:45) Ondansetron Injection (Zofran Injectio (12/29/20 21:00) Morphine Injection (Morphine Injection (12/29/20 20:55) Ct Abdomen/Pelvis W (12/29/20 20:55) Iohexol Injection (Omnipaque 350 Mg/Ml 1 (12/29/20 21:00) Received Contrast (Hold Metformin- Contr (12/29/20 21:00) Sodium Chloride Flush (Catheter Flush Sy (12/29/20 21:00) Ns (Ivpb) (Sodium Chloride 0.9% Ivpb Bag (12/29/20 21:00) Iohexol Injection (Omnipaque 350 Mg/Ml 1 (12/29/20 21:15) Received Contrast (Hold Metformin- Contr (12/29/20 21:15) Sodium Chloride Flush (Catheter Flush Sy (12/29/20 21:15) Ns (Ivpb) (Sodium Chloride 0.9% Ivpb Bag (12/29/20 21:15) Promethazine Injection (Phenergan Injec (12/29/20 22:45) Promethazine Injection (Phenergan Injec (12/29/20 22:41) Enoxaparin Injection (Lovenox Injection) (12/30/20 00:30) Levetiracetam Injection (Keppra Injectio (12/30/20 00:19) Medications Given in ED Current Medications Medications Dose Ordered Sig/Rita Route Start Time Stop Time Status Last Admin Dose Admin Famotidine 20 mg ONCE ONCE IVP 12/29/20 19:30 12/29/20 19:31 DC 12/29/20 19:36 20 MG Iohexol 100 ml ONCE ONCE IV 12/29/20 21:00 12/29/20 21:02 DC 12/29/20 22:55 100 ML Nitroglycerin 0.4 mg UD PRN SL 12/29/20 19:30 12/29/20 19:57 0.4 MG Ondansetron HCl 4 mg ONCE ONCE IVP 12/29/20 19:30 12/29/20 19:31 DC 12/29/20 19:36 4 MG Ondansetron HCl 4 mg ONCE ONCE IVP 12/29/20 21:00 12/29/20 21:01 DC 12/29/20 21:02 4 MG Sodium Chloride 10 ml NEEDED PRN IV 12/29/20 21:00 12/30/20 02:55 10 ML Sodium Chloride 100 ml ONCE ONCE IV 12/29/20 21:00 12/29/20 21:02 DC 12/29/20 22:55 80 ML Vital Signs/I&O 12/29/20 19:15 Temp 36.3 Pulse 54 Resp 16 B/P (MAP) 142/70 (94) Pulse Ox 93 O2 Delivery Room Air 12/29/20 23:59 Intake Total 1000 ml Balance 1000 ml Capillary Refill : Less Than 3 Seconds Blood Pressure Mean: 94 Progress Note : Progress Note Nausea was treated with Zofran and Phenergan. Morphine was used to treat her pain. She was found to have tenderness in the epigastrium and left upper quadrant on exam. Lipase was mildly elevated suggesting mild pancreatitis. She was also noted to have a very large hiatal hernia on imaging studies. GI causes including the hiatal hernia and pancreatitis are thought to be the cause of her pain. Cause of her pancreatitis is on known as she does not drink alcohol. She has no prior history of pancreatitis. Cardiopulmonary work-up was otherwise negative. Morphine was given for pain successfully. I did further evaluate her labial lesion. Her left labia is quite edematous with induration. Bedside ultrasound was used to rule out abscess. No fluid collection suggesting drainable abscess was noted with bedside ultrasound. She received oral Multaq in the ER as this was felt to be a critical medication and a parenteral substitute is not available. Her Keppra was given by IV route. Lovenox was given instead of oral Eliquis. We are trying to keep her n.p.o. is much as possible for bowel rest. ECG Initial ECG Impression Date: Dec 29, 2020 Initial ECG Impression Time: 19:19 Initial ECG Rate: 59 Initial ECG Rhythm: Normal Sinus Comment Sinus rhythm with no ST elevation or depression. IN interval of 224 ms. No axis deviation. Diagnostic Imaging Diagonstic Imaging: Xray Plain Films/CT/US/NM/MRI: chest Comments NAME: DAVID PATTERSON [facility] REC#: [id number] PT STATUS: REG ER : 1945 PHYSICIAN: LIZ SUTTON MD ADMIT DATE: 12/29/20/ER Signed Date of Exam:12/29/20 CHEST 1 VIEW, AP/PA ONLY EXAMINATION: Chest radiograph, portable AP view. DATE: 12/29/2020 8:06 PM INDICATION: 75-year-old female, chest pain. COMPARISON: November 11, 2018. FINDINGS: There are median sternotomy wires. Heart size and mediastinal contours are unchanged. There is no identified pneumothorax. There is opacification in the left lung base similar to the comparison exam without identified interval focal airspace consolidation. This opacification most likely relates to a large hiatal hernia correlating with recent CT abdomen pelvis exam. IMPRESSION: 1. No identified acute cardiopulmonary abnormality. 2. Large hiatal hernia. Dictated by: Dictated on workstation # [id number] Dict: 12/29/202008 Trans: 12/29/202019 [facility] [id number] Interpreted by: DENISE WALDRON MD Electronically signed by: DENISE WALDRON MD 12/29/202019 Reviewed: Reviewed by Me Diagonstic Imaging: CT Plain Films/CT/US/NM/MRI: chest, pelvis Comments CT abdomen pelvis viewed by me and report reviewed. See report below: NAME: DAVID PATTERSON REC#: [id number] PT STATUS: ADM IN : 1945 PHYSICIAN: LIZ SUTTON MD ADMIT DATE: 12/30/20/[facility] Signed Date of Exam:12/29/20 CT ABDOMEN/PELVIS W PROCEDURE: CT abdomen and pelvis with contrast. TECHNIQUE: Multiple contiguous axial images were obtained through the abdomen and pelvis after administration of intravenous contrast. Auto Exposure Controls were utilized during the CT exam to meet ALARA standards for radiation dose reduction. All CT scans use one or more of the following dose optimizing techniques: automated exposure control, MA and/or KvP adjustment based on patient size and exam type or iterative reconstruction. INDICATION: Abdominal pain, nausea and vomiting The previous CT abdomen/pelvis exam of 11/22/2020 suggested mild acute sigmoid diverticulitis without evidence for abscess or free air. On this exam, there are again numerous diverticula involving the sigmoid and distal descending colon. There is minimal distortion of the pericolonic fat about the midportion of the sigmoid colon. Whether this is a sequela of a previous episode of diverticulitis or whether this is secondary to very mild acute diverticulitis is not certain. Clinical follow up is recommended. There is no acute abnormality of the abdomen or pelvis noted otherwise. The large hiatal hernia seen previously is again visualized and no different. Also, as on the prior exam there is some fluid in the distal esophagus. The lung bases are clear. The bone windows show no evidence for a fracture or for destructive lesion. IMPRESSION: 1. There is diverticulosis of the sigmoid and descending colon. The slight distortion of the pericolonic fat adjacent to the sigmoid colon may be a sequela patient's prior episode of diverticulitis. The possibility that there is an element of very mild acute diverticulitis should still be considered. Clinical follow-up is recommended. 2. There is no acute abnormality of the abdomen or pelvis noted otherwise. 3. The large hiatal hernia seen previously is again evident. Dictated by: Dictated on workstation # [id number] Dict: 12/29/20 2317 Trans: 12/30/20 012 [facility] [id number] Interpreted by: CHELLE BUSTAMANTE MD Electronically signed by: CHELLE BUSTAMANTE MD 12/30/20121 Departure Communication (Admissions) Time/Spoke to Admitting Phy: 00:20 Dr. Seals Impression Primary Impression: Acute pancreatitis Qualified Codes: K85.90 - Acute pancreatitis without necrosis or infection, unspecified Additional Impressions: Nausea & vomiting Qualified Codes: R11.2 - Nausea with vomiting, unspecified Atypical chest pain Labial infection Hiatal hernia Disposition: ADMITTED INPATIENT Condition: Improved Admissions Decision to Admit Reason: Admit from ER (General) Decision to Admit/Date: Dec 30, 2020 Time/Decision to Admit Time: 20:30 Departure-Patient Inst. Referrals: ALEXIS GORE MD (PCP/Family) Primary Care Physician LIZ SUTTON MD Dec 30, 2020 00:29
[2020-12-30] MEDS ORDERED: ENOXAPARIN 100 MG/1 ML (LOVENOX) SYR SC ONE (00:30)
[2020-12-30 01:05] VITALS: BP 134/74
[2020-12-30] MEDS ORDERED: LACTATED RINGERS 1,000 ML IV ONE (01:16)
[2020-12-30] MEDS ORDERED: morphine INJ 4 MG/ML 1 ML (VIAL/SYRINGE) IVP PRN (01:30)
[2020-12-30] MEDS ORDERED: ONDANSETRON 4 MG/2 ML (SDV) Z0FRAN IVP PRN (01:30)
[2020-12-30] MEDS ORDERED: PROMETHAZINE INJ 25 MG/ML (PHENERGAN) AMP IVP PRN (01:30)
[2020-12-30] MEDS ORDERED: WATER (STERILE) FOR INJECTION 10 ML ONE (02:39)
[2020-12-30] MEDS: DOXYCYCLINE INJECTION 100 MG in NS (IVPB) 100 ML IV SCH ×3 (02:42→20:41)
[2020-12-30] MEDS: LACTATED RINGERS 1,000 ML IV SCH ×3 (02:55→15:41)
[2020-12-30] MEDS: CATHETER FLUSH 10 ML SYR IV PRN (02:55)
[2020-12-30 04:52] VITALS: BP 102/51
[2020-12-30 06:11] LABS: BASOPHILS % (AUTO) 1 % (0-10); EOSINOPHILS % (AUTO) 0 % (0-10); HEMATOCRIT 39 % (35-52); HEMOGLOBIN 12.4 g/dL (11.5-16.0); LYMPHOCYTES # (AUTO) 1.1 10^3/uL (1.0-4.0); LYMPHOCYTES % (AUTO) 13 % (12-44); MEAN CORPUSCULAR HEMOGLOBIN 29 pg (25-34); MEAN CORPUSCULAR HGB CONC 32 g/dL (32-36); MEAN CORPUSCULAR VOLUME 90 fL (80-99); MEAN PLATELET VOLUME 9.9 fL (9.0-12.2); MONOCYTES # (AUTO) 0.7 10^3/uL (0.0-1.0); MONOCYTES % (AUTO) 8 % (0-12); NEUTROPHILS # (AUTO) 6.6 10^3/uL (1.8-7.8); NEUTROPHILS % (AUTO) 78 % (42-75); PLATELET COUNT 260 10^3/uL (130-400); WHITE BLOOD COUNT 8.5 10^3/uL (4.3-11.0)
[2020-12-30 06:27] LABS: ALBUMIN 3.5 GM/DL (3.2-4.5); POTASSIUM 4.5 MMOL/L (3.6-5.0)
[2020-12-30 06:29] LABS: CALCIUM 8.9 MG/DL (8.5-10.1)
[2020-12-30 06:32] LABS: BILIRUBIN,TOTAL 1.2 MG/DL (0.1-1.0)
[2020-12-30 06:33] LABS: CREATININE SERUM 0.82 MG/DL (0.60-1.30)
[2020-12-30 07:25] LABS: CHOLESTEROL 91 MG/DL (< 200); HDL CHOLESTEROL 35 MG/DL (40-60); TRIGLYCERIDES 34 MG/DL (<150); VLDL CHOLESTEROL 7 MG/DL (5-40)
[2020-12-30 08:00] VITALS: BP 115/73
[2020-12-30] MEDS: DRONEDARONE TABLET 400 MG TABLET PO SCH ×2 (08:26→20:41)
[2020-12-30] MEDS ORDERED: ENOXAPARIN 100 MG/1 ML (LOVENOX) SYR SC SCH (09:00)
--- NOTE | 2020-12-30 09:11 | Diagnostic Imaging Report ---
PROCEDURE: US Abdomen, limited. TECHNIQUE: Multiple Real-time grayscale images were obtained over the abdomen in various projections. INDICATION: Elevated liver function tests. FINDINGS: The liver measures 18 cm in length without evidence of focal hepatic abnormality. The gallbladder is surgically absent. There is no evidence of biliary ductal dilatation. The visualized portions of the pancreas, abdominal aorta, and inferior vena cava are unremarkable. There is no evidence of right renal abnormality or free fluid. IMPRESSION: Unremarkable abdominal ultrasound post cholecystectomy. Dictated by: Dictated on workstation # [id number]
[2020-12-30] MEDS: LEVETIRACETAM IV SCH ×2 (10:07→19:57)
[2020-12-30] MEDS: NS IV SCH ×2 (10:07→19:57)
[2020-12-30 12:00] VITALS: BP 121/75
--- NOTE | 2020-12-30 12:34 | Diagnostic Imaging Report ---
INDICATION: PICC line placement. TIME OF EXAM: 12:17 PM Correlation is made with prior chest from one day earlier. Right upper extremity PICC line has tip in good position overlying SVC. The heart size is stable. There are changes of median sternotomy. Lungs appear to be fairly clear. There is no effusion or pneumothorax. IMPRESSION: Satisfactory PICC line placement. Dictated by: Dictated on workstation # [id number]
[2020-12-30] MEDS ORDERED: cefTRIAXone 1,000 MG in WATER (STERILE) FOR INJECTION 10 ML IV SCH (13:15)
--- NOTE | 2020-12-30 13:34 | Consultation - Surgery ---
WINDY NAPIER 12/30/20 1333: History of Present Illness History of Present Illness Patient Consulted On(ned/time) 12/30/20 13:31 Date Seen by Provider: Dec 30, 2020 Time Seen by Provider: 13:00 History of Present Illness PT is a 75 year female with a history of labial abscess and pancreatitis. She reports her labial abscesses started about 3 weeks ago. 6 days ago one of the abscesses started to grow in size with worsening pain. She presented to the ER yesterday, and was given tramadol. After this she reports having nausea and vomiting at home and then came back to the ER where she was Dx c acute pancreatitis . She reports getting up and sitting down can make the abscess worse in pain. She tried hot compress, but did not see pain relief. Cold compressed helped the pain. At its worst she described the pain as throbbing and "10-10.5/10". Currently the pain is at 3-4/10 and dull. The abbess pain is present all day. Allergies and Home Medications Allergies Coded Allergies: aspirin (Verified Allergy, Intermediate, Hives, 12/29/20) Some kinds of chewable aspirin acetaminophen (Verified Allergy, Unknown, 01/06/18) clavulanic acid (Verified Allergy, Unknown, 01/06/18) codeine (Verified Allergy, Unknown, 01/06/18) hydrocodone (Verified Allergy, Unknown, 01/06/18) oxycodone (Verified Allergy, Unknown, 01/06/18) Home Medications Acetaminophen 500 Mg Tablet, 1,000 MG PO HS, (Reported) TAKES 2 (500MG) TABLETS Last Action: Reviewed Apixaban 5 Mg Tablet, 5 MG PO BID, (Reported) Last Action: Reviewed Atorvastatin Calcium 20 Mg Tablet, 20 MG PO HS, (Reported) Last Action: Reviewed Cholecalciferol (Vitamin D3) 125 Mcg Tablet, 125 MCG PO BID, (Reported) Last Action: Reviewed Cyanocobalamin (Vitamin B-12) 500 Mcg Tablet, 500 MCG PO HS, (Reported) Last Action: Reviewed Docusate Sodium 100 Mg Capsule, 100 MG PO DAILY PRN for CONSTIPATION-1ST LINE, (Reported) Last Action: Reviewed Dronedarone HCl 400 Mg Tablet, 400 MG PO BID WITH MEALS, (Reported) Last Action: Reviewed Fish Oil/Borage/Flax/Om3,6,9#1 1,200 Mg Capsule, 1,200 MG PO HS, (Reported) Last Action: Reviewed Hydrocortisone 30 Gm Cream.appl, 1 APPLIC TOP PRN PRN for HEMMORRHOID DISCOMFORT, (Reported) Last Action: Reviewed Lactobacillus Rhamnosus GG 1 Each Capsule, 1 EACH PO DAILY, (Reported) Last Action: Reviewed Levetiracetam 500 Mg Tablet, 250 MG PO BID, (Reported) TAKES 1/2 (500MG) TABLET Last Action: Reviewed Lisinopril 2.5 Mg Tablet, 2.5 MG PO DAILY, (Reported) Last Action: Reviewed Metoprolol Tartrate 25 Mg Tablet, 25 MG PO DAILY, (Reported) Last Action: Reviewed Pantoprazole Sodium 40 Mg Tablet.dr, 40 MG PO BID, (Reported) Last Action: Reviewed Sulfamethoxazole/Trimethoprim 1 Each Tablet, 1 EACH PO BID, (Reported) LAST FILLED 12/27/2020 #20 10 DAY SUPPLY Last Action: Reviewed Tramadol HCl 50 Mg Tablet, 50 MG PO Q6H PRN for PAIN-MODERATE (5-7), (Reported) Last Action: Reviewed Past Ebmtlku-Oawbnn-Zexsdu Hx Patient Social History Smoking Status: Former Smoker Type Used: Cigarettes 2nd Hand Smoke Exposure: No Recent Hopitalizations: No Alcohol Use?: No Have you traveled recently?: No Immunizations Up To Date Date of Pneumonia Vaccine: Jan 07, 2016 Date of Influenza Vaccine: Feb 01, 2020 Surgeries History of Surgeries: Yes (BRAIN TUMOR, REMOVAL OF LUMP IN BREAST, MASS REMOVED FROM FACE) Surgeries: Breast, Cardiac (ablasion), Gallbladder, Hysterectomy, Neurological, Orthopedic, Valve Replacement (Mitral valve repair and Maze procedure) Respiratory History of Respiratory Disorde: No Cardiovascular History of Cardiac Disorders: Yes Cardiac Disorders: Atrial Fibrillation, Hypertension Neurological History of Neurological Disord: Yes (BENIGN BRAIN TUMOR) Neurological Disorders: Brain Tumor Reproductive System : No Hx Reproductive Disorders: No 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, 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 Genitourinary History of Genitourinary Disor: No Gastrointestinal History of Gastrointestinal Di: Yes (DIVERTICULITIS) Gastrointestinal Disorders: Diverticulosis, Hiatal Hernia Musculoskeletal History of Musculoskeletal Dis: Yes Endocrine History of Endocrine Disorders: No HEENT History of HEENT Disorders: No Cancer History of Cancer: Yes Cancer: Brain Psychosocial History of Psychiatric Problem: No Integumentary History of Skin or Integumenta: No Blood Transfusions History of Blood Disorders: No Family Medical History Significant Family History: Diabetes (2 brothers ) Review of Systems-General Constitutional: No chills, No diaphoresis EENTM: No ear discharge, No ear pain Respiratory: No cough, No short of breath Cardiovascular: Hx of Intervention; No syncope Gastrointestinal: No constipation, No jaundice Genitourinary: No dysuria, No frequency Musculoskeletal: No joint pain, No joint swelling Skin: No change in color, No change in hair/nails Psychiatric/Neurological: Denies Depressed, Denies Emotional Problems Physical Exam-General Problems Physical Exam Vital Signs Vital Signs - First Documented 12/29/20 19:15 Temp 36.3 Pulse 54 Resp 16 B/P (MAP) 142/70 (94) Pulse Ox 93 O2 Delivery Room Air Capillary Refill : Less Than 3 Seconds General Appearance: WD/WN, no apparent distress Respiratory: no respiratory distress, no accessory muscle use Cardiovascular: regular rate, rhythm, no JVD Gastrointestinal: non tender, soft, no organomegaly, no pulsatile mass Skin: normal color, warm/dry Data Review Labs Laboratory Tests 12/29/20 19:25: White Blood Count 11.6H, Red Blood Count 4.86, Hemoglobin 14.0, Hematocrit 43, Mean Corpuscular Volume 87, Mean Corpuscular Hemoglobin 29, Mean Corpuscular Hemoglobin Concent 33, Red Cell Distribution Width 12.4, Platelet Count 324, Mean Platelet Volume 9.7, Immature Granulocyte % (Auto) 0, Neutrophils (%) (Auto) 73, Lymphocytes (%) (Auto) 17, Monocytes (%) (Auto) 8, Eosinophils (%) (Auto) 1, Basophils (%) (Auto) 1, Neutrophils # (Auto) 8.5H, Lymphocytes # (Auto) 2.0, Monocytes # (Auto) 0.9, Eosinophils # (Auto) 0.1, Basophils # (Auto) 0.1, Immature Granulocyte # (Auto) 0.0, Prothrombin Time 16.4H, INR Comment 1.3, Activated Partial Thromboplast Time 43H, Sodium Level 136, Potassium Level 4.1, Chloride Level 104, Carbon Dioxide Level 21, Anion Gap 11, Blood Urea Nitrogen 10, Creatinine 1.07, Estimat Glomerular Filtration Rate 50, BUN/Creatinine Ratio 9, Glucose Level 137H, Calcium Level 9.6, Corrected Calcium 9.6, Magnesium Level 1.8, Total Bilirubin 1.0, Aspartate Amino Transf (AST/SGOT) 55H, Alanine Aminotransferase (ALT/SGPT) 36, Alkaline Phosphatase 73, Myoglobin 28.6, Troponin I < 0.028, Total Protein 6.9, Albumin 4.0, Lipase 366H 12/29/20 19:33: Influenza Type A (RT-PCR) Not Detected, Influenza Type B (RT-PCR) Not Detected, SARS-CoV-2 RNA (RT-PCR) Not Detected 12/30/20 05:37: White Blood Count 8.5, Red Blood Count 4.30, Hemoglobin 12.4, Hematocrit 39, Mean Corpuscular Volume 90, Mean Corpuscular Hemoglobin 29, Mean Corpuscular Hemoglobin Concent 32, Red Cell Distribution Width 12.6, Platelet Count 260, Mean Platelet Volume 9.9, Immature Granulocyte % (Auto) 0, Neutrophils (%) (Auto) 78H, Lymphocytes (%) (Auto) 13, Monocytes (%) (Auto) 8, Eosinophils (%) (Auto) 0, Basophils (%) (Auto) 1, Neutrophils # (Auto) 6.6, Lymphocytes # (Auto) 1.1, Monocytes # (Auto) 0.7, Eosinophils # (Auto) 0.0, Basophils # (Auto) 0.0, Immature Granulocyte # (Auto) 0.0, Sodium Level 134L, Potassium Level 4.5, Chloride Level 106, Carbon Dioxide Level 21, Anion Gap 7, Blood Urea Nitrogen 9, Creatinine 0.82, Estimat Glomerular Filtration Rate 68, BUN/Creatinine Ratio 11, Glucose Level 109H, Calcium Level 8.9, Corrected Calcium 9.3, Total Bilirubin 1.2H, Aspartate Amino Transf (AST/SGOT) 976H, Alanine Aminotransferase (ALT/SGPT) 789#H, Alkaline Phosphatase 149H, Total Protein 6.0L, Albumin 3.5, Lipase 167H, Triglycerides Level 34, Cholesterol Level 91, LDL Cholesterol Direct 48, VLDL Cholesterol 7, HDL Cholesterol 35L Assessment/Plan Assessment/Plan Admission Diagonsis Labial abcess acute pancreatitis Incision and drainage tomorrow in OR for abscess if it does not drain spontaneously before then. Stop eliquis. Medically manage pancreatitis ALAN ASTUDILLO DO 12/30/201911: History of Present Illness History of Present Illness History of Present Illness Consult requested by Dr. Mcfarland for pancreatitis and left labial abscess. Patient is a 75-year-old female who states she has had on a occasion a small abscess on her labia. This time patient states that about 6 days ago it began as normal small little pustule but then over the last couple days it is continued to worsen. Patient is went to the emergency department also seen her heddler regarding this. She has had no improvement. The pain continued to worsen and it was throbbing and she rates was a 10 out of 10. She states nothing really seemed to make it better. But cold compresses did help with pain. Patient also having nausea and vomiting that is occurred patient was found to have transaminitis her lipase was elevated. Patient also on CT scan has some distortion of fat around the sigmoid colon consistent with diverticulitis seen. Patient with nausea and vomiting. She has slight abdominal pain in the lower left side. No radiation of pain. Mild discomfort she states. Patient with no other complaints at this time currently denies any nausea vomiting fever sweats chills shortness of breath or chest pain. Allergies and Home Medications Allergies Coded Allergies: aspirin (Verified Allergy, Intermediate, Hives, 12/29/20) Some kinds of chewable aspirin acetaminophen (Verified Allergy, Unknown, 01/06/18) clavulanic acid (Verified Allergy, Unknown, 01/06/18) codeine (Verified Allergy, Unknown, 01/06/18) hydrocodone (Verified Allergy, Unknown, 01/06/18) oxycodone (Verified Allergy, Unknown, 01/06/18) Home Medications Acetaminophen 500 Mg Tablet, 1,000 MG PO HS, (Reported) TAKES 2 (500MG) TABLETS Last Action: Reviewed Apixaban 5 Mg Tablet, 5 MG PO BID, (Reported) Last Action: Reviewed Atorvastatin Calcium 20 Mg Tablet, 20 MG PO HS, (Reported) Last Action: Reviewed Cholecalciferol (Vitamin D3) 125 Mcg Tablet, 125 MCG PO BID, (Reported) Last Action: Reviewed Cyanocobalamin (Vitamin B-12) 500 Mcg Tablet, 500 MCG PO HS, (Reported) Last Action: Reviewed Docusate Sodium 100 Mg Capsule, 100 MG PO DAILY PRN for CONSTIPATION-1ST LINE, (Reported) Last Action: Reviewed Dronedarone HCl 400 Mg Tablet, 400 MG PO BID WITH MEALS, (Reported) Last Action: Reviewed Fish Oil/Borage/Flax/Om3,6,9#1 1,200 Mg Capsule, 1,200 MG PO HS, (Reported) Last Action: Reviewed Hydrocortisone 30 Gm Cream.appl, 1 APPLIC TOP PRN PRN for HEMMORRHOID D ISCOMFORT, (Reported) Last Action: Reviewed Lactobacillus Rhamnosus GG 1 Each Capsule, 1 EACH PO DAILY, (Reported) Last Action: Reviewed Levetiracetam 500 Mg Tablet, 250 MG PO BID, (Reported) TAKES 1/2 (500MG) TABLET Last Action: Reviewed Lisinopril 2.5 Mg Tablet, 2.5 MG PO DAILY, (Reported) Last Action: Reviewed Metoprolol Tartrate 25 Mg Tablet, 25 MG PO DAILY, (Reported) Last Action: Reviewed Pantoprazole Sodium 40 Mg Tablet.dr, 40 MG PO BID, (Reported) Last Action: Reviewed Sulfamethoxazole/Trimethoprim 1 Each Tablet, 1 EACH PO BID, (Reported) LAST FILLED 12/27/2020 #20 10 DAY SUPPLY Last Action: Reviewed Tramadol HCl 50 Mg Tablet, 50 MG PO Q6H PRN for PAIN-MODERATE (5-7), (Reported) Last Action: Reviewed Patient Home Medication List Home Medication List Reviewed: Yes Past Ybbdpqf-Tcdwqc-Ceqpia Hx Reviewed Nursing Assessment Reviewed/Agree w Nursing PMH: Yes Family Medical History Significant Family History: No Pertinent Family Hx Review of Systems-General Constitutional: No chills, No diaphoresis EENTM: No ear discharge, No ear pain Respiratory: No cough, No short of breath Cardiovascular: No chest pain, No syncope Gastrointestinal: abdominal pain (LLQ); No constipation, No jaundice; nausea, vomiting Genitourinary: No dysuria, No frequency Musculoskeletal: No joint pain, No joint swelling Skin: No change in color, No change in hair/nails Psychiatric/Neurological: Denies Depressed, Denies Emotional Problems All Other Systems Reviewed Negative Unless Noted: Yes (Negative excepted noted.) Physical Exam-General Problems Physical Exam General Appearance: WD/WN, no apparent distress HEENT: PERRL/EOMI, normal ENT inspection, TMs normal Neck: non-tender, supple Respiratory: chest non-tender, no respiratory distress, no accessory muscle use Cardiovascular: regular rate, rhythm, no JVD Gastrointestinal: soft, no organomegaly, no pulsatile mass, tenderness (Very minimal left lower quadrant) Rectal: deferred Genital/Rectal: other (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 Change abx to rocephin/flagyl NPO IV hydration Left labial Incision and drainage all other indicated procedures tomorrow in OR . Stop eliquis. Medically manage pancreatitis Supervisory-Addendum Brief Verification & Attestation Participated in pt care: history, MDM, physical Personally performed: exam, history, MDM, supervision of care Care discussed with: Medical Student Procedures: n/a Results interpretation: Verified all documentation Verification and Attestation of Medical Student E/M Service A medical student performed and documented this service in my presence. I reviewed and verified all information documented by the medical student and made modifications to such information, when appropriate. I personally performed the physical exam and medical decision making. Alan Astudillo, Dec 30, 2020,19:16 WINDY NAPIER Dec 30, 2020 13:33 ALAN ASTUDILLO DO Dec 30, 2020 19:12
--- NOTE | 2020-12-30 13:36 | History & Physical ---
BÁRBARA BROWN MED STUDENT 12/30/20 1336: History of Present Illness History of Present Illness Reason for visit/HPI Casandra Reno is a 75 year old female who presented to the ED today with CC of chest pain, nausea, and vomiting as well as left labial pain secondary to a presumed abscess. 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 She then presented to the ED due to worsening pain associated with the labial abscess and was given a prescription for tramadol. After going home and taking a dose of tramadol she developed chest pain, nausea, and vomiting prompting her to present to the ED again. In the ED she was found to have a lipase level of 366 hence diagnosed with acute pancreatitis. She was given zofran, phenergan, nitro, pepcid, and IVF's. Her nausea, vomiting, and chest pain have since resolved. PMH is significant for atrial fibrillation, HTN, hiatal hernia, GERD, valvular heart disease, maze procedure, diverticulitis, brain tumor s/p resection, and cholecystectomy. Currently she is denying nausea, vomiting, chest pain, diarrhea, headache, fevers, chills, and SOB. Complains of pain over her left labial area. Will obtain general surgery consult and rec's for antibiotics to appropriately treat her. Date of Admission Dec 30, 2020 at 00:23 Date Seen by a Provider: Dec 30, 2020 Time Seen by a Provider: 13:00 I consulted on this patient on 12/30/20 13:24 Attending Physician Katelynn Solorio DO Admitting Physician Anival Ellington MD Consult Allergies and Home Medications Allergies Coded Allergies: aspirin (Verified Allergy, Intermediate, Hives, 12/29/20) Some kinds of chewable aspirin acetaminophen (Verified Allergy, Unknown, 01/06/18) clavulanic acid (Verified Allergy, Unknown, 01/06/18) codeine (Verified Allergy, Unknown, 01/06/18) hydrocodone (Verified Allergy, Unknown, 01/06/18) oxycodone (Verified Allergy, Unknown, 01/06/18) Home Medications Acetaminophen 500 Mg Tablet, 1,000 MG PO HS, (Reported) TAKES 2 (500MG) TABLETS Last Action: Reviewed Apixaban 5 Mg Tablet, 5 MG PO BID, (Reported) Last Action: Reviewed Atorvastatin Calcium 20 Mg Tablet, 20 MG PO HS, (Reported) Last Action: Reviewed Cholecalciferol (Vitamin D3) 125 Mcg Tablet, 125 MCG PO BID, (Reported) Last Action: Reviewed Cyanocobalamin (Vitamin B-12) 500 Mcg Tablet, 500 MCG PO HS, (Reported) Last Action: Reviewed Docusate Sodium 100 Mg Capsule, 100 MG PO DAILY PRN for CONSTIPATION-1ST LINE, (Reported) Last Action: Reviewed Dronedarone HCl 400 Mg Tablet, 400 MG PO BID WITH MEALS, (Reported) Last Action: Reviewed Fish Oil/Borage/Flax/Om3,6,9#1 1,200 Mg Capsule, 1,200 MG PO HS, (Reported) Last Action: Reviewed Hydrocortisone 30 Gm Cream.appl, 1 APPLIC TOP PRN PRN for HEMMORRHOID DISCOMFORT, (Reported) Last Action: Reviewed Lactobacillus Rhamnosus GG 1 Each Capsule, 1 EACH PO DAILY, (Reported) Last Action: Reviewed Levetiracetam 500 Mg Tablet, 250 MG PO BID, (Reported) TAKES 1/2 (500MG) TABLET Last Action: Reviewed Lisinopril 2.5 Mg Tablet, 2.5 MG PO DAILY, (Reported) Last Action: Reviewed Metoprolol Tartrate 25 Mg Tablet, 25 MG PO DAILY, (Reported) Last Action: Reviewed Pantoprazole Sodium 40 Mg Tablet.dr, 40 MG PO BID, (Reported) Last Action: Reviewed Sulfamethoxazole/Trimethoprim 1 Each Tablet, 1 EACH PO BID, (Reported) LAST FILLED 12/27/2020 #20 10 DAY SUPPLY Last Action: Reviewed Tramadol HCl 50 Mg Tablet, 50 MG PO Q6H PRN for PAIN-MODERATE (5-7), (Reported) Last Action: Reviewed Past Zmsokqz-Uqagls-Ohyktv Hx Patient Social History Marrital Status: Employed/Student: retired Tobacco Use?: No Smoking Status: Former Smoker Smokeless Tobacco Frequency: Former User Use of E-Cig and/or Vaping dev: No Use of E-Cig and/or Vaping Cornelio: Never a User Substance use?: No Alcohol Use?: No Pt feels they are or have been: No Immunizations Up To Date Date of Influenza Vaccine: Feb 01, 2020 First/Initial COVID19 Vaccinat: JULY 2020 Second COVID19 Vaccination Werner: JULY 2020 Tetanus Booster (TDap): Unknown Date of Pneumonia Vaccine: Jan 07, 2016 Seasonal Allergies Seasonal Allergies: No Current Status status: No status: No Advance Directives: No Communicates: Verbally Primary Language: [place]se Preferred Spoken Language: [place]orese Is interpretation needed?: No Sensory deficits: Vision impairment Implanted or Applied Medical D: Stents, Other Past Medical History Surgeries: Breast (lumpectomy), Cardiac (ablation), Gallbladder (cholecystectomy), Hysterectomy, Neurological (s/p brain tumor resection), Orthopedic, Valve Replacement (Mitral valve repair and Maze procedure) Currently Using CPAP: No Currently Using BIPAP: No Atrial Fibrillation, Hypertension, Valvular Heart Disease 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, Menopausal Sexually Transmitted Disease: No HIV/AIDS: No Gastroesophageal Reflux, Diverticulosis, Hemorrhoids, Pancreatitis, Hiatal Hernia Arthritis Loss of Vision: Denies Hearing Impairment: Denies Brain What Type of Treatment Did You: Surgical Intervention Blood Disorders: No Family Medical History No Pertinent Family Hx Review of Systems Constitutional: No chills, No diaphoresis, No fever, No malaise EENTM: No hearing loss, No blurred vision, No double vision Respiratory: No cough, No dyspnea on exertion, No hemoptysis, No short of breath Cardiovascular: No chest pain, No edema, No palpitations Gastrointestinal: No abdominal pain, No constipation, No diarrhea, No dysphagia, No hematemesis, No loss of appetite, No melena, No nausea, No vomiting Genitourinary: No decreased output, No discharge, No dysuria, No frequency : No Musculoskeletal: No back pain, No joint pain Skin: No change in color, No change in hair/nails, No dryness, No lesions, No rash Psychiatric/Neurological: Denies Anxiety, Denies Depressed All Other Systems Reviewed Negative Unless Noted: Yes Physical Exam Vital Signs Vital Signs - First Documented 12/29/20 19:15 Temp 36.3 Pulse 54 Resp 16 B/P (MAP) 142/70 (94) Pulse Ox 93 O2 Delivery Room Air Capillary Refill : Less Than 3 Seconds Height, Weight, BMI Height: 5'2.50" Weight: 196lbs. 2.0oz. 88.956311mb; 36.75 BMI Method:Stated General Appearance: No Apparent Distress, Obese Eyes: Bilateral Eye Normal Inspection, Bilateral Eye PERRL, Bilateral Eye EOMI HEENT: PERRL/EOMI, Pharynx Normal, Moist Mucous Membranes Neck: Full Range of Motion, Normal Inspection, Non Tender Respiratory: Chest Non Tender, Lungs Clear, Normal Breath Sounds, No Accessory Muscle Use, No Respiratory Distress Cardiovascular: No Edema, Normal Peripheral Pulses, Irregularly Irregular Gastrointestinal: Normal Bowel Sounds, Non Tender, Soft; No Distended, No Guarding, No Rebound, No Tenderness Rectal: Deferred Back: No CVA Tenderness, No Vertebral Tenderness Extremity: Normal Capillary Refill, Normal Inspection, Non Tender, No Calf Tenderness, No Pedal Edema Neurologic/Psychiatric: Alert, Oriented x3, No Motor/Sensory Deficits, Normal Mood/Affect Skin: Normal Color, Warm/Dry Lymphatic: No Adenopathy Assessment/Plan Assessment and Plan Acute Pancreatitis Transaminitis Elevated Alk Phos Left labial abscess vs cyst Nausea/Vomiting Chest pain Diverticulitis recently Hiatal Hernia HTN Afib Valvular heart disease GERD Lipase down to 167 today from 366 yesterday NPO after midnight, to OR tomorrow. Hold anticoagulation pending procedure tomorrow IVF's Consult General Surgery for management of labial abscess/cyst and proper antibiotic coverage Abdominal US negative Trend liver enzymes and alk phos. Hepatitis panel pending COVID and Flu negative Pain management Antiemetics PRN Consider NGT if symptoms worsen or develops ileus/obstruction Admission Diagnosis Admission Status: Inpatient Order (span 2 midnights) Reason for Inpatient Admission: Antibiotics Antiemetics/pain management I/D procedure tomorrow KATELYNN SOLORIO DO 12/31/20 0535: History of Present Illness History of Present Illness Reason for visit/HPI CC: Abdominal pain with nausea and vomiting and chest pain HPI: This is a 75yoWF clinic pt of Dr. Ellington and Dr. Pack cardiology who has a PMH of recurrent diverticulitis who came to the ER with chest pain after taking Ultram and Doxycycline for a labial abcess by Dr. Evita Rolon of [facility]. She was covid negative, flu negative, and has a very complex medical history that is requiring cardiology consultation. I did consult Dr. Astudillo for labial abscess and antibiotic changes will be initiated and picc line was placed and elevated liver enzymes will be evaluated. Abdominal ultrasound was negative. Allergies and Home Medications Allergies Coded Allergies: aspirin (Verified Allergy, Intermediate, Hives, 12/29/20) Some kinds of chewable aspirin acetaminophen (Verified Allergy, Unknown, 01/06/18) clavulanic acid (Verified Allergy, Unknown, 01/06/18) codeine (Verified Allergy, Unknown, 01/06/18) hydrocodone (Verified Allergy, Unknown, 01/06/18) oxycodone (Verified Allergy, Unknown, 01/06/18) Home Medications Acetaminophen 500 Mg Tablet, 1,000 MG PO HS, (Reported) TAKES 2 (500MG) TABLETS Last Action: Reviewed Apixaban 5 Mg Tablet, 5 MG PO BID, (Reported) Last Action: Reviewed Atorvastatin Calcium 20 Mg Tablet, 20 MG PO HS, (Reported) Last Action: Reviewed Cholecalciferol (Vitamin D3) 125 Mcg Tablet, 125 MCG PO BID, (Reported) Last Action: Reviewed Cyanocobalamin (Vitamin B-12) 500 Mcg Tablet, 500 MCG PO HS, (Reported) Last Action: Reviewed Docusate Sodium 100 Mg Capsule, 100 MG PO DAILY PRN for CONSTIPATION-1ST LINE, (Reported) Last Action: Reviewed Dronedarone HCl 400 Mg Tablet, 400 MG PO BID WITH MEALS, (Reported) Last Action: Reviewed Fish Oil/Borage/Flax/Om3,6,9#1 1,200 Mg Capsule, 1,200 MG PO HS, (Reported) Last Action: Reviewed Hydrocortisone 30 Gm Cream.appl, 1 APPLIC TOP PRN PRN for HEMMORRHOID DISCO MFORT, (Reported) Last Action: Reviewed Lactobacillus Rhamnosus GG 1 Each Capsule, 1 EACH PO DAILY, (Reported) Last Action: Reviewed Levetiracetam 500 Mg Tablet, 250 MG PO BID, (Reported) TAKES 1/2 (500MG) TABLET Last Action: Reviewed Lisinopril 2.5 Mg Tablet, 2.5 MG PO DAILY, (Reported) Last Action: Reviewed Metoprolol Tartrate 25 Mg Tablet, 25 MG PO DAILY, (Reported) Last Action: Reviewed Pantoprazole Sodium 40 Mg Tablet.dr, 40 MG PO BID, (Reported) Last Action: Reviewed Sulfamethoxazole/Trimethoprim 1 Each Tablet, 1 EACH PO BID, (Reported) LAST FILLED 12/27/2020 #20 10 DAY SUPPLY Last Action: Reviewed Tramadol HCl 50 Mg Tablet, 50 MG PO Q6H PRN for PAIN-MODERATE (5-7), (Reported) Last Action: Reviewed Patient Home Medication List Home Medication List Reviewed: Yes Past Mliqbgd-Yryzzk-Emvgnz Hx Patient Social History Marrital Status: Employed/Student: retired Past Medical History Atrial Fibrillation, Hypertension, Valvular Heart Disease Gastroesophageal Reflux, Diverticulosis, Hemorrhoids, Pancreatitis, Hiatal Hernia Review of Systems Constitutional: see HPI, weakness Gastrointestinal: abdominal pain, nausea, vomiting All Other Systems Reviewed Negative Unless Noted: Yes Physical Exam General Appearance: No Apparent Distress, WD/WN, Chronically ill, Obese Eyes: Bilateral Eye Normal Inspection, Bilateral Eye PERRL, Bilateral Eye EOMI HEENT: PERRL/EOMI, Normal ENT Inspection, Pharynx Normal Neck: Full Range of Motion, Normal Inspection, Non Tender, Supple, Carotid Bruit Respiratory: Chest Non Tender, Lungs Clear, Normal Breath Sounds, No Accessory Muscle Use, No Respiratory Distress Cardiovascular: Regular Rate, Rhythm, No Edema, No Gallop, No JVD, No Murmur, Normal Peripheral Pulses Gastrointestinal: No Organomegaly, No Pulsatile Mass, Non Tender, Soft, Tenderness Back: Normal Inspection, No CVA Tenderness, No Vertebral Tenderness Extremity: Normal Capillary Refill, Normal Inspection, Normal Range of Motion, Non Tender, No Calf Tenderness, No Pedal Edema Neurologic/Psychiatric: Alert, Oriented x3, No Motor/Sensory Deficits, Normal Mood/Affect Skin: Normal Color, Warm/Dry Lymphatic: No Adenopathy Assessment/Plan Assessment and Plan Assessment: Pancreatitis History of diverticulosis Labial abscess Plan: Dr. Astudillo consult Cardiology consult Problems: (1) Acute pancreatitis Status: Acute Qualifiers: Qualified Codes: K85.90 - Acute pancreatitis without necrosis or infection, unspecified (2) Nausea & vomiting Status: Acute Qualifiers: Qualified Codes: R11.2 - Nausea with vomiting, unspecified (3) Atypical chest pain Status: Acute Admission Diagnosis Admission Status: Inpatient Order (span 2 midnights) Reason for Inpatient Admission: Pancreatitis with labial abscess Supervisory-Addendum Brief Verification & Attestation Participated in pt care: history, MDM, physical Personally performed: exam, history, MDM, supervision of care Care discussed with: Medical Student Procedures: n/a Results interpretation: Verified all documentation Verification and Attestation of Medical Student E/M Service A medical student performed and documented this service in my presence. I reviewed and verified all information documented by the medical student and made modifications to such information, when appropriate. I personally performed the physical exam and medical decision making. Katelynn Solorio, Dec 31, 2020,05:37 BÁRBARA BROWN MED STUDENT Dec 30, 2020 13:36 KATELYNN SOLORIO DO Dec 31, 2020 05:35
[2020-12-30] MEDS ORDERED: metroNIDAZOLE 500MG/100ML IVPB 100 ML IV SCH ×2 (14:00→22:00)
[2020-12-30] MEDS ORDERED: TRAM50TA3 PO (14:18)
[2020-12-30] MEDS ORDERED: CYAN500T8 PO (14:18)
[2020-12-30] MEDS ORDERED: FISH12002 PO (14:18)
[2020-12-30] MEDS ORDERED: LACT1CAP39 PO (14:18)
[2020-12-30] MEDS ORDERED: CALC-250 PO (14:18)
[2020-12-30] MEDS ORDERED: HYDR30CR94 TOP (14:18)
[2020-12-30] MEDS ORDERED: DOCU-164 PO (14:18)
[2020-12-30] MEDS ORDERED: PANT40TA52 PO (14:18)
[2020-12-30] MEDS ORDERED: METO-333 PO (14:18)
[2020-12-30] MEDS ORDERED: SULF-11 PO (14:18)
[2020-12-30] MEDS ORDERED: DRON400T6 PO (14:18)
[2020-12-30] MEDS ORDERED: ACET-2267 PO (14:25)
[2020-12-30] MEDS: cefTRIAXone 1,000 MG in WATER (STERILE) FOR INJECTION 10 ML IV SCH (14:29)
[2020-12-30] MEDS: metroNIDAZOLE 500MG/100ML IVPB 100 ML IV SCH ×2 (14:34→22:02)
[2020-12-30 16:00] VITALS: BP 114/74
--- NOTE | 2020-12-30 17:10 | Consultation-Cardiology ---
HPI-Cardiology Cardiology Consultation: Date of Consultation 12/30/20 Time Seen by a Provider: 17:30 Date of Admission Attending Physician Katelynn Mcfarland DO Admitting Physician Anival Ellington MD Consulting Physician NETTIE GLEASON MD, MA, FACP, FACC, FSCAI, CCDS Physician requesting consult: Dr Mcfarland HPI: Chief Complaint: Reason for consultation: Preop cardiac eval HPI 75 yo lady admitted to the [facility] [place] with upper abdominal and lower chest pain, nausea and vomiting, and gen malaise. Has been diagnosed with acute pancreatitis and also with L labial abscess/cyst. She does not currently report cp. Does not report palp, syncope, or shortness of breath. Continues to feel unwell. Review of Systems-Cardiology Review of Systems Constitutional: malaise, tiredness; No weight loss, No weight gain Eyes: No vision change Ears/Nose/Throat: No ear discharge, No nasal drainage, No recent hearing loss Respiratory: As described under HPI Cardiovascular: As described under HPI Gastrointestinal: As described under HPI Genitourinary: No dysuria, No hematuria, No urine frequency changes : No Musculoskeletal: No back pain, No joint pain Skin: No rash, No ulcerations Psychiatric/Neurological: No seizure, No focal weakness, No syncope Hematologic: No bleeding abnormalities All Other Systems Reviewed Negative Unless Noted: Yes WBI-Dlxgby-Euatnk Hx Patient Social History Marrital Status: Employed/Student: retired Smoking Status: Former Smoker 2nd Hand Smoke Exposure: No Have you traveled recently?: No Alcohol Use?: No Pt feels they are or have been: No Immunizations Up To Date Date of Pneumonia Vaccine: Jan 07, 2016 Date of Influenza Vaccine: Feb 01, 2020 Past Medical History PMH As described under Assessment. Family Medical History Family Medical History: She does not report fam h/o early CAD Allergies and Home Medications Allergies Coded Allergies: aspirin (Verified Allergy, Intermediate, Hives, 12/29/20) Some kinds of chewable aspirin acetaminophen (Verified Allergy, Unknown, 01/06/18) clavulanic acid (Verified Allergy, Unknown, 01/06/18) codeine (Verified Allergy, Unknown, 01/06/18) hydrocodone (Verified Allergy, Unknown, 01/06/18) oxycodone (Verified Allergy, Unknown, 01/06/18) Home Medications Acetaminophen 500 Mg Tablet, 1,000 MG PO HS, (Reported) TAKES 2 (500MG) TABLETS Last Action: Reviewed Apixaban 5 Mg Tablet, 5 MG PO BID, (Reported) Last Action: Reviewed Atorvastatin Calcium 20 Mg Tablet, 20 MG PO HS, (Reported) Last Action: Reviewed Cholecalciferol (Vitamin D3) 125 Mcg Tablet, 125 MCG PO BID, (Reported) Last Action: Reviewed Cyanocobalamin (Vitamin B-12) 500 Mcg Tablet, 500 MCG PO HS, (Reported) Last Action: Reviewed Docusate Sodium 100 Mg Capsule, 100 MG PO DAILY PRN for CONSTIPATION-1ST LINE, (Reported) Last Action: Reviewed Dronedarone HCl 400 Mg Tablet, 400 MG PO BID WITH MEALS, (Reported) Last Action: Reviewed Fish Oil/Borage/Flax/Om3,6,9#1 1,200 Mg Capsule, 1,200 MG PO HS, (Reported) Last Action: Reviewed Hydrocortisone 30 Gm Cream.appl, 1 APPLIC TOP PRN PRN for HEMMORRHOID DISCOMFORT, (Reported) Last Action: Reviewed Lactobacillus Rhamnosus GG 1 Each Capsule, 1 EACH PO DAILY, (Reported) Last Action: Reviewed Levetiracetam 500 Mg Tablet, 250 MG PO BID, (Reported) TAKES 1/2 (500MG) TABLET Last Action: Reviewed Lisinopril 2.5 Mg Tablet, 2.5 MG PO DAILY, (Reported) Last Action: Reviewed Metoprolol Tartrate 25 Mg Tablet, 25 MG PO DAILY, (Reported) Last Action: Reviewed Pantoprazole Sodium 40 Mg Tablet.dr, 40 MG PO BID, (Reported) Last Action: Reviewed Sulfamethoxazole/Trimethoprim 1 Each Tablet, 1 EACH PO BID, (Reported) LAST FILLED 12/27/2020 #20 10 DAY SUPPLY Last Action: Reviewed Tramadol HCl 50 Mg Tablet, 50 MG PO Q6H PRN for PAIN-MODERATE (5-7), (Reported) Last Action: Reviewed Patient Home Medication List Home Medication List Reviewed: Yes Physical Exam-Cardiology Physical Exam Vital Signs/I&O 12/30/20 12/30/20 12/30/20 12/30/20 08:00 08:00 12:00 12:58 Temp 36.6 36.6 Pulse 62 85 69 Resp 20 20 B/P (MAP) 115/73 (87) 121/75 (90) Pulse Ox 95 95 O2 Delivery Room Air Room Air Room Air 12/30/20 12/30/20 15:14 16:00 Temp 36.7 Pulse 82 Resp 18 B/P (MAP) 114/74 (87) Pulse Ox 96 O2 Delivery Room Air Room Air 12/30/20 00:00 Intake Total 1000 ml Balance 1000 ml Capillary Refill : Less Than 3 Seconds Constitutional: AAO x 3, well-developed, well-nourished HEENT: PERRL, EOMI, hearing is well preserved, oral hygience is good Neck: carotid pulses are 2 + bilaterally, with good upstrokes Respiratory: No accessory muscle use; other (fair to good, bilateral air entry; somewhat diminished at the bases) Cardiovascular: irregularly irregular, S1 and S2, systolic murmur (soft ELISEO at card base) Gastrointestinal: No tender; soft; No guarding, No rebound; audible bowel sounds Extremities: No clubbing, No cyanosis, No significant edema Neurologic/Psychiatric: oriented x 3, other (moves all limbs equally) Skin: No rash on exposed areas, No ulcerations on exposed areas Data Review Labs Laboratory Tests 12/29/20 19:25: White Blood Count 11.6H, Red Blood Count 4.86, Hemoglobin 14.0, Hematocrit 43, Mean Corpuscular Volume 87, Mean Corpuscular Hemoglobin 29, Mean Corpuscular Hemoglobin Concent 33, Red Cell Distribution Width 12.4, Platelet Count 324, Mean Platelet Volume 9.7, Immature Granulocyte % (Auto) 0, Neutrophils (%) (Auto) 73, Lymphocytes (%) (Auto) 17, Monocytes (%) (Auto) 8, Eosinophils (%) (Auto) 1, Basophils (%) (Auto) 1, Neutrophils # (Auto) 8.5H, Lymphocytes # (Auto) 2.0, Monocytes # (Auto) 0.9, Eosinophils # (Auto) 0.1, Basophils # (Auto) 0.1, Immature Granulocyte # (Auto) 0.0, Prothrombin Time 16.4H, INR Comment 1.3, Activated Partial Thromboplast Time 43H, Sodium Level 136, Potassium Level 4.1, Chloride Level 104, Carbon Dioxide Level 21, Anion Gap 11, Blood Urea Nitrogen 10, Creatinine 1.07, Estimat Glomerular Filtration Rate 50, BUN/Creatinine Ratio 9, Glucose Level 137H, Calcium Level 9.6, Corrected Calcium 9.6, Magnesium Level 1.8, Total Bilirubin 1.0, Aspartate Amino Transf (AST/SGOT) 55H, Alanine Aminot ransferase (ALT/SGPT) 36, Alkaline Phosphatase 73, Myoglobin 28.6, Troponin I < 0.028, Total Protein 6.9, Albumin 4.0, Lipase 366H 12/29/20 19:33: Influenza Type A (RT-PCR) Not Detected, Influenza Type B (RT-PCR) Not Detected, SARS-CoV-2 RNA (RT-PCR) Not Detected 12/30/20 05:37: White Blood Count 8.5, Red Blood Count 4.30, Hemoglobin 12.4, Hematocrit 39, M marcel Corpuscular Volume 90, Mean Corpuscular Hemoglobin 29, Mean Corpuscular Hemoglobin Concent 32, Red Cell Distribution Width 12.6, Platelet Count 260, Mean Platelet Volume 9.9, Immature Granulocyte % (Auto) 0, Neutrophils (%) (Auto) 78H, Lymphocytes (%) (Auto) 13, Monocytes (%) (Auto) 8, Eosinophils (%) (Auto) 0, Basophils (%) (Auto) 1, Neutrophils # (Auto) 6.6, Lymphocytes # (Auto) 1.1, Monocytes # (Auto) 0.7, Eosinophils # (Auto) 0.0, Basophils # (Auto) 0.0, Immature Granulocyte # (Auto) 0.0, Sodium Level 134L, Potassium Level 4.5, Chloride Level 106, Carbon Dioxide Level 21, Anion Gap 7, Blood Urea Nitrogen 9, Creatinine 0.82, Estimat Glomerular Filtration Rate 68, BUN/Creatinine Ratio 11, Glucose Level 109H, Calcium Level 8.9, Corrected Calcium 9.3, Total Bilirubin 1.2H, Aspartate Amino Transf (AST/SGOT) 976H, Alanine Aminotransferase (ALT/SGPT) 789#H, Alkaline Phosphatase 149H, Total Protein 6.0L, Albumin 3.5, Lipase 167H, Triglycerides Level 34, Cholesterol Level 91, LDL Cholesterol Direc t 48, VLDL Cholesterol 7, HDL Cholesterol 35L 12/30/20 14:45: Influenza Type A (RT-PCR) Not Detected, Influenza Type B (RT-PCR) Not Detected, SARS-CoV-2 RNA (RT-PCR) Not Detected Laboratory Tests 12/29/20 19:12/30/20 05:37 A/P-Cardiology Assessment/Admission Diagnosis Mitral valve dz - H/O mitral valve repair with a 31 mm flexible posterior annuloplasty band. The tricuspid annulus was inspected and was large, it was reduced with a DeVega annuloplasty suture by Dr. Gloria at [facility] October 27, 2018 - Echocardiogram of 07-23-20 showed LVEF 70-75%. Grade 2 diastolic dysfunction. LA and RA mod dilated. There appears to be a mitral annuplasty ring. No signif MR. Mild stenosis. PASP 35-40 mmHg Chronic atrial fibrillation: - ILR implanted on 07-28-[address] West - H/O MAZE procedure at [facility] October 2018 - S/P cardioversion on 02-28-[address] West - ILR transmission of Feb 2020 showed a-fib with controlled rate - Referred to Dr. Bernard at [facility] for consideration of ablation. She saw Dr Felipe on 09/23/20 who did not recommend ablation and recommended continuation of current management (that includes dronedarone) - OAC with Eliquis CAD - H/O cardiac cath September 24, [address] Garcia at [facility] showed non-obstructive dz - MPI of 10-11-20 showed no evidence of ischemia or infarction. LVEF 74% HTN - controlled HLD - statin tx - managed by PCP Discussion and Recomendations * Cardiac risk for noncardiac surgery is estimated be intermediate. I discussed her risk with her and answered questions * May hold Eliquis for 48 hours prior to surgery and resume RUFUS after surgery * Monitor labs NETTIE GLEASON MD [facility] CCDS Dec 30, 2020 17:10
[2020-12-30 19:58] VITALS: BP 115/75
[2020-12-30 22:32] LABS: HEPATITIS C ANTIBODY C Non-Reactive (Non-Reactive)
[2020-12-31] VITALS (12 sets, daily range): BP systolic 112–151; BP diastolic 57–91
[2020-12-31] MEDS: LACTATED RINGERS 1,000 ML IV SCH ×2 (03:37→18:48)
[2020-12-31] MEDS: metroNIDAZOLE 500MG/100ML IVPB 100 ML IV SCH ×3 (05:41→21:37)
[2020-12-31 06:05] LABS: ALBUMIN 3.3 GM/DL (3.2-4.5)
[2020-12-31 06:06] LABS: CALCIUM 8.6 MG/DL (8.5-10.1)
[2020-12-31 06:08] LABS: TOTAL PROTEIN 5.5 GM/DL (6.4-8.2)
[2020-12-31 06:10] LABS: BASOPHILS # (AUTO) 0.1 10^3/uL (0.0-0.1); BASOPHILS % (AUTO) 1 % (0-10); EOSINOPHILS # (AUTO) 0.2 10^3/uL (0.0-0.3); EOSINOPHILS % (AUTO) 3 % (0-10); HEMATOCRIT 38 % (35-52); HEMOGLOBIN 12.4 g/dL (11.5-16.0); LYMPHOCYTES # (AUTO) 1.5 10^3/uL (1.0-4.0); LYMPHOCYTES % (AUTO) 20 % (12-44); MEAN CORPUSCULAR HEMOGLOBIN 29 pg (25-34); MEAN CORPUSCULAR HGB CONC 33 g/dL (32-36); MEAN CORPUSCULAR VOLUME 88 fL (80-99); MEAN PLATELET VOLUME 9.9 fL (9.0-12.2); MONOCYTES # (AUTO) 0.7 10^3/uL (0.0-1.0); MONOCYTES % (AUTO) 9 % (0-12); NEUTROPHILS # (AUTO) 5.1 10^3/uL (1.8-7.8); NEUTROPHILS % (AUTO) 67 % (42-75); PLATELET COUNT 261 10^3/uL (130-400); WHITE BLOOD COUNT 7.6 10^3/uL (4.3-11.0)
[2020-12-31 06:11] LABS: CREATININE SERUM 0.85 MG/DL (0.60-1.30)
--- NOTE | 2020-12-31 07:43 | Progress Note - Surgery ---
GANESH TALAVERA 12/31/20 0743: Subjective Date Seen by a Provider: Dec 31, 2020 Time Seen by a Provider: 07:38 Subjective/Events-last exam Patient states she feels better today than yesterday. Patient states she has been up every few hours to go to the bathroom and has noticed small amounts of blood and clear fluid from abscess when wiping. Patient states she is having abdominal cramping just before having diarrhea then it goes away. Patient was made NPO last night and was consulted by cardiology yesterday. Deemed an intermediate risk for surgery from a cardiology stand point. Patient still wants to proceed with drainage. Patient hasn't had any nausea or vomiting. Patient denies fevers, chills, abdominal pain, dysuria, and constipation. Review of Systems General: No Chills, No Night Sweats Pulmonary: No Dyspnea Cardiovascular: No: Chest Pain Gastrointestinal: No: Nausea, Vomiting, Abdominal Pain Genitourinary: No Dysuria Objective Exam Vital Signs Date Time Temp Pulse Resp B/P (MAP) Pulse Ox O2 Delivery O2 Flow Rate FiO2 12/31/20 04:18 36.7 109 20 123/82 (96) 94 Room Air 12/31/20 01:00 90 12/31/20 00:00 36.6 76 18 113/71 (85) 93 Room Air 12/30/20 20:45 Room Air 12/30/20 19:58 37.2 86 18 115/75 (88) 96 Room Air 12/30/20 19:00 72 12/30/20 16:00 36.7 82 18 114/74 (87) 96 Room Air 12/30/20 15:14 Room Air 12/30/20 12:58 69 12/30/20 12:00 36.6 85 20 121/75 (90) 95 Room Air 12/30/20 08:00 Room Air 12/30/20 08:00 36.6 62 20 115/73 (87) 95 Room Air I & O 12/31/20 07:00 Intake Total 312.5 ml Output Total 1800 ml Balance -1487.5 ml Capillary Refill : Less Than 3 Seconds General Appearance: No Apparent Distress, WD/WN, Obese HEENT: PERRL/EOMI Neck: Non Tender, Supple, Carotid Bruit Respiratory: Chest Non Tender, Lungs Clear, Normal Breath Sounds, No Accessory Muscle Use, No Respiratory Distress Cardiovascular: Regular Rate, Rhythm (had tachy earlier this AM. Regular at 0734), Normal Peripheral Pulses Gastrointestinal: non tender, soft, no organomegaly, no pulsatile mass Extremity: No Calf Tenderness, No Pedal Edema Neurologic/Psychiatric: Alert, Oriented x3, Normal Mood/Affect Skin: Normal Color, Warm/Dry Lymphatic: No Adenopathy Results Lab Laboratory Tests 12/30/20 14:45: Influenza Type A (RT-PCR) Not Detected, Influenza Type B (RT-PCR) Not Detected, SARS-CoV-2 RNA (RT-PCR) Not Detected 12/31/20 05:40: White Blood Count 7.6, Red Blood Count 4.29, Hemoglobin 12.4, Hematocrit 38, Mean Corpuscular Volume 88, Mean Corpuscular Hemoglobin 29, Mean Corpuscular Hemoglobin Concent 33, Red Cell Distribution Width 12.7, Platelet Count 261, Mean Platelet Volume 9.9, Immature Granulocyte % (Auto) 0, Neutrophils (%) (Auto) 67, Lymphocytes (%) (Auto) 20, Monocytes (%) (Auto) 9, Eosinophils (%) (Auto) 3, Basophils (%) (Auto) 1, Neutrophils # (Auto) 5.1, Lymphocytes # (Auto) 1.5, Monocytes # (Auto) 0.7, Eosinophils # (Auto) 0.2, Basophils # (Auto) 0.1, Immature Granulocyte # (Auto) 0.0, Sodium Level 136, Potassium Level 4.0, Chloride Level 106, Carbon Dioxide Level 21, Anion Gap 9, Blood Urea Nitrogen 7, Creatinine 0.85, Estimat Glomerular Filtration Rate 65, BUN/Creatinine Ratio 8, Glucose Level 89, Calcium Level 8.6, Corrected Calcium 9.2, Total Bilirubin 1.0, Aspartate Amino Transf (AST/SGOT) 231H, Alanine Aminotransferase (ALT/SGPT) 432H , Alkaline Phosphatase 128, Total Protein 5.5L, Albumin 3.3, Lipase 7L Assessment/Plan Assessment/Plan Assessment/Plan Left Labial abscess acute diverticulitis atrial fib acute pancreatitis FCI anticoagulation On metronidazole and ceftriaxone - continue monitoring labs NPO IV hydration Left labial Incision and drainage all other indicated procedures today in OR . Stop eliquis. Continue medical management of pancreatitis ALAN ASTUDILLO DO 12/31/20 1323: Subjective Subjective/Events-last exam Small amount of blood/drainage from left labia. Abdominal pain slightly better in LLQ. Currently NPO. Denies n/v fever sweats chills shortness of breath or chest pain. Objective Exam General Appearance: No Apparent Distress, Obese HEENT: PERRL/EOMI, Normal ENT Inspection Neck: Non Tender, Supple Respiratory: Chest Non Tender, No Accessory Muscle Use, No Respiratory Distress Cardiovascular: Regular Rate, Rhythm (had tachy earlier this AM. Regular at 0734), No JVD Gastrointestinal: soft, no organomegaly, tenderness (minimal llq) Extremity: Non Tender, No Calf Tenderness Neurologic/Psychiatric: Alert, Oriented x3, Normal Mood/Affect Skin: Erythema (left labia, with slight purulent drainage induration and erythema) Lymphatic: No Adenopathy Assessment/Plan Assessment/Plan Assessment/Plan Left Labial abscess acute diverticulitis atrial fib acute pancreatitis FCI anticoagulation On metronidazole and ceftriaxone - continue monitoring labs NPO IV hydration Left labial Incision and drainage all other indicated procedures today in OR . Hold eliquis. Continue medical management of pancreatitis/diverticulitis Supervisory-Addendum Brief Verification & Attestation Participated in pt care: history, MDM, physical Personally performed: exam, history, MDM, supervision of care Care discussed with: Medical Student Procedures: n/a Results interpretation: Verified all documentation Verification and Attestation of Medical Student E/M Service A medical student performed and documented this service in my presence. I reviewed and verified all information documented by the medical student and made modifications to such information, when appropriate. I personally performed the physical exam and medical decision making. Alan Astudillo, Dec 31, 2020,13:23 GANESH TALAVERA Dec 31, 2020 07:43 ALAN ASTUDILLO DO Dec 31, 2020 13:23
[2020-12-31] MEDS: DRONEDARONE TABLET 400 MG TABLET PO SCH ×2 (08:36→21:35)
[2020-12-31] MEDS: DOXYCYCLINE INJECTION 100 MG in NS (IVPB) 100 ML IV SCH ×2 (08:36→21:42)
[2020-12-31] MEDS: LEVETIRACETAM IV SCH ×2 (10:00→21:40)
[2020-12-31] MEDS: NS IV SCH ×2 (10:00→21:40)
--- NOTE | 2020-12-31 11:59 | Progress Note - Cardiology ---
Cardiology SOAP Progress Note Subjective: Gen weakness and malaise Intermittent throbbing pain at the site of labial abscess No cp or palp or syncope or shortness of breath No n/v/d Objective: I&O/Vital Signs 12/31/20 12/31/20 12/31/20 12/31/20 00:00 01:00 04:18 06:33 Temp 36.6 36.7 Pulse 76 90 109 91 Resp 18 20 B/P (MAP) 113/71 (85) 123/82 (96) Pulse Ox 93 94 O2 Delivery Room Air Room Air 12/31/20 12/31/20 12/31/20 08:00 08:01 11:41 Temp 36.1 36.3 Pulse 77 88 Resp 20 20 B/P (MAP) 151/68 (95) 125/57 (79) Pulse Ox 93 95 O2 Delivery Room Air Room Air Room Air 12/31/20 00:00 Intake Total 312.5 ml Output Total 900 ml Balance -587.5 ml Weight (Pounds): 196 Weight (Ounces): 2.0 Weight (Calculated Kilograms): [id number] Constitutional: AAO x 3, well-developed, well-nourished Respiratory: No accessory muscle use; other (fair to good, bilateral air entry; somewhat diminished at the bases) Cardiovascular: irregularly irregular, S1 and S2, systolic murmur (soft ELISEO at card base) Gastrointestional: No tender; soft; No guarding, No rebound; audible bowel sounds Genital/Rectal: other (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 Patient with erythematous changes to the left labia with some slight skin breakdown surrounding induration and I believe there is some fluctuance to the area as well but minimal) Extremities: No clubbing, No cyanosis, No significant edema Neurologic/Psychiatric: oriented x 3, other (moves all limbs equally) Skin: No rash on exposed areas, No ulcerations on exposed areas Results/Procedures: Labs Laboratory Tests 12/30/20 14:45: Influenza Type A (RT-PCR) Not Detected, Influenza Type B (RT-PCR) Not Detected, SARS-CoV-2 RNA (RT-PCR) Not Detected 12/31/20 05:40: White Blood Count 7.6, Red Blood Count 4.29, Hemoglobin 12.4, Hematocrit 38, Mean Corpuscular Volume 88, Mean Corpuscular Hemoglobin 29, Mean Corpuscular Hemoglobin Concent 33, Red Cell Distribution Width 12.7, Platelet Count 261, Mean Platelet Volume 9.9, Immature Granulocyte % (Auto) 0, Neutrophils (%) (Auto) 67, Lymphocytes (%) (Auto) 20, Monocytes (%) (Auto) 9, Eosinophils (%) ( Auto) 3, Basophils (%) (Auto) 1, Neutrophils # (Auto) 5.1, Lymphocytes # (Auto) 1.5, Monocytes # (Auto) 0.7, Eosinophils # (Auto) 0.2, Basophils # (Auto) 0.1, Immature Granulocyte # (Auto) 0.0, Sodium Level 136, Potassium Level 4.0, Chloride Level 106, Carbon Dioxide Level 21, Anion Gap 9, Blood Urea Nitrogen 7, Creatinine 0.85, Estimat Glomerular Filtration Rate 65, BUN/Creatinine Ratio 8, Glucose Level 89, Calcium Level 8.6, Corrected Calcium 9.2, Total Bilirubin 1.0, Aspartate Amino Transf (AST/SGOT) 231H, Alanine Aminotransferase (ALT/SGPT) 432H , Alkaline Phosphatase 128, Total Protein 5.5L, Albumin 3.3, Lipase 7L Microbiology 12/30/20 MRSA Screen - Final, Complete MRSA not isolated Laboratory Tests 12/29/20 19:25 12/30/20 05:37 12/31/20 05:40 A/P: Assessment: Mitral valve dz - H/O mitral valve repair with a 31 mm flexible posterior annuloplasty band. The tricuspid annulus was inspected and was large, it was reduced with a DeVega annuloplasty suture by Dr. Gloria at [facility] October 27, 2018 - Echocardiogram of 07-23-20 showed LVEF 70-75%. Grade 2 diastolic dysfunction. LA and RA mod dilated. There appears to be a mitral annuplasty ring. No signif MR. Mild stenosis. PASP 35-40 mmHg Chronic atrial fibrillation: - ILR implanted on 07-28-[address] West - H/O MAZE procedure at [facility] October 2018 - S/P cardioversion on 02-28-[address] West - ILR transmission of Feb 2020 showed a-fib with controlled rate - Referred to Dr. Bernard at [facility] for consideration of ablation. She saw Dr Felipe on 09/23/20 who did not recommend ablation and recommended continuation of current management (that includes dronedarone) - OAC with Eliquis CAD - H/O cardiac cath September 24, [address] Garcia at [facility] showed non-obstructive dz - MPI of 10-11-20 showed no evidence of ischemia or infarction. LVEF 74% HTN - controlled HLD - statin tx - managed by PCP Plan: * Cardiac risk for noncardiac surgery is estimated be intermediate. I again discussed her risk with her and answered CV-related questions * May hold Eliquis for 48 hours prior to surgery and resume RUFUS after surgery * Monitor labs NETTIE GLEASON MD FACP FAC CCDS Dec 31, 2020 11:59
[2020-12-31] MEDS ORDERED: proPOfol 200 MG/20 ML (DIPRIVAN) VIAL IV ONE (13:22)
[2020-12-31] MEDS ORDERED: ONDANSETRON 4 MG/2 ML (SDV) Z0FRAN ONE ×2 (13:22→14:02)
[2020-12-31] MEDS ORDERED: LIDOCAINE PF 2% 5 ML (XYLOCAINE) VIAL ONE (13:22)
[2020-12-31] MEDS ORDERED: fentaNYL INJ 100 MCG/2 ML AMP ONE (13:22)
[2020-12-31] MEDS ORDERED: MIDAZOLAM 2 MG/2 ML (VERSED) VIAL ONE (13:22)
--- NOTE | 2020-12-31 13:55 | Progress Note ---
LIZ BOWMAN 12/31/20 1355: Subjective Date Seen by a Provider: Dec 31, 2020 Time Seen by a Provider: 09:00 Subjective/Events-last exam Pt complains of diarrhea and fatigue while waiting for her labial incision and drainage sometime today. Denied any other symptoms such as fever, chills, vomiting, or diarrhea. Lipase levels currently 7. Cardiology consult indicate intermediate risk for the procedure. Surgery consult changed antibiotic to Rocephin. Await post procedure for follow up. Review of Systems General: No Chills; Fatigue; No Appetite HEENT: No Head Aches, No Visual Changes, No Ear Pain Pulmonary: No Dyspnea, No Cough Cardiovascular: No: Chest Pain, Palpitations, Edema Gastrointestinal: Diarrhea; No: Nausea, Vomiting Genitourinary: No Dysuria, No Frequency, No Incontinence Musculoskeletal: No: neck pain, back pain, leg pain Neurological: No: Weakness, Numbness, Seizures Objective Exam Last Set of Vital Signs Vital Signs Date Time Temp Pulse Resp B/P (MAP) Pulse Ox O2 Delivery O2 Flow Rate FiO2 12/31/20 12:27 89 12/31/20 11:41 36.3 20 125/57 (79) 95 Room Air Capillary Refill : Less Than 3 Seconds I&O Intake and Output 12/31/20 00:00 Intake Total 415.0 ml Output Total 1300 ml Balance -885.0 ml Intake Oral 0 ml IV Total 415.0 ml Output Urine Total 1300 ml # Voids 2 # Bowel Movements 3 Daily Weight Change Yes, 2-13 lbs General: Alert, Oriented X3, Cooperative, Mild Distress HEENT: Atraumatic, PERRLA, EOMI Neck: Supple Lungs: Clear to Auscultation Heart: Regular Rate Extremities: No Clubbing, No Cyanosis Skin: No Rashes Neuro: Normal Speech Results Lab Laboratory Tests 12/30/20 14:45: Influenza Type A (RT-PCR) Not Detected, Influenza Type B (RT-PCR) Not Detected, SARS-CoV-2 RNA (RT-PCR) Not Detected 12/31/20 05:40: White Blood Count 7.6, Red Blood Count 4.29, Hemoglobin 12.4, Hematocrit 38, Mean Corpuscular Volume 88, Mean Corpuscular Hemoglobin 29, Mean Corpuscular He moglobin Concent 33, Red Cell Distribution Width 12.7, Platelet Count 261, Mean Platelet Volume 9.9, Immature Granulocyte % (Auto) 0, Neutrophils (%) (Auto) 67, Lymphocytes (%) (Auto) 20, Monocytes (%) (Auto) 9, Eosinophils (%) (Auto) 3, Basophils (%) (Auto) 1, Neutrophils # (Auto) 5.1, Lymphocytes # (Auto) 1.5, Monocytes # (Auto) 0.7, Eosinophils # (Auto) 0.2, Basophils # (Auto) 0.1, Immature Granulocyte # (Auto) 0.0, Sodium Level 136, Potassium Level 4.0, Chloride Level 106, Carbon Dioxide Level 21, Anion Gap 9, Blood Urea Nitrogen 7, Creatinine 0.85, Estimat Glomerular Filtration Rate 65, BUN/Creatinine Ratio 8, Glucose Level 89, Calcium Level 8.6, Corrected Calcium 9.2, Total Bilirubin 1.0, Aspartate Amino Transf (AST/SGOT) 231H, Alanine Aminotransferase (ALT/SGPT) 432H , Alkaline Phosphatase 128, Total Protein 5.5L, Albumin 3.3, Lipase 7L Microbiology 12/30/20 MRSA Screen - Final, Complete MRSA not isolated Assessment/Plan Assessment/Plan Assess & Plan/Chief Complaint Acute Pancreatitis Transaminitis Elevated Alk Phos Left labial abscess vs cyst Nausea/Vomiting Chest pain Diverticulitis recently Hiatal Hernia HTN Afib Valvular heart disease GERD Lipase down to 7 today from 167 yesterday NPO after midnight, to OR tomorrow. Hold anticoagulation pending procedure tomorrow IVF's Consult General Surgery for management of labial abscess/cyst Abdominal US negative Trend liver enzymes and alk phos: AST 231, ALT 432 Hepatitis panel pending COVID and Flu negative Pain management Antiemetics PRN Consider NGT if symptoms worsen or develops ileus/obstruction KATELYNN SOLORIO DO 01/01/21 0613: Subjective Subjective/Events-last exam Hospital Course: Pt had an uneventful hospital course. She was admitted for new dysarthria and right facial droop. She was already on Plavix, Aspirin, and statin therapy. Telemetry monitored showed no evidence of cardiac arrhythmia. We heplocked her IV fluid and placed her on Rocephin IV and transitioned to Omnicef at DC and will have close follow up with me and to restart PT and OT since her symptoms had all but resolved. Objective Exam General: Alert, Oriented X3, Cooperative, No Acute Distress Abdomen: Normal Bowel Sounds Psych/Mental Status: Mental Status NL Assessment/Plan Assessment/Plan Assess & Plan/Chief Complaint Incision and drainage of labial abscess today Antibiotics Supportive care Supervisory-Addendum Brief Verification & Attestation Participated in pt care: history, MDM, physical Personally performed: exam, history, MDM, supervision of care Care discussed with: Medical Student Procedures: n/a Results interpretation: Verified all documentation Verification and Attestation of Medical Student E/M Service A medical student performed and documented this service in my presence. I reviewed and verified all information documented by the medical student and made modifications to such information, when appropriate. I personally performed the physical exam and medical decision making. Katelynn Solorio Jan 01, 2021,06:13 LIZ BOWMAN Dec 31, 2020 13:55 KATELYNN SOLORIO DO Jan 01, 2021 06:13
[2020-12-31] MEDS ORDERED: SCOPOLAMINE 1.5 MG (TRANSDERM-SCOP) PATCH TOP ONE (14:00)
[2020-12-31] MEDS ORDERED: LACTATED RINGERS 1,000 ML IV PRN ×2 (14:00)
[2020-12-31] MEDS ORDERED: FAMOTIDINE 20MG/2ML IV (PEPCID) IV ONE (14:00)
[2020-12-31] MEDS ORDERED: SCOPOLAMINE 1.5 MG (TRANSDERM-SCOP) PATCH ONE (14:01)
[2020-12-31] MEDS ORDERED: FAMOTIDINE 20MG/2ML IV (PEPCID) ONE (14:01)
[2020-12-31] MEDS: cefTRIAXone 1,000 MG in WATER (STERILE) FOR INJECTION 10 ML IV SCH (14:15)
[2020-12-31] MEDS ORDERED: LIDOCAINE/EPI 1%-1:100,000 (XYLOCAINE) 20ML ONE (14:16)
[2020-12-31] MEDS ORDERED: LIDOCAINE 1% INJ 20 ML 20 ML VIAL ONE (14:38)
[2020-12-31] MEDS ORDERED: PROMETHAZINE INJ 25 MG/ML (PHENERGAN) AMP IVP ONE (15:15)
[2020-12-31] MEDS ORDERED: fentaNYL INJ 100 MCG/2 ML AMP IVP ONE (15:15)
--- NOTE | 2020-12-31 15:32 | Anesthesia-General Post-Op ---
General Patient Condition Mental Status/LOC: Same as Preop Cardiovascular: Satisfactory Nausea/Vomiting: Absent Respiratory: Satisfactory Pain: Controlled Complications: Absent Post Op Complications Complications None Follow Up Care/Instructions Patient Instructions None needed. Anesthesia/Patient Condition Patient Condition Patient is doing well, no complaints, stable vital signs, no apparent adverse anesthesia problems. No complications reported per nursing. [place] [facility] Yes SAWYER MCCRAY CRNA Dec 31, 2020 15:32
[2020-12-31] MEDS ORDERED: ACETAMINOPHEN 325 MG TABLET PO ONE (17:15)
[2020-12-31] MEDS ORDERED: ACETAMINOPHEN 325 MG TABLET ONE (17:44)
[2021-01-01] MEDS: LACTATED RINGERS 1,000 ML IV SCH (00:07)
[2021-01-01 00:24] VITALS: BP 102/64
--- NOTE | 2021-01-01 00:42 | OPERATIVE REPORT ---
DATE OF SERVICE: 12/31/2020 PREOPERATIVE DIAGNOSIS: Left labial abscess. POSTOPERATIVE DIAGNOSIS: Left labial abscess. PROCEDURE: Incision and drainage of left labial abscess and excision of possible left labial cyst approximately 1.3 cm. SURGEON: Alan Astudillo DO ANESTHESIA: General. ESTIMATED BLOOD LOSS: Minimal. COMPLICATIONS: None. INDICATIONS: The patient is a 75-year-old female with left labial abscess. She understands risks and benefits of procedure and wished to proceed with procedure. Consent was signed in the chart. DESCRIPTION OF PROCEDURE: The patient was taken to the operating suite. She was prepped and draped in sterile fashion in lithotomy position. Timeout was performed. Over the area of fluctuance, a 15 blade scalpel was used to make a small skin incision. Purulent material erupted, culture was obtained. The incision was then opened up a little bit further. Questionable cyst appearance tissue was present. Cautery used to dissect around it and remove it. It was approximately 1.3 cm in diameter. This could also be indurated tissue. The wound was then irrigated with copious amounts of irrigation. Hemostasis was achieved. The wound was then packed with iodoform and sterile bandage was applied. Local anesthetic had also been infiltrated as well. Job ID: [id number] DocumentID: [id number] Dictated Date: 12/31/2020 16:50:42 Anatomy Teacher Date: 01/01/2021 00:42:34 Dictated By: ALAN ASTUDILLO DO
[2021-01-01 03:26] VITALS: BP 121/70
[2021-01-01 05:02] LABS: BASOPHILS % (AUTO) 0 % (0-10); EOSINOPHILS % (AUTO) 0 % (0-10); HEMATOCRIT 35 % (35-52); HEMOGLOBIN 11.7 g/dL (11.5-16.0); LYMPHOCYTES # (AUTO) 0.9 10^3/uL (1.0-4.0); MEAN CORPUSCULAR HEMOGLOBIN 29 pg (25-34); MEAN CORPUSCULAR HGB CONC 33 g/dL (32-36); MEAN CORPUSCULAR VOLUME 87 fL (80-99); MONOCYTES # (AUTO) 0.2 10^3/uL (0.0-1.0); MONOCYTES % (AUTO) 3 % (0-12)
[2021-01-01 05:04] LABS: LYMPHOCYTES % (AUTO) 13 % (12-44); NEUTROPHILS % (AUTO) 84 % (42-75); PLATELET COUNT 241 10^3/uL (130-400); WHITE BLOOD COUNT 7.2 10^3/uL (4.3-11.0)
[2021-01-01 05:21] LABS: ALBUMIN 3.1 GM/DL (3.2-4.5); BILIRUBIN,TOTAL 0.6 MG/DL (0.1-1.0); CALCIUM 8.5 MG/DL (8.5-10.1); CREATININE SERUM 0.75 MG/DL (0.60-1.30); POTASSIUM 4.2 MMOL/L (3.6-5.0); TOTAL PROTEIN 5.3 GM/DL (6.4-8.2)
[2021-01-01] MEDS: metroNIDAZOLE 500MG/100ML IVPB 100 ML IV SCH ×3 (06:12→22:13)
--- NOTE | 2021-01-01 07:17 | Progress Note - Surgery ---
LIZ BOWMAN 01/01/21 0716: Subjective Date Seen by a Provider: Jan 01, 2021 Time Seen by a Provider: 07:00 Subjective/Events-last exam Pt reports minimal pain 1-2/10 to the drainage site. Complains of diarrhea and nausea. Denies any fever, chills, vomiting, or chest pain. Ate last night and no urinary or bowel complaints. On inspection, incision site was nonbloody and nonpurulent and no erythema and no surrounding LAD. Review of Systems General: No Chills, No Fatigue; Appetite HEENT: No Head Aches, No Visual Changes, No Ear Pain Pulmonary: No Dyspnea, No Cough Cardiovascular: No: Chest Pain, Palpitations, Edema Gastrointestinal: Nausea, Diarrhea; No: Vomiting Genitourinary: No Dysuria, No Frequency, No Incontinence Musculoskeletal: No: neck pain, back pain, leg pain Neurological: No: Weakness, Numbness, Seizures Objective Exam Vital Signs Date Time Temp Pulse Resp B/P (MAP) Pulse Ox O2 Delivery O2 Flow Rate FiO2 01/01/21 03:26 35.9 50 18 121/70 (87) 95 01/01/21 01:00 50 01/01/21 00:24 36.2 56 18 102/64 (77) 94 12/31/20 20:13 36.3 100 16 112/64 (80) 93 12/31/20 20:00 Room Air 12/31/20 19:00 95 12/31/20 16:00 36.2 88 16 133/76 (95) 95 12/31/20 15:45 Room Air 12/31/20 15:45 36.3 20 142/80 (100) 95 Room Air 12/31/20 15:30 20 138/78 (98) 98 OxyMask 3 12/31/20 15:30 OxyMask 4 12/31/20 15:20 20 148/81 (103) 99 OxyMask 4 12/31/20 15:15 OxyMask 4 12/31/20 15:10 20 137/88 (104) 98 OxyMask 4 12/31/20 15:00 20 138/91 (107) 97 OxyMask 6 12/31/20 15:00 OxyMask 6 12/31/20 14:58 36.3 16 138/88 (105) 100 OxyMask 6 12/31/20 14:58 OxyMask 6 12/31/20 12:27 89 12/31/20 11:41 36.3 88 20 125/57 (79) 95 Room Air 12/31/20 08:01 Room Air 12/31/20 08:00 36.1 77 20 151/68 (95) 93 Room Air I & O 01/01/21 06:59 Intake Total 1340 ml Output Total 900 ml Balance 440 ml Capillary Refill : Less Than 3 SecondsLess Than 3 Seconds General Appearance: No Apparent Distress, Obese HEENT: PERRL/EOMI, Normal ENT Inspection Neck: Non Tender, Supple Respiratory: Chest Non Tender, No Accessory Muscle Use, No Respiratory Distress Cardiovascular: Regular Rate, Rhythm Gastrointestinal: non tender, soft Extremity: Non Tender Neurologic/Psychiatric: Alert, Oriented x3, Normal Mood/Affect Skin: Normal Color, Damp Lymphatic: No Adenopathy; No Inguinal Node Tender (L) Results Lab Laboratory Tests 01/01/21 04:50: White Blood Count 7.2, Red Blood Count 4.01, Hemoglobin 11.7, Hematocrit 35, Mean Corpuscular Volume 87, Mean Corpuscular Hemoglobin 29, Mean Corpuscular Hemoglobin Concent 33, Red Cell Distribution Width 12.2, Platelet Count 241, Mean Platelet Volume 10.0, Immature Granulocyte % (Auto) 0, Neutrophils (%) (Auto) 84H, Lymphocytes (%) (Auto) 13, Monocytes (%) (Auto) 3, Eosinophils (%) (Auto) 0, Basophils (%) (Auto) 0, Neutrophils # (Auto) 6.0, Lymphocytes # (Auto) 0.9L, Monocytes # (Auto) 0.2, Eosinophils # (Auto) 0.0, Basophils # (Auto) 0.0, Immature Granulocyte # (Auto) 0.0, Percent Immature Platelet Fraction 2.9, Sodium Level 137, Potassium Level 4.2, Chloride Level 108H, Carbon Dioxide Level 21, Anion Gap 8, Blood Urea Nitrogen 11, Creatinine 0.75, Estimat Glomerular Filtration Rate 76, BUN/Creatinine Ratio 15, Glucose Level 150H, Calcium Level 8.5, Corrected Calcium 9.2, Total Bilirubin 0.6, Aspartate Amino Transf (AST/SGOT) 66H, Alanine Aminotransferase (ALT/SGPT) 259H, Alkaline Phosphatase 99, Total Protein 5.3L, Albumin 3.1L Microbiology 12/31/20 Gram Stain - Final, Resulted 12/31/20 Anaerobic Culture, Resulted Pending 12/31/20 Surgical Culture - Preliminary, Resulted Staphylococcus aureus 12/30/20 MRSA Screen - Final, Complete MRSA not isolated Assessment/Plan Assessment/Plan Assessment/Plan s/p Incision and drainage of labial abscess Antibiotics Supportive care ALAN ASTUDILLO DO 01/01/21 7477: Subjective Subjective/Events-last exam Patient pain controlled. Patient states the left groin area started to feel little bit better. Had some pain yesterday but better. Not having any signi ficant drainage. Her abdomen is feeling better not having the pain that she was yesterday as well. Patient denies any nausea vomiting fever sweats chills shortness of breath or chest pain Objective Exam General Appearance: No Apparent Distress, Obese HEENT: PERRL/EOMI, Normal ENT Inspection Neck: Normal Inspection, Non Tender, Supple Respiratory: Chest Non Tender, No Accessory Muscle Use, No Respiratory Distress Cardiovascular: Regular Rate, Rhythm, No JVD Gastrointestinal: non tender, soft Extremity: Non Tender, No Calf Tenderness Neurologic/Psychiatric: Alert, Oriented x3, Normal Mood/Affect Skin: Normal Color, Other (Nurse present during exam left labia less erythema less tender less induration overall improved appearance) Lymphatic: No Adenopathy Assessment/Plan Assessment/Plan Assessment/Plan s/p Incision and drainage of labial abscess Diverticulitis Pancreatitis Continue wound care. Irrigate and pack with iodoform Antibiotics Supportive care Supervisory-Addendum Brief Verification & Attestation Participated in pt care: history, MDM, physical Personally performed: exam, history, MDM, supervision of care Care discussed with: Medical Student Procedures: n/a Results interpretation: Verified all documentation Verification and Attestation of Medical Student E/M Service A medical student performed and documented this service in my presence. I reviewed and verified all information documented by the medical student and made modifications to such information, when appropriate. I personally performed the physical exam and medical decision making. Alan Astudillo, Jan 01, 2021,22:46 LIZ BOWMAN Jan 01, 2021 07:16 ALAN ASTUDILLO DO Jan 01, 2021 22:47
[2021-01-01 08:00] VITALS: BP 120/59
[2021-01-01] MEDS: DRONEDARONE TABLET 400 MG TABLET PO SCH ×2 (08:04→19:55)
[2021-01-01] MEDS: DOXYCYCLINE INJECTION 100 MG in NS (IVPB) 100 ML IV SCH ×2 (08:04→19:54)
[2021-01-01] MEDS ORDERED: VANCOMYCIN INJECTION 0.1 MG in NS (IVPB) 250 ML IV SCH (08:30)
[2021-01-01] MEDS: NS IV SCH ×2 (08:46→19:54)
[2021-01-01] MEDS: LEVETIRACETAM IV SCH ×2 (08:46→19:54)
[2021-01-01] MEDS ORDERED: VANCOMYCIN 1,750 MG/NS 500 ML IVPB IV NR ×2 (09:00)
--- NOTE | 2021-01-01 11:08 | Progress Note - Cardiology ---
Cardiology SOAP Progress Note Subjective: Gen malaise and weakness No n/v/d Labial discomfort is better after surgery No cp or palp or syncope Objective: I&O/Vital Signs 01/01/21 01/01/21 01/01/21 01/01/21 00:24 01:00 03:26 06:30 Temp 36.2 35.9 Pulse 56 50 50 51 Resp 18 18 B/P (MAP) 102/64 (77) 121/70 (87) Pulse Ox 94 95 01/01/21 01/01/21 08:00 08:00 Temp 36.0 Pulse 50 Resp 20 B/P (MAP) 120/59 (79) Pulse Ox 94 O2 Delivery Room Air Room Air 01/01/21 00:00 Intake Total 120 ml Output Total 300 ml Balance -180 ml Weight (Pounds): 196 Weight (Ounces): 2.0 Weight (Calculated Kilograms): 88.186251 Constitutional: AAO x 3, well-developed, well-nourished Respiratory: No accessory muscle use; other (fair to good, bilateral air entry; somewhat diminished at the bases) Cardiovascular: irregularly irregular, S1 and S2, systolic murmur (soft ELISEO at card base) Gastrointestional: No tender; soft; No guarding, No rebound; audible bowel sounds Genital/Rectal: other (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 Patient with erythematous changes to the left labia with some slight skin breakdown surrounding induration and I believe there is some fluctuance to the area as well but minimal) Extremities: No clubbing, No cyanosis, No significant edema Neurologic/Psychiatric: oriented x 3, other (moves all limbs equally) Skin: No rash on exposed areas, No ulcerations on exposed areas Results/Procedures: Labs Laboratory Tests 01/01/21 04:50: White Blood Count 7.2, Red Blood Count 4.01, Hemoglobin 11.7, Hematocrit 35, Mean Corpuscular Volume 87, Mean Corpuscular Hemoglobin 29, Mean Corpuscular Hemoglobin Concent 33, Red Cell Distribution Width 12.2, Platelet Count 241, Mean Platelet Volume 10.0, Immature Granulocyte % (Auto) 0, Neutrophils (%) (Auto) 84H, Lymphocytes (%) (Auto) 13, Monocytes (%) (Auto) 3, Eosinophils (%) (Auto) 0, Basophils (%) (Auto) 0, Neutrophils # (Auto) 6.0, Lymphocytes # (Auto) 0.9L, Monocytes # (Auto) 0.2, Eosinophils # (Auto) 0.0, Basophils # (Auto) 0.0, Immature Granulocyte # (Auto) 0.0, Percent Immature Platelet Fraction 2.9, Sodium Level 137, Potassium Level 4.2, Chloride Level 108H, Carbon Dioxide Level 21, Anion Gap 8, Blood Urea Nitrogen 11, Creatinine 0.75, Estimat Glomerular Filtration Rate 76, BUN/Creatinine Ratio 15, Glucose Level 150H, Calcium Level 8.5, Corrected Calcium 9.2, Total Bilirubin 0.6, Aspartate Amino Transf (AST/SGOT) 66H, Alanine Aminotransferase (ALT/SGPT) 259H, Alkaline Phosphatase 99, Total Protein 5.3L, Albumin 3.1L Microbiology 12/31/20 Gram Stain - Final, Resulted 12/31/20 Anaerobic Culture, Resulted Pending 12/31/20 Surgical Culture - Preliminary, Resulted Staphylococcus aureus 12/30/20 MRSA Screen - Final, Complete MRSA not isolated Laboratory Tests 12/31/20 05:40 01/01/21 04:50 A/P: Assessment: Labial abscess/cyst, treated surgically on 12/31/20 and managed by the Surgical svce Pancreatitis, managed by the Med [facility] Mitral valve dz - H/O mitral valve repair with a 31 mm flexible posterior annuloplasty band. The tricuspid annulus was inspected and was large, it was reduced with a DeVega annuloplasty suture by Dr. Gloria at [facility] October 27, 2018 - Echocardiogram of 07-23-20 showed LVEF 70-75%. Grade 2 diastolic dysfunction. LA and RA mod dilated. There appears to be a mitral annuplasty ring. No signif MR. Mild stenosis. PASP 35-40 mmHg Chronic atrial fibrillation: - ILR implanted on 07-28-[address] West - H/O MAZE procedure at [facility] October 2018 - S/P cardioversion on 02-28-[address] West - ILR transmission of Feb 2020 showed a-fib with controlled rate - Referred to Dr. Bernard at [facility] for consideration of ablation. She saw Dr Felipe on 09/23/20 who did not recommend ablation and recommended continuation of current management (that includes dronedarone) - OAC with Eliquis CAD - H/O cardiac cath September 24, [address] Garcia at [facility] showed non-obstructive dz - MPI of 10-11-20 showed no evidence of ischemia or infarction. LVEF 74% HTN - controlled HLD - statin tx - managed by PCP Plan: * Resume Eliquis if ok with the Surgical svce * Monitor labs NETTIE GLEASON MD FACP [facility] Jan 01, 2021 11:07
--- NOTE | 2021-01-01 11:21 | Anesthesia-General Post-Op ---
General Patient Condition Mental Status/LOC: Same as Preop Cardiovascular: Satisfactory Nausea/Vomiting: Absent Respiratory: Satisfactory Pain: Controlled Complications: Absent Post Op Complications Complications None Follow Up Care/Instructions Patient Instructions None needed. Anesthesia/Patient Condition Patient Condition Patient is doing well, no complaints, stable vital signs, no apparent adverse anesthesia problems. No complications reported per nursing. D/C home per [facility] Criteria: Yes AMAURY GUALLPA CRNA Jan 01, 2021 11:21
[2021-01-01 11:41] VITALS: BP 139/67
--- NOTE | 2021-01-01 11:52 | Physical Therapy Evaluation ---
PT Evaluation-General Medical Diagnosis Admission Date Dec 30, 2020 at 00:23 Medical Diagnosis: pancreatitis Onset Date: Jan 01, 2021 Therapy Diagnosis Therapy Diagnosis: weakness Height/Weight Height (Feet): 5 Height (Inches): 2.50 Weight (Pounds): 196 Weight (Ounces): 2.0 Precautions Precautions/Isolations: Contact Isolation, Standard Precautions Referral Physician: Bartolo Reason for Referral: Evaluation/Treatment Medical History Pertinent Medical History: Atrial Fib, CABG, HTN Additional Medical History brain tumor resection Current History Pt admitted to ER with chest pain, nausea, and vomiting. Found to have pancreatitis. Pt having pain from a labial abscess. Pt admitted. underwent surgical drainage of absecess. Reviewed History: Yes Social History Home: Single Level Current Living Status: Spouse Prior Prior Level of Function SCALE: Activities may be completed with or without assistive devices. 0-Imsongmref-yfaubjs completes the activity by him/herself with no assistance from a helper. 5-Set-up or Clean-up Assistance-helper sets up or cleans up; patient completes activity. [place] assists only prior to or following the activity. 4-Supervision or Touching Assistance-helper provides verbal cues and/or touching/steadying and/or contact guard assistance as patient completes activity. Assistance may be provided throughout the activity or intermittently. 3-Partial/Moderate Assistance-helper does LESS THAN HALF the effort. [place] lifts, holds or supports trunk or limbs, but provides less than half the effort. 2-Substantial/Maximal Assistance-helper does MORE THAN HALF the effort. [place] lifts or holds trunk or limbs and provides more than half the effort. 9-Zfefvytio-hkcpvc does ALL the effort. Patient does none of the effort to complete the activity. Or, the assistance of 2 or more helpers is required for the patient to complete the activity. If activity was not attempted, code reason: 7-Patient Refused. 9-Not Applicable-not attempted and the patient did not perform the activity before the current illness, exacerbation or injury. 10-Not Attempted due to Environmental Limitations-(lack of equipment, weather restraints, etc.). 88-Not Attempted due to Medical Conditions or Safety Concerns. Bed Mobility: 6 Transfers (B,C,W/C): 6 Gait: 6 Stairs: 6 PT Evaluation-Current Subjective Pt reports no pain. She says she is moving as well as she normally does. Objective Patient Orientation: Normal For Age Attachments: IV ROM/Strength ROM Upper Extremities WFL ROM Lower Extremities WFL Strength Upper Extremities 5/5 Strength Lower Extremities 5/5 Sensory Vision: Functional Hearing: Functional Transfers Roll Left to Right (QC): 6 Sit to Lying (QC): 6 Lying to Sitting/Side of Bed(Q: 6 Sit to Stand (QC): 6 Chair/Xki-xe-Beqnn Xfer(QC): 6 Toilet Transfer (QC): 6 Gait Does the Patient Walk?: Yes Mode of Locomotion: Walk Anticipated Mode of Locomotion: Walk Distance: 250 Gait Assistive Device: None Comments/Gait Description Pt has stable gait without use of assistive device. Balance Sitting Static: Normal Sitting Dynamic: Normal Standing Static: Normal Standing Dynamic: Good Assessment/Needs Pt has good mobility. she is at baseline per her report and her . No PT needed at this time. Rehab Potential: Good PT Aquarist Goals Aquarist Goals PT Aquarist Goals Time Frame: Jan 01, 2021 Roll Left & Right (QC): 6 Sit to Lying (QC): 6 Lying-Sitting on Side/Bed(QC): 6 Sit to Stand (QC): 6 Chair/Hwp-fr-Lvggx Xfer(QC): 6 Walk 150 ft (QC): 6 PT Plan Treatment/Plan Treatment Plan: Discontinue PT, goals met Treatment Duration: Jan 01, 2021 Frequency: 1 time per week Estimated Hrs Per Day: .25 hour per day Patient and/or Family Agrees t: Yes Discharge Recommendations Plan Pt seen one visit for assessment of mobility. Pt is safe with all mobility including ambulation. She is discharged from therapy at this time. Target Placement home Time/GCodes Time In: 1130 Time Out: 1150 Total Billed Treatment Time: 20 Total Billed Treatment visit, eval mod complexity 20 minutes NARESH ALDANA PT Jan 01, 2021 11:52
[2021-01-01] MEDS: cefTRIAXone 1,000 MG in WATER (STERILE) FOR INJECTION 10 ML IV SCH (13:04)
--- NOTE | 2021-01-01 14:30 | Occ Therapy Progress Note ---
Therapy Progress Note OT orders received and chart reviewed. OT visited with pt who states she is at her PLOF and independent with ADLs. She states she has been independent in her room, independent with toileting and independent with eating. She has no concerns wtih her ability to complete ADLs at this time, and has no concerns with returning home. No skilled OT services indicated at this time, as pt is independent with ADLs and is at PLOF. Discharge from OT. 1, visit 1405 CALLIE JUAREZ OT Jan 01, 2021 14:30
[2021-01-01 16:09] VITALS: BP 118/56
--- NOTE | 2021-01-01 16:52 | Progress Note ---
Subjective Date Seen by a Provider: Jan 01, 2021 Time Seen by a Provider: 10:00 Subjective/Events-last exam S/P I&D of abscess Vancomycin, Doxycycline, Flagyl and Rocephin maintained Will initiate PT and OT today and likely discharge home tomorrow DC Telemetry also Review of Systems General: Fatigue, Malaise Neurological: Weakness Objective Exam Last Set of Vital Signs Vital Signs Date Time Temp Pulse Resp B/P (MAP) Pulse Ox O2 Delivery O2 Flow Rate FiO2 01/01/21 16:09 36.4 53 20 118/56 (76) 95 Room Air 12/31/20 15:30 3 Capillary Refill : Less Than 3 SecondsLess Than 3 Seconds I&O Intake and Output 01/01/21 00:00 Intake Total 120 ml Output Total 1200 ml Balance -1080 ml Intake Oral 120 ml Output Urine Total 1200 ml # Voids 4 # Bowel Movements 4 General: Alert, Oriented X3, Cooperative, No Acute Distress Lungs: Clear to Auscultation, Normal Air Movement Heart: Regular Rate, Normal S1, Normal S2, No Murmurs Psych/Mental Status: Mental Status NL, Mood NL Results Lab Laboratory Tests 01/01/21 04:50: White Blood Count 7.2, Red Blood Count 4.01, Hemoglobin 11.7, Hematocrit 35, Mean Corpuscular Volume 87, Mean Corpuscular Hemoglobin 29, Mean Corpuscular Hemoglobin Concent 33, Red Cell Distribution Width 12.2, Platelet Count 241, Mean Platelet Volume 10.0, Immature Granulocyte % (Auto) 0, Neutrophils (%) (Auto) 84H, Lymphocytes (%) (Auto) 13, Monocytes (%) (Auto) 3, Eosinophils (%) (Auto) 0, Basophils (%) (Auto) 0, Neutrophils # (Auto) 6.0, Lymphocytes # (Auto) 0.9L, Monocytes # (Auto) 0.2, Eosinophils # (Auto) 0.0, Basophils # (Auto) 0.0, Immature Granulocyte # (Auto) 0.0, Percent Immature Platelet Fraction 2.9, Sodium Level 137, Potassium Level 4.2, Chloride Level 108H, Carbon Dioxide Level 21, Anion Gap 8, Blood Urea Nitrogen 11, Creatinine 0.75, Estimat Glomerular Filtration Rate 76, BUN/Creatinine Ratio 15, Glucose Level 150H, Calcium Level 8.5, Corrected Calcium 9.2, Total Bilirubin 0.6, Aspartate Amino Transf (AST/SGOT) 66H, Alanine Aminotransferase (ALT/SGPT) 259H, Alkaline Phosphatase 99, Total Protein 5.3L, Albumin 3.1L Microbiology 12/31/20 Gram Stain - Final, Resulted 12/31/20 Anaerobic Culture, Resulted Pending 12/31/20 Surgical Culture - Preliminary, Resulted Staphylococcus aureus 12/30/20 MRSA Screen - Final, Complete MRSA not isolated Assessment/Plan Assessment/Plan Assess & Plan/Chief Complaint 01/01/2021: IV antibiotics DC telemetry Hep-Lock IV fluid PT and OT Discharge home tomorrow 12/31/2020: Incision and drainage of labial abscess today Antibiotics Supportive care Diagnosis/Problems Diagnosis/Problems (1) Acute pancreatitis Status: Acute Qualifiers: Qualified Codes: K85.90 - Acute pancreatitis without necrosis or infection, unspecified (2) Nausea & vomiting Status: Acute Qualifiers: Qualified Codes: R11.2 - Nausea with vomiting, unspecified (3) Atypical chest pain Status: Acute Clinical Quality Measures Admission Status Admission Dx Assessment: Pancreatitis History of diverticulosis Labial abscess Plan: Dr. Astudillo consult Cardiology consult KYRA SOLORIO DO Jan 01, 2021 16:52
[2021-01-01] MEDS: APIXABAN 5 MG (ELIQUIS) TABLET PO SCH (19:55)
[2021-01-01 20:26] VITALS: BP 116/56
[2021-01-02] VITALS: BP 98/54
[2021-01-02 04:39] VITALS: BP 102/54
[2021-01-02] MEDS: metroNIDAZOLE 500MG/100ML IVPB 100 ML IV SCH (05:51)
[2021-01-02 06:42] LABS: BASOPHILS % (AUTO) 0 % (0-10); EOSINOPHILS # (AUTO) 0.1 10^3/uL (0.0-0.3); EOSINOPHILS % (AUTO) 1 % (0-10); HEMATOCRIT 34 % (35-52); LYMPHOCYTES # (AUTO) 2.8 10^3/uL (1.0-4.0); LYMPHOCYTES % (AUTO) 26 % (12-44); MEAN CORPUSCULAR HEMOGLOBIN 29 pg (25-34); MEAN CORPUSCULAR HGB CONC 33 g/dL (32-36); MEAN CORPUSCULAR VOLUME 88 fL (80-99); MEAN PLATELET VOLUME 9.9 fL (9.0-12.2); MONOCYTES # (AUTO) 0.7 10^3/uL (0.0-1.0); MONOCYTES % (AUTO) 7 % (0-12); NEUTROPHILS # (AUTO) 7.1 10^3/uL (1.8-7.8); NEUTROPHILS % (AUTO) 66 % (42-75); PLATELET COUNT 245 10^3/uL (130-400); WHITE BLOOD COUNT 10.8 10^3/uL (4.3-11.0)
[2021-01-02 06:56] LABS: BILIRUBIN,TOTAL 0.5 MG/DL (0.1-1.0); CALCIUM 8.5 MG/DL (8.5-10.1); CREATININE SERUM 0.74 MG/DL (0.60-1.30); POTASSIUM 3.7 MMOL/L (3.6-5.0)
--- NOTE | 2021-01-02 07:46 | Progress Note - Surgery ---
LIZ BOWMAN 01/02/21 0746: Subjective Date Seen by a Provider: Jan 02, 2021 Time Seen by a Provider: 07:00 Subjective/Events-last exam Pt laying comfortably today in bed. Denies any pain, feer, chills, vomiting, diarrhea, or chest pain. Last bowel movement today at 03:00. Denies any bowel/urinary complaints. Pt reports that she is expecting to be discharged today. Review of Systems General: No Chills, No Fatigue; Appetite HEENT: No Head Aches, No Visual Changes, No Sore Throat Pulmonary: No Dyspnea, No Cough Cardiovascular: No: Chest Pain, Palpitations, Edema Gastrointestinal: No: Nausea, Vomiting, Diarrhea Genitourinary: No Dysuria, No Frequency, No Incontinence Musculoskeletal: No: neck pain, back pain, leg pain Neurological: No: Weakness, Numbness, Seizures Objective Exam Vital Signs Date Time Temp Pulse Resp B/P (MAP) Pulse Ox O2 Delivery O2 Flow Rate FiO2 01/02/21 04:39 36.6 51 18 102/54 (70) 95 Room Air 01/02/21 00:00 36.5 54 18 98/54 (69) 98 Room Air 01/01/21 20:26 36.8 57 18 116/56 (76) 94 Room Air 01/01/21 19:55 Room Air 01/01/21 16:09 36.4 53 20 118/56 (76) 95 Room Air 01/01/21 11:41 36.0 58 18 139/67 (91) 96 Room Air 01/01/21 08:00 Room Air 01/01/21 08:00 36.0 50 20 120/59 (79) 94 Room Air I & O 01/02/21 07:00 Intake Total 1544.5 ml Output Total 550 ml Balance 994.5 ml Capillary Refill : Less Than 3 SecondsLess Than 3 Seconds General Appearance: No Apparent Distress, Obese HEENT: PERRL/EOMI, Normal ENT Inspection Neck: Normal Inspection, Non Tender, Supple Respiratory: Chest Non Tender, No Accessory Muscle Use, No Respiratory Distress Cardiovascular: Regular Rate, Rhythm Gastrointestinal: non tender, soft Extremity: Non Tender, No Calf Tenderness Neurologic/Psychiatric: Alert, Oriented x3, Normal Mood/Affect Skin: Normal Color Results Lab Laboratory Tests 01/02/21 06:18: White Blood Count 10.8, Red Blood Count 3.85, Hemoglobin 11.0L, Hematocrit 34L, Mean Corpuscular Volume 88, Mean Corpuscular Hemoglobin 29, Mean Corpuscular Hemoglobin Concent 33, Red Cell Distribution Width 12.7, Platelet Count 245, Mean Platelet Volume 9.9, Immature Granulocyte % (Auto) 1, Neutrophils (%) (Auto) 66, Lymphocytes (%) (Auto) 26, Monocytes (%) (Auto) 7, Eosinophils (%) (Auto) 1, Basophils (%) (Auto) 0, Neutrophils # (Auto) 7.1, Lymphocytes # (Auto) 2.8, Monocytes # (Auto) 0.7, Eosinophils # (Auto) 0.1, Basophils # (Auto) 0.0, Immature Granulocyte # (Auto) 0.1, Sodium Level 138, Potassium Level 3.7, Chloride Level 111H, Carbon Dioxide Level 21, Anion Gap 6, Blood Urea Nitrogen 14, Creatinine 0.74, Estimat Glomerular Filtration Rate 77, BUN/Creatinine Ratio 19, Glucose Level 102, Calcium Level 8.5, Corrected Calcium 9.3, Total Bilirubin 0.5, Aspartate Amino Transf (AST/SGOT) 39H, Alanine Aminotransferase (ALT/SGPT) 165H, Alkaline Phosphatase 80, Total Protein 5.0L, Albumin 3.0L Microbiology 12/31/20 Gram Stain - Final, Resulted 12/31/20 Anaerobic Culture, Resulted Pending 12/31/20 Surgical Culture - Preliminary, Resulted Staphylococcus aureus 12/30/20 MRSA Screen - Final, Complete MRSA not isolated Assessment/Plan Assessment/Plan Assessment/Plan Assessment: Left Labial abscess acute diverticulitis atrial fib acute pancreatitis intermediate anticoagulation 01/02/21: Discharge today after evaluation Continue home meds Follow up in 2 weeks if any symptoms occur 01/01/2021: IV antibiotics DC telemetry Hep-Lock IV fluid PT and OT Discharge home tomorrow 12/31/2020: Incision and drainage of labial abscess today Antibiotics Supportive care ALAN SHERMAN DO 01/02/212110: Assessment/Plan Assessment/Plan Assessment/Plan Was not able to see before discharge, being discharged. Discussed with Dr. Bartolo zendejas with discharge and will follow up wound as outpatient. Supervisory-Addendum Brief Verification & Attestation Participated in pt care: other Personally performed: other Care discussed with: Medical Student Procedures: n/a Paitent discharged prior to my seeing. I discussed care with Dr. Mcfarland, agree with discharge and outpatient followup. LIZ BOWMAN Jan 02, 2021 07:46 ALAN SHERMAN DO Jan 02, 2021 21:11
[2021-01-02 08:00] VITALS: BP 111/69
[2021-01-02] MEDS: DOXYCYCLINE INJECTION 100 MG in NS (IVPB) 100 ML IV SCH (08:48)
[2021-01-02] MEDS: DRONEDARONE TABLET 400 MG TABLET PO SCH (08:55)
[2021-01-02] MEDS: NS IV SCH (08:55)
[2021-01-02] MEDS: LEVETIRACETAM IV SCH (08:55)
[2021-01-02] MEDS: APIXABAN 5 MG (ELIQUIS) TABLET PO SCH (08:55)
[2021-01-02] MEDS ORDERED: VANCOMYCIN 1500 MG/NS 500 ML IVPB IV SCH ×2 (09:00)
--- NOTE | 2021-01-02 10:20 | Progress Note ---
ELMO GIORDANO 01/02/21 1020: Subjective Date Seen by a Provider: Jan 02, 2021 Time Seen by a Provider: 07:10 Subjective/Events-last exam Casandra states her diarrhea has resolved. Worked with PT and OT yesterday and says she was grumpy at the time but able to do everything. She denies abdominal pain, states pain from I&D site of her vulvar abscess is improving. Denies fevers, chills. Objective Exam Last Set of Vital Signs Vital Signs Date Time Temp Pulse Resp B/P (MAP) Pulse Ox O2 Delivery O2 Flow Rate FiO2 01/02/21 08:00 36.6 53 20 111/69 (83) 96 Room Air 12/31/20 15:30 3 Capillary Refill : Less Than 3 SecondsLess Than 3 Seconds I&O Intake and Output 01/02/21 00:00 Intake Total 2664.5 ml Output Total 850 ml Balance 1814.5 ml Intake Oral 1362 ml IV Total 1302.5 ml Output Urine Total 850 ml # Voids 3 # Bowel Movements 4 General: Alert, Oriented X3 HEENT: Atraumatic, EOMI, Mucous Memb Moist/[place] Lungs: Clear to Auscultation, Normal Air Movement Heart: Regular Rate, No Murmurs Abdomen: Normal Bowel Sounds, Soft, No Tenderness Extremities: Normal Pulses Results Lab Laboratory Tests 01/02/21 06:18: White Blood Count 10.8, Red Blood Count 3.85, Hemoglobin 11.0L, Hematocrit 34L, Mean Corpuscular Volume 88, Mean Corpuscular Hemoglobin 29, Mean Corpuscular Hemoglobin Concent 33, Red Cell Distribution Width 12.7, Platelet Count 245, Me an Platelet Volume 9.9, Immature Granulocyte % (Auto) 1, Neutrophils (%) (Auto) 66, Lymphocytes (%) (Auto) 26, Monocytes (%) (Auto) 7, Eosinophils (%) (Auto) 1, Basophils (%) (Auto) 0, Neutrophils # (Auto) 7.1, Lymphocytes # (Auto) 2.8, Monocytes # (Auto) 0.7, Eosinophils # (Auto) 0.1, Basophils # (Auto) 0.0, Immature Granulocyte # (Auto) 0.1, Sodium Level 138, Potassium Level 3.7, Chloride Level 111H, Carbon Dioxide Level 21, Anion Gap 6, Blood Urea Nitrogen 14, Creatinine 0.74, Estimat Glomerular Filtration Rate 77, BUN/Creatinine Ratio 19, Glucose Level 102, Calcium Level 8.5, Corrected Calcium 9.3, Total Bilirubin 0.5, Aspartate Amino Transf (AST/SGOT) 39H, Alanine Aminotransferase (ALT/SGPT) 165H, Alkaline Phosphatase 80, Total Protein 5.0L, Albumin 3.0L Microbiology 12/31/20 Gram Stain - Final, Resulted 12/31/20 Anaerobic Culture, Resulted Pending 12/31/20 Surgical Culture - Preliminary, Resulted Staphylococcus aureus 12/30/20 MRSA Screen - Final, Complete MRSA not isolated Assessment/Plan Assessment/Plan Assess & Plan/Chief Complaint recent pancreatitis, diverticulitis -on Flagyl, Rocephin, Doxycycline MRSA + vulvar abscess -drained 12/30 -on Vancomycin Patient clinically appears well. Will consult pharmacist regarding PO abx and discharge home. KATELYNN SOLORIO DO 01/03/21 0556: Subjective Subjective/Events-last exam Discharge is planned Supervisory-Addendum Brief Verification & Attestation Participated in pt care: history, MDM, physical Personally performed: exam, history, MDM, supervision of care Care discussed with: Medical Student Procedures: n/a Results interpretation: Verified all documentation Verification and Attestation of Medical Student E/M Service A medical student performed and documented this service in my presence. I reviewed and verified all information documented by the medical student and made modifications to such information, when appropriate. I personally performed the physical exam and medical decision making. Katelynn Solorio Jan 03, 2021,05:55 ELMO GIORDANO Jan 02, 2021 10:20 KATELYNN SOLORIO DO Jan 03, 2021 05:56
--- NOTE | 2021-01-02 10:52 | Progress Note - Cardiology ---
Cardiology SOAP Progress Note Subjective: Gen malaise and weakness No cp or palp or syncope No shortness of breath at rest No n/v/d Labial discomfort much improved Objective: I&O/Vital Signs 01/02/21 01/02/21 01/02/21 01/02/21 00:00 04:39 08:00 08:00 Temp 36.5 36.6 36.6 Pulse 54 51 53 Resp 18 18 20 B/P (MAP) 98/54 (69) 102/54 (70) 111/69 (83) Pulse Ox 98 95 96 96 O2 Delivery Room Air Room Air Room Air Room Air O2 Flow Rate 4.00 01/02/21 00:00 Intake Total 1142 ml Output Total 250 ml Balance 892 ml Weight (Pounds): 196 Weight (Ounces): 2.0 Weight (Calculated Kilograms): [id number] Constitutional: AAO x 3, well-developed, well-nourished Respiratory: No accessory muscle use; other (fair to good, bilateral air entry; somewhat diminished at the bases) Cardiovascular: irregularly irregular, S1 and S2, systolic murmur (soft ELISEO at card base) Gastrointestional: No tender; soft; No guarding, No rebound; audible bowel sounds Genital/Rectal: other (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 Patient with erythematous changes to the left labia with some slight skin breakdown surrounding induration and I believe there is some fluctuance to the area as well but minimal) Extremities: No clubbing, No cyanosis, No significant edema Neurologic/Psychiatric: oriented x 3, other (moves all limbs equally) Skin: No rash on exposed areas, No ulcerations on exposed areas Results/Procedures: Labs Laboratory Tests 01/02/21 06:18: White Blood Count 10.8, Red Blood Count 3.85, Hemoglobin 11.0L, Hematocrit 34L, Mean Corpuscular Volume 88, Mean Corpuscular Hemoglobin 29, Mean Corpuscular Hemoglobin Concent 33, Red Cell Distribution Width 12.7, Platelet Count 245, Mean Platelet Volume 9.9, Immature Granulocyte % (Auto) 1, Neutrophils (%) (Auto) 66, Lymphocytes (%) (Auto) 26, Monocytes (%) (Auto) 7, Eosinophils (%) (Auto) 1, Basophils (%) (Auto) 0, Neutrophils # (Auto) 7.1, Lymphocytes # (Auto) 2.8, Monocytes # (Auto) 0.7, Eosinophils # (Auto) 0.1, Basophils # (Auto) 0.0, Immature Granulocyte # (Auto) 0.1, Sodium Level 138, Potassium Level 3.7, Chloride Level 111H, Carbon Dioxide Level 21, Anion Gap 6, Blood Urea Nitrogen 14, Creatinine 0.74, Estimat Glomerular Filtration Rate 77, BUN/Creatinine Ratio 19, Glucose Level 102, Calcium Level 8.5, Corrected Calcium 9.3, Total Bilirubin 0.5, Aspartate Amino Transf (AST/SGOT) 39H, Alanine Aminotransferase (ALT/SGPT) 165H, Alkaline Phosphatase 80, Total Protein 5.0L, Albumin 3.0L Microbiology 12/31/20 Gram Stain - Final, Resulted 12/31/20 Anaerobic Culture, Resulted Pending 12/31/20 Surgical Culture - Preliminary, Resulted Staphylococcus aureus 12/30/20 MRSA Screen - Final, Complete MRSA not isolated Laboratory Tests 01/01/21 04:50 01/02/21 06:18 A/P: Assessment: Labial abscess/cyst, treated surgically on 12/31/20 and managed by the Surgical svce Pancreatitis, managed by the Med Svce Mitral valve dz - H/O mitral valve repair with a 31 mm flexible posterior annuloplasty band. The tricuspid annulus was inspected and was large, it was reduced with a DeVega annuloplasty suture by Dr. Gloria at [facility] October 27, 2018 - Echocardiogram of 07-23-20 showed LVEF 70-75%. Grade 2 diastolic dysfunction. LA and RA mod dilated. There appears to be a mitral annuplasty ring. No signif MR. Mild stenosis. PASP 35-40 mmHg Chronic atrial fibrillation: - ILR implanted on 07-28-[address] West - H/O MAZE procedure at [facility] October 2018 - S/P cardioversion on 02-28-[address] West - ILR transmission of Feb 2020 showed a-fib with controlled rate - Referred to Dr. Bernard at [facility] for consideration of ablation. She saw Dr Felipe on 09/23/20 who did not recommend ablation and recommended continuation of current management (that includes dronedarone) - OAC with Eliquis CAD - H/O cardiac cath September 24, [address] Garcia at [facility] showed non-obstructive dz - MPI of 10-11-20 showed no evidence of ischemia or infarction. LVEF 74% HTN - controlled HLD - statin tx - managed by PCP Plan: * Eliquis resumed * Monitor labs * Outpt cardiac f/u advised NETTIE GLEASON MD FACP [facility] Jan 02, 2021 10:52
[2021-01-02] MEDS ORDERED: LINE600T12 PO (11:39)
[2021-01-02] MEDS ORDERED: CEFD300C3 PO (11:39)
--- NOTE | 2021-01-02 11:39 | Discharge Summary ---
Diagnosis/Chief Complaint Date of Admission Dec 30, 2020 at 00:23 Date of Discharge Discharge Date: Jan 02, 2021 Discharge Diagnosis Acute Pancreatitis Transaminitis Elevated Alk Phos Left labial abscess Nausea/Vomiting Chest pain Diverticulitis recently Hiatal Hernia HTN Afib Valvular heart disease GERD Reason Hospital Visit CC: Abdominal pain with nausea and vomiting and chest pain HPI: This is a 75yoWF clinic pt of Dr. Ellington and Dr. Pack cardiology who has a PMH of recurrent diverticulitis who came to the ER with chest pain after taking Ultram and Doxycycline for a labial abcess by Dr. Evita Rolon of [facility]. She was covid negative, flu negative, and has a very complex medical history that is requiring cardiology consultation. I did consult Dr. Ana grider for labial abscess and antibiotic changes will be initiated and picc line was placed and elevated liver enzymes will be evaluated. Abdominal ultrasound was negative. Discharge Summary Discharge Physical Examination Allergies: Coded Allergies: aspirin (Verified Allergy, Intermediate, Hives, 12/29/20) Some kinds of chewable aspirin clavulanic acid (Verified Allergy, Unknown, 01/06/18) codeine (Verified Allergy, Unknown, 01/06/18) hydrocodone (Verified Allergy, Unknown, 01/06/18) oxycodone (Verified Allergy, Unknown, 01/06/18) Vitals & I&Os Vital Signs Date Time Temp Pulse Resp B/P (MAP) Pulse Ox O2 Delivery O2 Flow Rate FiO2 01/02/21 11:44 36.5 50 20 120/72 (88) 96 Room Air 01/02/21 08:00 4.00 General Appearance: Alert, Oriented X3, Cooperative Respiratory: Clear to Auscultation Cardiovascular: Regular Rate Neuro: Normal Gait, Normal Speech, Strength at 5/5 X4 Ext Psych/Mental Status: Mental Status NL Hospital Course Was the Problem List Reviewed?: Yes Hospital Course: Casandra Reno is a 75 y.o. F with history of brain cancer, paroxysmal A-fib hospitalized for recent acute pancreatitis with a labial infection as well as r ecent diverticulitis. The patient failed outpatient antibiotics and antibiotic coverage in the hospital was stepped up to ceftriaxone, doxycycline, and metronidazole. Her labial infection developed an abscess which was incised and drained, and culture indicated MRSA+ so vancomycin was added. The patient had rapid clinical improvement with resolution of symptoms, labs indicating res olution of pancreatitis, and fully independent functioning by PT and OT evaluation. The patient was switched to oral antibiotics and discharged home in stable condition. ELMO GIORDANO Labs (last 24 hrs) Laboratory Tests 12/29/20 19:25: White Blood Count 11.6H, Red Blood Count 4.86, Hemoglobin 14.0, Hematocrit 43, Mean Corpuscular Volume 87, Mean Corpuscular Hemoglobin 29, Mean Corpuscular Hemoglobin Concent 33, Red Cell Distribution Width 12.4, Platelet Count 324, Mean Platelet Volume 9.7, Immature Granulocyte % (Auto) 0, Neutrophils (%) (Auto) 73, Lymphocytes (%) (Auto) 17, Monocytes (%) (Auto) 8, Eosinophils (%) (Auto) 1, Basophils (%) (Auto) 1, Neutrophils # (Auto) 8.5H, Lymphocytes # (Auto) 2.0, Monocytes # (Auto) 0.9, Eosinophils # (Auto) 0.1, Basophils # (Auto) 0.1, Immature Granulocyte # (Auto) 0.0, Prothrombin Time 16.4H, INR Comment 1.3, Activated Partial Thromboplast Time 43H, Sodium Level 136, Potassium Level 4.1, Chloride Level 104, Carbon Dioxide Level 21, Anion Gap 11, Blood Urea Nitrogen 10, Creatinine 1.07, Estimat Glomerular Filtration Rate 50, BUN/Creatinine Ratio 9, Glucose Level 137H, Calcium Level 9.6, Corrected Calcium 9.6, Magnesium Level 1.8, Total Bilirubin 1.0, Aspartate Amino Transf (AST/SGOT) 55H, Alanine Aminotransferase (ALT/SGPT) 36, Alkaline Phosphatase 73, Myoglobin 28.6, Troponin I < 0.028, Total Protein 6.9, Albumin 4.0, Lipase 366H 12/29/20 19:33: Influenza Type A (RT-PCR) Not Detected, Influenza Type B (RT-PCR) Not Detected, SARS-CoV-2 RNA (RT-PCR) Not Detected 12/30/20 05:37: White Blood Count 8.5, Red Blood Count 4.30, Hemoglobin 12.4, Hematocrit 39, Mean Corpuscular Volume 90, Mean Corpuscular Hemoglobin 29, Mean Corpuscular Hemoglobin Concent 32, Red Cell Distribution Width 12.6, Platelet Count 260, Mean Platelet Volume 9.9, Immature Granulocyte % (Auto) 0, Neutrophils (%) (Auto) 78H, Lymphocytes (%) (Auto) 13, Monocytes (%) (Auto) 8, Eosinophils (%) (Auto) 0, Basophils (%) (Auto) 1, Neutrophils # (Auto) 6.6, Lymphocytes # (Auto) 1.1, Monocytes # (Auto) 0.7, Eosinophils # (Auto) 0.0, Basophils # (Auto) 0.0, Immature Granulocyte # (Auto) 0.0, Sodium Level 134L, Potassium Level 4.5, Chloride Level 106, Carbon Dioxide Level 21, Anion Gap 7, Blood Urea Nitrogen 9, Creatinine 0.82, Estimat Glomerular Filtration Rate 68, BUN/Creatinine Ratio 11, Glucose Level 109H, Calcium Level 8.9, Corrected Calcium 9.3, Total Bilirubin 1.2H, Aspartate Amino Transf (AST/SGOT) 976H, Alanine Aminotransferase (ALT/SGPT) 789#H, Alkaline Phosphatase 149H, Total Protein 6.0L, Albumin 3.5, Lipase 167H, Triglycerides Level 34, Cholesterol Level 91, LDL Cholesterol Direct 48, VLDL Cholesterol 7, HDL Cholesterol 35L, Hepatitis A IgM Antibody Non-Reactive, Hepatitis B Surface Antigen Non-Reactive, Hepatitis B Core IgM Antibody Non-Reactive, Hepatitis C Antibody Non-Reactive 12/30/20 14:45: Influenza Type A (RT-PCR) Not Detected, Influenza Type B (RT-PCR) Not Detected, SARS-CoV-2 RNA (RT-PCR) Not Detected 12/31/20 05:40: White Blood Count 7.6, Red Blood Count 4.29, Hemoglobin 12.4, Hematocrit 38, Mean Corpuscular Volume 88, Mean Corpuscular Hemoglobin 29, Mean Corpuscular Hemoglobin Concent 33, Red Cell Distribution Width 12.7, Platelet Count 261, Mean Platelet Volume 9.9, Immature Granulocyte % (Auto) 0, Neutrophils (%) (Auto) 67, Lymphocytes (%) (Auto) 20, Monocytes (%) (Auto) 9, Eosinophils (%) (Auto) 3, Basophils (%) (Auto) 1, Neutrophils # (Auto) 5.1, Lymphocytes # (Auto) 1.5, Monocytes # (Auto) 0.7, Eosinophils # (Auto) 0.2, Basophils # (Auto) 0.1, Immature Granulocyte # (Auto) 0.0, Sodium Level 136, Potassium Level 4.0, Chloride Level 106, Carbon Dioxide Level 21, Anion Gap 9, Blood Urea Nitrogen 7, Creatinine 0.85, Estimat Glomerular Filtration Rate 65, BUN/Creatinine Ratio 8, Glucose Level 89, Calcium Level 8.6, Corrected Calcium 9.2, Total Bilirubin 1.0, Aspartate Amino Transf (AST/SGOT) 231H, Alanine Aminotransferase (ALT/SGPT) 432H , Alkaline Phosphatase 128, Total Protein 5.5L, Albumin 3.3, Lipase 7L 01/01/21 04:50: White Blood Count 7.2, Red Blood Count 4.01, Hemoglobin 11.7, Hematocrit 35, Mean Corpuscular Volume 87, Mean Corpuscular Hemoglobin 29, Mean Corpuscular Hemoglobin Concent 33, Red Cell Distribution Width 12.2, Platelet Count 241, Mean Platelet Volume 10.0, Immature Granulocyte % (Auto) 0, Neutrophils (%) (Auto) 84H, Lymphocytes (%) (Auto) 13, Monocytes (%) (Auto) 3, Eosinophils (%) (Auto) 0, Basophils (%) (Auto) 0, Neutrophils # (Auto) 6.0, Lymphocytes # (Auto) 0.9L, Monocytes # (Auto) 0.2, Eosinophils # (Auto) 0.0, Basophils # (Auto) 0.0, Immature Granulocyte # (Auto) 0.0, Sodium Level 137, Potassium Level 4.2, Chloride Level 108H, Carbon Dioxide Level 21, Anion Gap 8, Blood Urea Nitrogen 11, Creatinine 0.75, Estimat Glomerular Filtration Rate 76, BUN/Creatinine Ratio 15, Glucose Level 150H, Calcium Level 8.5, Corrected Calcium 9.2, Total Bilirubin 0.6, Aspartate Amino Transf (AST/SGOT) 66H, Alanine Aminotransferase (ALT/SGPT) 259H, Alkaline Phosphatase 99, Total Protein 5.3L, Albumin 3.1L, Percent Immature Platelet Fraction 2.9 01/02/21 06:18: White Blood Count 10.8, Red Blood Count 3.85, Hemoglobin 11.0L, Hematocrit 34L, Mean Corpuscular Volume 88, Mean Corpuscular Hemoglobin 29, Mean Corpuscular Hemoglobin Concent 33, Red Cell Distribution Width 12.7, Platelet Count 245, Mean Platelet Volume 9.9, Immature Granulocyte % (Auto) 1, Neutrophils (%) (Auto) 66, Lymphocytes (%) (Auto) 26, Monocytes (%) (Auto) 7, Eosinophils (%) (Auto) 1, Basophils (%) (Auto) 0, Neutrophils # (Auto) 7.1, Lymphocytes # (Auto) 2.8, Monocytes # (Auto) 0.7, Eosinophils # (Auto) 0.1, Basophils # (Auto) 0.0, Immature Granulocyte # (Auto) 0.1, Sodium Level 138, Potassium Level 3.7, Chloride Level 111H, Carbon Dioxide Level 21, Anion Gap 6, Blood Urea Nitrogen 14, Creatinine 0.74, Estimat Glomerular Filtration Rate 77, BUN/Creatinine Ratio 19, Glucose Level 102, Calcium Level 8.5, Corrected Calcium 9.3, Total Bilirubin 0.5, Aspartate Amino Transf (AST/SGOT) 39H, Alanine Aminotransferase (ALT/SGPT) 165H, Alkaline Phosphatase 80, Total Protein 5.0L, Albumin 3.0L Microbiology 12/31/20 Gram Stain - Final, Resulted 12/31/20 Anaerobic Culture - Preliminary, Resulted No anaerobes isolated 12/31/20 Surgical Culture - Preliminary, Resulted Staphylococcus aureus 12/30/20 MRSA Screen - Final, Complete MRSA not isolated Pending Labs Microbiology Date/Time Source Procedure Growth Status 12/31/20 14:47 Body Site, Not Otherwise Spec. Labia Gram Stain - Final Resulted 12/31/20 14:47 Body Site, Not Otherwise Spec. Labia Anaerobic Culture - Preliminary No anaerobes isolated Resulted 12/31/20 14:47 Surgical Culture - Preliminary Staphylococcus aureus Resulted 12/30/20 14:45 Nasal MRSA Screen - Final MRSA not isolated Complete Laboratory Tests 12/29/20 19:25: White Blood Count 11.6, Red Blood Count 4.86, Hemoglobin 14.0, Hematocrit 43, Mean Corpuscular Volume 87, Mean Corpuscular Hemoglobin 29, Mean Corpuscular Hemoglobin Concent 33, Red Cell Distribution Width 12.4, Platelet Count 324, Mean Platelet Volume 9.7, Immature Granulocyte % (Auto) 0, Neutrophils (%) (Au to) 73, Lymphocytes (%) (Auto) 17, Monocytes (%) (Auto) 8, Eosinophils (%) (Auto) 1, Basophils (%) (Auto) 1, Neutrophils # (Auto) 8.5, Lymphocytes # (Auto) 2.0, Monocytes # (Auto) 0.9, Eosinophils # (Auto) 0.1, Basophils # (Auto) 0.1, Immature Granulocyte # (Auto) 0.0, Prothrombin Time 16.4, INR Comment 1.3, Activated Partial Thromboplast Time 43, Sodium Level 136, Potassium Level 4.1, Chloride Level 104, Carbon Dioxide Level 21, Anion Gap 11, Blood Urea Nitrogen 10, Creatinine 1.07, Estimat Glomerular Filtration Rate 50, BUN/Creatinine Ratio 9, Glucose Level 137, Calcium Level 9.6, Corrected Calcium 9.6, Magnesium Level 1.8, Total Bilirubin 1.0, Aspartate Amino Transf (AST/SGOT) 55, Alanine Aminotransferase (ALT/SGPT) 36, Alkaline Phosphatase 73, Myoglobin 28.6, Troponin I < 0.028, Total Protein 6.9, Albumin 4.0, Lipase 366 12/29/20 19:33: Influenza Type A (RT-PCR) Not Detected, Influenza Type B (RT-PCR) Not Detected, SARS-CoV-2 RNA (RT-PCR) Not Detected 12/30/20 05:37: White Blood Count 8.5, Red Blood Count 4.30, Hemoglobin 12.4, Hematocrit 39, Mean Corpuscular Volume 90, Mean Corpuscular Hemoglobin 29, Mean Corpuscular Hemoglobin Concent 32, Red Cell Distribution Width 12.6, Platelet Count 260, Mean Platelet Volume 9.9, Immature Granulocyte % (Auto) 0, Neutrophils (%) (Auto) 78, Lymphocytes (%) (Auto) 13, Monocytes (%) (Auto) 8, Eosinophils (%) (Auto) 0, Basophils (%) (Auto) 1, Neutrophils # (Auto) 6.6, Lymphocytes # (Auto) 1.1, Monocytes # (Auto) 0.7, Eosinophils # (Auto) 0.0, Basophils # (Auto) 0.0, Immature Granulocyte # (Auto) 0.0, Sodium Level 134, Potassium Level 4.5, Chloride Level 106, Carbon Dioxide Level 21, Anion Gap 7, Blood Urea Nitrogen 9, Creatinine 0.82, Estimat Glomerular Filtration Rate 68, BUN/Creatinine Ratio 11, Glucose Level 109, Calcium Level 8.9, Corrected Calcium 9.3, Total Bilirubin 1.2, Aspartate Amino Transf (AST/SGOT) 976, Alanine Aminotransferase (ALT/SGPT) 789, Alkaline Phosphatase 149, Total Protein 6.0, Albumin 3.5, Lipase 167, Triglycerides Level 34, Cholesterol Level 91, LDL Cholesterol Direct 48, VLDL Cholesterol 7, HDL Cholesterol 35, Hepatitis A IgM Antibody Non-Reactive, Hepatitis B Surface Antigen Non-Reactive, Hepatitis B Core IgM Antibody Non- Reactive, Hepatitis C Antibody Non-Reactive 12/30/20 14:45: Influenza Type A (RT-PCR) Not Detected, Influenza Type B (RT-PCR) Not Detected, SARS-CoV-2 RNA (RT-PCR) Not Detected 12/31/20 05:40: White Blood Count 7.6, Red Blood Count 4.29, Hemoglobin 12.4, Hematocrit 38, Mean Corpuscular Volume 88, Mean Corpuscular Hemoglobin 29, Mean Corpuscular Hemoglobin Concent 33, Red Cell Distribution Width 12.7, Platelet Count 261, Mean Platelet Volume 9.9, Immature Granulocyte % (Auto) 0, Neutrophils (%) (Auto) 67, Lymphocytes (%) (Auto) 20, Monocytes (%) (Auto) 9, Eosinophils (%) (Auto) 3, Basophils (%) (Auto) 1, Neutrophils # (Auto) 5.1, Lymphocytes # (Auto) 1.5, Monocytes # (Auto) 0.7, Eosinophils # (Auto) 0.2, Basophils # (Auto) 0.1, Immature Granulocyte # (Auto) 0.0, Sodium Level 136, Potassium Level 4.0, Chloride Level 106, Carbon Dioxide Level 21, Anion Gap 9, Blood Urea Nitrogen 7, Creatinine 0.85, Estimat Glomerular Filtration Rate 65, BUN/Creatinine Ratio 8, Glucose Level 89, Calcium Level 8.6, Corrected Calcium 9.2, Total Bilirubin 1.0, Aspartate Amino Transf (AST/SGOT) 231, Alanine Aminotransferase (ALT/SGPT) 432, Alkaline Phosphatase 128, Total Protein 5.5, Albumin 3.3, Lipase 7 01/01/21 04:50: White Blood Count 7.2, Red Blood Count 4.01, Hemoglobin 11.7, Hematocrit 35, Mean Corpuscular Volume 87, Mean Corpuscular Hemoglobin 29, Mean Corpuscular Hemoglobin Concent 33, Red Cell Distribution Width 12.2, Platelet Count 241, Mean Platelet Volume 10.0, Immature Granulocyte % (Auto) 0, Neutrophils (%) (Auto) 84, Lymphocytes (%) (Auto) 13, Monocytes (%) (Auto) 3, Eosinophils (%) (Auto) 0, Basophils (%) (Auto) 0, Neutrophils # (Auto) 6.0, Lymphocytes # (Auto) 0.9, Monocytes # (Auto) 0.2, Eosinophils # (Auto) 0.0, Basophils # (Auto) 0.0, Immature Granulocyte # (Auto) 0.0, Sodium Level 137, Potassium Level 4.2, Chloride Level 108, Carbon Dioxide Level 21, Anion Gap 8, Blood Urea Nitrogen 11, Creatinine 0.75, Estimat Glomerular Filtration Rate 76, BUN/Creatinine Ratio 15, Glucose Level 150, Calcium Level 8.5, Corrected Calcium 9.2, Total Bilirubin 0.6, Aspartate Amino Transf (AST/SGOT) 66, Alanine Aminotransferase (ALT/SGPT) 259, Alkaline Phosphatase 99, Total Protein 5.3, Albumin 3.1, Percent Immature Platelet Fraction 2.9 01/02/21 06:18: White Blood Count 10.8, Red Blood Count 3.85, Hemoglobin 11.0, Hematocrit 34, Mean Corpuscular Volume 88, Mean Corpuscular Hemoglobin 29, Mean Corpuscular Hemoglobin Concent 33, Red Cell Distribution Width 12.7, Platelet Count 245, Mean Platelet Volume 9.9, Immature Granulocyte % (Auto) 1, Neutrophils (%) (Auto) 66, Lymphocytes (%) (Auto) 26, Monocytes (%) (Auto) 7, Eosinophils (%) (Auto) 1, Basophils (%) (Auto) 0, Neutrophils # (Auto) 7.1, Lymphocytes # (Auto) 2.8, Monocytes # (Auto) 0.7, Eosinophils # (Auto) 0.1, Basophils # (Auto) 0.0, Immature Granulocyte # (Auto) 0.1, Sodium Level 138, Potassium Level 3.7, Chloride Level 111, Carbon Dioxide Level 21, Anion Gap 6, Blood Urea Nitrogen 14, Creatinine 0.74, Estimat Glomerular Filtration Rate 77, BUN/Creatinine Ratio 19, Glucose Level 102, Calcium Level 8.5, Corrected Calcium 9.3, Total Bilirubin 0.5, Aspartate Amino Transf (AST/SGOT) 39, Alanine Aminotransferase (ALT/SGPT) 165, Alkaline Phosphatase 80, Total Protein 5.0, Albumin 3.0 Discharge Home Medications: Active Scripts Active Cefdinir 300 Mg Capsule 300 Mg PO BID Zyvox (Linezolid) 600 Mg Tablet 600 Mg PO BID Reported Tylenol Extra Strength (Acetaminophen) 500 Mg Tablet 1,000 Mg PO HS TAKES 2 (500MG) TABLETS Culturelle (Lactobacillus Rhamnosus GG) 1 Each Capsule 1 Each PO DAILY Dulcolax Stool Softener (Docusate Sodium) 100 Mg Capsule 100 Mg PO DAILY PRN [place] 3-6-9 1,200 mg Softgel (Fish Oil/Borage/Flax/Om3,6,9#1) 1,200 Mg Capsule 1,200 Mg PO HS Vitamin B-12 (Cyanocobalamin (Vitamin B-12)) 500 Mcg Tablet 500 Mcg PO HS Pantoprazole Sodium 40 Mg Tablet.dr 40 Mg PO BID Hydrocortisone 30 Gm Cream.appl 1 Applic TOP PRN PRN Vitamin D3 (Cholecalciferol (Vitamin D3)) 125 Mcg Tablet 125 Mcg PO BID Metoprolol Tartrate 25 Mg Tablet 25 Mg PO DAILY Tramadol HCl 50 Mg Tablet 50 Mg PO Q6H PRN Lisinopril 2.5 Mg Tablet 2.5 Mg PO DAILY Eliquis (Apixaban) 5 Mg Tablet 5 Mg PO BID Multaq (Dronedarone HCl) 400 Mg Tablet 400 Mg PO BID WITH MEALS Atorvastatin Calcium 20 Mg Tablet 20 Mg PO HS Levetiracetam 500 Mg Tablet 250 Mg PO BID TAKES 1/2 (500MG) TABLET Instructions to patient/family Please see electronic discharge instructions given to patient. Diagnosis/Problems Diagnosis/Problems (1) Acute pancreatitis Status: Acute Qualifiers: Qualified Codes: K85.90 - Acute pancreatitis without necrosis or infection, unspecified (2) Nausea & vomiting Status: Acute Qualifiers: Qualified Codes: R11.2 - Nausea with vomiting, unspecified (3) Atypical chest pain Status: Acute KYRA SOLORIO DO Jan 02, 2021 11:39
[2021-01-02 11:44] VITALS: BP 120/72
--- NOTE | 2021-01-02 13:36 | Progress Note ---
ELMO GIORDANO 01/02/21 1336: Progress Note Hospital Course: Casandra Reno is a 75 y.o. F with history of brain cancer, paroxysmal A-fib hospitalized for recent acute pancreatitis with a labial infection as well as recent diverticulitis. The patient failed outpatient antibiotics and antibiotic coverage in the hospital was stepped up to ceftriaxone, doxycycline, and metronidazole. Her labial infection developed an abscess which was incised and drained, and culture indicated MRSA+ so vancomycin was added. The patient had rapid clinical improvement with resolution of symptoms, labs indicating resol ution of pancreatitis, and fully independent functioning by PT and OT evaluation. The patient was switched to oral antibiotics and discharged home in stable condition. KATELYNN SOLORIO DO 01/03/21 0606: Supervisory-Addendum Brief Verification & Attestation Participated in pt care: history, MDM, physical Personally performed: exam, history, MDM, supervision of care Care discussed with: Medical Student Procedures: n/a Results interpretation: Verified all documentation Verification and Attestation of Medical Student E/M Service A medical student performed and documented this service in my presence. I reviewed and verified all information documented by the medical student and made modifications to such information, when appropriate. I personally performed the physical exam and medical decision making. Katelynn Solorio Jan 03, 2021,06:06 ELMO GIORDANO Jan 02, 2021 13:36 KATELYNN SOLORIO DO Jan 03, 2021 06:06
[2021-01-03] MEDS ORDERED: TROUGH ORDER-PHARMACY XX NR (08:00)
== END 2021-01-02 12:30 | disposition home or self-care (01) | DRG 982 ==
LOC: EDUNIT# 19:07 → ER 19:09 → 4TH 12-30 00:23
PROVIDERS: ADMIT Family Medicine; ATTEND Internal Medicine
PROC: 0U9M0ZZ Drainage of Vulva, Open Approach (ICD-10-PCS; 2020-12-31)
PROC: 0UBM0ZZ Excision of Vulva, Open Approach (ICD-10-PCS; principal; 2020-12-31 14:19)
DX: K85.90 Acute pancreatitis without necrosis or infection, unspecified (principal); N76.4 Abscess of vulva; K57.92 Diverticulitis of intestine, part unspecified, without perforation or abscess without bleeding; I38 Endocarditis, valve unspecified; I48.20 Chronic atrial fibrillation, unspecified; K44.9 Diaphragmatic hernia without obstruction or gangrene; I10 Essential (primary) hypertension; K21.9 Gastro-esophageal reflux disease without esophagitis; Z20.822 Contact with and (suspected) exposure to COVID-19; E78.5 Hyperlipidemia, unspecified; I25.10 Atherosclerotic heart disease of native coronary artery without angina pectoris; K57.90 Diverticulosis of intestine, part unspecified, without perforation or abscess without bleeding; R07.89 Other chest pain; Z79.899 Other long term (current) drug therapy; Z87.891 Personal history of nicotine dependence; Z79.01 Long term (current) use of anticoagulants
CPT/HCPCS: 36415; 36569; 71045; 74177; 76705; 76937; 80053; 80061; 80074; 83690; 83735; 83874; 84484; 85025; 85610; 85730; 87070; 87075; 87077; 87081; 87186; 87205; 87636; 93005; 93041; 96361; 96374; 96375; 96376

== ENCOUNTER 2021-01-18 08:55 | Outpatient (RCR) | payer MEDICARE, OTHER ==
[~2021-01-18] VITALS: Ht 165.1 cm; Wt 90.6 kg
[~2021-01-18 08:55] MED LIST changes: +ACET-2267 PO; +CALC-250 PO; +CEFD300C3 PO; +CYAN500T8 PO; +DOCU-164 PO; +HYDR30CR94 TOP; +LACT1CAP39 PO; +LINE600T12 PO; +METO-333 PO; +PANT40TA52 PO; +SULF-11 PO; +TRAM50TA3 PO
[2021-01-18 09:10] VITALS: BP 138/72
[2021-01-19 09:05] VITALS: BP 124/64
== END 2021-01-19 09:16 | disposition home or self-care (01) ==
LOC: SDC 08:55
PROVIDERS: ATTEND Surgery
DX: Z48.00 Encounter for change or removal of nonsurgical wound dressing (principal)
CPT/HCPCS: 99212

== ENCOUNTER 2021-03-23 12:08 | Emergency (ER) | payer MEDICARE, OTHER ==
[~2021-03-23] VITALS: Ht 157.5 cm; Wt 90.7 kg
[~2021-03-23 12:08] MED LIST changes: -LISI2.5T PO; +LISI2.5T13 PO
[2021-03-23] MEDS ORDERED: LIDOCAINE/EPI 1%-1:100,000 (XYLOCAINE) 10 ML INJ ONE (12:30)
[2021-03-23] MEDS ORDERED: LIDOCAINE 4% INJ (XYLOCAINE) 5ML AMP TOP ONE (12:30)
--- NOTE | 2021-03-23 12:31 | ED GU-Female ---
General Chief Complaint: - Reproductive Stated Complaint: VAG CYST Source: patient Exam Limitations: no limitations History of Present Illness Date Seen by Provider: Mar 23, 2021 Time Seen by Provider: 12:29 Initial Comments To ER with a left labial abscess present for 4 days painful and draining for the past 2 days. History of 1 of these prior few months ago for which she underwent incision and drainage in the operating room with Dr. Astudillo. She denies fevers or chills. Timing/Duration: getting worse Severity/Quality: moderate Location: vaginal Radiation: none Activities at Onset: none Prior Genitourinary Problems: none Associated Symptoms: denies symptoms Allergies and Home Medications Allergies Coded Allergies: aspirin (Verified Allergy, Intermediate, Hives, 12/29/20) Some kinds of chewable aspirin clavulanic acid (Verified Allergy, Unknown, 01/06/18) codeine (Verified Allergy, Unknown, 01/06/18) hydrocodone (Verified Allergy, Unknown, 01/06/18) oxycodone (Verified Allergy, Unknown, 01/06/18) Patient Home Medication List Home Medication List Reviewed: Yes Acetaminophen (Tylenol Extra Strength) 500 Mg Tablet, 1,000 MG PO HS, (Reported) Entered as Reported by: JAEL MATTHEW on 12/30/20 1425 Apixaban (Eliquis) 5 Mg Tablet, 5 MG PO BID, (Reported) Entered as Reported by: HENRRY HERNANDEZ on 12/18/19 1347 Atorvastatin Calcium (Atorvastatin Calcium) 20 Mg Tablet, 20 MG PO HS, (Reported) Entered as Reported by: HENRRY HERNANDEZ on 12/18/19 1347 Cefdinir (Cefdinir) 300 Mg Capsule, 300 MG PO BID Prescribed by: KYRA SOLORIO on 01/02/21 1139 Cholecalciferol (Vitamin D3) (Vitamin D3) 125 Mcg Tablet, 125 MCG PO BID, (Reported) Entered as Reported by: JAEL MATTHEW on 12/30/20 1418 Cyanocobalamin (Vitamin B-12) (Vitamin B-12) 500 Mcg Tablet, 500 MCG PO HS, (Reported) Entered as Reported by: JAEL MATTHEW on 12/30/20 1418 Docusate Sodium (Dulcolax Stool Softener) 100 Mg Capsule, 100 MG PO DAILY PRN for CONSTIPATION-1ST LINE, (Reported) Entered as Reported by: JAEL MATTHEW on 12/30/20 141 Doxycycline Hyclate (Doxycycline Hyclate) 100 Mg Tablet, 100 MG PO BID Prescribed by: JAZMINE DOTY on 03/23/21 1249 Dronedarone HCl (Multaq) 400 Mg Tablet, 400 MG PO BID WITH MEALS, (Reported) Entered as Reported by: HENRRY HERNANDEZ on 12/18/19 1347 Fish Oil/Borage/Flax/Om3,6,9#1 ([place] 3-6-9 1,200 mg Softgel) 1,200 Mg Capsule, 1,200 MG PO HS, (Reported) Entered as Reported by: JAEL MATTHEW on 12/30/20 141 Hydrocortisone (Hydrocortisone) 30 Gm Cream.appl, 1 APPLIC TOP PRN PRN for HEMMORRHOID DISCOMFORT, (Reported) Entered as Reported by: JAEL MATTHEW on 12/30/20 141 Lactobacillus Rhamnosus GG (Culturelle) 1 Each Capsule, 1 EACH PO DAILY, (Reported) Entered as Reported by: JAEL MATTHEW on 12/30/20 141 Levetiracetam (Levetiracetam) 500 Mg Tablet, 250 MG PO BID, (Reported) Entered as Reported by: SUE ZHOU on 01/06/18 0852 Linezolid (Zyvox) 600 Mg Tablet, 600 MG PO BID Prescribed by: KYRA SOLORIO on 01/02/21 1139 Lisinopril (Lisinopril) 2.5 Mg Tablet, 2.5 MG PO DAILY, (Reported) Entered as Reported by: HENRRY HERNANDEZ on 12/18/19 1347 Metoprolol Tartrate (Metoprolol Tartrate) 25 Mg Tablet, 25 MG PO DAILY, (Reported) Entered as Reported by: JAEL MATTHEW on 12/30/20 141 Pantoprazole Sodium (Pantoprazole Sodium) 40 Mg Tablet.dr, 40 MG PO BID, (Reported) Entered as Reported by: JAEL MATTHEW on 12/30/20 141 Tramadol HCl (Tramadol HCl) 50 Mg Tablet, 50 MG PO Q6H PRN for PAIN-MODERATE (5- 7), (Reported) Entered as Reported by: JAEL MATTHEW on 12/30/20 1418 Review of Systems Review of Systems Constitutional: see HPI EENTM: see HPI Respiratory: no symptoms reported Cardiovascular: no symptoms reported Genitourinary: no symptoms reported Musculoskeletal: no symptoms reported Skin: no symptoms reported Psychiatric/Neurological: No Symptoms Reported Endocrine: No Symptoms Reported Past Ldkwxqd-Fgfscf-Hkyohp Hx Patient Social History Tobacco Use?: No Smoking Status: Never a Smoker Smokeless Tobacco Frequency: Never a User Use of E-Cig and/or Vaping Cornelio: Never a User Substance use?: No Alcohol Use?: No Pt feels they are or have been: No Immunizations Up To Date First/Initial COVID19 Vaccinat: JULY 2020 Second COVID19 Vaccination Werner: JULY 2020 Third COVID19 Vaccination Date: JULY 2020 Seasonal Allergies Seasonal Allergies: No Past Medical History Surgeries: Yes (BRAIN TUMOR, REMOVAL OF LUMP IN BREAST, MASS REMOVED FROM FACE) Breast, Cardiac, Gallbladder, Hysterectomy, Neurological, Orthopedic, Valve Replacement Respiratory: No Currently Using CPAP: No Currently Using BIPAP: No Cardiac: Yes Atrial Fibrillation, Hypertension, Valvular Heart Disease Neurological: Yes (BENIGN BRAIN TUMOR) Brain Tumor Reproductive Disorders: No 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, 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 Sexually Transmitted Disease: No HIV/AIDS: No Genitourinary: No Gastrointestinal: Yes (DIVERTICULITIS) Gastroesophageal Reflux, Diverticulosis, Hemorrhoids, Pancreatitis, Hiatal Hernia Musculoskeletal: Yes Endocrine: No HEENT: No Loss of Vision: Denies Hearing Impairment: Denies Cancer: Yes Brain What Type of Treatment Did You: Surgical Intervention Psychosocial: No Integumentary: No Blood Disorders: No Family Medical History No Pertinent Family Hx Physical Exam Vital Signs Vital Signs - First Documented 03/23/21 12:16 Temp 36.8 Pulse 75 Resp 18 B/P (MAP) 133/91 (105) O2 Delivery Room Air Capillary Refill : Height, Weight, BMI Height: 5'2.50" Weight: 196lbs. 2.0oz. 88.973524ww; 36.75 BMI Method:Stated General Appearance: WD/WN, no apparent distress HEENT: PERRL/EOMI, normal ENT inspection Respiratory: no respiratory distress, no accessory muscle use Gastrointestinal: normal bowel sounds, non tender Pelvic: other (There is a marble sized area of induration and slight fluctuance to the inferior aspect of the left labia with a small amount of purulent drainage. No surrounding cellulitis changes. No crepitus.) Extremities: normal range of motion, non-tender Neurologic/Psychiatric: alert, normal mood/affect, oriented x 3 Skin: normal color, warm/dry Procedures/Interventions I&D : Blade Size: 11 Packing/Drain: Idoform 05/06 Progress Anesthetized with 2 mL of 1% lidocaine with epinephrine. Small incision made with 11 blade scalpel. Moderate amount of bloody purulent material expressed. Culture collected and sent to lab. Cavity probed with a sterile Q-tip to break up loculations. Packed with quarter inch plain gauze. No bleeding at the end of the procedure with packing in place. Progress/Results/Core Measures Suspected Sepsis SIRS Temperature: Pulse: Respiratory Rate: Blood Pressure / Mean: Results/Orders My Orders Orders - JAZMINE DOTY APRN Wound Culture (03/23/21 12:26) Lidocaine/Epi 1% 1:100,000 (Xylocaine 1% (03/23/21 12:30) Lidocaine 4% 5 Ml (Xylocaine 4%) (03/23/21 12:30) Lidocaine/Epi 1% 1:100,000 (Xylocaine /E (03/23/21 12:41) Medications Given in ED Current Medications Medications Dose Ordered Sig/Rita Route Start Time Stop Time Status Last Admin Dose Admin Lidocaine HCl 5 ml ONCE ONCE TOP 03/23/21 12:30 03/23/21 12:31 DC 03/23/21 12:43 5 ML Lidocaine/ Epinephrine 20 ml STK-MED ONCE .ROUTE 03/23/21 12:41 03/23/21 12:43 DC 03/23/21 13:08 20 ML Vital Signs/I&O 03/23/21 12:16 Temp 36.8 Pulse 75 Resp 18 B/P (MAP) 133/91 (105) O2 Delivery Room Air Capillary Refill : Departure Impression Primary Impression: Abscess of labia majora Disposition: HOME, SELF-CARE Condition: Stable Departure-Patient Inst. Decision time for Depature: 12:46 Referrals: KITTY MSITH ANGELA C DO TAYLOR, JOHN D MD (PCP/Family) Primary Care Physician Patient Instructions: ABSCESS Add. Discharge Instructions: 1. Warm soaks in the bathtub once or twice a day can help with discomfort and healing. Take the antibiotic as directed. Follow-up with the certified low vision therapist of your choosing. A list has been provided. This needs further evaluation and possibly biopsy (to exclude a cancer) given the recurrent nature of this problem for you. Further recommendations should come from the certified low vision therapist. Return to ER for any concerns. All discharge instructions reviewed with patient and/or family. Voiced understanding. Scripts Doxycycline Hyclate (Doxycycline Hyclate) 100 Mg Tablet 100 MG PO BID, #10 TAB 0 Refills Prov: JAZMINE DOTY APRN 03/23/21 JAZMINE DOTY APRN Mar 23, 2021 12:31
[2021-03-23] MEDS ORDERED: LIDOCAINE/EPI 1%-1:100,000 (XYLOCAINE) 20ML ONE (12:41)
[2021-03-23] MEDS ORDERED: DOXY100T2 PO (12:49)
[2021-03-23 13:33] VITALS: BP 136/71
== END 2021-03-23 13:33 | disposition home or self-care (01) ==
LOC: EDUNIT# 12:08 → ER 12:11
DX: N76.4 Abscess of vulva (principal); I10 Essential (primary) hypertension; K21.9 Gastro-esophageal reflux disease without esophagitis; Z79.899 Other long term (current) drug therapy; I48.91 Unspecified atrial fibrillation; Z79.01 Long term (current) use of anticoagulants
CPT/HCPCS: 87070; 87077; 87186; 87205; 99282

== ENCOUNTER → 2021-04-15 | Outpatient (CLI) | payer MEDICARE, OTHER ==
[~2021-04-15] MED LIST changes: +DOXY100T2 PO; -LISI-729 PO; +LISI5TAB20 PO
--- NOTE | 2021-04-15 16:35 | Diagnostic Imaging Report ---
INDICATION: Shoulder pain and injury. TIME OF EXAM: 3:09 p.m. FINDINGS: Three views of the right shoulder demonstrate normal glenohumeral and acromioclavicular alignment. There is some narrowing of the acromiohumeral space suggestive of chronic rotator cuff arthropathy. No fracture or dislocation is identified. IMPRESSION: Chronic changes. No acute bony abnormality is detected. Dictated by: Dictated on workstation # [id number]
== END ==
LOC: ORTHO 14:38
PROVIDERS: ATTEND Orthopaedic Surgery
DX: S49.91XA Unspecified injury of right shoulder and upper arm, initial encounter (principal); X58.XXXA Exposure to other specified factors, initial encounter
CPT/HCPCS: 20610; 73030; G0463

== ENCOUNTER → 2021-05-13 | Outpatient (CLI) | payer MEDICARE, OTHER | LOC: ORTHO 15:08 | PROVIDERS: ATTEND Orthopaedic Surgery | DX: M19.011 Primary osteoarthritis, right shoulder (principal) | CPT/HCPCS: 99212 ==

== ENCOUNTER 2021-06-06 16:24 | Emergency (ER) | payer MEDICARE, OTHER ==
[~2021-06-06] VITALS: Ht 157.4 cm; Wt 88.6 kg
[2021-06-06 16:45] VITALS: BP_SYST 127; BP_SYST 128; BP_SYST 144; BP_DIAS 68; BP_DIAS 69; BP_DIAS 79
--- NOTE | 2021-06-06 16:45 | ED Syncope ---
General Stated Complaint: DIZZY SPELL, COLD SWEAT, IRREGULAR HEART BEAT Source of Information: Patient Exam Limitations: No Limitations History of Present Illness Date Seen by Provider: Jun 06, 2021 Time Seen by Provider: 16:21 Initial Comments Patient presents ER by private conveyance with her significant other and chief complaint she has near syncopal dizziness episode feeling lightheaded like she was going to pass out. This happened about 2 hours prior. She says she is been in the house working and going up and down stairs frequently which is unusual for her. She says the last time she went upstairs she began to become dizzy so she went and sat down. After several minutes it went away. Since then she has been checking her blood pressure and heart rate and has been in the 80s as well as her blood pressure has been fluctuant high of 150s systolic down to 120s. She is on lisinopril, metoprolol 25, Multaq and Eliquis for atrial fibrillation and has a history of heart valve replacement. She is followed by Dr. Pack and Dr. Gore for primary care. She has not felt a rapid heart rate but has been told by her or rn on her monitor she has been having some periods where her heart would stop at night. She is never felt this happened nor has she been having near syncopal episodes. She is not having any chest pain fevers chills cough shortness of air nausea vomiting diarrhea or sick contacts. Allergies and Home Medications Allergies Coded Allergies: aspirin (Verified Allergy, Intermediate, Hives, 12/29/20) Some kinds of chewable aspirin clavulanic acid (Verified Allergy, Unknown, 01/06/18) codeine (Verified Allergy, Unknown, 01/06/18) hydrocodone (Verified Allergy, Unknown, 01/06/18) oxycodone (Verified Allergy, Unknown, 01/06/18) Patient Home Medication List Home Medication List Reviewed: Yes Acetaminophen (Tylenol Extra Strength) 500 Mg Tablet, 1,000 MG PO HS, (Reported) Entered as Reported by: JAEL MATTHEW on 12/30/20 1425 Apixaban (Eliquis) 5 Mg Tablet, 5 MG PO BID, (Reported) Entered as Reported by: HENRRY HERNANDEZ on 12/18/19 1347 Atorvastatin Calcium (Atorvastatin Calcium) 20 Mg Tablet, 20 MG PO HS, (Reported) Entered as Reported by: HENRRY HERNANDEZ on 12/18/19 1347 Cefdinir (Cefdinir) 300 Mg Capsule, 300 MG PO BID Prescribed by: KYRA SOLORIO on 01/02/21 1139 Cholecalciferol (Vitamin D3) (Vitamin D3) 125 Mcg Tablet, 125 MCG PO BID, (Reported) Entered as Reported by: JAEL MATTHEW on 12/30/20 141 Cyanocobalamin (Vitamin B-12) (Vitamin B-12) 500 Mcg Tablet, 500 MCG PO HS, (Reported) Entered as Reported by: JAEL MATTHEW on 12/30/20 141 Docusate Sodium (Dulcolax Stool Softener) 100 Mg Capsule, 100 MG PO DAILY PRN for CONSTIPATION-1ST LINE, (Reported) Entered as Reported by: JAEL MATTHEW on 12/30/20 141 Doxycycline Hyclate (Doxycycline Hyclate) 100 Mg Tablet, 100 MG PO BID Prescribed by: JAZMINE DOTY on 03/23/21 1249 Dronedarone HCl (Multaq) 400 Mg Tablet, 400 MG PO BID WITH MEALS, (Reported) Entered as Reported by: HENRRY HERNANDEZ on 12/18/19 1347 Fish Oil/Borage/Flax/Om3,6,9#1 ([place] 3-6-9 1,200 mg Softgel) 1,200 Mg Capsule, 1,200 MG PO HS, (Reported) Entered as Reported by: JAEL MATTHEW on 12/30/20 141 Hydrocortisone (Hydrocortisone) 30 Gm Cream.appl, 1 APPLIC TOP PRN PRN for HEMMORRHOID DISCOMFORT, (Reported) Entered as Reported by: JAEL MATTHEW on 12/30/20 141 Lactobacillus Rhamnosus GG (Culturelle) 1 Each Capsule, 1 EACH PO DAILY, (Reported) Entered as Reported by: JAEL MATTHEW on 12/30/20 141 Levetiracetam (Levetiracetam) 500 Mg Tablet, 250 MG PO BID, (Reported) Entered as Reported by: SUE ZHOU on 01/06/18 0852 Linezolid (Zyvox) 600 Mg Tablet, 600 MG PO BID Prescribed by: KYRA SOLORIO on 01/02/21 113 Lisinopril (Lisinopril) 2.5 Mg Tablet, 2.5 MG PO DAILY, (Reported) Entered as Reported by: HENRRY HERNANDEZ on 12/18/19 1347 Metoprolol Tartrate (Metoprolol Tartrate) 25 Mg Tablet, 25 MG PO DAILY, (Reported) Entered as Reported by: JALE MATTHEW on 12/30/20 1418 Pantoprazole Sodium (Pantoprazole Sodium) 40 Mg Tablet.dr, 40 MG PO BID, (Reported) Entered as Reported by: JAEL MATTHEW on 12/30/20 1418 Tramadol HCl (Tramadol HCl) 50 Mg Tablet, 50 MG PO Q6H PRN for PAIN-MODERATE (5- 7), (Reported) Entered as Reported by: JAEL MATTHEW on 12/30/20 141 Review of Systems Constitutional: see HPI; No chills, No diaphoresis; dizziness EENTM: No ear discharge, No ear pain Respiratory: No cough, No phlegm, No short of breath Cardiovascular: No chest pain, No edema Gastrointestinal: No abdominal pain, No nausea, No vomiting Genitourinary: No discharge, No dysuria Musculoskeletal: No back pain, No joint pain All Other Systems Reviewed Negative Unless Noted: Yes Past Gvbjlqa-Azlbum-Jnlcpr Hx Patient Social History Tobacco Use?: No Use of E-Cig and/or Vaping dev: No Substance use?: No Alcohol Use?: No Immunizations Up To Date First/Initial COVID19 Vaccinat: JULY 2020 Second COVID19 Vaccination Werner: JULY 2020 Third COVID19 Vaccination Date: JULY 2020 Seasonal Allergies Seasonal Allergies: No Past Medical History Surgeries: Yes (BRAIN TUMOR, REMOVAL OF LUMP IN BREAST, MASS REMOVED FROM FACE) Breast, Cardiac, Gallbladder, Hysterectomy, Neurological, Orthopedic, Valve Replacement Respiratory: No Currently Using CPAP: No Currently Using BIPAP: No Cardiac: Yes Atrial Fibrillation, Hypertension, Valvular Heart Disease Neurological: Yes (BENIGN BRAIN TUMOR) Brain Tumor Reproductive Disorders: No 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, 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 Sexually Transmitted Disease: No HIV/AIDS: No Genitourinary: No Gastrointestinal: Yes (DIVERTICULITIS) Gastroesophageal Reflux, Diverticulosis, Hemorrhoids, Pancreatitis, Hiatal Hernia Musculoskeletal: Yes Endocrine: No HEENT: No Loss of Vision: Denies Hearing Impairment: Denies Cancer: Yes Brain What Type of Treatment Did You: Surgical Intervention Psychosocial: No Integumentary: No Blood Disorders: No Family Medical History No Pertinent Family Hx Physical Exam Vital Signs Vital Signs - First Documented 06/06/21 16:24 Temp 35.8 Pulse 83 Resp 18 B/P (MAP) 143/83 (103) Capillary Refill : Height, Weight, BMI Height: 5'2.50" Weight: 196lbs. 2.0oz. 88.668680el; 36.00 BMI Method:Stated General Appearance: No Apparent Distress, WD/WN HEENT: PERRL/EOMI, TMs Normal, Normal ENT Inspection, Pharynx Normal Neck: Full Range of Motion, Normal Inspection, Non Tender Cardiovascular: No Edema, Normal Peripheral Pulses, Irregularly Irregular (60 to 80 bpm) Respiratory: Lungs Clear, Normal Breath Sounds, No Accessory Muscle Use, No Respiratory Distress Gastrointestinal: Normal Bowel Sounds, No Organomegaly, Non Tender, Soft Extremities: Normal Capillary Refill, Normal Inspection, Normal Range of Motion, No Calf Tenderness, No Pedal Edema Neurologic/Psychiatric: Alert, Oriented x3, No Motor/Sensory Deficits, Normal Mood/Affect, 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 Norm as Tested Cranial Nerves: Normal Hearing, Normal Speech, PERRL Coordination/Gait: Normal Gait Motor/Sensory: No Motor Deficit, No Sensory Deficit Skin: Normal Color, Warm/Dry Progress/Results/Core Measures Results/Orders Lab Results Laboratory Tests Test 06/06/21 16:43 Range/Units White Blood Count 9.0 4.3-11.0 10^3/uL Red Blood Count 4.83 3.80-5.11 10^6/uL Hemoglobin 14.1 11.5-16.0 g/dL Hematocrit 43 35-52 % Mean Corpuscular Volume 90 80-99 fL Mean Corpuscular Hemoglobin 29 25-34 pg Mean Corpuscular Hemoglobin Concent 33 32-36 g/dL Red Cell Distribution Width 12.7 10.0-14.5 % Platelet Count 297 130-400 10^3/uL Mean Platelet Volume 9.7 9.0-12.2 fL Immature Granulocyte % (Auto) 0 % Neutrophils (%) (Auto) 63 42-75 % Lymphocytes (%) (Auto) 28 12-44 % Monocytes (%) (Auto) 7 0-12 % Eosinophils (%) (Auto) 1 0-10 % Basophils (%) (Auto) 1 0-10 % Neutrophils # (Auto) 5.7 1.8-7.8 10^3/uL Lymphocytes # (Auto) 2.5 1.0-4.0 10^3/uL Monocytes # (Auto) 0.6 0.0-1.0 10^3/uL Eosinophils # (Auto) 0.1 0.0-0.3 10^3/uL Basophils # (Auto) 0.1 0.0-0.1 10^3/uL Immature Granulocyte # (Auto) 0.0 0.0-0.1 10^3/uL Prothrombin Time 14.9 H 12.2-14.7 SEC INR Comment 1.1 0.8-1.4 Sodium Level 138 135-145 MMOL/L Potassium Level 4.2 3.6-5.0 MMOL/L Chloride Level 108 H 98-107 MMOL/L Carbon Dioxide Level 19 L 21-32 MMOL/L Anion Gap 11 5-14 MMOL/L Glucose Level 106 H 70-105 MG/DL Calcium Level 9.1 8.5-10.1 MG/DL Corrected Calcium 9.1 8.5-10.1 MG/DL Total Bilirubin 1.0 0.1-1.0 MG/DL Troponin I < 0.028 <0.028 NG/ML B-Type Natriuretic Peptide 91.2 <100.0 PG/ML Total Protein 6.7 6.4-8.2 GM/DL Albumin 4.0 3.2-4.5 GM/DL My Orders Orders - ARLETTE HILL Continuous Ekg Monitoring (06/06/21 16:26) Ekg Tracing (06/06/21 16:26) Troponin I Dionne (06/06/21 16:38) Chest 1 View, Ap/Pa Only (06/06/21 16:38) Ed Iv/Invasive Line Start (06/06/21 16:38) Cbc With Automated Diff (06/06/21 16:38) Comprehensive Metabolic Panel (06/06/21 16:38) Orthostatic Vital Signs (Adult (06/06/21 16:38) Bnp Dionne (06/06/21 16:38) Protime With Inr (06/06/21 16:38) Ed Iv/Invasive Line Start (06/06/21 17:35) Normal Saline 1l Bolus (06/06/21 17:45) Vital Signs/I&O 06/06/21 06/06/21 16:24 16:45 Temp 35.8 Pulse 83 65 61 88 Resp 18 B/P (MAP) 143/83 (103) 127/69 (88) 144/79 (100) 128/68 (88) Progress Progress Note #1: Time: 16:44 Progress Note She has a history of paroxysmal atrial fibrillation and is in atrial fibrillation on arrival but at a controlled rate appropriately so. This possible her blood pressure cuff could give her inconsistent readings given her atrial fibrillation. Her present blood pressure is 140/83. She is not having any acute distress. We will get some orthostatic vital signs and labs and if her orthostatics are close we can give her some IV fluids and reevaluate. We will keep her on the monitor while she is in the ER looking for dysrhythmias. She has a monitor. Progress Note #2: Time: 17:36 Progress Note Orthostatics were positive so we will give her a liter and then reassess her. She is not had any syncopal or near syncopal episodes since she arrived. Interrogation of the implanted loop monitor demonstrated chronic atrial fibr illation and no other significant dysrhythmia/arrhythmia. She has had normal range atrial fibrillation on the monitor since she has been here. We will obtain a two-view chest x-ray Initial ECG Impression Date: Jun 06, 2021 Initial ECG Impression Time: 16:31 Initial ECG Rate: 71 Initial ECG Rhythm: A Fib/Flutter Initial ECG Intervals: QT (479 ms) Initial ECG Impression: Atrial Fibrillation Comment Atrial fibrillation without rapid ventricular response. No clinically relevant ST changes. Diagnostic Imaging Diagonstic Imaging: Xray Plain Films/CT/US/NM/MRI: chest Comments [facility]. [place], [place] NAME: YESENIADAVID REC#: [id number] PT STATUS: REG ER : 1945 PHYSICIAN: ARLETTE HILL MD ADMIT DATE: 06/06/21/ER Signed Date of Exam:06/06/21 CHEST 1 VIEW, AP/PA ONLY INDICATION: Dizzy spells, cold sweats, irregular heartbeat. EXAMINATION: Single-view chest from 06/06/2021. COMPARISON: 12/30/2020. FINDINGS: Sternotomy wires noted. Right PICC line is no longer present. The heart is prominent. There is a loop recorder device along the left lower chest. There may be infiltrate in the left lung base, difficult to exclude without a lateral view. Remaining lungs are clear. No effusions. No pneumothorax. IMPRESSION: 1. Possible left base infiltrate, lateral view would be useful. 2. Cardiomegaly. Dictated by: Dictated on workstation # [id number] Dict: 06/06/21 1710 Trans: 06/06/21 1725 [id number] Interpreted by: CESAR MOLINA MD Electronically signed by: CESAR MOLINA MD 06/06/21 1725 Reviewed: Reviewed by Me Diagonstic Imaging: Xray (2v) Plain Films/CT/US/NM/MRI: chest Reviewed: Reviewed by Me Departure Impression Primary Impression: Near syncope Disposition: HOME, SELF-CARE Condition: Stable Departure-Patient Inst. Referrals: ALEXIS GORE MD (PCP/Family) Primary Care Physician ARLETTE HILL Jun 06, 2021 16:45
[2021-06-06 16:58] LABS: BASOPHILS # (AUTO) 0.1 10^3/uL (0.0-0.1); BASOPHILS % (AUTO) 1 % (0-10); EOSINOPHILS # (AUTO) 0.1 10^3/uL (0.0-0.3); EOSINOPHILS % (AUTO) 1 % (0-10); HEMATOCRIT 43 % (35-52); HEMOGLOBIN 14.1 g/dL (11.5-16.0); LYMPHOCYTES # (AUTO) 2.5 10^3/uL (1.0-4.0); LYMPHOCYTES % (AUTO) 28 % (12-44); MEAN CORPUSCULAR HEMOGLOBIN 29 pg (25-34); MEAN CORPUSCULAR HGB CONC 33 g/dL (32-36); MEAN CORPUSCULAR VOLUME 90 fL (80-99); MEAN PLATELET VOLUME 9.7 fL (9.0-12.2); MONOCYTES # (AUTO) 0.6 10^3/uL (0.0-1.0); MONOCYTES % (AUTO) 7 % (0-12); NEUTROPHILS # (AUTO) 5.7 10^3/uL (1.8-7.8); NEUTROPHILS % (AUTO) 63 % (42-75); PLATELET COUNT 297 10^3/uL (130-400)
--- NOTE | 2021-06-06 17:15 | Diagnostic Imaging Report ---
INDICATION: Dizzy spells, cold sweats, irregular heartbeat. EXAMINATION: Single-view chest from 06/06/2021. COMPARISON: 12/30/2020. FINDINGS: Sternotomy wires noted. Right PICC line is no longer present. The heart is prominent. There is a loop recorder device along the left lower chest. There may be infiltrate in the left lung base, difficult to exclude without a lateral view. Remaining lungs are clear. No effusions. No pneumothorax. IMPRESSION: 1. Possible left base infiltrate, lateral view would be useful. 2. Cardiomegaly. Dictated by: Dictated on workstation # [id number]
[2021-06-06 17:21] LABS: INR 1.1 (0.8-1.4); PROTHROMBIN TIME PATIENT 14.9 SEC (12.2-14.7)
[2021-06-06 17:31] LABS: POTASSIUM 4.2 MMOL/L (3.6-5.0)
[2021-06-06 17:32] LABS: CALCIUM 9.1 MG/DL (8.5-10.1)
[2021-06-06 17:33] LABS: TOTAL PROTEIN 6.7 GM/DL (6.4-8.2)
[2021-06-06 17:37] LABS: CREATININE SERUM 0.77 MG/DL (0.60-1.30)
[2021-06-06] MEDS ORDERED: NS IV 1000 ML 1,000 ML IV SCH (17:45)
--- NOTE | 2021-06-06 17:58 | Diagnostic Imaging Report ---
INDICATION: Near-syncopal episode. EXAMINATION: Two-view chest from 06/06/2021. COMPARISON: 06/06/2021 at 05:12 p.m. FINDINGS: There is a loop recorder device on the left. Sternotomy wires noted. There is cardiomegaly. No infiltrates, effusions, or pneumothorax. There is a moderate-sized hiatal hernia. IMPRESSION: 1. Hiatal hernia noted with no acute cardiopulmonary process seen. Dictated by: Dictated on workstation # [id number]
[2021-06-06 18:55] VITALS: BP 140/77
== END 2021-06-06 18:55 | disposition home or self-care (01) ==
LOC: EDUNIT# 16:24 → ER 16:28
DX: R55 Syncope and collapse (principal); I10 Essential (primary) hypertension; K21.9 Gastro-esophageal reflux disease without esophagitis; I48.91 Unspecified atrial fibrillation; Z79.899 Other long term (current) drug therapy; Z79.01 Long term (current) use of anticoagulants
CPT/HCPCS: 36415; 71045; 71046; 80053; 83880; 84484; 85025; 85610; 93005

== ENCOUNTER → 2021-10-07 | Outpatient (CLI) | payer MEDICARE, OTHER | LOC: ORTHO 15:00 | PROVIDERS: ATTEND Orthopaedic Surgery | DX: M19.011 Primary osteoarthritis, right shoulder (principal) | CPT/HCPCS: 20610 ==

== ENCOUNTER → 2021-10-10 | Outpatient (CLI) | payer MEDICARE, OTHER ==
--- NOTE | 2021-10-10 18:44 | Diagnostic Imaging Report ---
INDICATION: Routine screening. COMPARISON: Prior mammograms of 08/01/2020 and 04/28/2019. EXAMINATION: 2D and 3D bilateral screening mammography was performed with CAD. The current study was also evaluated with a Computer Aided Detection (CAD) system. FINDINGS: Scattered fibroglandular densities are identified, bilaterally. Cardiac loop recorder overlies the medial soft tissues. There are scattered benign calcifications in both breasts. There is a biopsy marker clip in the right breast. Benign nodule in the inner left breast is stable. No spiculated mass or malignant-appearing microcalcifications are seen. Axillae are unremarkable. IMPRESSION: No mammographic features suspicious for malignancy are identified. ACR BI-RADS Category 2: Benign findings. Result letter will be mailed to the patient. Note: At least 10% of breast cancer is not imaged by mammography. Dictated by: Dictated on workstation # [id number]
== END ==
LOC: RAD 11:15
PROVIDERS: ATTEND Physician Assistant
DX: Z12.31 Encounter for screening mammogram for malignant neoplasm of breast (principal)
CPT/HCPCS: 77063; 77067

== ENCOUNTER 2021-11-01 13:56 | Emergency (ER) | payer MEDICARE, OTHER ==
[~2021-11-01] VITALS: Ht 157 cm; Wt 88.4 kg
[~2021-11-01 13:56] MED LIST changes: -CRAN500T3 PO; +CRAN500T4 PO
[2021-11-01 14:04] VITALS: BP 126/66
--- NOTE | 2021-11-01 14:17 | ED Upper Extremity ---
General Stated Complaint: L ARM PAIN Source: patient Exam Limitations: no limitations History of Present Illness Date Seen by Provider: Nov 01, 2021 Time Seen by Provider: 14:14 Initial Comments Patient is a 76-year-old female who presents ED left shoulder pain. This occurred 4 days ago. She states she was reaching back behind the couch and table and felt some pain in her left shoulder. She really noticed the pain the next day. Sharp pain with radiation to left bicep area. She states any movement away from the body makes the pain worse. She denies of any popping or locking. Denies any weakness of the left arm. She takes Tylenol extra strength without much improvement. 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 She denies of any chest pain, shortness of breath, nausea, vomiting, diarrhea. Allergies and Home Medications Allergies Coded Allergies: aspirin (Verified Allergy, Intermediate, Hives, 12/29/20) Some kinds of chewable aspirin clavulanic acid (Verified Allergy, Unknown, 01/06/18) codeine (Verified Allergy, Unknown, 01/06/18) hydrocodone (Verified Allergy, Unknown, 01/06/18) oxycodone (Verified Allergy, Unknown, 01/06/18) Patient Home Medication List Home Medication List Reviewed: Yes Acetaminophen (Tylenol Extra Strength) 500 Mg Tablet, 1,000 MG PO HS, (Reported) Entered as Reported by: JAEL MATTHEW on 12/30/20 1425 Apixaban (Eliquis) 5 Mg Tablet, 5 MG PO BID, (Reported) Entered as Reported by: HENRRY HERNANDEZ on 12/18/19 1347 Atorvastatin Calcium (Atorvastatin Calcium) 20 Mg Tablet, 20 MG PO HS, (Reported) Entered as Reported by: HENRRY HERNANDEZ on 12/18/19 1347 Cefdinir (Cefdinir) 300 Mg Capsule, 300 MG PO BID Prescribed by: KYRA SOLORIO on 01/02/21 1139 Cholecalciferol (Vitamin D3) (Vitamin D3) 125 Mcg Tablet, 125 MCG PO BID, (Reported) Entered as Reported by: JAEL MATTHEW on 12/30/20 1418 Cyanocobalamin (Vitamin B-12) (Vitamin B-12) 500 Mcg Tablet, 500 MCG PO HS, (Reported) Entered as Reported by: JAEL MATTHEW on 12/30/20 141 Docusate Sodium (Dulcolax Stool Softener) 100 Mg Capsule, 100 MG PO DAILY PRN for CONSTIPATION-1ST LINE, (Reported) Entered as Reported by: JAEL MATTHEW on 12/30/20 141 Doxycycline Hyclate (Doxycycline Hyclate) 100 Mg Tablet, 100 MG PO BID Prescribed by: JAZMINE DOTY on 03/23/21 1249 Dronedarone HCl (Multaq) 400 Mg Tablet, 400 MG PO BID WITH MEALS, (Reported) Entered as Reported by: HENRRY HERNANDEZ on 12/18/19 1347 Fish Oil/Borage/Flax/Om3,6,9#1 (Sanderson 3-6-9 1,200 mg Softgel) 1,200 Mg Capsule, 1,200 MG PO HS, (Reported) Entered as Reported by: JAEL MATTHEW on 12/30/20 141 Hydrocortisone (Hydrocortisone) 30 Gm Cream.appl, 1 APPLIC TOP PRN PRN for HEMMORRHOID DISCOMFORT, (Reported) Entered as Reported by: JAEL MATTHEW on 12/30/20 141 Lactobacillus Rhamnosus GG (Culturelle) 1 Each Capsule, 1 EACH PO DAILY, (Reported) Entered as Reported by: JAEL MATTHEW on 12/30/20 141 Levetiracetam (Levetiracetam) 500 Mg Tablet, 250 MG PO BID, (Reported) Entered as Reported by: SUE ZHOU on 01/06/18 0852 Linezolid (Zyvox) 600 Mg Tablet, 600 MG PO BID Prescribed by: KYRA SOLORIO on 01/02/21 1139 Lisinopril (Lisinopril) 2.5 Mg Tablet, 2.5 MG PO DAILY, (Reported) Entered as Reported by: HENRRY HERNANDEZ on 12/18/19 1347 Metoprolol Tartrate (Metoprolol Tartrate) 25 Mg Tablet, 25 MG PO DAILY, (Reported) Entered as Reported by: JAEL MATTHEW on 12/30/20 141 Pantoprazole Sodium (Pantoprazole Sodium) 40 Mg Tablet.dr, 40 MG PO BID, (Reported) Entered as Reported by: JAEL MATTHEW on 12/30/20 141 Tramadol HCl (Tramadol HCl) 50 Mg Tablet, 50 MG PO Q6H PRN for PAIN-MODERATE (5- 7), (Reported) Entered as Reported by: JAEL MATTHEW on 12/30/20 1418 Review of Systems Constitutional: No chills, No diaphoresis, No malaise, No weakness EENTM: No blurred vision, No double vision Respiratory: No cough, No dyspnea on exertion, No short of breath Cardiovascular: No chest pain, No edema Gastrointestinal: No abdominal pain, No diarrhea, No nausea, No vomiting Genitourinary: No decreased output, No discharge Musculoskeletal: No back pain; joint pain, muscle pain, muscle stiffness Skin: No change in color, No change in hair/nails All Other Systems Reviewed Negative Unless Noted: Yes Past Cfsmivr-Dffmnn-Hiipwh Hx Immunizations Up To Date First/Initial COVID19 Vaccinat: July COVID19 Vaccination Werner: July COVID19 Vaccination Date: JULY 2020 Seasonal Allergies Seasonal Allergies: No Past Medical History Surgeries: Yes (BRAIN TUMOR, REMOVAL OF LUMP IN BREAST, MASS REMOVED FROM FACE) Breast, Cardiac, Gallbladder, Hysterectomy, Neurological, Orthopedic, Valve Replacement Respiratory: No Currently Using CPAP: No Currently Using BIPAP: No Cardiac: Yes Atrial Fibrillation, Hypertension, Valvular Heart Disease Neurological: Yes (BENIGN BRAIN TUMOR) Brain Tumor Reproductive Disorders: No 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, Menopausal Sexually Transmitted Disease: No HIV/AIDS: No Genitourinary: No Gastrointestinal: Yes (DIVERTICULITIS) Gastroesophageal Reflux, Diverticulosis, Hemorrhoids, Pancreatitis, Hiatal Hernia Musculoskeletal: Yes Endocrine: No HEENT: No Loss of Vision: Denies Hearing Impairment: Denies Cancer: Yes Brain What Type of Treatment Did You: Surgical Intervention Psychosocial: No Integumentary: No Blood Disorders: No Family Medical History No Pertinent Family Hx Physical Exam Vital Signs Vital Signs - First Documented 11/01/21 14:04 Temp 36.3 Pulse 65 Resp 18 B/P (MAP) 126/66 (86) Pulse Ox 96 O2 Delivery Room Air Capillary Refill : Height, Weight, BMI Height: 5'2.50" Weight: 196lbs. 2.0oz. 88.757186pq; 35.00 BMI Method:Stated General Appearance: WD/WN, no apparent distress HEENT: PERRL/EOMI, normal ENT inspection, TMs normal, pharynx normal Neck: non-tender, full range of motion, supple Cardiovascular: regular rate, rhythm, no edema, no gallop, no JVD Respiratory: chest non-tender, lungs clear, normal breath sounds, no respiratory distress, no accessory muscle use Gastrointestinal: normal bowel sounds, non tender, soft, no organomegaly Back: normal inspection, no CVA tenderness, no vertebral tenderness Shoulder: limited ROM (Limited passive range of motion secondary to pain.), pain (Tenderness to the left anterior shoulder.) Elbow/Forearm: normal inspection, non-tender, no evidence of injury, normal ROM Wrist: Yes normal inspection, Yes non-tender, Yes no evidence of injury Hand: normal inspection, non-tender, no evidence of injury, normal ROM Neurologic/Tendon: normal sensation, normal motor functions, normal tendon functions Neurologic/Psychiatric: box toe buffer II-XII nml as tested, no motor/sensory deficits, alert, normal mood/affect, oriented x 3 Skin: normal color, warm/dry Progress/Results/Core Measures Results/Orders My Orders Orders - TISH PAZ Shoulder, Left, 3 Views (11/01/21 14:13) Morphine Injection (Morphine Injection (11/01/21 15:02) Vital Signs/I&O 11/01/21 11/01/21 14:04 15:28 Temp 36.3 Pulse 65 68 Resp 18 18 B/P (MAP) 126/66 (86) 125/88 Pulse Ox 96 96 O2 Delivery Room Air Room Air Departure Communication (PCP) Patient with pain with movement away from her body. Appears to be worse with ab duction. Strength with internal and external rotation 5 out of 5. Tenderness to the anterior superior left shoulder. X-ray was negative for fracture. X-ray did show prominent calcification along the superior aspect of the left humeral which may be related to chronic calcified tendinitis of the rotator cuff. Concerning for rotator cuff pathology. Patient has multiple allergies to medication. She was able to take morphine here and was given injection with improvement of pain. She states she has had intra-articular injection of her right shoulder by Dr. Dias and will follow-up regarding her left shoulder. Would likely benefit with steroid injection intra-articular. Likely would benefit with range of motion exercises such as physical therapy. Continue with Tylenol at home. Not able to take any oral narcotics as she states this makes her sick. Impression Primary Impression: Shoulder pain Disposition: HOME, SELF-CARE Condition: Stable Departure-Patient Inst. Decision time for Depature: 15:12 Referrals: BERNARDINO DIAS MD, JOHN D MD (PCP/Family) Primary Care Physician Patient Instructions: Shoulder Pain ED Add. Discharge Instructions: Recommend follow-up with Dr. Dias for further evaluation TISH PAZ Nov 01, 2021 14:17
[2021-11-01] MEDS ORDERED: morphine INJ 10 MG/ML 1ML (SYR OR VIAL) IM STA (15:02)
--- NOTE | 2021-11-01 15:02 | Diagnostic Imaging Report ---
INDICATION: Left shoulder/arm pain for several days. TECHNIQUE: Three views of the left shoulder. CORRELATION STUDY: None. FINDINGS: Acromioclavicular joint and glenohumeral joint demonstrate no evidence for dislocation. Slightly high riding humeral head. Prominent calcification interposed between the acromion and humeral head. Prior sternotomy changes and atrial closure device. IMPRESSION: 1. Negative for acute bony abnormality of left shoulder. 2. Prominent calcification along superior aspect of the humeral which may be reflective of prominent chronic calcific tendinitis of the rotator cuff. There is resultant narrowing of subacromial joint space which can be associated with underlying rotator cuff pathology. Dictated by: Dictated on workstation # [id number]
== END 2021-11-01 15:45 | disposition home or self-care (01) ==
LOC: EDUNIT# 13:56 → ER 13:58
DX: M25.512 Pain in left shoulder (principal)
CPT/HCPCS: 73030

== ENCOUNTER 2021-11-01 17:36 | Observation (INO) | payer MEDICARE, OTHER ==
[~2021-11-01] VITALS: Ht 177.8 cm; Wt 89.5 kg
[2021-11-01 18:07] LABS: BASOPHILS # (AUTO) 0.1 10^3/uL (0.0-0.1); BASOPHILS % (AUTO) 1 % (0-10); EOSINOPHILS # (AUTO) 0.1 10^3/uL (0.0-0.3); EOSINOPHILS % (AUTO) 1 % (0-10); HEMATOCRIT 42 % (35-52); HEMOGLOBIN 14.3 g/dL (11.5-16.0); LYMPHOCYTES # (AUTO) 4.1 10^3/uL (1.0-4.0); LYMPHOCYTES % (AUTO) 32 % (12-44); MEAN CORPUSCULAR HEMOGLOBIN 29 pg (25-34); MEAN CORPUSCULAR HGB CONC 34 g/dL (32-36); MEAN CORPUSCULAR VOLUME 86 fL (80-99); MONOCYTES # (AUTO) 0.8 10^3/uL (0.0-1.0); MONOCYTES % (AUTO) 6 % (0-12); NEUTROPHILS # (AUTO) 7.9 10^3/uL (1.8-7.8); NEUTROPHILS % (AUTO) 61 % (42-75); PLATELET COUNT 280 10^3/uL (130-400); WHITE BLOOD COUNT 13.1 10^3/uL (4.3-11.0)
[2021-11-01 18:09] LABS: ALBUMIN 3.7 GM/DL (3.2-4.5)
[2021-11-01 18:11] LABS: CALCIUM 9.2 MG/DL (8.5-10.1)
[2021-11-01 18:12] LABS: INR 1.2 (0.8-1.4); PROTHROMBIN TIME PATIENT 15.2 SEC (12.2-14.7); TOTAL PROTEIN 6.3 GM/DL (6.4-8.2)
[2021-11-01 18:14] LABS: BILIRUBIN,TOTAL 1.9 MG/DL (0.1-1.0)
[2021-11-01 18:16] LABS: CREATININE SERUM 0.84 MG/DL (0.60-1.30)
--- NOTE | 2021-11-01 18:17 | Diagnostic Imaging Report ---
INDICATION: Chest pain. COMPARISON: 06/06/2021 and 12/29/2020. TECHNIQUE: Single radiograph of the chest dated November 01, 2021. FINDINGS: Postsurgical changes of median sternotomy and atrial clipping identified. Large retrocardiac density with associated gas lucency is again seen on the left, felt to relate to a large hiatal hernia. The cardiac silhouette is otherwise within normal limits. No significant pulmonary vascular congestion. The right lung is clear. Slight blunting of the left costophrenic angle with additional left basilar opacities. Left upper lung appears clear. No pneumothorax. No acute osseous abnormality. IMPRESSION: 1. Tiny bibasilar pleural-parenchymal opacity, felt to relate to a combination of pleural fluid with minimal adjacent atelectasis and/or infiltrate. 2. Large hiatal hernia. 3. Additional postsurgical changes, as above. Dictated by: Dictated on workstation # [id number]
[2021-11-01 18:18] LABS: MAGNESIUM 1.8 MG/DL (1.6-2.4)
--- NOTE | 2021-11-01 18:26 | ED Chest Pain ---
General Chief Complaint: Chest Pain Stated Complaint: CP,CHILLS, Nursing Triage Note: PT ARRIVES TO ER WITH SO. 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 PT ALSO C/O COLD SWEATS. PT WAS SEEN EARLIER IN ER FOR L ARM/SHOULDER PAIN, PT WAS GIVEN MORPHINE IM. Source: patient Exam Limitations: no limitations History of Present Illness Date Seen by Provider: Nov 01, 2021 Time Seen by Provider: 18:00 Initial Comments Here with report of central chest pain at the area of the low sternum and epigastric region. Onset about 20 minutes prior to arrival. She apparently was here earlier for shoulder pain and did receive some morphine and work-up and that was improved. She had not eaten yet so they went by [employer] and got tater tots and a drink. She had a few tater tots and pharynx went home. She broke out in a cold sweat and started having epigastric and lower chest pain. States pain is moderate and aching and comes and goes. Does have history of atrial fibrillation and heart valve replacements as well as some cardiomegaly. She is on Eliquis. She did have loop recorder for quite a while but that was recently removed and she does have bruising to the anterior chest at the low sternum and medial left breast area. She does report that she has had some aching from that but this is a little different. Does have some nausea but no vomiting. She did have COVID last month and is clear from that. Timing/Duration: 1/2 hour Severity/Quality: moderate, aching, pressure Location: central, epigastric Radiation: no radiation Activities at Onset: none Prior CP/Workup: echocardiography, stress test ASA po GAS PIPE LAYER: No (On Eliquis, allergy) NTG SL GAS PIPE LAYER: No Associated Symptoms: diaphoresis; No dizziness, No fever/chills, No shortness of breath Allergies and Home Medications Allergies Coded Allergies: aspirin (Verified Allergy, Intermediate, Hives, 12/29/20) Some kinds of chewable aspirin clavulanic acid (Verified Allergy, Unknown, 01/06/18) codeine (Verified Allergy, Unknown, 01/06/18) hydrocodone (Verified Allergy, Unknown, 01/06/18) oxycodone (Verified Allergy, Unknown, 01/06/18) Patient Home Medication List Home Medication List Reviewed: Yes Acetaminophen (Tylenol Extra Strength) 500 Mg Tablet, 1,000 MG PO HS, (Reported) Entered as Reported by: JAEL MATTHEW on 12/30/20 1425 Apixaban (Eliquis) 5 Mg Tablet, 5 MG PO BID, (Reported) Entered as Reported by: HENRRY HERNANDEZ on 12/18/19 1347 Atorvastatin Calcium (Atorvastatin Calcium) 20 Mg Tablet, 20 MG PO HS, (Reported) Entered as Reported by: HENRRY HERNANDEZ on 12/18/19 1347 Cefdinir (Cefdinir) 300 Mg Capsule, 300 MG PO BID Prescribed by: KYRA SOLORIO on 01/02/21 1139 Cholecalciferol (Vitamin D3) (Vitamin D3) 125 Mcg Tablet, 125 MCG PO BID, (Reported) Entered as Reported by: JAEL MATTHEW on 12/30/20 1418 Cyanocobalamin (Vitamin B-12) (Vitamin B-12) 500 Mcg Tablet, 500 MCG PO HS, (Reported) Entered as Reported by: JAEL MATTHEW on 12/30/20 141 Docusate Sodium (Dulcolax Stool Softener) 100 Mg Capsule, 100 MG PO DAILY PRN for CONSTIPATION-1ST LINE, (Reported) Entered as Reported by: JAEL MATTHEW on 12/30/20 141 Doxycycline Hyclate (Doxycycline Hyclate) 100 Mg Tablet, 100 MG PO BID Prescribed by: JAZMINE DOTY on 03/23/21 1249 Dronedarone HCl (Multaq) 400 Mg Tablet, 400 MG PO BID WITH MEALS, (Reported) Entered as Reported by: HENRRY HERNANDEZ on 12/18/19 1347 Fish Oil/Borage/Flax/Om3,6,9#1 ([place] 3-6-9 1,200 mg Softgel) 1,200 Mg Capsule, 1,200 MG PO HS, (Reported) Entered as Reported by: JAEL MATTHEW on 12/30/20 141 Hydrocortisone (Hydrocortisone) 30 Gm Cream.appl, 1 APPLIC TOP PRN PRN for HEMMORRHOID DISCOMFORT, (Reported) Entered as Reported by: JAEL MATTHEW on 12/30/20 141 Lactobacillus Rhamnosus GG (Culturelle) 1 Each Capsule, 1 EACH PO DAILY, (Reported) Entered as Reported by: JAEL MATTHEW on 12/30/20 1418 Levetiracetam (Levetiracetam) 500 Mg Tablet, 250 MG PO BID, (Reported) Entered as Reported by: SUE ZHOU on 01/06/18 0852 Linezolid (Zyvox) 600 Mg Tablet, 600 MG PO BID Prescribed by: KYRA SOLORIO on 01/02/21 1139 Lisinopril (Lisinopril) 2.5 Mg Tablet, 2.5 MG PO DAILY, (Reported) Entered as Reported by: HENRRY HERNANDEZ on 12/18/19 1347 Metoprolol Tartrate (Metoprolol Tartrate) 25 Mg Tablet, 25 MG PO DAILY, (Reported) Entered as Reported by: JAEL MATTHEW on 12/30/20 1418 Pantoprazole Sodium (Pantoprazole Sodium) 40 Mg Tablet.dr, 40 MG PO BID, (Reported) Entered as Reported by: JAEL MATTHEW on 12/30/20 141 Tramadol HCl (Tramadol HCl) 50 Mg Tablet, 50 MG PO Q6H PRN for PAIN-MODERATE (5- 7), (Reported) Entered as Reported by: JAEL MATTHEW on 12/30/20 1418 Review of Systems Review of Systems Constitutional: see HPI; No chills, No fever EENTM: No Nose Congestion, No Throat Pain Respiratory: Denies Cough, Denies Shortness of Air Cardiovascular: Chest Pain; Denies Edema; Irregular Heart Rate Gastrointestinal: Abdominal Pain, Nausea; Denies Vomiting Genitourinary: No Symptoms Reported Musculoskeletal: No back pain; muscle pain Skin: change in color, lesions (Healing surgical incision anterior chest) Psychiatric/Neurological: No Symptoms Reported All Other Systems Reviewed Negative Unless Noted: Yes Past Zihyzhw-Zatfrk-Reojvc Hx Patient Social History Tobacco Use?: No Use of E-Cig and/or Vaping dev: No Substance use?: No Alcohol Use?: No Pt feels they are or have been: No Immunizations Up To Date First/Initial COVID19 Vaccinat: JUN 2020 Second COVID19 Vaccination Werner: JULY 2020 Third COVID19 Vaccination Date: MAR 2021 COVID19 Vaccine Cut Off Machine Helper: KARTIK Seasonal Allergies Seasonal Allergies: No Past Medical History Surgeries: Yes (BRAIN TUMOR, REMOVAL OF LUMP IN BREAST, MASS REMOVED FROM FACE) Breast, Cardiac, Gallbladder, Hysterectomy, Neurological, Orthopedic, Valve Replacement Respiratory: No Currently Using CPAP: No Currently Using BIPAP: No Cardiac: Yes Atrial Fibrillation, Hypertension, Valvular Heart Disease Neurological: Yes (BENIGN BRAIN TUMOR) Brain Tumor Reproductive Disorders: 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, 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 Sexually Transmitted Disease: No HIV/AIDS: No Genitourinary: No Gastrointestinal: Yes (DIVERTICULITIS) Gastroesophageal Reflux, Diverticulosis, Hemorrhoids, Pancreatitis, Hiatal Hernia Musculoskeletal: Yes Endocrine: No HEENT: No Loss of Vision: Denies Hearing Impairment: Denies Cancer: Yes Brain What Type of Treatment Did You: Surgical Intervention Psychosocial: No Integumentary: No Blood Disorders: No Family Medical History Reviewed Nursing Family Hx No Pertinent Family Hx Physical Exam Vital Signs Vital Signs - First Documented 11/01/21 17:38 Temp 36.2 Pulse 77 Resp 20 B/P (MAP) 133/73 (93) Pulse Ox 96 O2 Delivery Room Air Capillary Refill : Height, Weight, BMI Height: 5'2.50" Weight: 196lbs. 2.0oz. 88.615853iv; 35.00 BMI Method:Stated General Appearance: No Apparent Distress, WD/WN Neck: Non Tender, Supple Respiratory: Lungs Clear, Normal Breath Sounds Cardiovascular: No Murmur, Irregularly Irregular Gastrointestinal: Non Tender, Soft Extremity: Normal Range of Motion, Non Tender, No Pedal Edema Neurologic/Psychiatric: Alert, Oriented x3 Skin: Warm/Dry, Ecchymosis (Anterior chest near lower sternum and left breast were loop recorder was removed. Bruise is 10 x 10 cm) Progress/Results/Core Measures Results/Orders Lab Results Laboratory Tests Test 11/01/21 17:45 11/01/21 18:02 Range/Units White Blood Count 13.1 H 4.3-11.0 10^3/uL Red Blood Count 4.92 3.80-5.11 10^6/uL Hemoglobin 14.3 11.5-16.0 g/dL Hematocrit 42 35-52 % Mean Corpuscular Volume 86 80-99 fL Mean Corpuscular Hemoglobin 29 25-34 pg Mean Corpuscular Hemoglobin Concent 34 32-36 g/dL Red Cell Distribution Width 12.3 10.0-14.5 % Platelet Count 280 130-400 10^3/uL Mean Platelet Volume 9.0 9.0-12.2 fL Immature Granulocyte % (Auto) 1 % Neutrophils (%) (Auto) 61 42-75 % Lymphocytes (%) (Auto) 32 12-44 % Monocytes (%) (Auto) 6 0-12 % Eosinophils (%) (Auto) 1 0-10 % Basophils (%) (Auto) 1 0-10 % Neutrophils # (Auto) 7.9 H 1.8-7.8 10^3/uL Lymphocytes # (Auto) 4.1 H 1.0-4.0 10^3/uL Monocytes # (Auto) 0.8 0.0-1.0 10^3/uL Eosinophils # (Auto) 0.1 0.0-0.3 10^3/uL Basophils # (Auto) 0.1 0.0-0.1 10^3/uL Immature Granulocyte # (Auto) 0.1 0.0-0.1 10^3/uL Prothrombin Time 15.2 H 12.2-14.7 SEC INR Comment 1.2 0.8-1.4 Activated Partial Thromboplast Time 34 24-35 SEC D-Dimer 0.30 0.00-0.49 UG/ML Sodium Level 138 135-145 MMOL/L Potassium Level 4.0 3.6-5.0 MMOL/L Chloride Level 105 98-107 MMOL/L Carbon Dioxide Level 21 21-32 MMOL/L Anion Gap 12 5-14 MMOL/L Blood Urea Nitrogen 12 7-18 MG/DL Creatinine 0.84 0.60-1.30 MG/DL Estimat Glomerular Filtration Rate 72 BUN/Creatinine Ratio 14 Glucose Level 146 H 70-105 MG/DL Calcium Level 9.2 8.5-10.1 MG/DL Corrected Calcium 9.4 8.5-10.1 MG/DL Magnesium Level 1.8 1.6-2.4 MG/DL Total Bilirubin 1.9 H 0.1-1.0 MG/DL Aspartate Amino Transf (AST/SGOT) 78 H 5-34 U/L Alanine Aminotransferase (ALT/SGPT) 57 H 0-55 U/L Alkaline Phosphatase 84 40-136 U/L Myoglobin 17.4 10.0-92.0 NG/ML Troponin I < 0.028 < 0.028 <0.028 NG/ML Total Protein 6.3 L 6.4-8.2 GM/DL Albumin 3.7 3.2-4.5 GM/DL My Orders Orders - SHEREEN CASTANO MD Cbc With Automated Diff (11/01/21 17:56) Magnesium (11/01/21 17:56) Chest 1 View, Ap/Pa Only (11/01/21 17:56) Ekg Tracing (11/01/21 17:56) Comprehensive Metabolic Panel (11/01/21 17:56) Myoglobin Serum (11/01/21 17:56) Protime With Inr (11/01/21 17:56) Partial Thromboplastin Time (11/01/21 17:56) O2 (11/01/21 17:56) Monitor-Rhythm Ecg Trace Only (11/01/21 17:56) Lipid Panel (11/02/21 06:00) Ed Iv/Invasive Line Start (11/01/21 17:56) Fibrin Degradation Products (11/01/21 17:56) Troponin I Dionne (11/01/21 17:56) Morphine Injection (Morphine Injection (11/01/21 18:30) Ondansetron Injection (Zofran Injectio (11/01/21 18:30) Ondansetron Injection (Zofran Injectio (11/01/21 19:15) Hyoscyamine Sl Tablet (Levsin Sl Tablet) (11/01/21 19:30) Troponin I Dionne (11/01/21 19:51) Pantoprazole Injection (Protonix Injecti (11/01/21 21:15) Scopolamine Patch (Transderm-Scop Patch) (11/01/21 21:15) Medications Given in ED Current Medications Medications Dose Ordered Sig/Rita Route Start Time Stop Time Status Last Admin Dose Admin Hyoscyamine Sulfate 0.125 mg ONCE ONCE SL 11/01/21 19:30 11/01/21 19:31 DC 11/01/21 19:21 0.125 MG Morphine Sulfate 4 mg ONCE ONCE IVP 11/01/21 18:30 11/01/21 18:31 DC 11/01/21 18:26 4 MG Ondansetron HCl 4 mg ONCE ONCE IVP 11/01/21 18:30 11/01/21 18:31 DC 11/01/21 18:24 4 MG Ondansetron HCl 4 mg ONCE ONCE IVP 11/01/21 19:15 11/01/21 19:16 DC 11/01/21 19:14 4 MG Vital Signs/I&O 11/01/21 11/01/21 11/01/21 11/01/21 17:38 17:59 17:59 18:26 Temp 36.2 Pulse 77 61 70 Resp 20 20 B/P (MAP) 133/73 (93) 130/70 114/63 Pulse Ox 96 96 96 96 O2 Delivery Room Air Room Air Room Air Room Air 11/01/21 11/01/21 11/01/21 18:55 20:02 20:37 Pulse 84 85 84 Resp 18 18 18 B/P (MAP) 104/47 137/87 131/79 Pulse Ox 94 93 91 O2 Delivery Room Air Room Air Room Air Blood Pressure Mean: 90 Progress Progress Note : Progress Note Seen and evaluated. IV, labs, EKG and chest x-ray ordered. No ASA due to reported allergy and she was instructed to not be on that while taking Eliquis by her radio electronics technician. Morphine 4 mg IV and Zofran 4 mg IV ordered. Monitor patient. 06/03/2004: Patient did have repeat troponin which was negative. She is having persistent nausea and vomiting. She has had repeat dose of Zofran 4 mg IV as well as Levsin 0.125 mg p.o. and this did not help. We are pursuing scopolamine patch now as well as Protonix 40 mg IV. I believe this pain and findings are more related to her hiatal hernia and she agrees. She has had admissions previously for this. I do believe she will likely need that again. I did discuss the case with Dr. Seals accepts patient for admission, observation status. We will continue scopolamine patch, Zofran, IV fluids, small dose of morphine if needed and her Eliquis. Findings and concerns discussed with patient and family who agree with plan. They are appreciative of the care. Initial ECG Impression Date: Nov 01, 2021 Initial ECG Impression Time: 17:43 Initial ECG Rate: 63 Initial ECG Rhythm: A Fib/Flutter Initial ECG Impression: Atrial Fibrillation Comment Atrial fibrillation with normal rate. Leftward axis. Incomplete right bundle branch block. No evidence of ST elevation DE. Similar but axis change from previous of 06/11/2021. Interpreted by me. Diagnostic Imaging Diagonstic Imaging: Xray Plain Films/CT/US/NM/MRI: chest Comments [facility]. [place], [place] NAME: DAVID PATTERSON [facility] REC#: [id number] PT STATUS: REG ER : 1945 PHYSICIAN: SHEREEN CASTANO MD ADMIT DATE: 11/01/21/ER Draft Date of Exam:11/01/21 CHEST 1 VIEW, AP/PA ONLY INDICATION: Chest pain. COMPARISON: 06/06/2021 and 12/29/2020. TECHNIQUE: Single radiograph of the chest dated November 01, 2021. FINDINGS: Postsurgical changes of median sternotomy and atrial clipping identified. Large retrocardiac density with associated gas lucency is again seen on the left, felt to relate to a large hiatal hernia. The cardiac silhouette is otherwise within normal limits. No significant pulmonary vascular congestion. The right lung is clear. Slight blunting of the left costophrenic angle with additional left basilar opacities. Left upper lung appears clear. No pneumothorax. No acute osseous abnormality. IMPRESSION: 1. Tiny bibasilar pleural-parenchymal opacity, felt to relate to a combination of pleural fluid with minimal adjacent atelectasis and/or infiltrate. 2. Large hiatal hernia. 3. Additional postsurgical changes, as above. Dictated on workstation # [id number] Dict: 11/01/21 1809 Trans: 11/01/21 1816 [facility] [id number] Interpreted by: CONCHA ANTUNEZ MD Electronically signed by: Departure Communication (Admissions) Time/Spoke to Admitting Phy: 21:05 Impression Primary Impression: Intractable nausea and vomiting Additional Impression: Hiatal hernia Disposition: ADMITTED INPATIENT Condition: Stable Admissions Decision to Admit Reason: Admit from ER (General) Decision to Admit/Date: Nov 01, 2021 Time/Decision to Admit Time: 21:05 Departure-Patient Inst. Referrals: ALEXIS GORE MD (PCP/Family) Primary Care Physician SHEREEN CASTANO MD Nov 01, 2021 18:26
[2021-11-01] MEDS ORDERED: morphine INJ 10 MG/ML 1ML (SYR OR VIAL) IVP ONE (18:30)
[2021-11-01] MEDS ORDERED: ONDANSETRON 4 MG/2 ML (SDV) Z0FRAN IVP ONE ×2 (18:30→19:15)
[2021-11-01] MEDS ORDERED: HYOSCYAMINE 0.125 MG (LEVSIN) TAB SL ONE (19:30)
[2021-11-01] MEDS ORDERED: PANTOPRAZOLE 40 MG (PROTONIX) VIAL IV ONE (21:15)
[2021-11-01] MEDS ORDERED: SCOPOLAMINE 1.5 MG (TRANSDERM-SCOP) PATCH TD ONE (21:15)
[2021-11-01 22:00] VITALS: BP 158/73
[2021-11-01] MEDS ORDERED: ONDANSETRON 4 MG/2 ML (SDV) Z0FRAN IVP PRN (22:15)
[2021-11-01] MEDS ORDERED: morphine INJ 4 MG/ML 1 ML (VIAL/SYRINGE) IVP PRN (22:15)
[2021-11-01] MEDS: NS IV 1000 ML 1,000 ML IV SCH (22:53)
[2021-11-02 03:49] VITALS: BP 122/73
[2021-11-02 06:13] LABS: TRIGLYCERIDES 53 MG/DL (<150); VLDL CHOLESTEROL 11 MG/DL (5-40)
[2021-11-02 06:18] LABS: CHOLESTEROL 107 MG/DL (< 200)
[2021-11-02 06:19] LABS: HDL CHOLESTEROL 42 MG/DL (40-60)
[2021-11-02 07:12] VITALS: BP 111/56
[2021-11-02] MEDS: NS IV 1000 ML 1,000 ML IV SCH (08:21)
[2021-11-02] MEDS ORDERED: PANTOPRAZOLE 40 MG (PROTONIX) VIAL IV SCH (09:00)
[2021-11-02] MEDS ORDERED: APIXABAN 5 MG (ELIQUIS) TABLET PO SCH ×2 (09:00→21:00)
--- NOTE | 2021-11-02 10:09 | Short Stay Summary-Hospitalist ---
History of Present Illness HPI/Chief Complaint Patient 76-year-old female past medical history of hypertension, atrial fibrillation, hiatal hernia, GERD who presented to the emergency department due to chest pain. She was seen in the emergency department earlier yesterday due to shoulder pain. She was able to be discharged home and on her way home they stopped at [employer] where she got a large drink and tater tot. She ate this and then developed nausea and chest pain. She reports a long history of similar pain due to her hiatal hernia when she ate something she is not supposed to. She returned to the emergency department due to intractable nausea. Despite multiple doses of antiemetics they were unable to control her nausea in the emergency department and she was admitted for further management. She finally got her symptoms under control around 2 AM. She has tolerated clear liquids already this morning. She is requesting discharge home. Date Seen 11/02/21 Time Seen by a Provider: 10:02 Attending Physician Anival Ellington MD PCP Admitting Physician: Gilbert Seals MD Attending Physician: Gilbert Seals MD Referring Physician Date of Admission Nov 01, 2021 at 21:09 Home Medications & Allergies Home Medications Reviewed patient Home Medication Reconciliation performed by pharmacy medication reconciliations machine shop repair technician and/or nursing. Patients Allergies have been reviewed. Allergies Allergies Coded Allergies aspirin (Verified Allergy, Intermediate, Hives, 12/29/20) Some kinds of chewable aspirin clavulanic acid (Verified Allergy, Unknown, 01/06/18) codeine (Verified Allergy, Unknown, 01/06/18) hydrocodone (Verified Allergy, Unknown, 01/06/18) oxycodone (Verified Allergy, Unknown, 01/06/18) Past Lsmqito-Awtzcp-Siemrr Hx Patient Social History Marrital Status: Employed/Student: retired Tobacco Use?: No Smoking Status: Never a Smoker Use of E-Cig and/or Vaping dev: No Substance use?: No Alcohol Use?: No Pt feels they are or have been: No Immunizations Up To Date Date of Influenza Vaccine: Feb 01, 2020 First/Initial COVID19 Vaccinat: JUN 2020 Second COVID19 Vaccination Werner: JULY 2020 Tetanus Booster (TDap): Unknown Date of Pneumonia Vaccine: Jan 07, 2016 Seasonal Allergies Seasonal Allergies: No Current Status status: No status: No Advance Directives: No Advance Directive Location: Unable to obtain copy Communicates: Verbally Primary Language: Northern Irish Preferred Spoken Language: Northern Irish Is interpretation needed?: No Sensory deficits: Vision impairment Implanted or Applied Medical D: None Past Medical History Surgeries: Breast, Cardiac, Gallbladder, Hysterectomy, Neurological, Orthopedic, Valve Replacement Currently Using CPAP: No Currently Using BIPAP: No Atrial Fibrillation, Hypertension, Valvular Heart Disease Brain Tumor 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, 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 Sexually Transmitted Disease: No HIV/AIDS: No Gastroesophageal Reflux, Diverticulosis, Hemorrhoids, Pancreatitis, Hiatal Hernia Loss of Vision: Denies Hearing Impairment: Denies Brain What Type of Treatment Did You: Surgical Intervention Blood Disorders: No Family Medical History Reviewed Nursing Family Hx No Pertinent Family Hx, Heart Disease Review of Systems Constitutional: No chills, No fever, No malaise EENTM: no symptoms reported Respiratory: No cough, No short of breath Cardiovascular: chest pain, palpitations Gastrointestinal: heartburn, nausea, vomiting Genitourinary: no symptoms reported Musculoskeletal: no symptoms reported Skin: no symptoms reported Psychiatric/Neurological: No Symptoms Reported Physical Exam Physical Exam Vital Signs Vital Signs - First Documented 11/01/21 17:38 Temp 36.2 Pulse 77 Resp 20 B/P (MAP) 133/73 (93) Pulse Ox 96 O2 Delivery Room Air Capillary Refill : Height, Weight, BMI Height: 5'2.50" Weight: 196lbs. 2.0oz. 88.415949ke; 28.31 BMI Method:Stated General Appearance: No Apparent Distress, WD/WN, Chronically ill HEENT: PERRL/EOMI, Moist Mucous Membranes; No Scleral Icterus (L), No Scleral Icterus (R) Neck: Normal Inspection, Supple Respiratory: Lungs Clear, No Accessory Muscle Use, No Respiratory Distress Cardiovascular: No JVD, No Murmur, Normal Peripheral Pulses, Irregularly Irregular Gastrointestinal: Normal Bowel Sounds, Non Tender, Soft; No Distended, No Guarding Extremity: Normal Capillary Refill, No Calf Tenderness, No Pedal Edema Neurologic/Psychiatric: Alert, Oriented x3, Normal Mood/Affect; No Aphasia, No Facial Droop Skin: Warm/Dry, Ecchymosis (chest wall mostly on left breast but spreading across sternum to right breast as well with suture in place from loop recorder removed) Results Results/Procedures Labs Laboratory Tests 11/01/21 17:45 Patient resulted labs reviewed. Imaging: Reviewed Imaging Report Imaging [facility]. [place], [place] NAME: DAVID PATTERSON [facility] REC#: [id number] PT STATUS: REG ER : 1945 PHYSICIAN: SHEREEN CASTANO MD ADMIT DATE: 11/01/21/ER Signed Date of Exam:11/01/21 CHEST 1 VIEW, AP/PA ONLY INDICATION: Chest pain. COMPARISON: 06/06/2021 and 12/29/2020. TECHNIQUE: Single radiograph of the chest dated November 01, 2021. FINDINGS: Postsurgical changes of median sternotomy and atrial clipping identified. Large retrocardiac density with associated gas lucency is again seen on the left, felt to relate to a large hiatal hernia. The cardiac silhouette is otherwise within normal limits. No significant pulmonary vascular congestion. The right lung is clear. Slight blunting of the left costophrenic angle with additional left basilar opacities. Left upper lung appears clear. No pneumothorax. No acute osseous abnormality. IMPRESSION: 1. Tiny bibasilar pleural-parenchymal opacity, felt to relate to a combination of pleural fluid with minimal adjacent atelectasis and/or infiltrate. 2. Large hiatal hernia. 3. Additional postsurgical changes, as above. Dictated by: Dictated on workstation # [id number] Dict: 11/01/21 1809 Trans: 11/01/21 183 [facility] [id number] Interpreted by: CONCHA ANTUNEZ MD Electronically signed by: CONCHA ANTUNEZ MD 11/01/21 1833 Short Stay Diagnosis Discharge Diagnosis-Short Stay Admission Diagnosis Intractable nausea and vomiting Final Discharge Diagnosis Intractable nausea and vomiting Conclusion Plan Intractable nausea and vomiting Hiatal hernia Symptoms now resolved DC IVF If tolerates lunch will DC home this afternoon Follow up with PCP John-caitlyn Continue home meds Follow up with Dr Astudillo as scheduled for suture removal Diagnosis/Problems Diagnosis/Problems (1) Intractable nausea and vomiting Status: Acute (2) Hiatal hernia Status: Acute (3) Afib Status: Chronic Clinical Quality Measures AMI/AHF: ASA po Prior to arrival: No (On Eliquis, allergy) GILBERT SEALS MD Nov 02, 2021 10:09
--- NOTE | 2021-11-02 10:14 | Discharge Inst-Simple/Standard ---
Discharge Inst-Standard Patient Instructions/Follow Up Plan of Care/Instructions/FU: Please continue to take your medications as written. Please follow up with your primary care doctor to follow up this hospital stay. Activity as Tolerated: Yes Discharge Diet: Other Diet (bland) Return to The Hospital For: Chest pain, nauea, vomiting, shortness of breath, fever, weakness, if you feel you are getting worse. GILBERT TEAGUE MD Nov 02, 2021 10:14
[2021-11-02] MEDS ORDERED: DOCUSATE SODIUM 100 MG (COLACE) CAP PO PRN (11:00)
[2021-11-02] MEDS ORDERED: HYDROCORTISONE 2.5% CREAM (ANUSOL-HC) 30 GM TOP PRN (11:00)
[2021-11-02] MEDS ORDERED: PATIENT MAY USE OWN MEDS, ALL MC SCH (11:00)
[2021-11-02 11:15] VITALS: BP 108/56
[2021-11-02 13:20] VITALS: BP 108/56
[2021-11-02] MEDS ORDERED: PATIENT'S OWN MED (RX USE ONLY) PO SCH (18:00)
[2021-11-02] MEDS ORDERED: DRONEDARONE 400 MG TABLET PO SCH (18:00)
[2021-11-02] MEDS ORDERED: PANTOPRAZOLE 40 MG (PROTONIX) TAB PO SCH (21:00)
[2021-11-02] MEDS ORDERED: VITAMIN D3 125 MCG (5,000 UNITS) CAPSULE PO SCH (21:00)
[2021-11-02] MEDS ORDERED: LEVETIRACETAM 250 MG PO SCH (21:00)
[2021-11-02] MEDS ORDERED: ACETAMINOPHEN 500 MG TAB (TYLENOL) PO SCH (21:00)
[2021-11-03] MEDS ORDERED: meTOprolol TARTRATE 25 MG (LOPRESSOR) TABLET PO SCH (09:00)
== END 2021-11-02 12:03 | disposition home or self-care (01) ==
LOC: EDUNIT# 17:36 → ER 17:38 → 4TH 21:09 → UNDOADMOB 21:09 → 4TH 23:54 → UNDODISOB 11-02 13:30
PROVIDERS: ADMIT Family Medicine; ATTEND Family Medicine
DX: R11.2 Nausea with vomiting, unspecified (principal); K44.9 Diaphragmatic hernia without obstruction or gangrene; I48.91 Unspecified atrial fibrillation
CPT/HCPCS: 36415; 71045; 80053; 80061; 83735; 83874; 84484; 85025; 85379; 85610; 85730; 93005; 93041; 96361; 96374; 96375; 96376; G0378

== ENCOUNTER → 2021-11-06 | Outpatient (CLI) | payer MEDICARE, OTHER | LOC: ORTHO 11:00 | PROVIDERS: ATTEND Orthopaedic Surgery | DX: M75.32 Calcific tendinitis of left shoulder (principal) | CPT/HCPCS: 20610; G0463; 99213 ==

== ENCOUNTER → 2022-01-27 | Outpatient (CLI) | payer MEDICARE, OTHER | LOC: ORTHO 13:15 | PROVIDERS: ATTEND Orthopaedic Surgery | DX: Z47.89 Encounter for other orthopedic aftercare (principal); I10 Essential (primary) hypertension; E78.2 Mixed hyperlipidemia; I48.21 Permanent atrial fibrillation; Z95.0 Presence of cardiac pacemaker | CPT/HCPCS: 20610 ==

== ENCOUNTER 2022-04-04 04:17 | Emergency (ER) | payer MEDICARE, OTHER ==
--- NOTE | 2022-04-04 05:28 | ED Cough/URI ---
General Chief Complaint: Cough/Cold/Flu Symptoms Stated Complaint: COUGH Source: patient Exam Limitations: no limitations History of Present Illness Date Seen by Provider: Apr 04, 2022 Time Seen by Provider: 04:34 Initial Comments 76-year-old female coming in due to 1 day of cough and congestion. She states it feels similar to the last time she had COVID in the summer. No fever, chest pain, shortness of breath, abdominal pain, nausea, vomiting, diarrhea, weakness, numbness, or any other concerns. Allergies and Home Medications Allergies Coded Allergies: aspirin (Verified Allergy, Intermediate, Hives, 12/29/20) Some kinds of chewable aspirin clavulanic acid (Verified Allergy, Unknown, 01/06/18) codeine (Verified Allergy, Unknown, 01/06/18) hydrocodone (Verified Allergy, Unknown, 01/06/18) oxycodone (Verified Allergy, Unknown, 01/06/18) Patient Home Medication List Home Medication List Reviewed: Yes Acetaminophen (Tylenol Extra Strength) 500 Mg Tablet, 1,000 MG PO HS, (Reported) Entered as Reported by: JAEL MATTHEW on 12/30/20 1425 Apixaban (Eliquis) 5 Mg Tablet, 5 MG PO BID, (Reported) Entered as Reported by: HENRRY HERNANDEZ on 12/18/19 1347 Atorvastatin Calcium (Atorvastatin Calcium) 20 Mg Tablet, 20 MG PO HS, (Reported) Entered as Reported by: HENRRY HERNANDEZ on 12/18/19 1347 Cholecalciferol (Vitamin D3) (Vitamin D3) 125 Mcg Tablet, 125 MCG PO BID, (Reported) Entered as Reported by: JAEL MATTHEW on 12/30/20 1418 Cyanocobalamin (Vitamin B-12) (Vitamin B-12) 500 Mcg Tablet, 500 MCG PO HS, (Reported) Entered as Reported by: JAEL MATTHEW on 12/30/20 1418 Docusate Sodium (Dulcolax Stool Softener) 100 Mg Capsule, 100 MG PO DAILY PRN for CONSTIPATION-1ST LINE, (Reported) Entered as Reported by: JAEL MATTHEW on 12/30/20 1418 Dronedarone HCl (Multaq) 400 Mg Tablet, 200 MG PO BID WITH MEALS, (Reported) Entered as Reported by: HENRRY HERNANDEZ on 12/18/19 1347 Fish Oil/Borage/Flax/Om3,6,9#1 ([place] 3-6-9 1,200 mg Softgel) 1,200 Mg Capsule, 1,200 MG PO HS, (Reported) Entered as Reported by: JAEL MATTHEW on 12/30/201417 Hydrocortisone (Hydrocortisone) 30 Gm Cream.appl, 1 APPLIC TOP PRN PRN for HEMMORRHOID DISCOMFORT, (Reported) Entered as Reported by: JAEL MATTHEW on 12/30/201417 Lactobacillus Rhamnosus GG (Culturelle) 1 Each Capsule, 1 EACH PO DAILY, (Reported) Entered as Reported by: JAEL MATTHEW on 12/30/201417 Levetiracetam (Levetiracetam) 500 Mg Tablet, 250 MG PO BID, (Reported) Entered as Reported by: SUE ZHOU on 01/06/18 0852 Lisinopril (Lisinopril) 2.5 Mg Tablet, 2.5 MG PO DAILY, (Reported) Entered as Reported by: HENRRY HERNANDEZ on 12/18/19 1347 Metoprolol Tartrate (Metoprolol Tartrate) 25 Mg Tablet, 25 MG PO DAILY, (Reported) Entered as Reported by: JAEL MATTHEW on 12/30/201417 Pantoprazole Sodium (Pantoprazole Sodium) 40 Mg Tablet.dr, 40 MG PO BID, (Reported) Entered as Reported by: JAEL MATTHEW on 12/30/201417 Tramadol HCl (Tramadol HCl) 50 Mg Tablet, 50 MG PO Q6H PRN for PAIN-MODERATE (5- 7), (Reported) Entered as Reported by: JAEL MATTHEW on 12/30/201417 Review of Systems Review of Systems Constitutional: No fever EENTM: ear pain Respiratory: cough Cardiovascular: no symptoms reported Gastrointestinal: no symptoms reported Genitourinary: no symptoms reported Musculoskeletal: no symptoms reported Skin: no symptoms reported Psychiatric/Neurological: No Symptoms Reported Hematologic/Lymphatic: No Symptoms Reported Immunological/Allergic: no symptoms reported All Other Systems Reviewed Negative Unless Noted: Yes Past Bxougii-Mdrxtt-Feuers Hx Patient Social History Tobacco Use?: No Immunizations Up To Date First/Initial COVID19 Vaccinat: JUN 2020 Second COVID19 Vaccination Werner: JULY 2020 Third COVID19 Vaccination Date: MAR 2021 Seasonal Allergies Seasonal Allergies: No Past Medical History Surgeries: Yes (BRAIN TUMOR, REMOVAL OF LUMP IN BREAST, MASS REMOVED FROM FACE) Breast, Cardiac, Gallbladder, Hysterectomy, Neurological, Orthopedic, Valve Replacement Respiratory: No Currently Using CPAP: No Currently Using BIPAP: No Cardiac: Yes Atrial Fibrillation, Hypertension, Valvular Heart Disease Neurological: Yes (BENIGN BRAIN TUMOR) Brain Tumor Reproductive Disorders: 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 2.0oz. [id number]; 28.31 BMI Method:Stated General Appearance: WD/WN, no apparent distress Eyes: Bilateral Eye Normal Inspection HEENT: PERRL/EOMI, normal ENT inspection, TMs normal, pharynx normal Neck: non-tender, full range of motion, supple, normal inspection Respiratory: chest non-tender, lungs clear, normal breath sounds, no respiratory distress, no accessory muscle use Cardiovascular: regular rate, rhythm, no edema, no murmur Gastrointestinal: normal bowel sounds, non tender, soft; No distended, No guarding, No rebound Extremities: normal range of motion, non-tender, normal inspection, no pedal edema, no calf tenderness, normal capillary refill Neurologic/Psychiatric: no motor/sensory deficits, alert, normal mood/affect Skin: normal color, warm/dry Lymphatic: no adenopathy Progress/Results/Core Measures Suspected Sepsis SIRS Temperature: Pulse: Respiratory Rate: Blood Pressure / Mean: Results/Orders Lab Results Laboratory Tests Test 04/04/22 02:59 Range/Units My Orders Orders - TISH GAMA MD Chest 1 View, Ap/Pa Only (04/04/22 04:51) Influenza A And B By Pcr (04/04/22 04:51) Covid 19 Inhouse Test (04/04/22 04:51) Vital Signs/I&O Capillary Refill : Diagnostic Imaging Diagonstic Imaging: Xray (chest) Comments 76-year-old female with above history coming in due to cough. ABCs were intact and vitals were stable on presentation. Lung sounds were clear on exam. Chest x-ray with an opacity that is hazy just left of the heart. This has been seen on prior x-rays and they read as likely hiatal hernia. Given the cough and inability to see the lung fuller in the area, we will treat her as if this is pn eumonia with a course of doxycycline. Viral testing sent and is pending. Departure Impression Primary Impression: Productive cough Disposition: HOME, SELF-CARE Condition: Stable Departure-Patient Inst. Decision time for Depature: 05:49 Referrals: ALEXIS GORE MD (PCP/Family) Primary Care Physician Patient Instructions: Bacterial Upper Respiratory Infection, Adult (DC) Add. Discharge Instructions: I suspect you do have potentially an infection that requires antibiotics. You will be on these for the next week. We will call you with your COVID and flu results. Scripts Doxycycline Hyclate (Doxycycline Hyclate) 100 Mg Tablet 100 MG PO Q12H for 7 Days, #14 TAB Prov: TISH GAMA MD 04/04/22 TISH GAMA MD Apr 04, 2022 05:28
[2022-04-04] MEDS ORDERED: DOXY100T2 PO (05:50)
[2022-04-04 05:58] VITALS: BP 137/92
--- NOTE | 2022-04-04 06:25 | Diagnostic Imaging Report ---
CHEST 1 VIEW, AP/PA ONLY Indication: Worsening cough Comparison: 11/01/2021 Findings: Stable large hernia involving the left hemidiaphragm. There are pulmonary consolidations adjacent to the hernia that are similar. No pleural effusion or pneumothorax. Stable cardiac silhouette status post CABG and potential mitral valve replacement. Impression: 1. Stable hernia associated with the left hemidiaphragm and adjacent pulmonary consolidations that are most likely due to compressive atelectasis. However, pneumonia could be present in the appropriate setting. Dictated by: Dictated on workstation # [id number]
== END 2022-04-04 05:58 | disposition home or self-care (01) ==
LOC: EDUNIT# 04:17 → ER 04:19
DX: R05.9 Cough, unspecified (principal); Z86.16 Personal history of COVID-19; Z88.0 Allergy status to penicillin
CPT/HCPCS: 71045; 87636

== ENCOUNTER 2022-04-06 16:53 | Emergency (ER) | payer MEDICARE, OTHER ==
[~2022-04-06] VITALS: Ht 157 cm; Wt 91.0 kg
--- NOTE | 2022-04-06 16:59 | ED General ---
General Stated Complaint: LIGHT HEADED Source of Information: Patient Exam Limitations: No Limitations History of Present Illness Date Seen by Provider: Apr 06, 2022 Time Seen by Provider: 16:57 Initial Comments To ER by EMS from home with reports of lightheadedness and nausea. No fevers or chills. Was seen here few days ago for upper respiratory infection and given a prescription for doxycycline. She has taken 2 of them but now feels lightheaded and generally worse though her cough has improved. While at home she felt very nauseous, felt like she was going to pass out and broke out into a sweat. She feels better currently but not back to normal. Timing/Duration: 1-2 Days Severity: Moderate Associated Systoms: No Headaches; Nausea/Vomiting, Weakness Allergies and Home Medications Allergies Coded Allergies: aspirin (Verified Allergy, Intermediate, Hives, 12/29/20) Some kinds of chewable aspirin clavulanic acid (Verified Allergy, Unknown, 01/06/18) codeine (Verified Allergy, Unknown, 01/06/18) hydrocodone (Verified Allergy, Unknown, 01/06/18) oxycodone (Verified Allergy, Unknown, 01/06/18) Patient Home Medication List Home Medication List Reviewed: Yes Acetaminophen (Tylenol Extra Strength) 500 Mg Tablet, 1,000 MG PO HS, (Reported) Entered as Reported by: JAEL MATTHEW on 12/30/20 1425 Apixaban (Eliquis) 5 Mg Tablet, 5 MG PO BID, (Reported) Entered as Reported by: HENRRY HERNANDEZ on 12/18/19 1347 Atorvastatin Calcium (Atorvastatin Calcium) 20 Mg Tablet, 20 MG PO HS, (Reported) Entered as Reported by: HENRRY HERNANDEZ on 12/18/19 1347 Cholecalciferol (Vitamin D3) (Vitamin D3) 125 Mcg Tablet, 125 MCG PO BID, (Reported) Entered as Reported by: JAEL MATTHEW on 12/30/20 1418 Cyanocobalamin (Vitamin B-12) (Vitamin B-12) 500 Mcg Tablet, 500 MCG PO HS, (Reported) Entered as Reported by: JAEL MATTHEW on 12/30/20 1418 Docusate Sodium (Dulcolax Stool Softener) 100 Mg Capsule, 100 MG PO DAILY PRN for CONSTIPATION-1ST LINE, (Reported) Entered as Reported by: JAEL MATTHEW on 12/30/201417 Doxycycline Hyclate (Doxycycline Hyclate) 100 Mg Tablet, 100 MG PO Q12H Prescribed by: TISH GAMA on 04/04/22 0550 Dronedarone HCl (Multaq) 400 Mg Tablet, 200 MG PO BID WITH MEALS, (Reported) Entered as Reported by: HENRRY HERNANDEZ on 12/18/19 1347 Fish Oil/Borage/Flax/Om3,6,9#1 ([place] 3-6-9 1,200 mg Softgel) 1,200 Mg Capsule, 1,200 MG PO HS, (Reported) Entered as Reported by: JAEL MATTHEW on 12/30/201417 Hydrocortisone (Hydrocortisone) 30 Gm Cream.appl, 1 APPLIC TOP PRN PRN for HEMMO RRHOID DISCOMFORT, (Reported) Entered as Reported by: JAEL MATTHEW on 12/30/201417 Lactobacillus Rhamnosus GG (Culturelle) 1 Each Capsule, 1 EACH PO DAILY, (Reported) Entered as Reported by: JAEL MATTHEW on 12/30/201417 Levetiracetam (Levetiracetam) 500 Mg Tablet, 250 MG PO BID, (Reported) Entered as Reported by: SUE ZHOU on 01/06/18 0852 Lisinopril (Lisinopril) 2.5 Mg Tablet, 2.5 MG PO DAILY, (Reported) Entered as Reported by: HENRRY HERNANDEZ on 12/18/19 1347 Metoprolol Tartrate (Metoprolol Tartrate) 25 Mg Tablet, 25 MG PO DAILY, (Reported) Entered as Reported by: JAEL MATTHEW on 12/30/201417 Pantoprazole Sodium (Pantoprazole Sodium) 40 Mg Tablet.dr, 40 MG PO BID, (Reported) Entered as Reported by: JAEL MATTHEW on 12/30/201417 Tramadol HCl (Tramadol HCl) 50 Mg Tablet, 50 MG PO Q6H PRN for PAIN-MODERATE (5- 7), (Reported) Entered as Reported by: JAEL MATTHEW on 12/30/201417 Review of Systems Review of Systems Constitutional: see HPI, malaise EENTM: see HPI Respiratory: see HPI, cough Cardiovascular: no symptoms reported Gastrointestinal: nausea, vomiting Genitourinary: no symptoms reported Musculoskeletal: no symptoms reported Skin: no symptoms reported Psychiatric/Neurological: No Symptoms Reported Hematologic/Lymphatic: No Symptoms Reported Past Svkbhoj-Gpcfbt-Lajaur Hx Immunizations Up To Date First/Initial COVID19 Vaccinat: JUN 2020 Second COVID19 Vaccination Werner: JULY 2020 Third COVID19 Vaccination Date: MAR 2021 Seasonal Allergies Seasonal Allergies: No Past Medical History Surgeries: Yes (BRAIN TUMOR, REMOVAL OF LUMP IN BREAST, MASS REMOVED FROM FACE) Breast, Cardiac, Gallbladder, Hysterectomy, Neurological, Orthopedic, Valve Replacement Respiratory: No Currently Using CPAP: No Currently Using BIPAP: No Cardiac: Yes Atrial Fibrillation, Hypertension, Valvular Heart Disease Neurological: Yes (BENIGN BRAIN TUMOR) Brain Tumor 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, 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 Sexually Transmitted Disease: No HIV/AIDS: No Genitourinary: No Gastrointestinal: Yes (DIVERTICULITIS) Gastroesophageal Reflux, Diverticulosis, Hemorrhoids, Pancreatitis, Hiatal Hernia Musculoskeletal: Yes Endocrine: No HEENT: No Loss of Vision: Denies Hearing Impairment: Denies Cancer: Yes Brain What Type of Treatment Did You: Surgical Intervention Psychosocial: No Integumentary: No Blood Disorders: No Family Medical History No Pertinent Family Hx, Heart Disease Physical Exam Vital Signs Vital Signs - First Documented 04/06/22 17:06 Temp 37.0 Pulse 67 B/P (MAP) 142/93 (109) Capillary Refill : Height, Weight, BMI Height: 5'2.50" Weight: 196lbs. 2.0oz. [id number]; 28.31 BMI Method:Stated General Appearance: No Apparent Distress, WD/WN Eyes: Bilateral Eye Normal Inspection, Bilateral Eye PERRL, Bilateral Eye EOMI HEENT: PERRL/EOMI, Normal ENT Inspection Neck: Full Range of Motion, Normal Inspection Respiratory: Normal Breath Sounds, No Accessory Muscle Use, No Respiratory Distress Cardiovascular: Regular Rate, Rhythm, Normal Peripheral Pulses Gastrointestinal: Normal Bowel Sounds, Non Tender, Soft Extremity: Normal Capillary Refill, Normal Inspection Neurologic/Psychiatric: Alert, Oriented x3 Skin: Normal Color, Warm/Dry Comments Alert and oriented no distress speaks in full sentences eyes are open no nystagmus [place] warm and dry skin without diaphoresis. Progress/Results/Core Measures Suspected Sepsis SIRS Temperature: Pulse: Respiratory Rate: Laboratory Tests 04/06/22 18:30: White Blood Count 5.1 Blood Pressure / Mean: Laboratory Tests 04/06/22 18:30: Creatinine 0.77, Platelet Count 221, Total Bilirubin 0.9 Results/Orders Lab Results Laboratory Tests Test 04/06/22 18:30 Range/Units White Blood Count 5.1 4.3-11.0 10^3/uL Red Blood Count 4.77 3.80-5.11 10^6/uL Hemoglobin 13.8 11.5-16.0 g/dL Hematocrit 42 35-52 % Mean Corpuscular Volume 87 80-99 fL Mean Corpuscular Hemoglobin 29 25-34 pg Mean Corpuscular Hemoglobin Concent 33 32-36 g/dL Red Cell Distribution Width 12.6 10.0-14.5 % Platelet Count 221 130-400 10^3/uL Mean Platelet Volume 9.3 9.0-12.2 fL Immature Granulocyte % (Auto) 0 % Neutrophils (%) (Auto) 56 42-75 % Lymphocytes (%) (Auto) 29 12-44 % Monocytes (%) (Auto) 14 H 0-12 % Eosinophils (%) (Auto) 1 0-10 % Basophils (%) (Auto) 1 0-10 % Neutrophils # (Auto) 2.9 1.8-7.8 10^3/uL Lymphocytes # (Auto) 1.5 1.0-4.0 10^3/uL Monocytes # (Auto) 0.7 0.0-1.0 10^3/uL Eosinophils # (Auto) 0.0 0.0-0.3 10^3/uL Basophils # (Auto) 0.0 0.0-0.1 10^3/uL Immature Granulocyte # (Auto) 0.0 0.0-0.1 10^3/uL Sodium Level 138 135-145 MMOL/L Potassium Level 3.9 3.6-5.0 MMOL/L Chloride Level 105 98-107 MMOL/L Carbon Dioxide Level 26 21-32 MMOL/L Anion Gap 7 5-14 MMOL/L Blood Urea Nitrogen 13 7-18 MG/DL Creatinine 0.77 0.60-1.30 MG/DL Estimat Glomerular Filtration Rate 80 BUN/Creatinine Ratio 17 Glucose Level 101 70-105 MG/DL Calcium Level 8.7 8.5-10.1 MG/DL Corrected Calcium 9.2 8.5-10.1 MG/DL Magnesium Level 1.4 L 1.6-2.4 MG/DL Total Bilirubin 0.9 0.1-1.0 MG/DL Aspartate Amino Transf (AST/SGOT) 14 5-34 U/L Alanine Aminotransferase (ALT/SGPT) 13 0-55 U/L Alkaline Phosphatase 50 40-136 U/L Total Protein 5.8 L 6.4-8.2 GM/DL Albumin 3.4 3.2-4.5 GM/DL My Orders Orders - JAZMINE DOTY APRN Ekg Tracing (04/06/22 16:59) Cbc With Automated Diff (04/06/22 16:59) Comprehensive Metabolic Panel (04/06/22 16:59) Magnesium (04/06/22 16:59) Lactated Ringers (Lr 1000 Ml Iv Solution (04/06/22 17:30) Ondansetron Injection (Zofran Injectio (04/06/22 17:30) Chest 1 View, Ap/Pa Only (04/06/22 17:52) Magnesium Oxide Tablet (Mag Ox Tablet) (04/06/22 19:15) Medications Given in ED Current Medications Medications Dose Ordered Sig/Rita Route Start Time Stop Time Status Last Admin Dose Admin Magnesium Oxide 400 mg ONCE ONCE PO 04/06/22 19:15 04/06/22 19:16 DC 04/06/22 19:20 400 MG Ondansetron HCl 8 mg ONCE ONCE IVP 04/06/22 17:30 04/06/22 17:31 DC 04/06/22 17:38 8 MG Vital Signs/I&O 04/06/22 17:06 Temp 37.0 Pulse 67 B/P (MAP) 142/93 (109) Capillary Refill : Departure Impression Primary Impression: Near syncope Additional Impressions: LLL pneumonia Nausea Disposition: 01 HOME, SELF-CARE Condition: Stable Departure-Patient Inst. Decision time for Depature: 19:01 Referrals: ALEXIS GORE MD (PCP/Family) Primary Care Physician Patient Instructions: Near Fainting, Pneumonia, Adult ED Add. Discharge Instructions: 1. Return to ER for any concerns 2. Follow-up with your doctor next week 3. JAZMINE DOTY APRN Apr 06, 2022 16:59
[2022-04-06] MEDS ORDERED: LACTATED RINGERS 1,000 ML IV SCH (17:30)
[2022-04-06] MEDS ORDERED: ONDANSETRON 4 MG/2 ML (SDV) Z0FRAN IVP ONE (17:30)
--- NOTE | 2022-04-06 18:18 | Diagnostic Imaging Report ---
EXAMINATION: Chest radiograph, portable AP view. DATE: 04/06/2022 6:09 PM INDICATION: 76-year-old female, cough. COMPARISON: April 04, 2022. FINDINGS: There are median sternotomy wires. There is valvular hardware. Heart size and mediastinal contours appear unchanged. There is no identified pneumothorax. There is persistent but improved aeration of the left lung base. The right lung appears grossly clear. IMPRESSION: 1. Persistent but improved aeration of the left lung base which may relate to small effusion, infiltrate, and/or atelectasis. 2. The right lung is grossly clear. Dictated by: Dictated on workstation # [id number]
[2022-04-06 18:41] LABS: BASOPHILS % (AUTO) 1 % (0-10); EOSINOPHILS % (AUTO) 1 % (0-10); HEMATOCRIT 42 % (35-52); HEMOGLOBIN 13.8 g/dL (11.5-16.0); LYMPHOCYTES # (AUTO) 1.5 10^3/uL (1.0-4.0); LYMPHOCYTES % (AUTO) 29 % (12-44); MEAN CORPUSCULAR HEMOGLOBIN 29 pg (25-34); MEAN CORPUSCULAR HGB CONC 33 g/dL (32-36); MEAN CORPUSCULAR VOLUME 87 fL (80-99); MEAN PLATELET VOLUME 9.3 fL (9.0-12.2); MONOCYTES # (AUTO) 0.7 10^3/uL (0.0-1.0); MONOCYTES % (AUTO) 14 % (0-12); NEUTROPHILS # (AUTO) 2.9 10^3/uL (1.8-7.8); NEUTROPHILS % (AUTO) 56 % (42-75); PLATELET COUNT 221 10^3/uL (130-400); WHITE BLOOD COUNT 5.1 10^3/uL (4.3-11.0)
[2022-04-06 18:52] LABS: ALBUMIN 3.4 GM/DL (3.2-4.5); POTASSIUM 3.9 MMOL/L (3.6-5.0)
[2022-04-06 18:53] LABS: CALCIUM 8.7 MG/DL (8.5-10.1)
[2022-04-06 18:54] LABS: TOTAL PROTEIN 5.8 GM/DL (6.4-8.2)
[2022-04-06 18:56] LABS: BILIRUBIN,TOTAL 0.9 MG/DL (0.1-1.0)
[2022-04-06 18:58] LABS: CREATININE SERUM 0.77 MG/DL (0.60-1.30)
[2022-04-06 19:01] LABS: MAGNESIUM 1.4 MG/DL (1.6-2.4)
[2022-04-06] MEDS ORDERED: MAGNESIUM OXIDE (MAG-OX)400 MG TAB PO ONE (19:15)
[2022-04-06 19:22] VITALS: BP 139/87
== END 2022-04-06 19:22 | disposition home or self-care (01) ==
LOC: EDUNIT# 16:53 → ER 16:54
DX: J18.1 Lobar pneumonia, unspecified organism (principal); R55 Syncope and collapse; R11.0 Nausea
CPT/HCPCS: 36415; 71045; 80053; 83735; 85025; 93005

== ENCOUNTER → 2022-04-13 | Outpatient (CLI) | payer MEDICARE, OTHER ==
--- NOTE | 2022-04-13 17:00 | Diagnostic Imaging Report ---
EXAMINATION: Chest 2 view HISTORY: Pneumonia COMPARISON: 04/06/2022 FINDINGS: Median sternotomy wires are aligned. Heart size is normal. There is a mitral valve repair. Left atrial appendage clip is present. There is a large hiatal hernia. No edema or pneumonia. No pleural effusion or pneumothorax. IMPRESSION: 1. Clear lungs. Dictated by: Dictated on workstation # [id number]
== END ==
LOC: RAD 15:47
PROVIDERS: ATTEND Physician Assistant
DX: J18.9 Pneumonia, unspecified organism (principal)
CPT/HCPCS: 71046

== ENCOUNTER → 2022-04-28 | Outpatient (CLI) | payer MEDICARE, OTHER | LOC: ORTHO 13:10 | PROVIDERS: ATTEND Orthopaedic Surgery | DX: M25.511 Pain in right shoulder (principal) | CPT/HCPCS: 20610 ==

== ENCOUNTER → 2022-07-28 | Outpatient (CLI) | payer MEDICARE, OTHER | LOC: ORTHO 11:22 | PROVIDERS: ATTEND Orthopaedic Surgery | DX: M25.511 Pain in right shoulder (principal); I10 Essential (primary) hypertension; K21.9 Gastro-esophageal reflux disease without esophagitis; R42 Dizziness and giddiness; I48.20 Chronic atrial fibrillation, unspecified; R53.83 Other fatigue; E78.5 Hyperlipidemia, unspecified | CPT/HCPCS: 20610 ==

== ENCOUNTER → 2022-08-04 | Outpatient (CLI) | payer MEDICARE, OTHER ==
[~2022-08-04] MED LIST changes: +CATHETER FLUSH 10 ML SYR IVP PRN; +REGADENOSON 0.4 MG/5 ML SYR (LEXISCAN) IV ONE
[2022-08-04 12:40] VITALS: BP 156/104
--- NOTE | 2022-08-04 20:56 | STRESS TEST ---
DATE OF SERVICE: 08/04/2022 RESTING AND POST REGADENOSON TECHNETIUM-99M TETROFOSMIN SPECT CT IMAGING Baseline images were carried out after injection of 10.68 mCi of technetium-99m tetrofosmin. This was followed by 0.4 mg regadenoson and 30.4 mCi of technetium-99m tetrofosmin for stress imaging. The electrocardiogram showed atrial fibrillation at baseline and the electrocardiogram did not change significantly with the regadenoson infusion. Review of images at rest and following stress does not indicate any distinct perfusion defects consistent with myocardial ischemia or infarction. Some degree of apical thinning is seen both at rest and following regadenoson infusion. Gated images show normal regional wall motion, including the ventricular apex. Left ventricular ejection fraction is calculated to be 60%. CONCLUSIONS: 1. No evidence of significant myocardial ischemia or infarction on this study. 2. Normal regional wall motion. 3. Normal global left ventricular systolic function with a calculated ejection fraction of 60%. 4. Atrial fibrillation with a relatively well-controlled ventricular response throughout the study. Job ID: [id number] DocumentID: [id number] Dictated Date: 08/04/2022 17:11:20 Society Reporter Date: 08/04/2022 20:54:00 Dictated By: NETTIE GLEASON MD; NIKKY; FACP; FACC;
== END ==
LOC: CARD 10:45
PROVIDERS: ATTEND Internal Medicine Cardiovascular Disease
DX: R07.89 Other chest pain (principal)
CPT/HCPCS: 78452; 93017; A9502

== ENCOUNTER → 2022-09-08 | Outpatient (CLI) | payer MEDICARE, OTHER ==
[~2022-09-08] MED LIST changes: -CATHETER FLUSH 10 ML SYR IVP PRN; -REGADENOSON 0.4 MG/5 ML SYR (LEXISCAN) IV ONE
== END ==
LOC: CARD 11:31
PROVIDERS: ATTEND Nurse Practitioner Family
DX: Z98.890 Other specified postprocedural states (principal)
CPT/HCPCS: 93306

== ENCOUNTER 2022-09-21 12:42 | Emergency (ER) | payer MEDICARE, OTHER ==
[~2022-09-21] VITALS: Ht 160 cm; Wt 91.0 kg
--- NOTE | 2022-09-21 13:07 | ED General ---
General Chief Complaint: Dizziness/Syncope Stated Complaint: DIZZINESS | WEAKNESS Nursing Triage Note: PT AMB TO [facility] 3 WITH SPOUSE WITH C/O DIZZINESS AFTER GETTING UP THIS MORNING TO TAKE MEDICATION. PT STATES HER EYES WENT BLACK AND FELT LIKE SHE COULDNT BREATHE. PT DENIES FALLING OR FAINTING Source of Information: Patient, Family () Exam Limitations: No Limitations History of Present Illness Date Seen by Provider: September 21, 2022 Time Seen by Provider: 12:58 Initial Comments 77-year-old female presents to the emergency department today after this morning at about 6:30 in the morning she walked to the counter to make some oatmeal had a brief episode where she could not see or hear. She states she was staggering with her gait at that time as well. Symptoms lasted for about 3 to 5 seconds and spontaneously resolved. She states she has some issues with balance occasionally but the issues with her vision and hearing were completely new. She feels back to normal baseline at this time however her called her heart doctor who recommended she come in to get evaluated. She does have a history of cardiac pause for about 3 seconds on 2 separate occasions when she was wearing a personnel monitor several years ago. She does not have the monitor any longer and does not have a pacemaker or defibrillator. She denies any fevers or chills. No chest pain or shortness of breath. She did not fall, hit her head. No headaches. She has been ambulatory and tolerated p.o. since that time without any difficulty. All other systems reviewed and negative except documented per HPI. Voice recognition software was used to help create this chart Allergies and Home Medications Allergies Coded Allergies: aspirin (Verified Allergy, Intermediate, Hives, 12/29/20) Some kinds of chewable aspirin clavulanic acid (Verified Allergy, Unknown, 01/06/18) codeine (Verified Allergy, Unknown, 01/06/18) hydrocodone (Verified Allergy, Unknown, 01/06/18) oxycodone (Verified Allergy, Unknown, 01/06/18) Patient Home Medication List Home Medication List Reviewed: Yes Acetaminophen (Tylenol Extra Strength) 500 Mg Tablet, 1,000 MG PO HS, (Reported) Entered as Reported by: JAEL MATTHEW on 12/30/20 5465 Apixaban (Eliquis) 5 Mg Tablet, 5 MG PO BID, (Reported) Entered as Reported by: HENRRY HERNANDEZ on 12/18/19 1347 Atorvastatin Calcium (Atorvastatin Calcium) 20 Mg Tablet, 20 MG PO HS, (Reported) Entered as Reported by: HENRRY HERNANDEZ on 12/18/19 134 Cholecalciferol (Vitamin D3) (Vitamin D3) 125 Mcg Tablet, 125 MCG PO BID, (Reported) Entered as Reported by: JAEL MATTHEW on 12/30/20 141 Cyanocobalamin (Vitamin B-12) (Vitamin B-12) 500 Mcg Tablet, 500 MCG PO HS, (Reported) Entered as Reported by: JAEL MATTHEW on 12/30/20 141 Docusate Sodium (Dulcolax Stool Softener) 100 Mg Capsule, 100 MG PO DAILY PRN for CONSTIPATION-1ST LINE, (Reported) Entered as Reported by: JAEL MATTHEW on 12/30/20 141 Doxycycline Hyclate (Doxycycline Hyclate) 100 Mg Tablet, 100 MG PO Q12H Prescribed by: TISH GAMA on 04/04/22 0550 Dronedarone HCl (Multaq) 400 Mg Tablet, 200 MG PO BID WITH MEALS, (Reported) Entered as Reported by: HENRRY HERNANDEZ on 12/18/19 134 Fish Oil/Borage/Flax/Om3,6,9#1 ([place] 3-6-9 1,200 mg Softgel) 1,200 Mg Capsule, 1,200 MG PO HS, (Reported) Entered as Reported by: JAEL MATTHEW on 12/30/20 141 Hydrocortisone (Hydrocortisone) 30 Gm Cream.appl, 1 APPLIC TOP PRN PRN for HEMMORRHOID DISCOMFORT, (Reported) Entered as Reported by: JAEL MATTHEW on 12/30/20 141 Lactobacillus Rhamnosus GG (Culturelle) 1 Each Capsule, 1 EACH PO DAILY, (Reported) Entered as Reported by: JAEL MATTHEW on 12/30/20 141 Levetiracetam (Levetiracetam) 500 Mg Tablet, 250 MG PO BID, (Reported) Entered as Reported by: SUE ZHOU on 01/06/18 0852 Lisinopril (Lisinopril) 2.5 Mg Tablet, 2.5 MG PO DAILY, (Reported) Entered as Reported by: HENRRY HERNANDEZ on 12/18/19 1347 Metoprolol Tartrate (Metoprolol Tartrate) 25 Mg Tablet, 25 MG PO DAILY, (Reported) Entered as Reported by: JAEL MATTHEW on 12/30/20 1418 Pantoprazole Sodium (Pantoprazole Sodium) 40 Mg Tablet.dr, 40 MG PO BID, (Reported) Entered as Reported by: JAEL MATTHEW on 12/30/20 1418 Tramadol HCl (Tramadol HCl) 50 Mg Tablet, 50 MG PO Q6H PRN for PAIN-MODERATE (5- 7), (Reported) Entered as Reported by: JAEL MATTHEW on 12/30/20 1418 Review of Systems Review of Systems Constitutional: see HPI Past [id number]-[id number]-[id number] Hx Patient Social History Tobacco Use?: No Substance use?: No Alcohol Use?: No Pt feels they are or have been: No Immunizations Up To Date First/Initial COVID19 Vaccinat: JUN 2020 Second COVID19 Vaccination Werner: JULY 2020 Third COVID19 Vaccination Date: MAR 2021 Seasonal Allergies Seasonal Allergies: No Past Medical History Surgery/Hospitalization HX: AFIB, HTN LOOP RECORDER- REMOVED NOW, Surgeries: Yes (BRAIN TUMOR, REMOVAL OF LUMP IN BREAST, MASS REMOVED FROM FACE) Breast, Cardiac, Gallbladder, Hysterectomy, Neurological, Orthopedic, Valve Replacement Respiratory: No Currently Using CPAP: No Currently Using BIPAP: No Cardiac: Yes Atrial Fibrillation, Hypertension, Valvular Heart Disease Neurological: Yes (BENIGN BRAIN TUMOR) Brain Tumor Reproductive Disorders: No [employer] History: Hysterectomy, Menopausal Sexually Transmitted Disease: No HIV/AIDS: No Genitourinary: No Gastrointestinal: Yes (DIVERTICULITIS) Gastroesophageal Reflux, Diverticulosis, Hemorrhoids, Pancreatitis, Hiatal Hernia Musculoskeletal: Yes Endocrine: No HEENT: No Loss of Vision: Denies Hearing Impairment: Denies Cancer: Yes Brain What Type of Treatment Did You: Surgical Intervention Psychosocial: No Integumentary: No Blood Disorders: No Family Medical History No Pertinent Family Hx, Heart Disease Physical Exam Vital Signs Vital Signs - First Documented 09/21/22 12:57 Temp 36.4 Pulse 74 Resp 17 B/P (MAP) 147/92 (110) Pulse Ox 94 O2 Delivery Room Air Capillary Refill : Height, Weight, BMI Height: 5'2.50" Weight: 196lbs. 2.0oz. [id number]; 35.00 BMI Method:Stated General Appearance: No Apparent Distress, WD/WN Eyes: Bilateral Eye Normal Inspection, Bilateral Eye PERRL, Bilateral Eye EOMI HEENT: PERRL/EOMI, Normal ENT Inspection, Pharynx Normal Neck: Normal Inspection, Non Tender, Supple Respiratory: Chest Non Tender, Lungs Clear, Normal Breath Sounds, No Accessory Muscle Use, No Respiratory Distress Cardiovascular: Regular Rate, Rhythm, No Murmur, Normal Peripheral Pulses Gastrointestinal: Normal Bowel Sounds, No Organomegaly, Non Tender, Soft Extremity: Normal Capillary Refill, Normal Inspection, Normal Range of Motion, Non Tender, No Calf Tenderness Neurologic/Psychiatric: Alert, Oriented x3, No Motor/Sensory Deficits, Normal Mood/Affect, director of medical staff services II-XII Norm as Tested Skin: Normal Color, Warm/Dry Progress/Results/Core Measures Suspected Sepsis SIRS Temperature: Pulse: 74 Respiratory Rate: 17 Laboratory Tests 09/21/22 13:00: White Blood Count 10.2 Blood Pressure 147 /92 Mean: 110 Laboratory Tests 09/21/22 13:00: Creatinine 0.83, INR Comment 1.1, Platelet Count 302, Total Bilirubin 1.0 Results/Orders Lab Results Laboratory Tests Test 09/21/22 13:00 Range/Units White Blood Count 10.2 4.3-11.0 10^3/uL Red Blood Count 4.82 3.80-5.11 10^6/uL Hemoglobin 14.2 11.5-16.0 g/dL Hematocrit 42 35-52 % Mean Corpuscular Volume 87 80-99 fL Mean Corpuscular Hemoglobin 30 25-34 pg Mean Corpuscular Hemoglobin Concent 34 32-36 g/dL Red Cell Distribution Width 12.1 10.0-14.5 % Platelet Count 302 130-400 10^3/uL Mean Platelet Volume 9.2 9.0-12.2 fL Immature Granulocyte % (Auto) 0 % Neutrophils (%) (Auto) 71 42-75 % Lymphocytes (%) (Auto) 23 12-44 % Monocytes (%) (Auto) 6 0-12 % Eosinophils (%) (Auto) 1 0-10 % Basophils (%) (Auto) 1 0-10 % Neutrophils # (Auto) 7.2 1.8-7.8 10^3/uL Lymphocytes # (Auto) 2.3 1.0-4.0 10^3/uL Monocytes # (Auto) 0.6 0.0-1.0 10^3/uL Eosinophils # (Auto) 0.1 0.0-0.3 10^3/uL Basophils # (Auto) 0.1 0.0-0.1 10^3/uL Immature Granulocyte # (Auto) 0.0 0.0-0.1 10^3/uL Prothrombin Time 14.8 H 12.2-14.7 SEC INR Comment 1.1 0.8-1.4 Sodium Level 140 135-145 MMOL/L Potassium Level 4.0 3.6-5.0 MMOL/L Chloride Level 108 H 98-107 MMOL/L Carbon Dioxide Level 22 21-32 MMOL/L Anion Gap 10 5-14 MMOL/L Blood Urea Nitrogen 9 7-18 MG/DL Creatinine 0.83 0.60-1.30 MG/DL Estimat Glomerular Filtration Rate 73 BUN/Creatinine Ratio 11 Glucose Level 139 H 70-105 MG/DL Calcium Level 9.4 8.5-10.1 MG/DL Corrected Calcium 9.5 8.5-10.1 MG/DL Total Bilirubin 1.0 0.1-1.0 MG/DL Aspartate Amino Transf (AST/SGOT) 13 5-34 U/L Alanine Aminotransferase (ALT/SGPT) 13 0-55 U/L Alkaline Phosphatase 53 40-136 U/L Troponin I < 0.028 <0.028 NG/ML Total Protein 6.3 L 6.4-8.2 GM/DL Albumin 3.9 3.2-4.5 GM/DL My Orders Orders - MARISELA GONZALEZ DO Comprehensive Metabolic Panel (09/21/22 13:04) Protime With Inr (09/21/22 13:04) Ekg Tracing (09/21/22 13:04) Troponin I Martin (09/21/22 13:04) Chest 1 View, Ap/Pa Only (09/21/22 13:04) Cbc With Automated Diff (09/21/22 13:04) Ct Head Wo (09/21/22 13:04) Vital Signs/I&O 09/21/22 09/21/22 12:57 14:19 Temp 36.4 Pulse 74 63 Resp 17 17 B/P (MAP) 147/92 (110) 125/67 Pulse Ox 94 96 O2 Delivery Room Air Room Air Capillary Refill : Blood Pressure Mean: 110 ECG Comment EKG shows likely atrial fibrillation. Rate of 65 bpm. Normal axis. Isolated PVC. Normal intervals outside of IN interval. No ST or T wave abnormalities. Departure Communication (Admissions) The patient is hemodynamically stable. She had a very brief transient alteration in admission and psych this morning spontaneously resolved. She can also nutrition she has been here and is no evidence for cardiac pauses, blocks. She does have what is likely atrial fibrillation/flutter that is well rate controlled. She is normotensive. CT scan shows no evidence for bleeding or early CVA. 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 There is no evidence for an acute emergent medical condition at this time. Considerations include TIA, dysrhythmia that was not seen during telemetry here, transient hypoglycemia/hyperglycemia. CT scan independently reviewed by myself and again is negative for any acute abnormalities. EKG is nonischemic, troponins are negative. She will be discharged home with close primary care and cardiology follow-up. She is given strict return precautions. Impression Primary Impression: Transient vision disturbance Disposition: 01 HOME, SELF-CARE Condition: Stable Departure-Patient Inst. Referrals: ALEXIS GORE MD (PCP/Family) Primary Care Physician Add. Discharge Instructions: No emergent medical condition is identified for your symptoms today. Your CT scan is normal outside of some chronic findings. The electrical tracing of your heart is normal for you with no evidence of pauses. Your electrolytes are all normal you are not anemic. I recommend you follow-up with your primary doctor to discuss further treatment options. Return to the emergency department immediately for recurrence of your symptoms. All discharge instructions reviewed with patient and/or family. Voiced understanding. Copy Copies To 1: NETTIE GLEASON MD FACP [facility] MARISELA GONZALEZ DO September 21, 2022 13:07
[2022-09-21 13:10] LABS: BASOPHILS # (AUTO) 0.1 10^3/uL (0.0-0.1); BASOPHILS % (AUTO) 1 % (0-10); EOSINOPHILS # (AUTO) 0.1 10^3/uL (0.0-0.3); EOSINOPHILS % (AUTO) 1 % (0-10); HEMATOCRIT 42 % (35-52); HEMOGLOBIN 14.2 g/dL (11.5-16.0); LYMPHOCYTES # (AUTO) 2.3 10^3/uL (1.0-4.0); LYMPHOCYTES % (AUTO) 23 % (12-44); MEAN CORPUSCULAR HEMOGLOBIN 30 pg (25-34); MEAN CORPUSCULAR HGB CONC 34 g/dL (32-36); MEAN CORPUSCULAR VOLUME 87 fL (80-99); MEAN PLATELET VOLUME 9.2 fL (9.0-12.2); MONOCYTES # (AUTO) 0.6 10^3/uL (0.0-1.0); MONOCYTES % (AUTO) 6 % (0-12); NEUTROPHILS # (AUTO) 7.2 10^3/uL (1.8-7.8); NEUTROPHILS % (AUTO) 71 % (42-75); PLATELET COUNT 302 10^3/uL (130-400); WHITE BLOOD COUNT 10.2 10^3/uL (4.3-11.0)
[2022-09-21 13:17] LABS: ALBUMIN 3.9 GM/DL (3.2-4.5)
[2022-09-21 13:18] LABS: CHLORIDE 108 MMOL/L (98-107); SODIUM 140 MMOL/L (135-145)
[2022-09-21 13:19] LABS: CALCIUM 9.4 MG/DL (8.5-10.1)
[2022-09-21 13:20] LABS: GLUCOSE 139 MG/DL (70-105); TOTAL PROTEIN 6.3 GM/DL (6.4-8.2)
[2022-09-21 13:21] LABS: CARBON DIOXIDE 22 MMOL/L (21-32)
[2022-09-21 13:23] LABS: ALKALINE PHOSPHATASE 53 U/L (40-136); CREATININE SERUM 0.83 MG/DL (0.60-1.30); GFR ESTIMATED 73
[2022-09-21 13:24] LABS: BUN/CREATININE RATIO 11; INR 1.1 (0.8-1.4); PROTHROMBIN TIME PATIENT 14.8 SEC (12.2-14.7)
[2022-09-21 13:26] LABS: ALANINE AMINOTRANSFERASE 13 U/L (0-55)
--- NOTE | 2022-09-21 13:39 | Diagnostic Imaging Report ---
INDICATION: Near syncope Compared with an exam 04/13/2022. FINDINGS: The patient has a known large retrocardiac gastric hernia accounting for retrocardiac density and obscuration of the left hemidiaphragm. Some subjacent lower lobe atelectasis is presumed. Previously this hernia was air-containing and now is a airless. Right lung clear. Upper lobes clear. Heart size stable. Sternal wires midline. IMPRESSION: Known large left retrocardiac hernia with subjacent partial atelectasis, no acute appearing abnormality identified. Dictated by: Dictated on workstation # [id number]
--- NOTE | 2022-09-21 14:03 | Diagnostic Imaging Report ---
INDICATION: Dizziness, presyncope, history of previous craniotomy. TECHNIQUE: Multiple contiguous axial images were obtained through the brain without the use of intravenous contrast. Auto Exposure Controls were utilized during the CT exam to meet ALARA standards for radiation dose reduction. Comparison made with 05/19/2018. There are no extra-axial fluid collections. No intracranial hemorrhage. No intracranial mass or mass effect.. No midline shift. Ventricles are normal in size and position. There is mild diffuse atrophic change. There is no acute intracranial finding. Calvarial windows show no fracture. There is a small retention cyst or polyp in the left maxillary sinus. Patient has had previous right frontal craniotomy. IMPRESSION: Mild atrophic change. Evidence of previous right-sided frontal craniotomy. No acute appearing abnormality. Dictated by: Dictated on workstation # [id number]
[2022-09-21 14:19] VITALS: BP 125/67
== END 2022-09-21 14:30 | disposition home or self-care (01) ==
LOC: EDUNIT# 12:42 → ER 12:45
DX: H53.9 Unspecified visual disturbance (principal)
CPT/HCPCS: 36415; 70450; 71045; 80053; 84484; 85025; 85610; 93005

== ENCOUNTER → 2022-10-29 | Outpatient (CLI) | payer MEDICARE, OTHER | LOC: ORTHO 11:42 | PROVIDERS: ATTEND Orthopaedic Surgery | DX: M25.511 Pain in right shoulder (principal) | CPT/HCPCS: 20610 ==

== ENCOUNTER 2022-11-01 10:17 | Emergency (ER) | payer MEDICARE, OTHER ==
[~2022-11-01] VITALS: Ht 157.5 cm; Wt 90.7 kg
--- NOTE | 2022-11-01 11:09 | ED General ---
General Chief Complaint: Abdominal/GI Problems Stated Complaint: VOMITING/EAR RINGING Nursing Triage Note: PT AMBULATE TO ROOM 10 WITHOUT DIFFICULTY WITH C/O N/V FOR "A FEW WEEKS", DIZZYNESS X45 MINS, AND RINGING IN RIGHT EAR. PT REPORTS BEING SEEN IN THIS ED X4 WEEKS AGO AND TOLD SHE HAD A TIA. PT REPORTS RECENT DECREASE IN A MEDICATION FOR AFIB DUE TO LOW HEART RATE. Source of Information: Patient Exam Limitations: No Limitations History of Present Illness Date Seen by Provider: Nov 01, 2022 Time Seen by Provider: 11:00 Initial Comments Here with report of nausea and vomiting intermittently over the past couple of weeks with intermittent dizziness that is worse today and now with right ear ringing. Did have evaluation about a month ago for similar and thought she may have had a TIA. She is on Eliquis. She was found to have intermittent low heart rate but she and family both state that she is not having that currently. Did have diarrhea yesterday with vomiting. Denies dysuria. Denies fever but does have some chills. Denies chest pain or breathing problems. Seems uncomfortable now due to dizziness. Timing/Duration: Getting Worse (Last 24 hours), Other (Few weeks) Severity: Moderate Modifying Factors: worse with Eating; improves with Rest Associated Systoms: No Chest Pain; Cough, Nausea/Vomiting; No Shortness of Air; Weakness Allergies and Home Medications Allergies Coded Allergies: aspirin (Verified Allergy, Intermediate, Hives, 12/29/20) Some kinds of chewable aspirin clavulanic acid (Verified Allergy, Unknown, 01/06/18) codeine (Verified Allergy, Unknown, 01/06/18) hydrocodone (Verified Allergy, Unknown, 01/06/18) oxycodone (Verified Allergy, Unknown, 01/06/18) Patient Home Medication List Home Medication List Reviewed: Yes Acetaminophen (Tylenol Extra Strength) 500 Mg Tablet, 1,000 MG PO HS, (Reported) Entered as Reported by: JAEL MATTHEW on 12/30/20 1425 Apixaban (Eliquis) 5 Mg Tablet, 5 MG PO BID, (Reported) Entered as Reported by: HENRRY HERNANDEZ on 12/18/19 1347 Atorvastatin Calcium (Atorvastatin Calcium) 20 Mg Tablet, 20 MG PO HS, (Reported) Entered as Reported by: HENRRY HERNANDEZ on 12/18/19 134 Cholecalciferol (Vitamin D3) (Vitamin D3) 125 Mcg Tablet, 125 MCG PO BID, (Reported) Entered as Reported by: JAEL MATTHEW on 12/30/20 141 Cyanocobalamin (Vitamin B-12) (Vitamin B-12) 500 Mcg Tablet, 500 MCG PO HS, (Reported) Entered as Reported by: JAEL MATTHEW on 12/30/20 141 Docusate Sodium (Dulcolax Stool Softener) 100 Mg Capsule, 100 MG PO DAILY PRN for CONSTIPATION-1ST LINE, (Reported) Entered as Reported by: JAEL MATTHEW on 12/30/20 141 Doxycycline Hyclate (Doxycycline Hyclate) 100 Mg Tablet, 100 MG PO Q12H Prescribed by: TISH GAMA on 04/04/22 0550 Dronedarone HCl (Multaq) 400 Mg Tablet, 200 MG PO BID WITH MEALS, (Reported) Entered as Reported by: HENRRY HERNANDEZ on 12/18/19 134 Fish Oil/Borage/Flax/Om3,6,9#1 (Whitney 3-6-9 1,200 mg Softgel) 1,200 Mg Capsule, 1,200 MG PO HS, (Reported) Entered as Reported by: JAEL MATTHEW on 12/30/201417 Hydrocortisone (Hydrocortisone) 30 Gm Cream.appl, 1 APPLIC TOP PRN PRN for HEMMORRHOID DISCOMFORT, (Reported) Entered as Reported by: JAEL MATTHEW on 12/30/20 141 Lactobacillus Rhamnosus GG (Culturelle) 1 Each Capsule, 1 EACH PO DAILY, (Reported) Entered as Reported by: JAEL MATTHEW on 12/30/201417 Levetiracetam (Levetiracetam) 500 Mg Tablet, 250 MG PO BID, (Reported) Entered as Reported by: SUE ZHOU on 01/06/18 0852 Lisinopril (Lisinopril) 2.5 Mg Tablet, 2.5 MG PO DAILY, (Reported) Entered as Reported by: HENRRY HERNANDEZ on 12/18/19 134 Metoprolol Tartrate (Metoprolol Tartrate) 25 Mg Tablet, 25 MG PO DAILY, (Reported) Entered as Reported by: JAEL MATTHEW on 12/30/201417 Pantoprazole Sodium (Pantoprazole Sodium) 40 Mg Tablet.dr, 40 MG PO BID, (Reported) Entered as Reported by: JAEL MATTHEW on 12/30/201417 Tramadol HCl (Tramadol HCl) 50 Mg Tablet, 50 MG PO Q6H PRN for PAIN-MODERATE (5- 7), (Reported) Entered as Reported by: JAEL MATTHEW on 12/30/201417 Review of Systems Review of Systems Constitutional: see HPI, chills; No fever EENTM: No nose congestion, No nose pain, No throat pain Respiratory: cough; No short of breath Cardiovascular: No chest pain, No edema Gastrointestinal: diarrhea, nausea, vomiting Genitourinary: No dysuria Musculoskeletal: No back pain, No joint pain Skin: no symptoms reported Psychiatric/Neurological: See HPI Past Iqscqnl-Sevboq-Qnjwvv Hx Patient Social History Tobacco Use?: No Smoking Status: Never a Smoker Smokeless Tobacco Frequency: Never a User Use of E-Cig and/or Vaping dev: No Use of E-Cig and/or Vaping Cornelio: Never a User Substance use?: No Alcohol Use?: No Pt feels they are or have been: No Immunizations Up To Date First/Initial COVID19 Vaccinat: JUN 2020 Second COVID19 Vaccination Werner: JULY 2020 Third COVID19 Vaccination Date: MAR 2021 Seasonal Allergies Seasonal Allergies: No Past Medical History Surgery/Hospitalization HX: AFIB, HTN LOOP RECORDER- REMOVED NOW, Surgeries: Yes (BRAIN TUMOR, REMOVAL OF LUMP IN BREAST, MASS REMOVED FROM FACE) Breast, Cardiac, Gallbladder, Hysterectomy, Neurological, Orthopedic, Valve Replacement Respiratory: No Currently Using CPAP: No Currently Using BIPAP: No Cardiac: Yes Atrial Fibrillation, Hypertension, Valvular Heart Disease Neurological: Yes (BENIGN BRAIN TUMOR) Brain Tumor Reproductive Disorders: 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, 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 Sexually Transmitted Disease: No HIV/AIDS: No Genitourinary: No Gastrointestinal: Yes (DIVERTICULITIS) Gastroesophageal Reflux, Diverticulosis, Hemorrhoids, Pancreatitis, Hiatal Hernia Musculoskeletal: Yes Endocrine: No HEENT: No Loss of Vision: Denies Hearing Impairment: Denies Cancer: Yes Brain What Type of Treatment Did You: Surgical Intervention Psychosocial: No Integumentary: No Blood Disorders: No Family Medical History Reviewed Nursing Family Hx No Pertinent Family Hx, Heart Disease Physical Exam Vital Signs Vital Signs - First Documented 11/01/22 10:27 Temp 36.0 Pulse 92 Resp 18 B/P (MAP) 179/98 (125) O2 Delivery Room Air Capillary Refill : Less Than 3 Seconds Height, Weight, BMI Height: 5'2.50" Weight: 196lbs. 2.0oz. 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 Norm as Tested, Other (No focal weakness noted) Skin: Normal Color, Warm/Dry Progress/Results/Core Measures Suspected Sepsis SIRS Temperature: Pulse: 92 Respiratory Rate: 18 Laboratory Tests 11/01/22 10:34: White Blood Count 10.7 Blood Pressure 179 /98 Mean: 125 Laboratory Tests 11/01/22 10:34: Creatinine 0.75, Platelet Count 332, Total Bilirubin 1.0 Results/Orders Lab Results Laboratory Tests Test 11/01/22 10:34 11/01/22 12:33 Range/Units White Blood Count 10.7 4.3-11.0 10^3/uL Red Blood Count 4.98 3.80-5.11 10^6/uL Hemoglobin 14.7 11.5-16.0 g/dL Hematocrit 44 35-52 % Mean Corpuscular Volume 88 80-99 fL Mean Corpuscular Hemoglobin 30 25-34 pg Mean Corpuscular Hemoglobin Concent 33 32-36 g/dL Red Cell Distribution Width 12.3 10.0-14.5 % Platelet Count 332 130-400 10^3/uL Mean Platelet Volume 9.9 9.0-12.2 fL Immature Granulocyte % (Auto) 1 % Neutrophils (%) (Auto) 73 42-75 % Lymphocytes (%) (Auto) 20 12-44 % Monocytes (%) (Auto) 7 0-12 % Eosinophils (%) (Auto) 0 0-10 % Basophils (%) (Auto) 0 0-10 % Neutrophils # (Auto) 7.8 1.8-7.8 10^3/uL Lymphocytes # (Auto) 2.1 1.0-4.0 10^3/uL Monocytes # (Auto) 0.7 0.0-1.0 10^3/uL Eosinophils # (Auto) 0.0 0.0-0.3 10^3/uL Basophils # (Auto) 0.0 0.0-0.1 10^3/uL Immature Granulocyte # (Auto) 0.1 0.0-0.1 10^3/uL D-Dimer 0.43 0.00-0.49 UG/ML Sodium Level 140 135-145 MMOL/L Potassium Level 3.7 3.6-5.0 MMOL/L Chloride Level 109 H 98-107 MMOL/L Carbon Dioxide Level 19 L 21-32 MMOL/L Anion Gap 12 5-14 MMOL/L Blood Urea Nitrogen 11 7-18 MG/DL Creatinine 0.75 0.60-1.30 MG/DL Estimat Glomerular Filtration Rate 82 BUN/Creatinine Ratio 15 Glucose Level 142 H 70-105 MG/DL Calcium Level 9.5 8.5-10.1 MG/DL Corrected Calcium 9.3 8.5-10.1 MG/DL Total Bilirubin 1.0 0.1-1.0 MG/DL Aspartate Amino Transf (AST/SGOT) 12 5-34 U/L Alanine Aminotransferase (ALT/SGPT) 10 0-55 U/L Alkaline Phosphatase 63 40-136 U/L Troponin I < 0.028 <0.028 NG/ML C-Reactive Protein High Sensitivity 0.04 0.00-0.50 MG/DL Total Protein 6.9 6.4-8.2 GM/DL Albumin 4.2 3.2-4.5 GM/DL Urine Color YELLOW Urine Clarity CLEAR Urine pH 6.5 5-9 Urine Specific [place] 1.010 L 1.016-1.022 Urine Protein NEGATIVE NEGATIVE Urine Glucose (UA) NEGATIVE NEGATIVE Urine Ketones NEGATIVE NEGATIVE Urine Nitrite NEGATIVE NEGATIVE Urine Bilirubin NEGATIVE NEGATIVE Urine Urobilinogen 0.2 < = 1.0 MG/DL Urine Leukocyte Esterase NEGATIVE NEGATIVE Urine RBC (Auto) 2+ H NEGATIVE Urine RBC NONE /HPF Urine WBC 0-2 /HPF Urine Squamous Epithelial Cells 2-5 /HPF Urine Crystals NONE /LPF Urine Bacteria TRACE /HPF Urine Casts NONE /LPF Urine Mucus SMALL H /LPF Urine Culture Indicated NO My Orders Orders - SHEREEN CASTANO MD Ct Head Wo (11/01/22 11:06) Ondansetron Injection (Zofran Injectio (11/01/22 11:15) Ed Iv/Invasive Line Start (11/01/22 11:06) Cbc With Automated Diff (11/01/22 11:06) Comprehensive Metabolic Panel (11/01/22 11:06) Hs C Reactive Protein (11/01/22 11:06) Fibrin Degradation Products (11/01/22 11:06) Troponin I [place] (11/01/22 11:06) Ua Culture If Indicated (11/01/22 11:06) Chest 1 View, Ap/Pa Only (11/01/22 11:06) Ns Iv 500 Ml (Sodium Chloride 0.9%) (11/01/22 11:15) Meclizine Tablet (Antivert Tablet) (11/01/22 11:15) Dysphagia Screening Tool [id number] (11/01/22 11:09) Ekg Tracing (11/01/22 11:14) Ct Angio Head/Neck (11/01/22 13:17) Iohexol Injection (Omnipaque 350 Mg/Ml 1 (11/01/22 13:30) Ns (Ivpb) (Sodium Chloride 0.9% Ivpb Bag (11/01/22 13:30) Ns Iv 500 Ml (Sodium Chloride 0.9%) (11/01/22 14:15) Medications Given in ED Current Medications Medications Dose Ordered Sig/Rita Route Start Time Stop Time Status Last Admin Dose Admin Iohexol 100 ml ONCE ONCE IV 11/01/22 13:30 11/01/22 13:31 DC 11/01/22 13:57 75 ML Meclizine HCl 25 mg ONCE ONCE PO 11/01/22 11:15 11/01/22 11:16 DC 11/01/22 11:17 25 MG Ondansetron HCl 4 mg ONCE ONCE IVP 11/01/22 11:15 11/01/22 11:16 DC 11/01/22 11:25 4 MG Sodium Chloride 100 ml ONCE ONCE IV 11/01/22 13:30 11/01/22 13:31 DC 11/01/22 13:58 80 ML Sodium Chloride 500 ml @ 0 mls/hr Q0M ONCE IV 11/01/22 11:15 11/01/22 11:16 DC 11/01/22 11:17 999 MLS/HR Sodium Chloride 500 ml @ 0 mls/hr Q0M ONCE IV 11/01/22 14:15 11/01/22 14:16 DC 11/01/22 14:27 999 MLS/HR Vital Signs/I&O 11/01/22 10:27 Temp 36.0 Pulse 92 Resp 18 B/P (MAP) 179/98 (125) O2 Delivery Room Air Capillary Refill : Less Than 3 Seconds Blood Pressure Mean: 125 Progress Note : Progress Note Seen and evaluated. IV, labs including CBC, CMP, D-dimer, troponin and UA, chest x-ray, CT head and EKG ordered. Normal saline 500 mL bolus, Zofran 4 mg IV for nausea and meclizine 25 mg p.o. after dysphagia screen for dizziness. Monitor patient. Differential diagnosis includes neuro event, cardiac event, electrolyte abnormality, dehydration, UTI 1130: I reviewed CT of the head and see no obvious intracranial hemorrhage. I have reviewed chest x-ray and she does have atelectatic stripe on the left but no obvious infiltrate pending radiology report. Labs reviewed and CBC is grossly normal and CMP grossly normal. Troponin and D-dimer are negative. We are pending UA. 1249: UA has been obtained. Monitor patient. 1315: UA does not show urinary tract infection. I did review patient's history. She has not had work-up other than CT of the head for these episodes over the last month. We will go ahead and do CT angiogram of the head and neck given the right ear ringing complaint with the episode to further evaluate carotid arteries and intracranial vessels. She does have history of cardiac stents and vascular disease. She is feeling better now though. Monitor patient. 1430: Patient doing much better. We have repeated normal saline 500 mL bolus. I did review CT angiogram results and radiology reports no obvious stenosis or blockage to the neck or head arteries. I did discuss with the patient about the thyroid nodule and they will follow-up with Dr. Gore for thyroid function test and ultrasound. I will send a copy of the chart to him. Discharged home with return precautions. Patient and family verbalized understanding instructions and agreement with plan. ECG Initial ECG Impression Date: Nov 01, 2022 Initial ECG Impression Time: 11:29 Initial ECG Rate: 69 Initial ECG Rhythm: A Fib/Flutter Comment Atrial fibrillation with normal axis. No evidence of ST elevation MS. Artifact noted. Interpreted by me. Diagnostic Imaging Diagonstic Imaging: CT Plain Films/CT/US/NM/MRI: head Comments [facility] [place], [place] NAME: DAVID PATTERSON [facility] REC#: [id number] PT STATUS: REG ER : 1945 PHYSICIAN: SHEREEN CASTANO MD ADMIT DATE: 11/01/22/ER Draft Date of Exam:11/01/22 CT HEAD WO PROCEDURE: CT head without contrast. TECHNIQUE: Multiple contiguous axial images were obtained through the brain without the use of intravenous contrast. Auto Exposure Controls were utilized during the CT exam to meet ALARA standards for radiation dose reduction. INDICATION: Dizziness. COMPARISON: CT head without contrast 09/21/2022. FINDINGS: Moderate generalized parenchymal volume loss. No intracranial hemorrhage, mass effect, hydrocephalus or extra-axial fluid collections. No CT evidence of a territorial infarction. Postoperative changes in the right frontal calvarium. Left maxillary antrostomy and ethmoidectomies. Probable mucus retention cyst in the floor of the left maxillary sinus. The mastoids are clear. No acute osseous findings. IMPRESSION: No acute intracranial CT findings. Stable chronic findings as above. Dictated on workstation # [id number] Dict: 11/01/22 1200 Trans: 11/01/22 1211 CVB [id number] Interpreted by: MITUL DOSS MD Electronically signed by: Diagonstic Imaging: Xray Plain Films/CT/US/NM/MRI: chest Comments [facility] [place], [place] NAME: DAVID PATTERSON [facility] REC#: [id number] PT STATUS: REG ER : 1945 PHYSICIAN: SHEREEN CASTANO MD ADMIT DATE: 11/01/22/ER Draft Date of Exam:11/01/22 CHEST 1 VIEW, AP/PA ONLY INDICATION: Dizziness COMPARISON: 09/01/2022 TECHNIQUE: Single radiograph of the chest dated 11/01/2022. FINDINGS: Postsurgical changes of the median sternotomy and atrial clipping again identified. The cardiac silhouette is enlarged, though stable. Large hiatal hernia is again identified with associated left basilar scarring. No significant pulmonary vascular congestion. The lungs are clear of new focal pulmonary opacity. No significant pleural effusion. No pneumothorax. No acute osseous abnormality. IMPRESSION: Mild cardiomegaly without pulmonary vascular congestion. Persistent large hiatal hernia with associated left basilar scarring and atelectasis. Dictated on workstation # [id number] Dict: 11/01/22 1210 Trans: 11/01/22 1221 CVB [id number] Interpreted by: CONCHA ANTUNEZ MD Electronically signed by: Departure Impression Primary Impression: Nausea and vomiting Qualified Codes: R11.2 - Nausea with vomiting, unspecified Additional Impressions: Diarrhea Qualified Codes: R19.7 - Diarrhea, unspecified Dizziness Thyroid nodule greater than or equal to 1.5 cm in diameter incidentally noted on imaging study Disposition: HOME, SELF-CARE Condition: Improved Departure-Patient Inst. Decision time for Depature: 14:42 Referrals: ALEXIS GORE MD (PCP/Family) Primary Care Physician Patient Instructions: Thyroid nodules, Nausea and Vomiting, Adult ED, Diarrhea in adolescents and adults, Dehydration, Adult (DC), Dizziness, Nonvertigo, (DC) Add. Discharge Instructions: All discharge instructions reviewed with patient and/or family. Voiced under standing. Take medications as directed. You may use fooy-kkw-vkeoasn meclizine 25 mg every 8 hours as needed for dizziness. You may purchase this [id number]. Follow-up with your doctor this week for recheck and further evaluation and to discuss the thyroid nodule findings. I did send a copy of the chart to him. You will need outpatient nonemergent ultrasound and he can set that up. Return for worse pain, fever, vomiting, weakness, breathing problems or other concerns as needed. Drink plenty of fluids by taking small sips frequently. Clear a light diet for the next 24 hours and then advance as tolerated. Scripts Ondansetron (Ondansetron Odt) 4 Mg Tab.rapdis 4 MG PO Q6H PRN for NAUSEA/VOMITING, #12 TAB 0 Refills Prov: SHEREEN CASTANO MD 11/01/22 Copy Copies To 1: ALEXIS GORE MD, TIMOTHY D MD Nov 01, 2022 11:09
[2022-11-01] MEDS ORDERED: MECLIZINE 25 MG (ANTIVERT) TAB PO ONE (11:15)
[2022-11-01] MEDS ORDERED: ONDANSETRON 4 MG/2 ML (SDV) Z0FRAN IVP ONE (11:15)
[2022-11-01] MEDS ORDERED: NS IV 500 ML 500 ML IV ONE ×2 (11:15→14:15)
[2022-11-01 11:26] LABS: BASOPHILS % (AUTO) 0 % (0-10); EOSINOPHILS % (AUTO) 0 % (0-10); HEMATOCRIT 44 % (35-52); HEMOGLOBIN 14.7 g/dL (11.5-16.0); LYMPHOCYTES # (AUTO) 2.1 10^3/uL (1.0-4.0); LYMPHOCYTES % (AUTO) 20 % (12-44); MEAN CORPUSCULAR HEMOGLOBIN 30 pg (25-34); MEAN CORPUSCULAR HGB CONC 33 g/dL (32-36); MEAN CORPUSCULAR VOLUME 88 fL (80-99); MEAN PLATELET VOLUME 9.9 fL (9.0-12.2); MONOCYTES # (AUTO) 0.7 10^3/uL (0.0-1.0); MONOCYTES % (AUTO) 7 % (0-12); NEUTROPHILS # (AUTO) 7.8 10^3/uL (1.8-7.8); NEUTROPHILS % (AUTO) 73 % (42-75); PLATELET COUNT 332 10^3/uL (130-400); WHITE BLOOD COUNT 10.7 10^3/uL (4.3-11.0)
[2022-11-01 11:28] LABS: ALBUMIN 4.2 GM/DL (3.2-4.5); CHLORIDE 109 MMOL/L (98-107); POTASSIUM 3.7 MMOL/L (3.6-5.0); SODIUM 140 MMOL/L (135-145)
[2022-11-01 11:29] LABS: CALCIUM 9.5 MG/DL (8.5-10.1)
[2022-11-01 11:31] LABS: GLUCOSE 142 MG/DL (70-105); TOTAL PROTEIN 6.9 GM/DL (6.4-8.2)
[2022-11-01 11:32] LABS: CARBON DIOXIDE 19 MMOL/L (21-32)
[2022-11-01 11:34] LABS: ALKALINE PHOSPHATASE 63 U/L (40-136); CREATININE SERUM 0.75 MG/DL (0.60-1.30); GFR ESTIMATED 82
[2022-11-01 11:35] LABS: BUN/CREATININE RATIO 15
[2022-11-01 11:37] LABS: ALANINE AMINOTRANSFERASE 10 U/L (0-55)
--- NOTE | 2022-11-01 12:12 | Diagnostic Imaging Report ---
PROCEDURE: CT head without contrast. TECHNIQUE: Multiple contiguous axial images were obtained through the brain without the use of intravenous contrast. Auto Exposure Controls were utilized during the CT exam to meet ALARA standards for radiation dose reduction. INDICATION: Dizziness. COMPARISON: CT head without contrast 09/21/2022. FINDINGS: Moderate generalized parenchymal volume loss. No intracranial hemorrhage, mass effect, hydrocephalus or extra-axial fluid collections. No CT evidence of a territorial infarction. Postoperative changes in the right frontal calvarium. Left maxillary antrostomy and ethmoidectomies. Probable mucus retention cyst in the floor of the left maxillary sinus. The mastoids are clear. No acute osseous findings. IMPRESSION: No acute intracranial CT findings. Stable chronic findings as above. Dictated by: Dictated on workstation # [id number]
--- NOTE | 2022-11-01 12:21 | Diagnostic Imaging Report ---
INDICATION: Dizziness COMPARISON: 09/01/2022 TECHNIQUE: Single radiograph of the chest dated 11/01/2022. FINDINGS: Postsurgical changes of the median sternotomy and atrial clipping again identified. The cardiac silhouette is enlarged, though stable. Large hiatal hernia is again identified with associated left basilar scarring. No significant pulmonary vascular congestion. The lungs are clear of new focal pulmonary opacity. No significant pleural effusion. No pneumothorax. No acute osseous abnormality. IMPRESSION: Mild cardiomegaly without pulmonary vascular congestion. Persistent large hiatal hernia with associated left basilar scarring and atelectasis. Dictated by: Dictated on workstation # [id number]
[2022-11-01 12:40] LABS: BILIRUBIN,URINE NEGATIVE (NEGATIVE); CLARITY,URINE CLEAR; COLOR,URINE YELLOW; GLUCOSE, URINE (UA) NEGATIVE (NEGATIVE); KETONES,URINE NEGATIVE (NEGATIVE); LEUKOCYTE ESTERASE ,URINE NEGATIVE (NEGATIVE); NITRITE,URINE NEGATIVE (NEGATIVE); PH,URINE 6.5 (5-9); PROTEIN,URINE NEGATIVE (NEGATIVE)
[2022-11-01 12:49] LABS: BACTERIA,URINE TRACE /HPF; WBC,URINE 0-2 /HPF
[2022-11-01] MEDS ORDERED: IOHEXOL 350 MG/ML 100 ML (OMNIPAQUE 350) VIAL IV ONE (13:30)
[2022-11-01] MEDS ORDERED: NS 100 ML (IVPB) BAG IV ONE (13:30)
--- NOTE | 2022-11-01 14:14 | Diagnostic Imaging Report ---
PROCEDURE: CT angiography of the head and CT angiography of the neck with and without contrast. TECHNIQUE: Contiguous noncontrast images were obtained from the skull base through the vertex. After intravenous contrast administration, helical CT angiography of the neck was performed. Source data was reformatted into 3D MIP projections. Delayed post contrast acquisition was also obtained. Auto Exposure Controls were utilized during the CT exam to meet ALARA standards for radiation dose reduction. INDICATION: Dizziness. Right ear ringing. History of frontal lobe mass resection. COMPARISON: CT head without contrast 11/01/2022. FINDINGS: Postcontrast head CT continues to demonstrate no CT evidence of large territorial infarction or hemorrhage. No abnormal intracranial enhancement. No hydrocephalus or extra axial fluid collections. CTA demonstrates a conventional aortic arch. No high-grade narrowing, aneurysm or dissection involving the basilar, bilateral vertebral, common carotid, internal carotid, anterior cerebral, middle cerebral or posterior cerebral arteries. The dural venous sinuses are normally opacified. No evidence of an arterial venous anomaly. These retention cysts in the left maxillary sinus. Left maxillary antrostomy and ethmoidectomy. The mastoids and middle ears are clear. Moderate spondylotic changes in the cervical spine. No acute osseous findings. Partially visualized sternotomy. No acute findings in the visualized paravertebral soft tissues. Left thyroid nodule measures at least 1.5 cm. The lung apices are clear. IMPRESSION: 1. No large vessel occlusion. No high-grade narrowing, aneurysm or dissection involving major arteries in the head and neck. 2. Indeterminate left thyroid nodule measuring at least 1.5 cm. Recommend nonemergent follow-up with dedicated ultrasound. Dictated by: Dictated on workstation # [id number]
[2022-11-01] MEDS ORDERED: ONDA4TAB11 PO (14:44)
[2022-11-01 14:54] VITALS: BP 124/68
== END 2022-11-01 14:54 | disposition home or self-care (01) ==
LOC: EDUNIT# 10:17 → ER 10:19
DX: R11.2 Nausea with vomiting, unspecified (principal); R19.7 Diarrhea, unspecified; R42 Dizziness and giddiness; E04.1 Nontoxic single thyroid nodule; I48.91 Unspecified atrial fibrillation; Z79.01 Long term (current) use of anticoagulants
CPT/HCPCS: 36415; 70450; 70496; 70498; 71045; 80053; 81000; 84484; 85025; 85379; 86141; 93005

== ENCOUNTER → 2022-11-12 | Outpatient (CLI) | payer MEDICARE, OTHER ==
[~2022-11-12] MED LIST changes: +CEFU500T63 PO; +DILT240C86 PO; +LATA2.5D19 OU; +MECL-149 PO
--- NOTE | 2022-11-12 17:39 | Diagnostic Imaging Report ---
PROCEDURE: US Thyroid. TECHNIQUE: Multiple real-time grayscale images were obtained of the thyroid in various projections. INDICATION: Follow-up thyroid nodules. COMPARISON: 11/01/2022. FINDINGS: Both thyroid lobes demonstrate a heterogeneous background echotexture. Color flow Doppler demonstrates normal and symmetric vascularity bilaterally. The right lobe measures 5.0 cm in length, 1.9 cm AP, and 1.9 cm transverse. The left lobe measures 4.7 cm in length, 1.8 cm AP, and 1.9 cm transverse. The isthmus measures 0.3 cm. Nodules are seen in both lobes of the thyroid. The largest in the inferior pole of the right lobe of the thyroid demonstrates a mixed cystic and solid composition and measures 1.7 x 1.6 x 1.4 cm. In the left lobe of the thyroid, the largest nodule is mostly solid measuring 1.8 x 1.5 x 1.4 cm. Both of these nodules are isoechoic. IMPRESSION: 1. Multinodular goiter. Based on size and imaging characteristics of the nodules, follow-up in 12 months is recommended with thyroid ultrasound. Dictated by: Dictated on workstation # [id number]
== END ==
LOC: RAD 11:20
PROVIDERS: ATTEND Internal Medicine
DX: E04.2 Nontoxic multinodular goiter (principal)
CPT/HCPCS: 76536

== ENCOUNTER 2022-11-13 08:00 | Day surgery (SDC) | payer MEDICARE, OTHER ==
[~2022-11-13] VITALS: Ht 158.8 cm; Wt 89.1 kg
[2022-11-13] VITALS (9 sets, daily range): BP systolic 108–142; BP diastolic 68–100
[2022-11-13 06:54] LABS: HEMATOCRIT 45 % (35-52); HEMOGLOBIN 15.3 g/dL (11.5-16.0); MEAN CORPUSCULAR HEMOGLOBIN 29 pg (25-34); MEAN CORPUSCULAR HGB CONC 34 g/dL (32-36); MEAN CORPUSCULAR VOLUME 86 fL (80-99); MEAN PLATELET VOLUME 9.2 fL (9.0-12.2); PLATELET COUNT 339 10^3/uL (130-400); WHITE BLOOD COUNT 14.8 10^3/uL (4.3-11.0)
[2022-11-13 07:09] LABS: INR 0.9 (0.8-1.4); PROTHROMBIN TIME PATIENT 12.6 SEC (12.2-14.7)
[2022-11-13 07:18] LABS: BILIRUBIN,TOTAL 1.6 MG/DL (0.1-1.0); CALCIUM 9.5 MG/DL (8.5-10.1); CREATININE SERUM 0.86 MG/DL (0.60-1.30); POTASSIUM 4.2 MMOL/L (3.6-5.0); TOTAL PROTEIN 6.4 GM/DL (6.4-8.2)
[~2022-11-13 08:00] MED LIST changes: -CEFU500T63 PO; -DILT240C86 PO; +HEParin (CATH LAB) 1,000 ML IV ONE; +LIDOCAINE 1% INJ 20 ML VIAL ONE; -MECL-149 PO; +MIDAZOLAM 5 MG/5 ML (VERSED) VIAL ONE; +NS (IVPB) 50 ML ONE; +NS IV 1000 ML 1,000 ML IV ONE; +NS IV 1000 ML 2,000 ML ONE; +ONDANSETRON 4 MG/2 ML (SDV) Z0FRAN ONE; +ceFAZolin INJECTION 1,000 MG ONE; +ceFAZolin INJECTION 1,000 MG VIAL IV ONE; +fentaNYL INJ 100 MCG/2 ML AMP ONE
[2022-11-13] MEDS ORDERED: MIDAZOLAM 2 MG/2 ML (VERSED) VIAL ONE (08:18)
[2022-11-13] MEDS ORDERED: fentaNYL INJ 100 MCG/2 ML AMP ONE (08:18)
--- NOTE | 2022-11-13 08:44 | Cardiac Procedure Note-CS/ASA ---
Pre-Procedure Note Pre-Op Procedure Note Date of Available H&P: Nov 09, 2022 Date H&P Reviewed: Nov 13, 2022 Time H&P Reviewed: 07:35 History & Physical: H&P Reviewed, No changes noted Moderate Sedation PreProcedure ASA Score 3 Airway Lungs Heart ASA score ASA 1: a normal healthy patient ASA 2: a patient with a mild systemic disease (mid diabetes, controlled hypertension, obesity ASA 3: a patient with a severe systemic disease that limits activity (angina, COPD, prior Myocardial infarction) ASA 4: a patient with an incapacitating disease that is a constant threat to life (CHF, renal failure) ASA 5: a moribund patient not expected to survive 24 hrs. (ruptured aneurysm) ASA 6: a declared brain- patient whose organs are being harvested. For emergent operations, add the letter E after the classification Mallampati Classification Grade 3 Sedation Plan Analgesia, Amnesia, Plan communicated to team members The patient is an appropriate candidate to undergo the planned procedure, sedation, and anesthesia. The patient immediately re-assessed prior to indication. NETTIE GLEASON MD FACP FAC CCDS Nov 13, 2022 08:44
[2022-11-13] MEDS ORDERED: PATIENT MAY USE OWN MEDS, ALL PO SCH (09:15)
[2022-11-13] MEDS ORDERED: NS IV 1000 ML 1,000 ML IV SCH (09:15)
[2022-11-13] MEDS ORDERED: ACETAMINOPHEN 500 MG TAB (TYLENOL) PO PRN (09:30)
[2022-11-13] MEDS ORDERED: ONDANSETRON 4 MG (ZOFRAN) ORAL DISSOLVE TAB PO PRN (09:30)
[2022-11-13] MEDS ORDERED: HYDROCORTISONE TOP PRN (09:30)
[2022-11-13] MEDS ORDERED: DOCUSATE SODIUM 100 MG (COLACE) CAP PO PRN (09:30)
[2022-11-13] MEDS ORDERED: DILT240C86 PO (09:32)
[2022-11-13] MEDS ORDERED: CEFU500T63 PO (09:35)
[2022-11-13] MEDS ORDERED: MECL-149 PO (10:04)
--- NOTE | 2022-11-13 11:08 | OPERATIVE REPORT ---
DATE OF SERVICE: 11/13/2022 PREOPERATIVE DIAGNOSIS: Chronic, permanent atrial fibrillation with tachycardia-bradycardia syndrome and episodes of symptomatic bradycardia. POSTOPERATIVE DIAGNOSIS: Chronic, permanent atrial fibrillation with tachycardia-bradycardia syndrome and episodes of symptomatic bradycardia. PROCEDURE: Single chamber permanent pacemaker implantation. ESTIMATED BLOOD LOSS: Less than 15 mL. INDICATIONS FOR PROCEDURE: The patient is a 77-year-old lady who has chronic permanent atrial fibrillation. She has opted for conservative management (rate control and stroke prophylaxis). Rate control has been difficult. Despite discontinuation of all rate-lowering medications, she continues to have episodes of marked bradycardia from which she is asymptomatic. Accordingly, a single chamber pacemaker implantation was carried out today after having obtained an informed consent. DESCRIPTION OF PROCEDURE: She was brought to the cardiac catheterization laboratory in a fasting state. Right groin was prepared and draped in the usual sterile fashion. Lidocaine 1% was used for local anesthesia. Modified Seldinger technique was used to introduce a wire into the left subclavian vein and the tip of this was advanced to the right atrium. Sharp and blunt dissection was used to make a pacemaker pocket and good hemostasis was assured. The pocket was packed with gauze soaked in saline. The guidewire was used to advance a sheath and the guide was removed. The sheath was used to advance the lead and the sheath was removed. All lead manipulation were carried out under fluoroscopy. This is an active fixation lead. It was placed close to the right ventricular apex and actively fixed. Good capture and sensing thresholds were obtained. R-waves were 5 millivolts. Pacing impedance was 1084 ohms. Capture threshold was 0.4 volts at 0.4 milliseconds. There was no diaphragmatic stimulation at maximum output. The lead was sutured to the prepectoral fascia using a sleeve and 0 Ethibond. The gauze was removed from the pacemaker pocket. The pocket was thoroughly irrigated with saline. Good hemostasis was assured. The lead was attached to a single chamber Medtronic pacemaker and the connected end of the lead were placed in a Tyrx pouch and everything was then placed in the pacemaker pocket and the pocket was closed in 2 layers using 3.0 Vicryl. The patient tolerated the procedure well. The lead is a Medtronic lead with a serial number [id number]. The device is a Medtronic pacemaker, model W1SR01 with serial number [id number]. The pacemaker is in the VVIR mode with a lower rate of 60 beats per minute and an upper activity rate of 130 beats per minute. Job ID: [id number] DocumentID: [id number] Dictated Date: 11/13/2022 08:53:19 Wage And Salary Specialist Date: 11/13/2022 11:06:00 Dictated By: NETTIE GLEASON MD; NIKKY; FACP; FACC;
--- NOTE | 2022-11-13 11:39 | Diagnostic Imaging Report ---
EXAMINATION: Chest 2 view HISTORY: Post cardiac device placement COMPARISON: 04/13/2022 FINDINGS: Stable enlargement of the cardiac silhouette. Left retrocardiac opacity may represent hiatal hernia or elevated left hemidiaphragm. Surgical changes from left-sided cardiac device placement. Surgical changes from median sternotomy. Mild interstitial opacities are present within the left lower lung. No pleural effusion or pneumothorax. The osseous structures are intact. IMPRESSION: 1. Surgical changes from left-sided cardiac device placement without pneumothorax. 2. Mild left basilar opacities which could represent atelectasis. Dictated by: Dictated on workstation # [id number]
[2022-11-13] MEDS: ceFAZolin INJECTION 1,000 MG in NS (IVPB) 50 ML IV SCH (14:01)
[2022-11-13] MEDS: APIXABAN 5 MG (ELIQUIS) TABLET PO SCH (17:22)
[2022-11-13] MEDS: [UNRECOGNIZED DRUG - REMARK] PO SCH (17:22)
--- NOTE | 2022-11-13 19:11 | Cardiology Discharge Summary ---
Diagnosis/Chief Complaint Date of Admission 11/13/22 Date of Discharge 11/14/22 Final/Discharge Diagnosis Permanent atrial fibrillation with symptomatic bradycardia and tachy-ricardo sy ndrome - ILR implanted on 07-28-[address] West - reached EOL in October 2021 (removed in 2021) - H/O cardioversion and MAZE procedure at [facility] in 2018 that failed to maintain sinus rhythm - Referred to Dr. Bernard at [facility] for consideration of ablation. She saw Dr Felipe on 09/23/20 who did not recommend ablation and recommended medical management - Atrial fib/flutter tachy-ricardo syndrome seen on ILR transmissions. Inability to treat tachycardic episodes with rate-controlling agents because of episodes of symptomatic bradycardia - OAC with Eliquis - Zio monitoring of October 2022: runs of AFIB with RVR, one 5-beat run of AIVR and two 3-second pauses (symptomatic) - Permanent single chamber pacemaker implantation on 11/13/22 and resumption of long-acting diltiazem CAD - H/O cardiac cath September 24, [address] Garcia at [facility] showed non-obstructive dz - MPI of 08-04-22 showed no evidence of ischemia or infarction. No regional wall motion abnormality. LVEF 60%. A-fib with relatively controlled vent response throughout study Recent hospitalization with labial abscess/cyst (Dec 2020) - treated surgically on 12/31/[address] Astudillo Pancreatitis (Dec 2020) - managed by PCP - hospitalization in late December 2020 Mitral valve dz - H/O mitral valve repair with a 31 mm flexible posterior annuloplasty band. The tricuspid annulus was inspected and was large, it was reduced with a DeVega annuloplasty suture by Dr. Gloria at [facility] October 27, 2018 - Echocardiogram of 07-23-20 showed LVEF 70-75%. Grade 2 diastolic dysfunction. LA and RA mod dilated. There appears to be a mitral annuplasty ring. No signif MR. Mild stenosis. PASP 35-40 mmHg - Echocardiogram of 09-08-22 shows LVEF 55-60%. There appears to be mitral annulus repair. Mitral valve leaflets exhibit fair leaflet excursion. No signif MR seen. HTN - controlled HLD - statin tx - managed by PCP Chief Complaint/HPI Chief Complaint/HPI Outpatient observation 11/13 - 11/14/22 after permanent single chamber pacemaker implantation on 11/13/22. Discharge Summary Discussion & Recommendations Home Medications Reviewed patient Home Medication Reconciliation performed by pharmacy medication reconciliations field artillery targeting technician and/or nursing. Patients Allergies have been reviewed. Discharge Home Medications: Reviewed and agree with Discharge Medication list on patient's Discharge Instruction sheet NETTIE GLEASON MD [facility] Nov 13, 2022 19:11
[2022-11-13] MEDS: VITAMIN D3 125 MCG (5,000 UNITS) CAPSULE PO SCH (20:16)
[2022-11-13] MEDS ORDERED: NON-FORMULARY MEDICATION 1 EA EA (Cyanocobalamin (Vitamin B-12) (Vitamin B-12) 500 MCG) PO SCH (21:00)
[2022-11-13] MEDS ORDERED: OMEGA 3 (FISH OIL) 1000 MG CAP PO SCH (21:00)
[2022-11-13] MEDS ORDERED: LATANOPROST 0.005% (XALATAN) OPHTH SOLN 2.5 ML OU SCH (21:00)
[2022-11-13] MEDS ORDERED: NON-FORMULARY MEDICATION 1 EA EA (Fish Oil/Borage/Flax/Om3,6,9#1 (Omega 3-6-9 1,200 mg Sof PO SCH (21:00)
[2022-11-13] MEDS ORDERED: CYANOCOBALAMIN 1,000 MCG (VITAMIN B-12) TABLET PO SCH (21:00)
[2022-11-14] MEDS: ceFAZolin INJECTION 1,000 MG in NS (IVPB) 50 ML IV SCH ×2 (00:40→06:29)
[2022-11-14 04:00] VITALS: BP 130/71
[2022-11-14 05:13] LABS: HEMATOCRIT 42 % (35-52); HEMOGLOBIN 14.1 g/dL (11.5-16.0); MEAN CORPUSCULAR HEMOGLOBIN 29 pg (25-34); MEAN CORPUSCULAR HGB CONC 34 g/dL (32-36); MEAN CORPUSCULAR VOLUME 86 fL (80-99); MEAN PLATELET VOLUME 9.4 fL (9.0-12.2); PLATELET COUNT 266 10^3/uL (130-400); WHITE BLOOD COUNT 12.7 10^3/uL (4.3-11.0)
[2022-11-14 05:23] LABS: ALBUMIN 3.5 GM/DL (3.2-4.5); POTASSIUM 4.3 MMOL/L (3.6-5.0)
[2022-11-14 05:26] LABS: TOTAL PROTEIN 5.8 GM/DL (6.4-8.2)
[2022-11-14 05:28] LABS: BILIRUBIN,TOTAL 1.7 MG/DL (0.1-1.0)
[2022-11-14 05:29] LABS: CREATININE SERUM 0.75 MG/DL (0.60-1.30)
[2022-11-14 07:58] VITALS: BP 130/71
[2022-11-14] MEDS ORDERED: PANTOPRAZOLE 40 MG (PROTONIX) TAB PO SCH (09:00)
[2022-11-14] MEDS: [UNRECOGNIZED DRUG - REMARK] PO SCH (09:53)
[2022-11-14] MEDS: APIXABAN 5 MG (ELIQUIS) TABLET PO SCH (09:56)
[2022-11-14] MEDS: VITAMIN D3 125 MCG (5,000 UNITS) CAPSULE PO SCH (09:58)
== END 2022-11-14 12:00 | disposition home or self-care (01) ==
LOC: CATH 08:00 → CSD 09:26 → CATH 11-14 12:00
PROVIDERS: ATTEND Internal Medicine Cardiovascular Disease
DX: I48.21 Permanent atrial fibrillation (principal); I49.5 Sick sinus syndrome; I48.92 Unspecified atrial flutter; I25.10 Atherosclerotic heart disease of native coronary artery without angina pectoris; I10 Essential (primary) hypertension; E78.2 Mixed hyperlipidemia; R53.83 Other fatigue; R07.89 Other chest pain; Z98.890 Other specified postprocedural states; Z87.19 Personal history of other diseases of the digestive system; Z87.891 Personal history of nicotine dependence; Z79.899 Other long term (current) drug therapy; Z79.01 Long term (current) use of anticoagulants; Z68.35 Body mass index [BMI] 35.0-35.9, adult
CPT/HCPCS: 33207; 71046; 80053 ×2; 80061; 85027 ×2; 85610; 85730; 87081; 93005; C1786; C1898; 36415

== ENCOUNTER 2022-12-05 07:39 | Emergency (ER) | payer MEDICARE, OTHER ==
[~2022-12-05] VITALS: Ht 157 cm; Wt 89.0 kg
[~2022-12-05 07:39] MED LIST changes: +CEFU500T63 PO; +DILT240C86 PO; -HEParin (CATH LAB) 1,000 ML IV ONE; -LIDOCAINE 1% INJ 20 ML VIAL ONE; +MECL-149 PO; -MIDAZOLAM 5 MG/5 ML (VERSED) VIAL ONE; -NS (IVPB) 50 ML ONE; -NS IV 1000 ML 1,000 ML IV ONE; -NS IV 1000 ML 2,000 ML ONE; -ONDANSETRON 4 MG/2 ML (SDV) Z0FRAN ONE; -ceFAZolin INJECTION 1,000 MG ONE; -ceFAZolin INJECTION 1,000 MG VIAL IV ONE; -fentaNYL INJ 100 MCG/2 ML AMP ONE
[2022-12-05 08:04] VITALS: BP 152/83
--- NOTE | 2022-12-05 08:38 | ED General ---
General Chief Complaint: Allergic Reaction Stated Complaint: RASH UNDER BREASTS Nursing Triage Note: pt started taking antibiotic and rash started yesterday morning (BETSEY GRACE) History of Present Illness Date Seen by Provider: Dec 05, 2022 Time Seen by Provider: 08:00 Initial Comments This is a pleasant 77 year old female who presents for a 1 day history of rash. Patient reports that two days ago she was started on Amoxicillin-Clavulanic acid for a sinus infection by her PCP. She developed a rash on her abdomen, chest, back, and upper thighs the next day. Patient reports this rash is extremely itchy . Patient took 2 tablets of Benadryl last night without relief. Patient states that she has never taken amoxillin-clavulanic acid before that she can remember. Upon chart review, clavulanic acid is listed as an allergy, but patient doesn't know why it is on there or what happened. Denies fever, cough, wheezing, difficulty swallowing, SOA. (BETSEY GRACE) Allergies and Home Medications Allergies Coded Allergies: aspirin (Verified Allergy, Intermediate, Hives, 12/29/20) Some kinds of chewable aspirin clavulanic acid (Verified Allergy, Mild, Rash, 12/05/22) Pruritic rash developed after taking guaifenesin, dextromethorphan, and Augmentin. Amoxicillin alone has never caused a rash. dextromethorphan (Verified Allergy, Mild, Rash, 12/05/22) Pruritic rash developed after taking guaifenesin, dextromethorphan, and Augmentin. Amoxicillin alone has never caused a rash. guaifenesin (Verified Allergy, Mild, Rash, 12/05/22) Pruritic rash developed after taking guaifenesin, dextromethorphan, and Augmentin. Amoxicillin alone has never caused a rash. codeine (Verified Allergy, Unknown, 01/06/18) hydrocodone (Verified Allergy, Unknown, 01/06/18) oxycodone (Verified Allergy, Unknown, 01/06/18) Patient Home Medication List Home Medication List Reviewed: Yes (LIZ SUTTON MD) Acetaminophen (Tylenol Extra Strength) 500 Mg Tablet, 1,000 MG PO HS, (Reported) Entered as Reported by: JAEL MATTHEW on 12/30/20 7967 Apixaban (Eliquis) 5 Mg Tablet, 5 MG PO BID, (Reported) Entered as Reported by: HENRRY HERNANDEZ on 12/18/19 1347 Atorvastatin Calcium (Atorvastatin Calcium) 20 Mg Tablet, 20 MG PO 1700, (Reported) Entered as Reported by: HENRRY HERNANDEZ on 12/18/19 1347 Cefuroxime Axetil (Cefuroxime) 500 Mg Tablet, 500 MG PO BID Prescribed by: NETTIE GLEASON on 11/13/22 0935 Cholecalciferol (Vitamin D3) (Vitamin D3) 125 Mcg Tablet, 125 MCG PO BID, (Reported) Entered as Reported by: JAEL MATTHEW on 12/30/20 1418 Cyanocobalamin (Vitamin B-12) (Vitamin B-12) 500 Mcg Tablet, 500 MCG PO HS, (Reported) Entered as Reported by: JAEL MATTHEW on 12/30/20 141 Diltiazem HCl (Cardizem Cd) 240 Mg Cap.er.24h, 240 MG PO DAILY Prescribed by: NETTIE GLEASON on 11/13/22 0932 Docusate Sodium (Dulcolax Stool Softener) 100 Mg Capsule, 100 MG PO DAILY PRN for CONSTIPATION-1ST LINE, (Reported) Entered as Reported by: JAEL MATTHEW on 12/30/20 1418 Fish Oil/Borage/Flax/Om3,6,9#1 ([place] 3-6-9 1,200 mg Softgel) 1,200 Mg Capsule, 1,200 MG PO HS, (Reported) Entered as Reported by: JEAL MATTHEW on 12/30/20 141 Hydroxyzine HCl (Hydroxyzine HCl) 25 Mg Tablet, 25 MG PO Q6H PRN for ITCHING AND RASH Prescribed by: LIZ OLSON on 12/05/22 0946 Lactobacillus Rhamnosus GG (Culturelle) 10 Billion Cell Capsule, 1 EACH PO BID, (Reported) Entered as Reported by: JAEL MATTHEW on 12/30/20 1418 Latanoprost (Xalatan) 0.005 % Drops, 1 DROP OU HS, (Reported) Entered as Reported by: TYSHAWN RICHARD on 11/13/22 0704 Levetiracetam (Levetiracetam) 500 Mg Tablet, 250 MG PO BID, (Reported) Entered as Reported by: SUE ZHOU on 01/06/18 0852 Meclizine HCl (Meclizine HCl) 25 Mg Tablet, 25 MG PO Q8H PRN for DIZZINESS, (Reported) Entered as Reported by: GREG HUFFMAN on 11/13/22 1004 Ondansetron (Ondansetron Odt) 4 Mg Tab.rapdis, 4 MG PO Q6H PRN for NAUSEA/VOMITING Prescribed by: SHEREEN CASTANO on 11/01/22 1444 Pantoprazole Sodium (Pantoprazole Sodium) 40 Mg Tablet.dr, 40 MG PO DAILY, (Reported) Entered as Reported by: JAEL MATTHEW on 12/30/20 1418 Prednisone (Prednisone) 50 Mg Tab, 50 MG PO DAILY Prescribed by: MARISELA GONZALEZ MD on 12/06/22 1139 Review of Systems Review of Systems Constitutional: no symptoms reported EENTM: No mouth swelling, No throat swelling Respiratory: No cough, No short of breath, No wheezing Cardiovascular: No chest pain, No palpitations Gastrointestinal: No abdominal pain Skin: rash (chest, abdomen, back, upper thighs) Psychiatric/Neurological: Denies Tingling (BETSEY GRACE) Past Cevkuyz-Akjqun-Hgisqs Hx Patient Social History Tobacco Use?: No Use of E-Cig and/or Vaping dev: No Substance use?: No (BETSEY GRACE) Immunizations Up To Date First/Initial COVID19 Vaccinat: JUN 2020 Second COVID19 Vaccination Werner: JULY 2020 Third COVID19 Vaccination Date: MAR 2021 (BETSEY GRACE) Seasonal Allergies Seasonal Allergies: No (BETSEY GRACE) Past Medical History Surgery/Hospitalization HX: AFIB, HTN LOOP RECORDER- REMOVED NOW, Surgeries: Yes (BRAIN TUMOR, REMOVAL OF LUMP IN BREAST, MASS REMOVED FROM FACE) Breast, Cardiac, Gallbladder, Hysterectomy, Neurological, Orthopedic, Valve Replacement Respiratory: No Currently Using CPAP: No Currently Using BIPAP: No Cardiac: Yes Atrial Fibrillation, Hypertension, Valvular Heart Disease Neurological: Yes (BENIGN BRAIN TUMOR) Brain Tumor Reproductive Disorders: No 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, 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 Sexually Transmitted Disease: No HIV/AIDS: No Genitourinary: No Gastrointestinal: Yes (DIVERTICULITIS) Gastroesophageal Reflux, Diverticulosis, Hemorrhoids, Pancreatitis, Hiatal Hernia Musculoskeletal: Yes Endocrine: No HEENT: No Loss of Vision: Denies Hearing Impairment: Denies Cancer: Yes Brain What Type of Treatment Did You: Surgical Intervention Psychosocial: No Integumentary: No Blood Disorders: No (BETSEY GRACE) Family Medical History Heart Disease (BETSEY GRACE) Physical Exam Vital Signs Vital Signs - First Documented 12/05/22 08:04 Temp 36.5 Pulse 89 Resp 18 B/P (MAP) 152/83 (106) O2 Delivery Room Air (LIZ SUTTON MD) Vital Signs Capillary Refill : Less Than 3 Seconds (BETSEY GRACE) Height, Weight, BMI Height: 5'2.50" Weight: 196lbs. 2.0oz. [id number]; 36.00 BMI Method:Stated General Appearance: No Apparent Distress, WD/WN Eyes: Bilateral Eye Normal Inspection HEENT: PERRL/EOMI, Pharynx Normal, Moist Mucous Membranes Respiratory: Normal Breath Sounds Cardiovascular: Regular Rate, Rhythm Gastrointestinal: Normal Bowel Sounds Extremity: No Calf Tenderness Neurologic/Psychiatric: Alert, Oriented x3 Skin: Rash (maculopapular rash on chest, underneath bilateral breasts, abdomen, back, upper thighs) (BETSEY GRACE) Progress/Results/Core Measures Suspected Sepsis SIRS Temperature: Pulse: 89 Respiratory Rate: 18 Blood Pressure 152 /83 Mean: 106 (BETSEY GRACE) Results/Orders My Orders Orders - LIZ SUTTON MD Hydroxyzine Cap/Tab (Vistaril) (12/05/22 09:15) (LIZ SUTTON MD) Medications Given in ED (LIZ SUTTON MD) Vital Signs/I&O 12/05/22 08:04 Temp 36.5 Pulse 89 Resp 18 B/P (MAP) 152/83 (106) O2 Delivery Room Air (LIZ SUTTON MD) Vital Signs/I&O Capillary Refill : Less Than 3 Seconds (BETSEY GRACE) Blood Pressure Mean: 106 Progress Note : Progress Note I received report regarding this patient from registration at 0756. ER volume was high at that time, and H&P was assigned to the PA student. After receiving report from PA student, I personally interviewed and examined the patient. She was found to have a maculopapular rash as described. She was otherwise stable. Itching was her primary complaint. She had been taking 3 medications prior to onset of symptoms included guaifenesin, dextromethorphan, and Augmentin. She reports taking amoxicillin multiple times previously without any difficulty. She did have a prior allergy to clavulanic acid listed but does not know exactly what the allergy was. She was advised to list all 3 of these medications as allergies in the future since it is impossible to discern what caused her rash. She was also advised that alternatively her rash may be caused by viral illness that triggered the sinus symptoms as well. Hydroxyzine was given for the itching. Prednisone was avoided as patient reported some adverse effects previously. (LIZ SUTTON MD) Departure Communication (Admissions) 12/06/22 Patient called with worsening rash, no other symptoms. Advised i would send prednisone to her pharmacy. (MARISELA GONZALEZ DO) Impression Primary Impression: Pruritic rash Disposition: 01 HOME, SELF-CARE Condition: Improved Departure-Patient Inst. Decision time for Depature: 09:42 (LIZ SUTTON MD) Referrals: ALEXIS GORE MD (PCP/Family) Primary Care Physician Patient Instructions: Drug Allergy, Skin Rash Add. Discharge Instructions: Your rash may have been caused by allergic reaction to one of your new medications including possibly clavulanic acid, dextromethorphan, or guaifenesin. Please list these medications along with other allergies in the future healthcare encounters. Alternatively, your rash may have been caused by a viral illness. You may take a nondrowsy antihistamine such as Claritin, Zyrtec, or their generic equivalents. You may add either Benadryl (diphenhydramine) or the hydroxyzine as prescribed for breakthrough itching. These medications may cause significant drowsiness so use with caution. Do not drive, operate machinery, or make important decisions while on these medications. Also be careful with rising and walking while on these medications. Topical treatments may also be helpful such as topical preparations containing benzocaine or lidocaine. Do not use anti-itch preparations containing diphenhydramine along with oral antihistamines. Topical steroid such as hydrocortisone cream may be helpful and can be used sparingly. Return to care if symptoms are worsening despite following these instructions. In particular, return to the emergency room immediately or call 911 if you are having difficulty with tightening, swelling, or closing of the airway, or di fficulty breathing. All discharge instructions reviewed with patient and/or family. Voiced understanding. Scripts Prednisone (Prednisone) 50 Mg Tab 50 MG PO DAILY for 5 Days, #5 TAB Prov: MARISELA GONZALEZ DO 12/06/22 Hydroxyzine HCl (Hydroxyzine HCl) 25 Mg Tablet 25 MG PO Q6H PRN for ITCHING AND RASH, #10 TAB Prov: LIZ SUTTON MD 12/05/22 Copy Copies To 1: ALEXIS GORE MD, ALLISON Dec 05, 2022 08:38 LIZ SUTTON MD Dec 05, 2022 09:09 MARISELA GONZALEZ DO Dec 06, 2022 11:40
[2022-12-05] MEDS ORDERED: hydrOXYzine 25 MG CAPSULE PO ONE (09:15)
[2022-12-05] MEDS ORDERED: HYDR-700 PO (09:46)
[2022-12-06] MEDS ORDERED: PRD50T PO (11:39)
== END 2022-12-05 09:55 | disposition home or self-care (01) ==
LOC: EDUNIT# 07:39 → ER 07:41
DX: R21 Rash and other nonspecific skin eruption (principal)
CPT/HCPCS: 99281

== ENCOUNTER 2023-01-18 12:55 | Emergency (ER) | payer MEDICARE, OTHER ==
[~2023-01-18 12:55] MED LIST changes: +HYDR-700 PO; +PRD50T PO
--- NOTE | 2023-01-18 13:27 | ED General ---
General Stated Complaint: HEADACHES | COUGH | LT FOOT SWOLLEN Source of Information: Patient Exam Limitations: No Limitations (TISH PAZ) History of Present Illness Date Seen by Provider: Jan 18, 2023 Time Seen by Provider: 13:23 Initial Comments Patient is a 77-year-old female with a history of heart valve disease, coronary artery disease who presents to the ED for headaches, sneezing and coughing for the past 3 weeks. She states she has been having some nasal congestion and sinus pressure. She reports a wet productive cough. Some shortness of breath when climbing stairs. Some mild chest discomfort but no current pain at this time. She reports some loose stools without blood or mucous. Denies of any vo miting. She is noted to have some bilateral foot and ankle swelling over the past week and a half which is new. no pain to the legs. No known history of CHF. She is currently on Eliquis. She had a place maker placed October of this year. She is not on any currently antibiotics. Has been taken Sudafed and Afrin without much improvement. She reports headaches in the morning and in the evening but does get minimal improvement with Sudafed. Denies of any visual changes, sore throat, ear pain, unilateral muscle weakness or sensory changes, abdominal pain, vomiting, neck pain, urinary symptoms, shortness of breath. (TISH PAZ) Allergies and Home Medications Allergies Coded Allergies: aspirin (Verified Allergy, Intermediate, Hives, 12/29/20) Some kinds of chewable aspirin clavulanic acid (Verified Allergy, Mild, Rash, 12/05/22) Pruritic rash developed after taking guaifenesin, dextromethorphan, and Augmentin. Amoxicillin alone has never caused a rash. dextromethorphan (Verified Allergy, Mild, Rash, 12/05/22) Pruritic rash developed after taking guaifenesin, dextromethorphan, and Augmentin. Amoxicillin alone has never caused a rash. guaifenesin (Verified Allergy, Mild, Rash, 12/05/22) Pruritic rash developed after taking guaifenesin, dextromethorphan, and Augmentin. Amoxicillin alone has never caused a rash. codeine (Verified Allergy, Unknown, 01/06/18) hydrocodone (Verified Allergy, Unknown, 01/06/18) oxycodone (Verified Allergy, Unknown, 01/06/18) Patient Home Medication List Home Medication List Reviewed: Yes (TISH PAZ) Acetaminophen (Tylenol Extra Strength) 500 Mg Tablet, 1,000 MG PO HS, (Reported) Entered as Reported by: JAEL MATTHEW on 12/30/20 1425 Apixaban (Eliquis) 5 Mg Tablet, 5 MG PO BID, (Reported) Entered as Reported by: HENRRY HERNANDEZ on 12/18/19 1347 Atorvastatin Calcium (Atorvastatin Calcium) 20 Mg Tablet, 20 MG PO 1700, (Reported) Entered as Reported by: HENRRY HERNANDEZ on 12/18/19 1347 Cefdinir (Cefdinir) 300 Mg Capsule, 300 MG PO BID Prescribed by: MADISON HINKLE on 01/18/23 1450 Cefuroxime Axetil (Cefuroxime) 500 Mg Tablet, 500 MG PO BID Prescribed by: NETTIE PACK on 11/13/22 0935 Cholecalciferol (Vitamin D3) (Vitamin D3) 125 Mcg Tablet, 125 MCG PO BID, (Reported) Entered as Reported by: JAEL MATTHEW on 12/30/20 1418 Cyanocobalamin (Vitamin B-12) (Vitamin B-12) 500 Mcg Tablet, 500 MCG PO HS, (Reported) Entered as Reported by: JAEL MATTHEW on 12/30/20 1418 Diltiazem HCl (Cardizem Cd) 240 Mg Cap.er.24h, 240 MG PO DAILY Prescribed by: NETTIE PACK on 11/13/22 0932 Docusate Sodium (Dulcolax Stool Softener) 100 Mg Capsule, 100 MG PO DAILY PRN for CONSTIPATION-1ST LINE, (Reported) Entered as Reported by: JAEL MATTHEW on 12/30/20 1418 Fish Oil/Borage/Flax/Om3,6,9#1 ([place] 3-6-9 1,200 mg Softgel) 1,200 Mg Capsule, 1,200 MG PO HS, (Reported) Entered as Reported by: JAEL MATTHEW on 12/30/20 1418 Furosemide (Lasix) 20 Mg Tablet, 20 MG PO DAILY Prescribed by: MADISON HINKLE on 01/18/23 1450 Hydroxyzine HCl (Hydroxyzine HCl) 25 Mg Tablet, 25 MG PO Q6H PRN for ITCHING AND RASH Prescribed by: LIZ OLSON on 12/05/22 0946 Lactobacillus Rhamnosus GG (Culturelle) 10 Billion Cell Capsule, 1 EACH PO BID, (Reported) Entered as Reported by: JAEL MATTHEW on 12/30/20 1418 Latanoprost (Xalatan) 0.005 % Drops, 1 DROP OU HS, (Reported) Entered as Reported by: TYSHAWN RICHARD on 11/13/22 0704 Levetiracetam (Levetiracetam) 500 Mg Tablet, 250 MG PO BID, (Reported) Entered as Reported by: SUE ZHOU on 01/06/18 0852 Meclizine HCl (Meclizine HCl) 25 Mg Tablet, 25 MG PO Q8H PRN for DIZZINESS, (Reported) Entered as Reported by: GREG HUFFMAN on 11/13/22 1004 Ondansetron (Ondansetron Odt) 4 Mg Tab.rapdis, 4 MG PO Q6H PRN for NAUSEA/VOMITING Prescribed by: SHEREEN CASTANO on 11/01/22 1444 Pantoprazole Sodium (Pantoprazole Sodium) 40 Mg Tablet.dr, 40 MG PO DAILY, (Reported) Entered as Reported by: JAEL MATTHEW on 12/30/20 1418 Prednisone (Prednisone) 50 Mg Tab, 50 MG PO DAILY Prescribed by: MARISELA GONZALEZ MD on 12/06/22 1139 Review of Systems Review of Systems Constitutional: No chills, No diaphoresis, No fever; malaise, weakness EENTM: No ear pain, No blurred vision, No double vision Respiratory: cough, short of breath Cardiovascular: chest pain Gastrointestinal: No abdominal pain, No diarrhea, No nausea Genitourinary: No decreased output Musculoskeletal: No back pain, No joint pain Skin: No change in color (TISH PAZ) All Other Systems Reviewed Negative Unless Noted: Yes (TISH PAZ) Past Ctkcjnw-Hiyeqd-Kqskqs Hx Immunizations Up To Date First/Initial COVID19 Vaccinat: JUN 2020 Second COVID19 Vaccination Werner: JULY 2020 Third COVID19 Vaccination Date: MAR 2021 (TISH PAZ) Seasonal Allergies Seasonal Allergies: No (TISH PAZ) Past Medical History Surgery/Hospitalization HX: AFIB, HTN LOOP RECORDER- REMOVED NOW, Surgeries: Yes (BRAIN TUMOR, REMOVAL OF LUMP IN BREAST, MASS REMOVED FROM FACE) Breast, Cardiac, Gallbladder, Hysterectomy, Neurological, Orthopedic, Valve Replacement Respiratory: No Currently Using CPAP: No Currently Using BIPAP: No Cardiac: Yes Atrial Fibrillation, Hypertension, Valvular Heart Disease Neurological: Yes (BENIGN BRAIN TUMOR) Brain Tumor Reproductive Disorders: No 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, 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 Sexually Transmitted Disease: No HIV/AIDS: No Genitourinary: No Gastrointestinal: Yes (DIVERTICULITIS) Gastroesophageal Reflux, Diverticulosis, Hemorrhoids, Pancreatitis, Hiatal H ernia Musculoskeletal: Yes Endocrine: No HEENT: No Loss of Vision: Denies Hearing Impairment: Denies Cancer: Yes Brain What Type of Treatment Did You: Surgical Intervention Psychosocial: No Integumentary: No Blood Disorders: No (TISH PAZ) Family Medical History Heart Disease (TISH PAZ) Physical Exam Vital Signs Vital Signs - First Documented 01/18/23 13:07 Temp 37.6 Pulse 88 Resp 16 B/P (MAP) 145/90 (108) Pulse Ox 96 O2 Delivery Room Air (BAMBI,MARYURI K DO) Vital Signs Capillary Refill : (TISH PAZ) Height, Weight, BMI Height: 5'2.50" Weight: 196lbs. 2.0oz. [id number]; 36.00 BMI Method:Stated General Appearance: No Apparent Distress, WD/WN Eyes: Bilateral Eye Normal Inspection, Bilateral Eye PERRL, Bilateral Eye EOMI HEENT: PERRL/EOMI, TMs Normal, Normal ENT Inspection, Pharynx Normal Neck: Full Range of Motion, Normal Inspection, Non Tender, Supple Respiratory: Chest Non Tender, Lungs Clear, Normal Breath Sounds, No Accessory Muscle Use, No Respiratory Distress Cardiovascular: Regular Rate, Rhythm, No Edema, No Gallop Gastrointestinal: Normal Bowel Sounds, No Organomegaly, No Pulsatile Mass, Non Tender Back: Normal Inspection, No CVA Tenderness, No Vertebral Tenderness Extremity: Normal Capillary Refill, Normal Inspection, Normal Range of Motion, Non Tender Neurologic/Psychiatric: Alert, Oriented x3, No Motor/Sensory Deficits, Normal 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, 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 Norm as Tested Skin: Normal Color, Warm/Dry (TISH PAZ) Progress/Results/Core Measures Suspected Sepsis SIRS Temperature: Pulse: Respiratory Rate: Laboratory Tests 01/18/23 13:37: White Blood Count 9.1 Blood Pressure / Mean: Laboratory Tests 01/18/23 13:37: Creatinine 0.73, Platelet Count 261, Total Bilirubin 1.6H (TISH PAZ) Results/Orders Lab Results Laboratory Tests Test 01/18/23 13:09 01/18/23 13:37 01/18/23 13:50 Range/Units Influenza Type A (RT-PCR) Not Detected Not Detecte Influenza Type B (RT-PCR) Not Detected Not Detecte SARS-CoV-2 RNA (RT-PCR) Not Detected Not Detecte White Blood Count 9.1 4.3-11.0 10^3/uL Red Blood Count 4.56 3.80-5.11 10^6/uL Hemoglobin 13.2 11.5-16.0 g/dL Hematocrit 41 35-52 % Mean Corpuscular Volume 90 80-99 fL Mean Corpuscular Hemoglobin 29 25-34 pg Mean Corpuscular Hemoglobin Concent 32 32-36 g/dL Red Cell Distribution Width 13.9 10.0-14.5 % Platelet Count 261 130-400 10^3/uL Mean Platelet Volume 9.1 9.0-12.2 fL Immature Granulocyte % (Auto) 0 % Neutrophils (%) (Auto) 69 42-75 % Lymphocytes (%) (Auto) 23 12-44 % Monocytes (%) (Auto) 7 0-12 % Eosinophils (%) (Auto) 1 0-10 % Basophils (%) (Auto) 1 0-10 % Neutrophils # (Auto) 6.2 1.8-7.8 10^3/uL Lymphocytes # (Auto) 2.0 1.0-4.0 10^3/uL Monocytes # (Auto) 0.6 0.0-1.0 10^3/uL Eosinophils # (Auto) 0.1 0.0-0.3 10^3/uL Basophils # (Auto) 0.1 0.0-0.1 10^3/uL Immature Granulocyte # (Auto) 0.0 0.0-0.1 10^3/uL Sodium Level 142 135-145 MMOL/L Potassium Level 3.5 L 3.6-5.0 MMOL/L Chloride Level 110 H 98-107 MMOL/L Carbon Dioxide Level 22 21-32 MMOL/L Anion Gap 10 5-14 MMOL/L Blood Urea Nitrogen 7 7-18 MG/DL Creatinine 0.73 0.60-1.30 MG/DL Estimat Glomerular Filtration Rate 85 BUN/Creatinine Ratio 10 Glucose Level 130 H 70-105 MG/DL Calcium Level 8.6 8.5-10.1 MG/DL Corrected Calcium 8.9 8.5-10.1 MG/DL Magnesium Level 1.6 1.6-2.4 MG/DL Total Bilirubin 1.6 H 0.1-1.0 MG/DL Aspartate Amino Transf (AST/SGOT) 15 5-34 U/L Alanine Aminotransferase (ALT/SGPT) 12 0-55 U/L Alkaline Phosphatase 56 40-136 U/L Troponin I < 0.028 <0.028 NG/ML C-Reactive Protein High Sensitivity 0.06 0.00-0.50 MG/DL B-Type Natriuretic Peptide 136.9 H <100.0 PG/ML Total Protein 5.9 L 6.4-8.2 GM/DL Albumin 3.6 3.2-4.5 GM/DL Urine Color YELLOW Urine Clarity CLEAR Urine pH 5.5 5-9 Urine Specific [place] >=1.030 1.016-1.022 Urine Protein 1+ H NEGATIVE Urine Glucose (UA) NEGATIVE NEGATIVE Urine Ketones TRACE H NEGATIVE Urine Nitrite NEGATIVE NEGATIVE Urine Bilirubin 1+ H NEGATIVE Urine Urobilinogen 0.2 < = 1.0 MG/DL Urine Leukocyte Esterase TRACE H NEGATIVE Urine RBC (Auto) NEGATIVE NEGATIVE Urine RBC RARE /HPF Urine WBC 5-10 H /HPF Urine Squamous Epithelial Cells 0-2 /HPF Urine Crystals PRESENT H /LPF Urine Calcium Oxalate Crystals FEW H /LPF Urine Bacteria FEW H /HPF Urine Casts PRESENT /LPF Urine Hyaline Casts RARE /LPF Urine Granular Casts RARE /LPF Urine Mucus LARGE H /LPF Urine Culture Indicated YES (MARYURI LACY DO) Medications Given in ED Current Medications Medications Dose Ordered Sig/Rita Route Start Time Stop Time Status Last Admin Dose Admin Potassium Chloride 20 meq ONCE ONCE PO 01/18/23 15:00 01/18/23 15:01 DC 01/18/23 14:54 20 MEQ (MARYURI LACY DO) Vital Signs/I&O 01/18/23 01/18/23 13:07 15:05 Temp 37.6 Pulse 88 75 Resp 16 16 B/P (MAP) 145/90 (108) 147/87 Pulse Ox 96 98 O2 Delivery Room Air Room Air (MARYURI LACY DO) Vital Signs/I&O Capillary Refill : (TISH PAZ) ECG Comment Atrial fibrillation, incomplete right bundle branch block, minimal ST depression. 73 bpm, QRS duration 94 MS, QTc 424 MS. (TISH PAZ) Departure Communication (PCP) Patient presents to ED with nasal congestion, sneezing, cough and headache. Symptoms over the past 2 or 3 weeks. No improvement with ygue-dki-nidznhe symptoms. Reviewed previous ER visits, H&P, lab testing. History of sinus infection. She states this feels very similar. She has had some mild shortness of breath with climbing stairs and some intermittent chest pain but no chest pain or shortness of breath today. She denies abdominal pain. Few loose s tools. She does have a pacemaker. History of A-fib and symptomatic sinus bradycardia. History of mitral valve disease. Currently on Eliquis. Due to her current complaint cardiac work-up, generalized lab work, COVID influenza with chest x-ray was ordered. Did add a urinalysis. CBC grossly unremarkable. Chemistry showed a potassium of 3.5. She did receive oral potassium 20 mEq. Blood sugar 130. Normal troponin. BNP 136. EKG showed atrial fibrillation incomplete right bundle branch block, minimal ST depression. Very similar to her previous EKGs. COVID influenza was negative. Urinalysis leukocytes, white blood cells and bacteria concerning for potential underlying UTI. She does have a history of urinary tract infections. She does have some maxillary frontal sinus tenderness. Headaches are intermittent does get improvement with Sudafed. She has no focal neural deficits. Denies worst headaches of her life. Denies of any current headache. No strokelike symptoms. Chest x-ray was negative for pneumonia. New small bilateral pleural effusions. Stable cardiomegaly. No consolidation. She had a cardiac stress test in August which did not show any significant myocardial ischemia. Ejection fraction 60%. Patient may be developing early CHF. She does report some bilateral low ankle and foot swelling which seems to improve at night when she elevates. She does have some mild pitting edema to the feet. No joint pain redness. Neurovascular intact bilateral. No calf tenderness. Suspect sinus infection with secondary UTI and CHF. She is does not require oxygen. No diffuse edema requiring admission with IV diuretics at this time. At this time we will start a low-dose Lasix 20 mg. Will discharge with cefdinir to help cover sinus infection and UTI. May continue with conservative treatment at home. Recommend follow-up with your PCP in 2 to 3 days for reevaluation. She has a scheduled cardiac follow-up next week with Dr. Pack. Elevate feet at night. Discussed compression socks. If any worsening shortness of breath or chest pain to return back to ED. She states this does feel very similar to a sinus infection. Patient agrees with plan of action. Vital signs stable (TISH PAZ) Impression Primary Impression: Sinusitis Additional Impression: UTI (urinary tract infection) Disposition: 01 HOME, SELF-CARE Condition: Stable Departure-Patient Inst. Decision time for Depature: 14:49 (TISH PAZ) Referrals: MELECIO MARTINEZ MD, JOHN D MD (PCP/Family) Primary Care Physician Patient Instructions: Sinusitis, Adult ED, Urinary Tract Infection, Adult (DC) Add. Discharge Instructions: Recommend taking antibiotic as prescribed. Continue with Sudafed Flonase for nasal congestion. Lasix to help with the swelling. Elevate your feet. Make try compression socks throughout the day to help with the swelling. Recommend follow-up with her primary care physician 2 to 3 days for reevaluation. Follow- up with your real estate paralegal for the small pleural effusion and fluid retention. Scripts Furosemide (Lasix) 20 Mg Tablet 20 MG PO DAILY for 4 Days, #4 TAB Prov: TISH PAZ 01/18/23 Cefdinir (Cefdinir) 300 Mg Capsule 300 MG PO BID for 10 Days, #20 CAP Prov: TISH PAZ 01/18/23 ATTENDING PHYSICIAN NOTE: I WAS PHYSICALLY PRESENT ER PHYSICIAN, BUT I WAS NOT INVOLVED IN ANY DECISION MAKING OR ANY CARE OF THIS PATIENT AND I AM NOT COLLABORATING PHYSICIAN. (BAMBI,TISH MORGAN Jan 18, 2023 13:27 MARYURI LACY DO Jan 18, 2023 17:28
[2023-01-18 13:48] LABS: BASOPHILS # (AUTO) 0.1 10^3/uL (0.0-0.1); BASOPHILS % (AUTO) 1 % (0-10); EOSINOPHILS # (AUTO) 0.1 10^3/uL (0.0-0.3); EOSINOPHILS % (AUTO) 1 % (0-10); HEMATOCRIT 41 % (35-52); HEMOGLOBIN 13.2 g/dL (11.5-16.0); LYMPHOCYTES % (AUTO) 23 % (12-44); MEAN CORPUSCULAR HEMOGLOBIN 29 pg (25-34); MEAN CORPUSCULAR HGB CONC 32 g/dL (32-36); MEAN CORPUSCULAR VOLUME 90 fL (80-99); MEAN PLATELET VOLUME 9.1 fL (9.0-12.2); MONOCYTES # (AUTO) 0.6 10^3/uL (0.0-1.0); MONOCYTES % (AUTO) 7 % (0-12); NEUTROPHILS # (AUTO) 6.2 10^3/uL (1.8-7.8); NEUTROPHILS % (AUTO) 69 % (42-75); PLATELET COUNT 261 10^3/uL (130-400); WHITE BLOOD COUNT 9.1 10^3/uL (4.3-11.0)
[2023-01-18 14:03] LABS: ALBUMIN 3.6 GM/DL (3.2-4.5); CHLORIDE 110 MMOL/L (98-107); POTASSIUM 3.5 MMOL/L (3.6-5.0); SODIUM 142 MMOL/L (135-145)
[2023-01-18 14:04] LABS: CALCIUM 8.6 MG/DL (8.5-10.1)
[2023-01-18 14:05] LABS: GLUCOSE 130 MG/DL (70-105); TOTAL PROTEIN 5.9 GM/DL (6.4-8.2)
--- NOTE | 2023-01-18 14:06 | Diagnostic Imaging Report ---
CHEST 1 VIEW, AP/PA ONLY Indication: Cough Comparison: 11/13/2022 Findings: Stable asymmetric elevation of the left hemidiaphragm. Visible lungs are clear. Small bilateral pleural effusions have developed. No pneumothorax. Stable cardiomegaly with left pectoral transvenous pacemaker. Impression: 1. New small bilateral pleural effusions. 2. No florina pulmonary edema. Dictated by: Dictated on workstation # [id number]
[2023-01-18 14:07] LABS: BILIRUBIN,TOTAL 1.6 MG/DL (0.1-1.0); CARBON DIOXIDE 22 MMOL/L (21-32)
[2023-01-18 14:09] LABS: ALKALINE PHOSPHATASE 56 U/L (40-136); CREATININE SERUM 0.73 MG/DL (0.60-1.30); GFR ESTIMATED 85
[2023-01-18 14:10] LABS: BUN/CREATININE RATIO 10
[2023-01-18 14:12] LABS: ALANINE AMINOTRANSFERASE 12 U/L (0-55); MAGNESIUM 1.6 MG/DL (1.6-2.4)
[2023-01-18 14:30] LABS: BACTERIA,URINE FEW /HPF; BILIRUBIN,URINE 1+ (NEGATIVE); CALCIUM OXALATE CRYSTALS,UR FEW /LPF; CLARITY,URINE CLEAR; COLOR,URINE YELLOW; GLUCOSE, URINE (UA) NEGATIVE (NEGATIVE); KETONES,URINE TRACE (NEGATIVE); LEUKOCYTE ESTERASE ,URINE TRACE (NEGATIVE); NITRITE,URINE NEGATIVE (NEGATIVE); PH,URINE 5.5 (5-9); PROTEIN,URINE 1+ (NEGATIVE); RBC,URINE RARE /HPF; SQUAMOUS EPITHELIAL CELL,UR 0-2 /HPF
[2023-01-18 14:31] LABS: GRANULAR CASTS,URINE RARE /LPF; HYALINE CASTS, URINE RARE /LPF
[2023-01-18] MEDS ORDERED: FURO-125 PO (14:50)
[2023-01-18] MEDS ORDERED: CEFD300C3 PO (14:50)
[2023-01-18] MEDS ORDERED: POTASSIUM CHLORIDE 20 MEQ TABLET PO ONE (15:00)
[2023-01-18 15:05] VITALS: BP 147/87
== END 2023-01-18 15:05 | disposition home or self-care (01) ==
LOC: EDUNIT# 12:55 → ER 12:57
DX: J32.9 Chronic sinusitis, unspecified (principal); N39.0 Urinary tract infection, site not specified; Z20.822 Contact with and (suspected) exposure to COVID-19
CPT/HCPCS: 36415; 71045; 80053; 81000; 83735; 83880; 84484; 85025; 86141; 87088; 87636; 93005

== ENCOUNTER → 2023-02-04 | Outpatient (CLI) | payer MEDICARE, OTHER ==
[~2023-02-04] MED LIST changes: +FURO-125 PO; -MECL-149 PO; +MECL-291 PO
== END ==
LOC: ORTHO 10:55
PROVIDERS: ATTEND Orthopaedic Surgery
DX: M25.512 Pain in left shoulder (principal); M25.511 Pain in right shoulder

== ENCOUNTER → 2023-02-24 | Outpatient (CLI) | payer MEDICARE, OTHER | LOC: CARD 13:05 | PROVIDERS: ATTEND Internal Medicine Cardiovascular Disease | DX: I50.31 Acute diastolic (congestive) heart failure (principal); I34.0 Nonrheumatic mitral (valve) insufficiency | CPT/HCPCS: 93306 ==

== ENCOUNTER → 2023-03-10 | Outpatient (CLI) | payer MEDICARE, OTHER ==
--- NOTE | 2023-03-10 22:26 | Diagnostic Imaging Report ---
INDICATION: Routine screening. Comparison is made with prior mammogram from 10/10/2021 and 08/01/2020. 2-D and 3-D bilateral screening mammography was performed with CAD. Scattered fibroglandular densities are identified bilaterally. A biopsy marker clip right breast again noted. There are scattered benign calcifications in both breasts. No mass or malignant-appearing microcalcifications are seen. Calcifications versus duodenal artifact in the axillae are noted bilaterally. IMPRESSION: No mammographic features suspicious for malignancy are identified. ACR BI-RADS Category 2: Benign findings. Result letter will be mailed to the patient. Note: At least 10% of breast cancer is not imaged by mammography. BI-RADS Category 2 Dictated on workstation # [id number]
== END ==
LOC: RAD 09:46
PROVIDERS: ATTEND Internal Medicine
DX: Z12.31 Encounter for screening mammogram for malignant neoplasm of breast (principal)
CPT/HCPCS: 77063; 77067